=== PATIENT | male | born 1965 | race Caucasian/White ===

== ENCOUNTER 2016-07-10 15:34 | Observation (INO) | payer MEDICAID ==
[~2016-07-10] VITALS: Ht 188 cm; Wt 75.0 kg
[~2016-07-10 15:34] MED LIST: ASPI-482 PO; CHOL20004 PO; GABA-586 PO; METO50TA2 PO; OMEG500C3 PO; OMEP40CA2 PO; OXYC1TAB8 PO; [UNRECOGNIZED DRUG - CODE] PO; vit b
[2016-07-10 15:58] LABS: BASO % 1 % (0-3); EOS % 2 % (0-3); HEMATOCRIT 37.6 % (39.0-53.0); HEMOGLOBIN 13.2 g/dL (13.0-17.5); LYMPH # 1.2 x10^3/uL (1.0-4.8); LYMPH % 23 % (24-48); MEAN CORPUSCULAR HEMOGLOBIN 31 pg (25-35); MEAN CORPUSCULAR HGB CONC 35 g/dL (31-37); MEAN CORPUSCULAR VOLUME 89 fL (79-100); MONO % 15 % (0-9); NEUT % 59 % (31-73); PLATELET COUNT 245 x10^3/uL (140-400); RED BLOOD COUNT 4.23 x10^6/uL (4.30-5.70); RED CELL DISTRIBUTION WIDTH 13.8 % (11.5-14.5); WHITE BLOOD COUNT 5.2 x10^3/uL (4.0-11.0)
[2016-07-10 16:14] LABS: CALCIUM 9.7 mg/dL (8.5-10.1); GFR 79.4
[2016-07-10] MEDS ORDERED: ASPIRIN CHEWABLE 81 MG TABLET. PO ONE (16:15)
--- NOTE | 2016-07-10 16:16 | RAD ---
Indication chest pain. A single view of the chest was obtained. No prior imaging of the chest is available. The heart and pulmonary vessels appear normal. The lungs are clear. There is no pleural fluid or pneumothorax. Postoperative changes associated with the left humerus are noted. IMPRESSION: No acute finding apparent in the chest
[2016-07-10 16:19] LABS: ALBUMIN 3.9 g/dL (3.4-5.0); DIRECT BILIRUBIN 0.2 mg/dL (0.0-0.2); TOTAL BILIRUBIN 0.5 mg/dL (0.2-1.0); TOTAL PROTEIN 8.7 g/dL (6.4-8.2)
[2016-07-10] MEDS ORDERED: MORPHINE SULFATE 2 MG/ML DISP.SYRIN. IV PRN ×2 (16:30→16:45)
--- NOTE | 2016-07-10 16:32 | PHYS DOC ---
Past Medical History Past Medical History: Anxiety, Kidney Stone, Pancreatitis Additional Past Medical Histor: Testicular CA 1995,Kidney stones Past Surgical History: Other Additional Past Surgical Histo: L)shoulder fx repair,Lithotripsy Additional Information: quit one month ago, pt smoked for 20 years at 2 packs per week. Alcohol Use: Sober Drug Use: None Adult General Chief Complaint Chief Complaint: CHEST PAIN HPI HPI 51-year-old male with a history of smoking history of hypertension presenting to the emergency department with chest pain. It started this morning. He has not had nausea or vomiting. He does report a sweating of the palms of his hands at the time of this pain. Currently his pain is moderate. It is a pressure. It is nonradiating. Denies personal or family history of blood clotting disorders. He denies hemoptysis unilateral leg swelling or sudden onset of chest pain. Review of systems is negative for abdominal pain nausea vomiting. Negative for fevers chills or cough. All other review of systems is negative unless otherwise noted in history of present illness. Review of Systems Review of Systems SEE ABOVE. Current Medications Current Medications Current Medications Medications (Trade) Dose Ordered Sig/Donaldo Start Time Stop Time Status Last Admin Dose Admin Aspirin (Children'S Aspirin) 324 mg 1X ONCE 07/10/16 16:15 07/10/16 16:16 DC 07/10/16 16:36 324 MG Morphine Sulfate 2 mg PRN Q2HR PRN 07/10/16 16:45 07/11/16 16:44 Nitroglycerin (Nitrostat) 0.4 mg PRN Q5MIN PRN 07/10/16 16:45 07/11/16 16:44 Ondansetron HCl (Zofran) 4 mg PRN Q8HRS PRN 07/10/16 16:45 07/11/16 16:44 Allergies Allergies Allergies Coded Allergies Type Severity Reaction Last Updated Verified methylphenidate Allergy Intermediate dystonia 07/10/16 Yes Physical Exam Physical Exam Constitutional: Well developed, well nourished, no acute distress, non-toxic appearance. HENT: Normocephalic, atraumatic, bilateral external ears normal, oropharynx moist, no oral exudates, nose normal. [] Eyes: PERRLA, EOMI, conjunctiva normal, no discharge. [] Neck: Normal range of motion, no tenderness, supple, no stridor. Cardiovascular:Heart rate regular rhythm, no murmur [] Lungs & Thorax: Bilateral breath sounds clear to auscultation Abdomen: Bowel sounds normal, soft, no tenderness, no masses, no pulsatile masses. [] Skin: Warm, dry, no erythema, no rash. Back: No tenderness, no CVA tenderness. Extremities: No tenderness, no cyanosis, no clubbing, ROM intact, no edema. [] Neurologic: Alert and oriented X 3, normal motor function, normal sensory function, no focal deficits noted. [] Psychologic: Affect normal, judgement normal, mood normal. [] Current Patient Data Vital Signs Vital Signs Date Time Temp Pulse Resp B/P (MAP) Pulse Ox O2 Delivery O2 Flow Rate FiO2 07/10/16 16:36 98 164/96 07/10/16 15:38 98.2 18 98 Room Air 98.2 Lab Values Laboratory Tests Test 07/10/16 15:20 White Blood Count 5.2 x10^3/uL (4.0-11.0) Red Blood Count 4.23 x10^6/uL (4.30-5.70) L Hemoglobin 13.2 g/dL (13.0-17.5) Hematocrit 37.6 % (39.0-53.0) L Mean Corpuscular Volume 89 fL (79-100) Mean Corpuscular Hemoglobin 31 pg (25-35) Mean Corpuscular Hemoglobin Concent 35 g/dL (31-37) Red Cell Distribution Width 13.8 % (11.5-14.5) Platelet Count 245 x10^3/uL (140-400) Neutrophils (%) (Auto) 59 % (31-73) Lymphocytes (%) (Auto) 23 % (24-48) L Monocytes (%) (Auto) 15 % (0-9) H Eosinophils (%) (Auto) 2 % (0-3) Basophils (%) (Auto) 1 % (0-3) Neutrophils # (Auto) 3.1 x10^3uL (1.8-7.7) Lymphocytes # (Auto) 1.2 x10^3/uL (1.0-4.8) Monocytes # (Auto) 0.8 x10^3/uL (0.0-1.1) Eosinophils # (Auto) 0.1 x10^3/uL (0.0-0.7) Basophils # (Auto) 0.0 x10^3/uL (0.0-0.2) Sodium Level 136 mmol/L (136-145) Potassium Level 4.0 mmol/L (3.5-5.1) Chloride Level 98 mmol/L (98-107) Carbon Dioxide Level 27 mmol/L (21-32) Anion Gap 11 (6-14) Blood Urea Nitrogen 11 mg/dL (8-26) Creatinine 1.0 mg/dL (0.7-1.3) Estimated GFR (Cockcroft-Gault) 79.4 Glucose Level 118 mg/dL (70-99) H Calcium Level 9.7 mg/dL (8.5-10.1) Total Bilirubin 0.5 mg/dL (0.2-1.0) Direct Bilirubin 0.2 mg/dL (0.0-0.2) Aspartate Amino Transferase (AST) 38 U/L (15-37) H Alanine Aminotransferase (ALT) 29 U/L (16-63) Alkaline Phosphatase 88 U/L (46-116) Troponin I Quantitative < 0.017 ng/mL (0.000-0.055) HG-Wsp-N-Type Natriuretic Peptide 22 pg/mL (0-124) Total Protein 8.7 g/dL (6.4-8.2) H Albumin 3.9 g/dL (3.4-5.0) Lipase 160 U/L (73-393) Laboratory Tests 07/10/16 15:20 Laboratory Tests 07/10/16 15:20 EKG EKG EKG shows sinus tachycardia. Cygnet normal. Intervals normal. ST segments are congruent. [] Radiology/Procedures Radiology/Procedures Chest x-ray unremarkable [] Course & Med Decision Making Course & Med Decision Making Pertinent Labs and Imaging studies reviewed. (See chart for details) [] 51-year-old male presenting the emergency department with chest pain. Vital signs afebrile with mild tachycardia. EKG unremarkable other than tachycardia. Chest x-ray obtained. Blood work obtained. wells score 1.5. dimer sent. heart score of 4. Patient was then admitted for further evaluation workup and care. Cardiology consult placed. Dragon Disclaimer Dragon Disclaimer This electronic medical record was generated, in whole or in part, using a voice recognition dictation system. Departure Departure Impression: Primary Impression: Chest pain Disposition: 09 ADMITTED INPATIENT Admitting Physician: Daisha Nolasco Condition: STABLE Referrals: EFRAÍN CABRAL MD (PCP) Problem Qualifiers Primary Impression: Chest pain Chest pain type: unspecified Qualified Codes: R07.9 - Chest pain, unspecified PAOLA SHI MD July 10, 2016 16:32
[2016-07-10] MEDS: NITROGLYCERIN SUBLINGUAL 0.4 MG BOTTLE OF 25. SL PRN ×2 (16:36→23:45)
[2016-07-10] MEDS ORDERED: NITROGLYCERIN SUBLINGUAL 0.4 MG BOTTLE OF 25. SL PRN (16:45)
[2016-07-10] MEDS ORDERED: ONDANSETRON PF 4 MG/2 ML VIAL. IV PRN (16:45)
--- NOTE | 2016-07-10 17:42 | ACF ---
Admission Forms Criteria CARDIOLOGY GRG Clinical Indications for Admission to Inpatient Care ( Place 'X' for any and all applicable criteria): Hospital admission is needed for appropriate care of the patient because of ANY ONE of the following (1): [ ] I. Hemodynamic instability as indicated by ALL of the following (1)(2)(3) (4)(5) [ ]a) Vital signs or other findings not as expected for chronic patient condition or baseline [ ]b) Instability indicated by ANY ONE of the following: [ ]i) Hypotension [ ]ii) Symptomatic Tachycardia unresponsive to treatment ( e.g., analgesia, fluids, sedation as indicated) [ ]iii) Inadequate perfusion indicated by ANY ONE of the following: [ ] 1) Lactic acidosis (> 2 mmol/L) [ ] 2) New abnormal capillary refill (> 3 seconds) [ ] 3) Reduced urine output [ ] 4) New altered mental status [ ]iv) Orthostatic vital sign changes unresponsive to treatment (e.g., fluids) [ ]v) IV inotropic or vasopressor medication required to maintain adequate blood pressure or perfusion [ ] II. Severe heart failure as indicated by ANY ONE of the following(17)(18) [ ]a) Respiratory distress [ ]b) Hypotension [ ]c) Anasarca (refractory to outpatient therapy) [ ]d) Cardiac arrhythmias of immediate concern [ ]e) Myocardial ischemia [ ] III. Cardiac arrhythmias or findings of immediate concern indicated by ANY ONE of the following (19)(20): [ ] a) Heart rhythms that are inherently dangerous or unstable indicated by ANY ONE of the following (21)(22)(23): [ ] i) Resuscitated ventricular fibrillation or cardiac arrest [ ] ii) Ventricular escape rhythm [ ] iii) Sustained ventricular tachycardia (30 seconds or more of ventricular rhythm at greater than 100 beats per minute) [ ] iv) Nonsustained ventricular tachycardia and ANY ONE of the following: [ ] 1) Suspected cardiac ischemia as cause or consequence of ventricular tachycardia [ ] 2) In setting of acute myocarditis [ ] b) Unstable cardiac conduction defects indicated by ANY ONE of the following(23)(24)(25) [ ] i) Type II second-degree atrioventricular block [ ]ii) Third-degree atrioventricular block [ ]iii) New-onset left bundle branch block with suspected myocardial ischemia [ ]c) Any heart rhythm and ANY ONE of the following (21)(22)(26)(27) (28) [ ] i) Continuous long-term ECG monitoring needed (e.g., initiation of drug requiring monitoring for more than 24 hours) [ ] ii) Patient has automatic implanted cardioverter defibrillator that is repeatedly firing, malfunctioning, or in need of immediate adjustment of settings beyond the scope of ambulatory or observation care [ ]d) Heart rhythms of concern due to ANY ONE of the following: [ ] i) Hypotension [ ] ii) Respiratory distress [ ] iii) Association with other significant symptoms (e.g., bradycardia with syncope or ongoing dizziness, supraventricular tachycardia with chest pain (14)(15)(17) [ ] IV. Monitoring for cardiac contusion beyond the scope of observation care needed [A](30)(31)(32) [ ] V. Surgical or device complication (e.g., valve replacement complication , pacemaker dysfunction) (35)(41)(44)(45)(46) [ ] . Inpatient palliative care needed. [B](49) Also use Inpatient Palliative Care Criteria [ ] VII. Nonbacterial thrombotic (marantic) endocarditis (36)(43)(47)(48) [X] VIII. Cardiology condition, symptom, or finding for which emergency and observation care has failed or are not considered appropriate. [ ] IX. Acute valvular disease requiring inpatient as indicated by ANY ONE of the following (41) [ ]a) Acute valvular regurgitation (42) [ ]b) Noninfectious valvulitis (43) [ ]c) Obstructive valve thrombosis [ ]d) Paravalvular leak [ ]e) Other significant valvular disorder remaining after emergency or observation level of care (as appropriate) [ ]X. Pericardial disease requiring inpatient treatment as indicated by ANY ONE of the following (33)(34)(35)(36)(37) [ ]a) Suspected tamponade (38)(39)(40) [ ]b) Hemopericardium [ ]c) Other significant pericardial disorder remaining after emergency or observation level of care (as appropriate) [ ] XI. Cardiac ischemia beyond scope of emergency and observation care. [ ] XII. Hypertension requiring inpatient treatment as indicated by ANY ONE of the following (6)(7)(8) [ ]a) SBP greater than 220 mm Hg or DBP greater than 120 mmHg despite treatment [ ]b) SBP greater than 140 mm Hg or DBP greater than 100 mm Hg with evidence of acute end organ damage as indicated by ANY ONE of the following [ ] i) Encephalopathy [ ] ii) Acute renal failure as indicated by new onset of ANY ONE of the following (9)(10)(11)(12)(13) [ ]1) 3-fold rise in serum creatinine from baseline [ ]2) Serum creatinine greater than 4 mg/dL ( 354 micromoles/L) with acute rise greater than 0.5 mg/dL (44.2 micromoles/L) [ ]3) Reduction of more than 75% in estimated glomerular filtration rate from baseline [ ]4) Estimated glomerular filtration rate less than 35 mL/min/1.73m2 (0.59 mL/sec/1.73m2) in child up to 18 years of age [ ]5) Cessation of urine output indicated by ALL of the following [ ]A. Adequate volume status [ ]B. Inadequate urine output as indicated by ANY ONE of the following [ ]a. Urine output less than 0.3 mL/kg/hr for 24 hours [ ]b. Anuria (urine output less than 0.1 mL/kg/hr) for 12 hours [ ] iii) Aortic dissection [ ] iv) Myocardial Ischemia [ ] v) Left ventricular heart failure [ ]vi) Retinal Hemorrhage [ ]vii) Other significant finding [ ]c) Hypertension in child requiring inpatient treatment as indicated by ALL of the following(14)(15)(16) [ ] i) Outpatient treatment not effective, not available, or not appropriate [ ]ii) SBP or DBP greater than 95th percentile for age [ ]iii) Evidence of acute end organ damage as indicated by ANY ONE of the following [ ]1) Altered mental status [ ]2) Acute renal failure as indicated by new onset of ANY ONE of the following(9)(10)(11)(12)(13) [ ]A. 3-fold rise in serum creatinine from baseline [ ]B. Serum creatinine greater than 4 mg/dL (354 micromoles/L) with acute rise greater than 0.5 mg/dL (44.2 micromoles/L) [ ]C. Reduction of more than 75% in estimated glomerular filtration rate from baseline [ ]D. Estimated glomerular filtration rate less than 35 mL/min/1.73m2 (0.59 mL/sec/1.73m2) in child up to 18 years of age [ ]E. Cessation of urine output indicated by ALL of the following [ ]a. Adequate volume status [ ]b. Inadequate urine output as indicated by ANY ONE of the following [ ]i) Urine output less than 0.3 mL/kg/hr for 24 hours [ ]ii) Anuria ( urine output less than 0.1 mL/kg/hr) for 12 hours [ ]3) Severe headache [ ]4) Visual disturbance [ ]5) Retinal hemorrhage [ ]6) Other significant finding [ ]XIII. Complications of transplanted heart indicated by ANY ONE of the following(61): [ ]a) Acute graft rejection requiring inpatient management (eg, intravenous immunosuppression)(62)(63) [ ]b) Acute graft heart failure indicated by ANY ONE of the following(64): [ ]i) Hemodynamic instability [ ]ii) Cardiac arrhythmias of immediate concern [ ]iii) Pulmonary edema that is very severe (eg, mechanical ventilation needed, imminent or likely, need for 100% oxygen to keep oxygen saturation above 90%) [ ]iv) Pulmonary edema that is persistent as indicated by ALL of the following: [ ]1) New need for oxygen therapy to keep oxygen saturation above 90% (or increased FiO2 need from baseline) [ ]2) Has not improved sufficiently with emergency department or observation care IV diuretics or other heart failure treatments[E] [ ]v) Altered mental status that is severe or persistent [ ]vi) Increased creatinine (new on laboratory test) with reduction of more than 50% in estimated glomerular filtration rate from baseline [ ]vii) Progressively (ongoing) rising creatinine (known from past laboratory test) with reduction of more than 25% in estimated glomerular filtration rate from baseline [ ]viii) Acute renal failure [ ]ix) Acute peripheral ischemia (eg, examination shows pulseless, cool, mottled, or cyanotic extremity) [ ]x) Pulmonary artery catheter monitoring needed [ ]xi) Other sign or symptom of heart failure requiring inpatient treatment (ie, too severe or not responsive to outpatient and observation care treatment) [ ]c) Infection requiring inpatient management (eg, Hemodynamic instability, need for intravenous antimicrobial treatment)(66)(67)(68)(69)(70) [ ]d) Cardiac allograft vasculopathy requiring inpatient management ( eg evidence of cardiac ischemia)(71) [ ]e) Other complication of transplanted heart (eg, stroke, severe pulmonary hypertension, severe valvular dysfunction) requiring inpatient management(72) The original [facility] content created by [facility] has been revised. The portions of the content which have been revised are identified through the use of italic text or in bold, and [facility] has neither reviewed nor approved the modified material. All other unmodified content is copyright [facility]. Please see references footnoted in the original [facility] edition 2016 Admission Criteria Met?: Yes NINOSKA VARGAS July 10, 2016 17:42
[2016-07-10] MEDS ORDERED: LABETALOL 20 MG/4 ML DISP.SYRIN. IVP PRN (17:45)
[2016-07-10] MEDS ORDERED: DISULFIRAM 250 MG PO SCH (17:45)
--- NOTE | 2016-07-10 17:47 | EKG ---
[facility] [address] [place] [address] Test Date: 2016-07-10 Test Time: 15:38:35 Pat Name: SANDY CUNHA Department: Room: Gender: M [employer]: : [id number] Requested By: PAOLA SHI Order Number: [id number] Reading MD: Manasa Meredith Measurements Intervals Gibbs Rate: 104 P: -64 OR: 118 QRS: 55 QRSD: 84 T: 58 QT: 316 QTc: 416 Interpretive Statements SINUS TACHYCARDIA OTHERWISE NORMAL ECG RI6.01 No previous ECG available for comparison Electronically Signed On 07-12-2016 17:52:43 CDT by Manasa Meredith
[2016-07-10 19:25] VITALS: BP 170/107
[2016-07-10] MEDS ORDERED: AMIT100T PO (20:59)
[2016-07-10] MEDS ORDERED: TAMS0.4C2 PO (20:59)
[2016-07-10] MEDS ORDERED: TRAM50TA PO (20:59)
[2016-07-10] MEDS ORDERED: ZOLP5TAB PO (20:59)
[2016-07-10] MEDS ORDERED: HYDR12.58 PO (20:59)
[2016-07-10] MEDS ORDERED: METOPROLOL TART IMMED RELEASE 50 MG TABLET. PO SCH (21:00)
[2016-07-10] MEDS ORDERED: GABAPENTIN 300 MG CAPSULE. PO SCH (21:00)
[2016-07-10] MEDS ORDERED: chlordiazePOXIDE HCL 25 MG CAPSULE PO PRN (21:00)
[2016-07-10] MEDS: AMITRIPTYLINE HCL 50 MG TABLET PO SCH (21:47)
[2016-07-10] MEDS: GABAPENTIN 300 MG CAPSULE. PO SCH (21:47)
[2016-07-10] MEDS: traMADol 50 MG TABLET PO SCH (21:48)
[2016-07-10] MEDS: MULTIVIT INFUSN,ADULT 4,VIT K 10 ML, THIAMINE 100 MG, FOLIC ACID 1 MG in IV NORMAL SALI... IV SCH (21:48)
[2016-07-10] MEDS: fentaNYL PF VIAL 100 MCG/2 ML VIAL IV PRN (21:49)
[2016-07-10] MEDS: ONDANSETRON PF 4 MG/2 ML VIAL. IV PRN (22:39)
[2016-07-10 23:05] VITALS: BP 155/104
[2016-07-10] MEDS: oxyCODONE/APAP 7.5/325 1 TAB TABLET PO PRN (23:54)
[2016-07-10] MEDS: ZOLPIDEM 5 MG TABLET. PO PRN (23:54)
[2016-07-11] VITALS (7 sets, daily range): BP systolic 128–164; BP diastolic 87–111
[2016-07-11] MEDS: oxyCODONE/APAP 7.5/325 1 TAB TABLET PO PRN ×4 (04:33→17:22)
[2016-07-11 05:50] LABS: BASO # 0.1 x10^3/uL (0.0-0.2); BASO % 1 % (0-3); EOS % 2 % (0-3); HEMATOCRIT 38.2 % (39.0-53.0); HEMOGLOBIN 13.2 g/dL (13.0-17.5); LYMPH # 1.7 x10^3/uL (1.0-4.8); LYMPH % 30 % (24-48); MEAN CORPUSCULAR HEMOGLOBIN 31 pg (25-35); MEAN CORPUSCULAR HGB CONC 35 g/dL (31-37); MEAN CORPUSCULAR VOLUME 89 fL (79-100); MONO % 22 % (0-9); NEUT % 45 % (31-73); PLATELET COUNT 237 x10^3/uL (140-400); RED BLOOD COUNT 4.27 x10^6/uL (4.30-5.70); RED CELL DISTRIBUTION WIDTH 13.9 % (11.5-14.5); WHITE BLOOD COUNT 5.6 x10^3/uL (4.0-11.0)
[2016-07-11 06:52] LABS: CALCIUM 9.7 mg/dL (8.5-10.1); GFR 79.4; POTASSIUM 3.1 mmol/L (3.5-5.1)
[2016-07-11] MEDS ORDERED: POTASSIUM CHLORIDE 20 MEQ TABLET.ER. PO ONE ×3 (08:30→17:00)
[2016-07-11] MEDS: hydroCHLOROthiazide 12.5 MG CAPSULE PO SCH (08:55)
[2016-07-11] MEDS: GABAPENTIN 300 MG CAPSULE. PO SCH ×3 (08:55→21:37)
[2016-07-11] MEDS: ASPIRIN ENTERIC COATED 81 MG TABLET.DR. PO SCH (08:55)
[2016-07-11] MEDS: MULTIVIT INFUSN,ADULT 4,VIT K 10 ML, THIAMINE 100 MG, FOLIC ACID 1 MG in IV NORMAL SALI... IV SCH (08:57)
[2016-07-11 09:40] LABS: % EOS 3 % (0-5); PLT ESTIMATE ADEQUATE (ADEQUATE)
[2016-07-11] MEDS: OMEGA-3 FATTY ACIDS/FISH OIL 1,000 MG CAPSULE. PO SCH (11:16)
[2016-07-11] MEDS: PANTOPRAZOLE 40 MG TABLET.DR. PO SCH (11:16)
[2016-07-11] MEDS: TAMSULOSIN 0.4 MG CAP.ER.24H. PO SCH (11:17)
[2016-07-11] MEDS: traMADol 50 MG TABLET PO SCH ×3 (11:17→21:38)
[2016-07-11] MEDS: CHOLECALCIFEROL (VITAMIN D3) 1,000 UNIT TABLET PO SCH (11:17)
--- NOTE | 2016-07-11 11:22 | PDOC1 ---
History and Physical Date of Admission Date of Admission DATE: 07/11/16 TIME: 11:18 Identification/Chief Complaint Chief Complaint chest pain Problems: Source Source: Caregiver, Chart review, Patient History of Present Illness History of Present Illness 51 y.o male no personal hx of CAD but is HTN and heavy etoh drinker ( 12 beers a day), and is trying to quit smoking again (nth time attempt), admitted for left sided CP happened yesterday, described as sharp, no other sxs , lasted few mins, no identifiable precipitating or alleviating factor. CAd in second degree, chest pain free now, EKG and trops neg x 3, has been NPO since AM and is hungry, HAs never had CAD work up in past, Past Medical History Cardiovascular: HTN Past Surgical History Past Surgical History: Other, No pertinent history Family History Family History: No Significant, Coronary Artery Disease, Hypertension Social History Smoke: 1 pack per day ALCOHOL: heavy Drugs: None Current Problem List Problem List Problems Medical Problems: (1) Chest pain Status: Acute Problems: Current Medications Current Medications Current Medications Aspirin (Children'S Aspirin) 324 mg 1X ONCE PO Last administered on 07/10/16 16:36; Start 07/10/16 at 16:15; Stop 07/10/16 at 16:16; Status DC Nitroglycerin (Nitrostat) 0.4 mg PRN Q5MIN PRN SL CHEST PAIN Last administered on 07/10/16 23:45; Start 07/10/16 at 16:30 Morphine Sulfate 2 mg PRN Q1HR PRN IV SEVERE PAIN Last administered on 16:37; Start 07/10/16 at 16:30 Ondansetron HCl (Zofran) 4 mg PRN Q8HRS PRN IV NAUSEA/VOMITING; Start 07/10/16 at 16:45; Stop 07/10/16 at 17:46; Status DC Morphine Sulfate 2 mg PRN Q2HR PRN IV PAIN; Start 07/10/16 at 16:45; Stop at 17:47; Status DC Nitroglycerin (Nitrostat) 0.4 mg PRN Q5MIN PRN SL CHEST PAIN; Start 07/10/16 at 16:45; Stop 07/11/16 at 16:44 Ondansetron HCl (Zofran) 4 mg PRN Q6HRS PRN IV NAUSEA/VOMITING Last administered on 07/10/16 22:39; Start 07/10/16 at 17:43; Stop 07/11/16 at 17:42 Labetalol HCl (Normodyne) 10 mg PRN Q2HR PRN IVP 160/100; Start 07/10/16 at 17: 45 Aspirin (Ecotrin) 81 mg DAILYWBKFT PO Last administered on 07/11/16 08:55; Start 07/11/16 at 08:00 Metoprolol Tartrate (Lopressor) 50 mg BID PO ; Start 07/10/16 at 21:00; Stop 07/10 at 21:42; Status DC Oxycodone/ Acetaminophen (Percocet 7.5/ 325) 1 tab PRN Q4HRS PRN PO MILD PAIN Last administered on 07/11/16 08:54; Start 07/10/16 at 17:45 Non-Formulary Medication 250 mg TWICE WEEKLY PO ; Start 07/10/16 at 17:45; Status UNV Gabapentin (Neurontin) 300 mg BID PO ; Start 07/10/16 at 21:00; Stop 07/10/16 at 21:41; Status DC Pantoprazole Sodium (Protonix) 40 mg DAILYAC PO ; Start 07/11/16 at 07:30 Vitamin D (Vitamin D3) 1,000 unit DAILY PO ; Start 07/11/16 at 09:00 Fish Oil (Fish Oil) 1,000 mg DAILY PO ; Start 07/11/16 at 09:00 Fentanyl Citrate (Fentanyl 2ml Vial) 50 mcg PRN Q2HR PRN IV pain Last administered on 07/10/16 21:49; Start 07/10/16 at 17:45 Multivitamins 10 ml/Thiamine HCl 100 mg/Folic Acid 1 mg/Sodium Chloride 1,011.2 ml @ 100 mls/ hr DAILY IV Last administered on 07/11/16 08:57; Start 07/10/16 at 21:30; Stop 07/16/16 at 21:29 Chlordiazepoxide (Librium) 25 mg Q6HRS PRN PO For CIWA 8-14; Start 07/10/16 at 21:00 Tamsulosin HCl (Flomax) 0.4 mg DAILY PO ; Start 07/11/16 at 09:00 Tramadol HCl (Ultram) 50 mg TID PO Last administered on 07/10/16 21:48; Start 07/10/16 at 21:30 Zolpidem Tartrate (Ambien) 5 mg QHS PRN PO INSOMNIA Last administered on 23:54; Start 07/10/16 at 21:15 Amitriptyline HCl (Amitriptyline HCl) 100 mg QHS PO Last administered on 21:47; Start 07/10/16 at 21:30 Hydrochlorothiazide (Microzide) 12.5 mg DAILY PO Last administered on 07/11/16 08:55; Start 07/11/16 at 09:00 Gabapentin (Neurontin) 900 mg TID PO Last administered on 07/11/16 08:55; Start 07/10/16 at 21:45 Potassium Chloride (Klor-Con) 40 meq 1X ONCE PO Last administered on 07/11/16 08:53; Start 07/11/16 at 08:30; Stop 07/11/16 at 08:31; Status DC Active Scripts Active Reported Ambien (Zolpidem Tartrate) 5 Mg Tablet 1 Tab PO QHS PRN Hydrochlorothiazide Tablet (Hydrochlorothiazide) 12.5 Mg Tablet 1 Tab PO DAILY Tamsulosin Hcl 0.4 Mg Cap.er.24h 1 Cap PO DAILY Tramadol Hcl 50 Mg Tablet 1 Tab PO TID Amitriptyline Hcl 100 Mg Tablet 1 Tab PO QHS Vitamin D-3 (Cholecalciferol (Vitamin D3)) 2,000 Unit Capsule 2,000 Unit PO Fish Oil ([place]-3 Fatty Acids) 500 Mg Capsule 500 Mg PO Aspir 81 (Aspirin) 81 Mg Tablet.dr 1 Tab PO DAILY [vit b] Prilosec (Omeprazole) 40 Mg Capsule.dr 1 Cap PO DAILY Gabapentin 300 Mg Capsule 900 Mg PO TID Allergies Allergies: Coded Allergies: methylphenidate (Verified Allergy, Intermediate, dystonia, 07/10/16) morphine (Verified Adverse Reaction, Intermediate, 07/10/16) PATIENT STATES, "I DONT LIKE THE FEELING.I KNOW IM ALLERGIC, [facility] HAS IT ON RECORD AND THEY HAD TO GIVE ME ATIVAN TO RELAX ME." ROS General: No: Chills, Night Sweats, Fatigue, Malaise, Appetite, Other PSYCHOLOGICAL ROS: No: Anxiety, Behavioral Disorder, Concentration difficultie , Decreased libido, Depression, Disorientation, Hallucinations, Hostility, Irritablity, Memory difficulties, Mood Swings, Obsessive thoughts, Physical abuse, Sexual abuse, Sleep disturbances, Suicidal ideation, Other Eyes: No Blurry vision, No Decreased vision, No Double vision, No Dry eyes, No Excessive tearing, No Eye Pain, No Itchy Eyes, No Loss of vision, No Photophobia , No Scotomata, No Uses contacts, No Uses glasses, No Other HEENT: No: Heacaches, Visual Changes, Hearing change, Nasal congestion, Nasal discharge, Oral lesions, Sinus pain, Sore Throat, Epistaxis, Sneezing, Snoring, Tinnitus, Vertigo, Vocal changes, Other ALLERGY AND IMMUNOLOGY: No: Hives, Insect Bite Sensitivity, Itchy/Watery Eyes, Nasal Congestion, Post Nasal Drip, Seasonal Allergies, Other Hematological and Lymphatic: No: Bleeding Problems, Blood Clots, Blood Transfusions, Brusing, Night Sweats, Pallor, Swollen Lymph Nodes, Other ENDOCRINE: No: Breast Changes, Galactorrhea, Hair Pattern Changes, Hot Flashes , Malaise/lethargy, Mood Swings, Palpitations, Polydipsia/polyuria, Skin Changes , Temperature Intolerance, Unexpected Weight Changes, Other Breast: No New/Changing Breast Lumps, No Nipple changes, No Nipple discharge, No Other Respiratory: No: Cough, Hemoptysis, Orthopnea, Pleuritic Pain, Shortness of breath, SOB with excertion, Sputum Changes, Stridor, Tachypnea, Wheezing, Other Cardiovascular: No Chest Pain, No Palpitations, No Orthopnea, No Paroxysmal Noc. Dyspnea, No Edema, No Lt Headedness, No Other Gastrointestinal: No Nausea, No Vomiting, No Abdominal Pain, No Diarrhea, No Constipation, No Melena, No Hematochezia, No Other Genitourinary: No Dysuria, No Frequency, No Incontinence, No Hematuria, No Retention, No Discharge, No Urgency, No Pain, No Flank Pain, No Other, No , No , No , No , No , No , No Musculoskeletal: No Gait Disturbance, No Joint Pain, No Joint Stiffness, No Joint Swelling, No Muscle Pain, No Muscular Weakness, No Pain In:, No Swelling In:, No Other Neurological: No Behavorial Changes, No Bowel/Bladder ControlChng, No Confusion , No Dizziness, No Gait Disturbance, No Headaches, No Impaired Coord/balance, No Memory Loss, No Numbness/Tingling, No Seizures, No Speech Problems, No Tremors, No Visual Changes, No Weakness, No Other Skin: No Dry Skin, No Eczema, No Hair Changes, No Lumps, No Mole Changes, No Mottling, No Nail Changes, No Pruritus, No Rash, No Skin Lesion Changes, No Other, No Acne Physical Exam General: Alert, Oriented X3, Cooperative, No acute distress HEENT: Atraumatic, PERRLA, EOMI Lungs: Clear to auscultation, Normal air movement Heart: S1S2, RRR, no thrills, no rubs, no gallops, no murmurs Cardiovascular: S1 Breasts: Normal, Rt breast nml w/o mass, Lt breast nml w/o mass, Nipples normal Abdomen: Normal bowel sounds, Soft, No tenderness, No hepatosplenomegaly, No masses Male Genitals Exam: normal genitalia, normal prostate Rectal Exam: not examined PELVIC: Nml ext genitalia Extremities: No clubbing, No cyanosis, No edema, Normal pulses, No tenderness/ swelling Skin: No rashes, No breakdown, No significant lesion Neuro: Normal gait, Normal speech, Strength at 5/5 X4 ext, Normal tone, Sensation intact, Cranial nerves 3-12 NL, Reflexes 2+ Psych/Mental Status: Mental status NL, Mood NL Vitals Vitals Vital Signs Date Time Temp Pulse Resp B/P (MAP) Pulse Ox O2 Delivery O2 Flow Rate FiO2 07/11/16 11:01 98.1 127 18 163/110 (127) 97 Room Air 98.1 Labs Labs Laboratory Tests Test 07/10/16 15:20 07/10/16 16:53 07/10/16 22:30 07/11/16 04:55 White Blood Count 5.2 x10^3/uL (4.0-11.0) Red Blood Count 4.23 x10^6/uL (4.30-5.70) Hemoglobin 13.2 g/dL (13.0-17.5) Hematocrit 37.6 % (39.0-53.0) Mean Corpuscular Volume 89 fL (79-100) Mean Corpuscular Hemoglobin 31 pg (25-35) Mean Corpuscular Hemoglobin Concent 35 g/dL (31-37) Red Cell Distribution Width 13.8 % (11.5-14.5) Platelet Count 245 x10^3/uL (140-400) Neutrophils (%) (Auto) 59 % (31-73) Lymphocytes (%) (Auto) 23 % (24-48) Monocytes (%) (Auto) 15 % (0-9) Eosinophils (%) (Auto) 2 % (0-3) Basophils (%) (Auto) 1 % (0-3) Neutrophils # (Auto) 3.1 x10^3uL (1.8-7.7) Lymphocytes # (Auto) 1.2 x10^3/uL (1.0-4.8) Monocytes # (Auto) 0.8 x10^3/uL (0.0-1.1) Eosinophils # (Auto) 0.1 x10^3/uL (0.0-0.7) Basophils # (Auto) 0.0 x10^3/uL (0.0-0.2) Sodium Level 136 mmol/L (136-145) 139 mmol/L (136-145) Potassium Level 4.0 mmol/L (3.5-5.1) 3.1 mmol/L (3.5-5.1) Chloride Level 98 mmol/L (98-107) 98 mmol/L (98-107) Carbon Dioxide Level 27 mmol/L (21-32) 28 mmol/L (21-32) Anion Gap 11 (6-14) 13 (6-14) Blood Urea Nitrogen 11 mg/dL (8-26) 13 mg/dL (8-26) Creatinine 1.0 mg/dL (0.7-1.3) 1.0 mg/dL (0.7-1.3) Estimated GFR (Cockcroft-Gault) 79.4 79.4 Glucose Level 118 mg/dL (70-99) 75 mg/dL (70-99) Calcium Level 9.7 mg/dL (8.5-10.1) 9.7 mg/dL (8.5-10.1) Total Bilirubin 0.5 mg/dL (0.2-1.0) Direct Bilirubin 0.2 mg/dL (0.0-0.2) Aspartate Amino Transf (AST/SGOT) 38 U/L (15-37) Alanine Aminotransferase (ALT/SGPT) 29 U/L (16-63) Alkaline Phosphatase 88 U/L (46-116) Troponin I Quantitative < 0.017 ng/mL (0.000-0.055) < 0.017 ng/mL (0.000-0.055) [id number]-Type Natriuretic Peptide 22 pg/mL (0-124) Total Protein 8.7 g/dL (6.4-8.2) Albumin 3.9 g/dL (3.4-5.0) Lipase 160 U/L (73-393) D-Dimer (Funmilayo) 0.85 ug/mlFEU (0.00-0.50) Test 07/11/16 05:00 White Blood Count 5.6 x10^3/uL (4.0-11.0) Red Blood Count 4.27 x10^6/uL (4.30-5.70) Hemoglobin 13.2 g/dL (13.0-17.5) Hematocrit 38.2 % (39.0-53.0) Mean Corpuscular Volume 89 fL (79-100) Mean Corpuscular Hemoglobin 31 pg (25-35) Mean Corpuscular Hemoglobin Concent 35 g/dL (31-37) Red Cell Distribution Width 13.9 % (11.5-14.5) Platelet Count 237 x10^3/uL (140-400) Neutrophils (%) (Auto) 45 % (31-73) Lymphocytes (%) (Auto) 30 % (24-48) Monocytes (%) (Auto) 22 % (0-9) Eosinophils (%) (Auto) 2 % (0-3) Basophils (%) (Auto) 1 % (0-3) Neutrophils # (Auto) 2.5 x10^3uL (1.8-7.7) Lymphocytes # (Auto) 1.7 x10^3/uL (1.0-4.8) Monocytes # (Auto) 1.3 x10^3/uL (0.0-1.1) Eosinophils # (Auto) 0.1 x10^3/uL (0.0-0.7) Basophils # (Auto) 0.1 x10^3/uL (0.0-0.2) Segmented Neutrophils % 34 % (35-66) Lymphocytes % 48 % (24-48) Monocytes % 15 % (0-10) Eosinophils % 3 % (0-5) Platelet Estimate Adequate (ADEQUATE) Troponin I Quantitative < 0.017 ng/mL (0.000-0.055) Laboratory Tests Test 07/10/16 15:20 07/10/16 16:53 07/10/16 22:30 07/11/16 04:55 White Blood Count 5.2 x10^3/uL (4.0-11.0) Red Blood Count 4.23 x10^6/uL (4.30-5.70) Hemoglobin 13.2 g/dL (13.0-17.5) Hematocrit 37.6 % (39.0-53.0) Mean Corpuscular Volume 89 fL (79-100) Mean Corpuscular Hemoglobin 31 pg (25-35) Mean Corpuscular Hemoglobin Concent 35 g/dL (31-37) Red Cell Distribution Width 13.8 % (11.5-14.5) Platelet Count 245 x10^3/uL (140-400) Neutrophils (%) (Auto) 59 % (31-73) Lymphocytes (%) (Auto) 23 % (24-48) Monocytes (%) (Auto) 15 % (0-9) Eosinophils (%) (Auto) 2 % (0-3) Basophils (%) (Auto) 1 % (0-3) Neutrophils # (Auto) 3.1 x10^3uL (1.8-7.7) Lymphocytes # (Auto) 1.2 x10^3/uL (1.0-4.8) Monocytes # (Auto) 0.8 x10^3/uL (0.0-1.1) Eosinophils # (Auto) 0.1 x10^3/uL (0.0-0.7) Basophils # (Auto) 0.0 x10^3/uL (0.0-0.2) Sodium Level 136 mmol/L (136-145) 139 mmol/L (136-145) Potassium Level 4.0 mmol/L (3.5-5.1) 3.1 mmol/L (3.5-5.1) Chloride Level 98 mmol/L (98-107) 98 mmol/L (98-107) Carbon Dioxide Level 27 mmol/L (21-32) 28 mmol/L (21-32) Anion Gap 11 (6-14) 13 (6-14) Blood Urea Nitrogen 11 mg/dL (8-26) 13 mg/dL (8-26) Creatinine 1.0 mg/dL (0.7-1.3) 1.0 mg/dL (0.7-1.3) Estimated GFR (Cockcroft-Gault) 79.4 79.4 Glucose Level 118 mg/dL (70-99) 75 mg/dL (70-99) Calcium Level 9.7 mg/dL (8.5-10.1) 9.7 mg/dL (8.5-10.1) Total Bilirubin 0.5 mg/dL (0.2-1.0) Direct Bilirubin 0.2 mg/dL (0.0-0.2) Aspartate Amino Transf (AST/SGOT) 38 U/L (15-37) Alanine Aminotransferase (ALT/SGPT) 29 U/L (16-63) Alkaline Phosphatase 88 U/L (46-116) Troponin I Quantitative < 0.017 ng/mL (0.000-0.055) < 0.017 ng/mL (0.000-0.055) [id number]-Type Natriuretic Peptide 22 pg/mL (0-124) Total Protein 8.7 g/dL (6.4-8.2) Albumin 3.9 g/dL (3.4-5.0) Lipase 160 U/L (73-393) D-Dimer (Funmilayo) 0.85 ug/mlFEU (0.00-0.50) Test 07/11/16 05:00 White Blood Count 5.6 x10^3/uL (4.0-11.0) Red Blood Count 4.27 x10^6/uL (4.30-5.70) Hemoglobin 13.2 g/dL (13.0-17.5) Hematocrit 38.2 % (39.0-53.0) Mean Corpuscular Volume 89 fL (79-100) Mean Corpuscular Hemoglobin 31 pg (25-35) Mean Corpuscular Hemoglobin Concent 35 g/dL (31-37) Red Cell Distribution Width 13.9 % (11.5-14.5) Platelet Count 237 x10^3/uL (140-400) Neutrophils (%) (Auto) 45 % (31-73) Lymphocytes (%) (Auto) 30 % (24-48) Monocytes (%) (Auto) 22 % (0-9) Eosinophils (%) (Auto) 2 % (0-3) Basophils (%) (Auto) 1 % (0-3) Neutrophils # (Auto) 2.5 x10^3uL (1.8-7.7) Lymphocytes # (Auto) 1.7 x10^3/uL (1.0-4.8) Monocytes # (Auto) 1.3 x10^3/uL (0.0-1.1) Eosinophils # (Auto) 0.1 x10^3/uL (0.0-0.7) Basophils # (Auto) 0.1 x10^3/uL (0.0-0.2) Segmented Neutrophils % 34 % (35-66) Lymphocytes % 48 % (24-48) Monocytes % 15 % (0-10) Eosinophils % 3 % (0-5) Platelet Estimate Adequate (ADEQUATE) Troponin I Quantitative < 0.017 ng/mL (0.000-0.055) VTE Prophylaxis Ordered VTE Prophylaxis Devices: Yes VTE Pharmacological Prophylaxi: Yes Assessment/Plan Assessment/Plan 1. CP r/o ACS 2. Heavy etoh drinker 3. Tachycardia in a drinker 4. SMoker PLAn: Await cards - dw cards and pt and mother RAMYA JACOBS MD July 11, 2016 11:22
--- NOTE | 2016-07-11 11:55 | PDOC2 ---
CONSULT Date of Consult Date of Consult DATE: 07/11/16 TIME: 11:44 Reason for Consult Reason for Consult: chest pain Referring Physician Referring Physician: Dr. Nolasco Identification/Chief Complaint Chief Complaint chest pain Source Source: Patient History of Present Illness Reason for Visit: The patient is a 51-year-old male reports episodes of chest pressure involving his shoulders starting yesterday. The patient was seen in the ER and initial EKG showed no acute ischemic changes. Initial troponins were normal. Potassium level is low at 3.1. D-dimer 0.85. Overnight the patient has been feeling much better. Reports his pain has largely resolved. He states it is not related to exertion or stress. It is a more constant pressure-like discomfort. He denies any history of coronary artery disease but does have a history of hypertension and apparent EtOH abuse. He is status post a left shoulder fracture repair. He is also status post a lithotripsy several years ago. Past Medical History Cardiovascular: HTN Heme/Onc: Other (testicular cancer) Hepatobiliary: Other (pancreatitis) Renal/: Other (kidney stones,) Past Surgical History Past Surgical History: Other (left shoulder fracture repair), No pertinent history Family History Family History: No Significant, Coronary Artery Disease, Hypertension Social History <1 pack per day ALCOHOL: heavy Drugs: None Current Problem List Problem List Problems Medical Problems: (1) Chest pain Status: Acute Current Medications Current Medications Current Medications Aspirin (Children'S Aspirin) 324 mg 1X ONCE PO Last administered on 07/10/16 16:36; Start 07/10/16 at 16:15; Stop 07/10/16 at 16:16; Status DC Nitroglycerin (Nitrostat) 0.4 mg PRN Q5MIN PRN SL CHEST PAIN Last administered on 07/10/16 23:45; Start 07/10/16 at 16:30 Morphine Sulfate 2 mg PRN Q1HR PRN IV SEVERE PAIN Last administered on 16:37; Start 07/10/16 at 16:30 Ondansetron HCl (Zofran) 4 mg PRN Q8HRS PRN IV NAUSEA/VOMITING; Start 07/10/16 at 16:45; Stop 07/10/16 at 17:46; Status DC Morphine Sulfate 2 mg PRN Q2HR PRN IV PAIN; Start 07/10/16 at 16:45; Stop at 17:47; Status DC Nitroglycerin (Nitrostat) 0.4 mg PRN Q5MIN PRN SL CHEST PAIN; Start 07/10/16 at 16:45; Stop 07/11/16 at 16:44 Ondansetron HCl (Zofran) 4 mg PRN Q6HRS PRN IV NAUSEA/VOMITING Last administered on 07/10/16 22:39; Start 07/10/16 at 17:43; Stop 07/11/16 at 17:42 Labetalol HCl (Normodyne) 10 mg PRN Q2HR PRN IVP 160/100; Start 07/10/16 at 17: 45 Aspirin (Ecotrin) 81 mg DAILYWBKFT PO Last administered on 07/11/16 08:55; Start 07/11/16 at 08:00 Metoprolol Tartrate (Lopressor) 50 mg BID PO ; Start 07/10/16 at 21:00; Stop 07/10 at 21:42; Status DC Oxycodone/ Acetaminophen (Percocet 7.5/ 325) 1 tab PRN Q4HRS PRN PO MILD PAIN Last administered on 07/11/16 08:54; Start 07/10/16 at 17:45 Non-Formulary Medication 250 mg TWICE WEEKLY PO ; Start 07/10/16 at 17:45; Status UNV Gabapentin (Neurontin) 300 mg BID PO ; Start 07/10/16 at 21:00; Stop 07/10/16 at 21:41; Status DC Pantoprazole Sodium (Protonix) 40 mg DAILYAC PO Last administered on 07/11/16 11:16; Start 07/11/16 at 07:30 Vitamin D (Vitamin D3) 1,000 unit DAILY PO Last administered on 07/11/16 11:17 ; Start 07/11/16 at 09:00 Fish Oil (Fish Oil) 1,000 mg DAILY PO Last administered on 07/11/16 11:16; Start 07/11/16 at 09:00 Fentanyl Citrate (Fentanyl 2ml Vial) 50 mcg PRN Q2HR PRN IV pain Last administered on 07/10/16 21:49; Start 07/10/16 at 17:45 Multivitamins 10 ml/Thiamine HCl 100 mg/Folic Acid 1 mg/Sodium Chloride 1,011.2 ml @ 100 mls/ hr DAILY IV Last administered on 07/11/16 08:57; Start 07/10/16 at 21:30; Stop 07/16/16 at 21:29 Chlordiazepoxide (Librium) 25 mg Q6HRS PRN PO For CIWA 8-14; Start 07/10/16 at 21:00 Tamsulosin HCl (Flomax) 0.4 mg DAILY PO Last administered on 07/11/16 11:17; Start 07/11/16 at 09:00 Tramadol HCl (Ultram) 50 mg TID PO Last administered on 07/11/16 11:17; Start 07/10/16 at 21:30 Zolpidem Tartrate (Ambien) 5 mg QHS PRN PO INSOMNIA Last administered on 23:54; Start 07/10/16 at 21:15 Amitriptyline HCl (Amitriptyline HCl) 100 mg QHS PO Last administered on 21:47; Start 07/10/16 at 21:30 Hydrochlorothiazide (Microzide) 12.5 mg DAILY PO Last administered on 07/11/16 08:55; Start 07/11/16 at 09:00 Gabapentin (Neurontin) 900 mg TID PO Last administered on 07/11/16 08:55; Start 07/10/16 at 21:45 Potassium Chloride (Klor-Con) 40 meq 1X ONCE PO Last administered on 07/11/16 08:53; Start 07/11/16 at 08:30; Stop 07/11/16 at 08:31; Status DC Active Scripts Active Reported Ambien (Zolpidem Tartrate) 5 Mg Tablet 1 Tab PO QHS PRN Hydrochlorothiazide Tablet (Hydrochlorothiazide) 12.5 Mg Tablet 1 Tab PO DAILY Tamsulosin Hcl 0.4 Mg Cap.er.24h 1 Cap PO DAILY Tramadol Hcl 50 Mg Tablet 1 Tab PO TID Amitriptyline Hcl 100 Mg Tablet 1 Tab PO QHS Vitamin D-3 (Cholecalciferol (Vitamin D3)) 2,000 Unit Capsule 2,000 Unit PO Fish Oil (Haiku-3 Fatty Acids) 500 Mg Capsule 500 Mg PO Aspir 81 (Aspirin) 81 Mg Tablet. 1 Tab PO DAILY [vit b] Prilosec (Omeprazole) 40 Mg Capsule. 1 Cap PO DAILY Gabapentin 300 Mg Capsule 900 Mg PO TID Allergies Allergies: Coded Allergies: methylphenidate (Verified Allergy, Intermediate, dystonia, 07/10/16) morphine (Verified Adverse Reaction, Intermediate, 07/10/16) PATIENT STATES, "I DONT LIKE THE FEELING.I KNOW IM ALLERGIC, [facility] HAS IT ON RECORD AND THEY HAD TO GIVE ME ATIVAN TO RELAX ME." ROS PSYCHOLOGICAL ROS: YES: Anxiety Respiratory: YES: Shortness of breath Cardiovascular: yes Chest Pain, yes Palpitations Physical Exam General: mild distress HEENT: Atraumatic Lungs: Clear to auscultation Heart: Other (03/13 systolic murmur) Abdomen: Normal bowel sounds Extremities: No clubbing Skin: No rashes Vitals VITALS Vital Signs Date Time Temp Pulse Resp B/P (MAP) Pulse Ox O2 Delivery O2 Flow Rate FiO2 07/11/16 11:18 97 Room Air 07/11/16 11:01 98.1 127 18 163/110 (127) 98.1 Labs Labs Laboratory Tests Test 07/10/16 15:20 07/10/16 16:53 07/10/16 22:30 07/11/16 04:55 White Blood Count 5.2 x10^3/uL (4.0-11.0) Red Blood Count 4.23 x10^6/uL (4.30-5.70) Hemoglobin 13.2 g/dL (13.0-17.5) Hematocrit 37.6 % (39.0-53.0) Mean Corpuscular Volume 89 fL (79-100) Mean Corpuscular Hemoglobin 31 pg (25-35) Mean Corpuscular Hemoglobin Concent 35 g/dL (31-37) Red Cell Distribution Width 13.8 % (11.5-14.5) Platelet Count 245 x10^3/uL (140-400) Neutrophils (%) (Auto) 59 % (31-73) Lymphocytes (%) (Auto) 23 % (24-48) Monocytes (%) (Auto) 15 % (0-9) Eosinophils (%) (Auto) 2 % (0-3) Basophils (%) (Auto) 1 % (0-3) Neutrophils # (Auto) 3.1 x10^3uL (1.8-7.7) Lymphocytes # (Auto) 1.2 x10^3/uL (1.0-4.8) Monocytes # (Auto) 0.8 x10^3/uL (0.0-1.1) Eosinophils # (Auto) 0.1 x10^3/uL (0.0-0.7) Basophils # (Auto) 0.0 x10^3/uL (0.0-0.2) Sodium Level 136 mmol/L (136-145) 139 mmol/L (136-145) Potassium Level 4.0 mmol/L (3.5-5.1) 3.1 mmol/L (3.5-5.1) Chloride Level 98 mmol/L (98-107) 98 mmol/L (98-107) Carbon Dioxide Level 27 mmol/L (21-32) 28 mmol/L (21-32) Anion Gap 11 (6-14) 13 (6-14) Blood Urea Nitrogen 11 mg/dL (8-26) 13 mg/dL (8-26) Creatinine 1.0 mg/dL (0.7-1.3) 1.0 mg/dL (0.7-1.3) Estimated GFR (Cockcroft-Gault) 79.4 79.4 Glucose Level 118 mg/dL (70-99) 75 mg/dL (70-99) Calcium Level 9.7 mg/dL (8.5-10.1) 9.7 mg/dL (8.5-10.1) Total Bilirubin 0.5 mg/dL (0.2-1.0) Direct Bilirubin 0.2 mg/dL (0.0-0.2) Aspartate Amino Transf (AST/SGOT) 38 U/L (15-37) Alanine Aminotransferase (ALT/SGPT) 29 U/L (16-63) Alkaline Phosphatase 88 U/L (46-116) Troponin I Quantitative < 0.017 ng/mL (0.000-0.055) < 0.017 ng/mL (0.000-0.055) CH-Prl-N-Type Natriuretic Peptide 22 pg/mL (0-124) Total Protein 8.7 g/dL (6.4-8.2) Albumin 3.9 g/dL (3.4-5.0) Lipase 160 U/L (73-393) D-Dimer (Funmilayo) 0.85 ug/mlFEU (0.00-0.50) Test 07/11/16 05:00 White Blood Count 5.6 x10^3/uL (4.0-11.0) Red Blood Count 4.27 x10^6/uL (4.30-5.70) Hemoglobin 13.2 g/dL (13.0-17.5) Hematocrit 38.2 % (39.0-53.0) Mean Corpuscular Volume 89 fL (79-100) Mean Corpuscular Hemoglobin 31 pg (25-35) Mean Corpuscular Hemoglobin Concent 35 g/dL (31-37) Red Cell Distribution Width 13.9 % (11.5-14.5) Platelet Count 237 x10^3/uL (140-400) Neutrophils (%) (Auto) 45 % (31-73) Lymphocytes (%) (Auto) 30 % (24-48) Monocytes (%) (Auto) 22 % (0-9) Eosinophils (%) (Auto) 2 % (0-3) Basophils (%) (Auto) 1 % (0-3) Neutrophils # (Auto) 2.5 x10^3uL (1.8-7.7) Lymphocytes # (Auto) 1.7 x10^3/uL (1.0-4.8) Monocytes # (Auto) 1.3 x10^3/uL (0.0-1.1) Eosinophils # (Auto) 0.1 x10^3/uL (0.0-0.7) Basophils # (Auto) 0.1 x10^3/uL (0.0-0.2) Segmented Neutrophils % 34 % (35-66) Lymphocytes % 48 % (24-48) Monocytes % 15 % (0-10) Eosinophils % 3 % (0-5) Platelet Estimate Adequate (ADEQUATE) Troponin I Quantitative < 0.017 ng/mL (0.000-0.055) Laboratory Tests Test 07/10/16 15:20 07/10/16 16:53 07/10/16 22:30 07/11/16 04:55 White Blood Count 5.2 x10^3/uL (4.0-11.0) Red Blood Count 4.23 x10^6/uL (4.30-5.70) Hemoglobin 13.2 g/dL (13.0-17.5) Hematocrit 37.6 % (39.0-53.0) Mean Corpuscular Volume 89 fL (79-100) Mean Corpuscular Hemoglobin 31 pg (25-35) Mean Corpuscular Hemoglobin Concent 35 g/dL (31-37) Red Cell Distribution Width 13.8 % (11.5-14.5) Platelet Count 245 x10^3/uL (140-400) Neutrophils (%) (Auto) 59 % (31-73) Lymphocytes (%) (Auto) 23 % (24-48) Monocytes (%) (Auto) 15 % (0-9) Eosinophils (%) (Auto) 2 % (0-3) Basophils (%) (Auto) 1 % (0-3) Neutrophils # (Auto) 3.1 x10^3uL (1.8-7.7) Lymphocytes # (Auto) 1.2 x10^3/uL (1.0-4.8) Monocytes # (Auto) 0.8 x10^3/uL (0.0-1.1) Eosinophils # (Auto) 0.1 x10^3/uL (0.0-0.7) Basophils # (Auto) 0.0 x10^3/uL (0.0-0.2) Sodium Level 136 mmol/L (136-145) 139 mmol/L (136-145) Potassium Level 4.0 mmol/L (3.5-5.1) 3.1 mmol/L (3.5-5.1) Chloride Level 98 mmol/L (98-107) 98 mmol/L (98-107) Carbon Dioxide Level 27 mmol/L (21-32) 28 mmol/L (21-32) Anion Gap 11 (6-14) 13 (6-14) Blood Urea Nitrogen 11 mg/dL (8-26) 13 mg/dL (8-26) Creatinine 1.0 mg/dL (0.7-1.3) 1.0 mg/dL (0.7-1.3) Estimated GFR (Cockcroft-Gault) 79.4 79.4 Glucose Level 118 mg/dL (70-99) 75 mg/dL (70-99) Calcium Level 9.7 mg/dL (8.5-10.1) 9.7 mg/dL (8.5-10.1) Total Bilirubin 0.5 mg/dL (0.2-1.0) Direct Bilirubin 0.2 mg/dL (0.0-0.2) Aspartate Amino Transf (AST/SGOT) 38 U/L (15-37) Alanine Aminotransferase (ALT/SGPT) 29 U/L (16-63) Alkaline Phosphatase 88 U/L (46-116) Troponin I Quantitative < 0.017 ng/mL (0.000-0.055) < 0.017 ng/mL (0.000-0.055) JY-Zaa-Q-Type Natriuretic Peptide 22 pg/mL (0-124) Total Protein 8.7 g/dL (6.4-8.2) Albumin 3.9 g/dL (3.4-5.0) Lipase 160 U/L (73-393) D-Dimer (Funmilayo) 0.85 ug/mlFEU (0.00-0.50) Test 07/11/16 05:00 White Blood Count 5.6 x10^3/uL (4.0-11.0) Red Blood Count 4.27 x10^6/uL (4.30-5.70) Hemoglobin 13.2 g/dL (13.0-17.5) Hematocrit 38.2 % (39.0-53.0) Mean Corpuscular Volume 89 fL (79-100) Mean Corpuscular Hemoglobin 31 pg (25-35) Mean Corpuscular Hemoglobin Concent 35 g/dL (31-37) Red Cell Distribution Width 13.9 % (11.5-14.5) Platelet Count 237 x10^3/uL (140-400) Neutrophils (%) (Auto) 45 % (31-73) Lymphocytes (%) (Auto) 30 % (24-48) Monocytes (%) (Auto) 22 % (0-9) Eosinophils (%) (Auto) 2 % (0-3) Basophils (%) (Auto) 1 % (0-3) Neutrophils # (Auto) 2.5 x10^3uL (1.8-7.7) Lymphocytes # (Auto) 1.7 x10^3/uL (1.0-4.8) Monocytes # (Auto) 1.3 x10^3/uL (0.0-1.1) Eosinophils # (Auto) 0.1 x10^3/uL (0.0-0.7) Basophils # (Auto) 0.1 x10^3/uL (0.0-0.2) Segmented Neutrophils % 34 % (35-66) Lymphocytes % 48 % (24-48) Monocytes % 15 % (0-10) Eosinophils % 3 % (0-5) Platelet Estimate Adequate (ADEQUATE) Troponin I Quantitative < 0.017 ng/mL (0.000-0.055) Images Images Chest x-ray with no acute abnormalities Assessment/Plan Assessment/Plan 1. Chest pain. Pain has improved. Initial troponins are normal. No acute EKG changes. Risk factors of hypertension. Uncertain cholesterol level. We'll complete rule out myocardial infarction. We'll perform stress testing in the morning. 2. Cardiac murmur. Echocardiogram to evaluate. 3. Hypokalemia. Replace and monitor. 4. Uncertain cholesterol level. We'll check a lipid panel in the morning. 5. Hypertension. Continue present treatments and monitor. 6. Anxiety. 7. History of alcohol abuse. Thank you for allowing us to participate in the care of your patient. LAURIE WEATHERS MD July 11, 2016 11:55
[2016-07-11] MEDS: ONDANSETRON PF 4 MG/2 ML VIAL. IV PRN (16:00)
[2016-07-11] MEDS: fentaNYL PF VIAL 100 MCG/2 ML VIAL IV PRN ×3 (16:09→23:22)
[2016-07-11] MEDS: ZOLPIDEM 5 MG TABLET. PO PRN (21:38)
[2016-07-11] MEDS: AMITRIPTYLINE HCL 50 MG TABLET PO SCH (21:38)
[2016-07-11] MEDS ORDERED: ONDANSETRON PF 4 MG/2 ML VIAL. IV PRN (23:00)
[2016-07-12 00:05] VITALS: BP 128/87
[2016-07-12] MEDS: fentaNYL PF VIAL 100 MCG/2 ML VIAL IV PRN ×6 (01:26→17:39)
[2016-07-12 03:32] VITALS: BP 130/89
[2016-07-12] MEDS: oxyCODONE/APAP 7.5/325 1 TAB TABLET PO PRN ×3 (04:57→21:20)
[2016-07-12 05:45] LABS: CHOLESTEROL/HDL RATIO 2.1; CREATININE 1.2 mg/dL (0.7-1.3); GFR 64.4
[2016-07-12 07:00] VITALS: BP 129/86
[2016-07-12] MEDS: MULTIVIT INFUSN,ADULT 4,VIT K 10 ML, THIAMINE 100 MG, FOLIC ACID 1 MG in IV NORMAL SALI... IV SCH (09:00)
[2016-07-12] MEDS ORDERED: REGADENOSON 0.4 MG/5 ML DISP.SYRIN. IV ONE (10:30)
[2016-07-12] MEDS: hydroCHLOROthiazide 12.5 MG CAPSULE PO SCH (12:30)
[2016-07-12] MEDS: OMEGA-3 FATTY ACIDS/FISH OIL 1,000 MG CAPSULE. PO SCH (12:30)
[2016-07-12] MEDS: ASPIRIN ENTERIC COATED 81 MG TABLET.DR. PO SCH (12:31)
[2016-07-12] MEDS: traMADol 50 MG TABLET PO SCH ×3 (12:31→21:20)
[2016-07-12] MEDS: TAMSULOSIN 0.4 MG CAP.ER.24H. PO SCH (12:31)
[2016-07-12] MEDS: CHOLECALCIFEROL (VITAMIN D3) 1,000 UNIT TABLET PO SCH (12:31)
[2016-07-12] MEDS: PANTOPRAZOLE 40 MG TABLET.DR. PO SCH (12:32)
[2016-07-12] MEDS: GABAPENTIN 300 MG CAPSULE. PO SCH ×3 (12:32→21:19)
--- NOTE | 2016-07-12 13:27 | PDOC ---
PROGRESS NOTES Chief Complaint Chief Complaint 1. CP r/o ACS 2. Heavy etoh drinker 3. Tachycardia in a drinker 4. SMoker 5. Gross hematuria, urinary hesitancy History of Present Illness History of Present Illness MPI and echo done but results pending VS stable, no CP BUt had a concerning urologic event last night Was standing for 5 mins attempting to void with great difficulty, 2 drops of blood came out - needed straight cath last night with almost 1 L out HX of incomplete voiding and urinary hesitancy in the past, started on flomax by outside MD Claims about 1 month ago at [facility], CT abd done showed kidney stones, R HX of ureteral stents and kidney stones 5x in the past PLan: Get \UA] Get CT dry abd/pelvis Get urology Await MPI and echo results Current banana bag to consume STart PO MVI, thiamine and folate - so far no signs etoh withdrawal (drinks 12 beers a day) Vitals Vitals Vital Signs Date Time Temp Pulse Resp B/P (MAP) Pulse Ox O2 Delivery O2 Flow Rate FiO2 07/12/16 12:49 97 Room Air 07/12/16 07:00 97.8 86 20 129/86 (100) 97.8 Physical Exam General: Alert, Oriented X3, Cooperative, mild distress Heart: Regular rate, Normal S1, Normal S2, Other (1/6 systolic murmur) Lungs: Clear, Wheezing Abdomen: Normal bowel sounds Extremities: No clubbing Skin: No rashes Labs LABS Laboratory Tests Test 07/12/16 04:00 Sodium Level 137 mmol/L (136-145) Potassium Level 4.0 mmol/L (3.5-5.1) Chloride Level 103 mmol/L (98-107) Carbon Dioxide Level 26 mmol/L (21-32) Anion Gap 8 (6-14) Blood Urea Nitrogen 8 mg/dL (8-26) Creatinine 1.2 mg/dL (0.7-1.3) Estimated GFR (Cockcroft-Gault) 64.4 Glucose Level 94 mg/dL (70-99) Calcium Level 9.0 mg/dL (8.5-10.1) Triglycerides Level 36 mg/dL (0-150) Cholesterol Level 179 mg/dL (0-200) LDL Cholesterol, Calculated 85 mg/dL (0-100) VLDL Cholesterol, Calculated 7 mg/dL (0-40) Non-HDL Cholesterol Calculated 92 mg/dL (0-129) HDL Cholesterol 87 mg/dL (40-60) Cholesterol/HDL Ratio 2.1 Review of Systems Review of Systems incomplete voiding, gross hematuria, no real flank pain, no fevers, soa, cp Assessment and Plan Assessmemt and Plan Problems Medical Problems: (1) Chest pain Status: Acute Problems: Comment Review of Relevant I have reviewed the following items alyson (where applicable) has been applied. Labs Laboratory Tests Test 07/10/16 15:20 07/10/16 16:53 07/10/16 22:30 07/11/16 04:55 White Blood Count 5.2 x10^3/uL (4.0-11.0) Red Blood Count 4.23 x10^6/uL (4.30-5.70) Hemoglobin 13.2 g/dL (13.0-17.5) Hematocrit 37.6 % (39.0-53.0) Mean Corpuscular Volume 89 fL (79-100) Mean Corpuscular Hemoglobin 31 pg (25-35) Mean Corpuscular Hemoglobin Concent 35 g/dL (31-37) Red Cell Distribution Width 13.8 % (11.5-14.5) Platelet Count 245 x10^3/uL (140-400) Neutrophils (%) (Auto) 59 % (31-73) Lymphocytes (%) (Auto) 23 % (24-48) Monocytes (%) (Auto) 15 % (0-9) Eosinophils (%) (Auto) 2 % (0-3) Basophils (%) (Auto) 1 % (0-3) Neutrophils # (Auto) 3.1 x10^3uL (1.8-7.7) Lymphocytes # (Auto) 1.2 x10^3/uL (1.0-4.8) Monocytes # (Auto) 0.8 x10^3/uL (0.0-1.1) Eosinophils # (Auto) 0.1 x10^3/uL (0.0-0.7) Basophils # (Auto) 0.0 x10^3/uL (0.0-0.2) Sodium Level 136 mmol/L (136-145) 139 mmol/L (136-145) Potassium Level 4.0 mmol/L (3.5-5.1) 3.1 mmol/L (3.5-5.1) Chloride Level 98 mmol/L (98-107) 98 mmol/L (98-107) Carbon Dioxide Level 27 mmol/L (21-32) 28 mmol/L (21-32) Anion Gap 11 (6-14) 13 (6-14) Blood Urea Nitrogen 11 mg/dL (8-26) 13 mg/dL (8-26) Creatinine 1.0 mg/dL (0.7-1.3) 1.0 mg/dL (0.7-1.3) Estimated GFR (Cockcroft-Gault) 79.4 79.4 Glucose Level 118 mg/dL (70-99) 75 mg/dL (70-99) Calcium Level 9.7 mg/dL (8.5-10.1) 9.7 mg/dL (8.5-10.1) Total Bilirubin 0.5 mg/dL (0.2-1.0) Direct Bilirubin 0.2 mg/dL (0.0-0.2) Aspartate Amino Transf (AST/SGOT) 38 U/L (15-37) Alanine Aminotransferase (ALT/SGPT) 29 U/L (16-63) Alkaline Phosphatase 88 U/L (46-116) Troponin I Quantitative < 0.017 ng/mL (0.000-0.055) < 0.017 ng/mL (0.000-0.055) LA-[id number]-Type Natriuretic Peptide 22 pg/mL (0-124) Total Protein 8.7 g/dL (6.4-8.2) Albumin 3.9 g/dL (3.4-5.0) Lipase 160 U/L (73-393) D-Dimer (Funmilayo) 0.85 ug/mlFEU (0.00-0.50) Test 07/11/16 05:00 07/12/16 04:00 White Blood Count 5.6 x10^3/uL (4.0-11.0) Red Blood Count 4.27 x10^6/uL (4.30-5.70) Hemoglobin 13.2 g/dL (13.0-17.5) Hematocrit 38.2 % (39.0-53.0) Mean Corpuscular Volume 89 fL (79-100) Mean Corpuscular Hemoglobin 31 pg (25-35) Mean Corpuscular Hemoglobin Concent 35 g/dL (31-37) Red Cell Distribution Width 13.9 % (11.5-14.5) Platelet Count 237 x10^3/uL (140-400) Neutrophils (%) (Auto) 45 % (31-73) Lymphocytes (%) (Auto) 30 % (24-48) Monocytes (%) (Auto) 22 % (0-9) Eosinophils (%) (Auto) 2 % (0-3) Basophils (%) (Auto) 1 % (0-3) Neutrophils # (Auto) 2.5 x10^3uL (1.8-7.7) Lymphocytes # (Auto) 1.7 x10^3/uL (1.0-4.8) Monocytes # (Auto) 1.3 x10^3/uL (0.0-1.1) Eosinophils # (Auto) 0.1 x10^3/uL (0.0-0.7) Basophils # (Auto) 0.1 x10^3/uL (0.0-0.2) Segmented Neutrophils % 34 % (35-66) Lymphocytes % 48 % (24-48) Monocytes % 15 % (0-10) Eosinophils % 3 % (0-5) Platelet Estimate Adequate (ADEQUATE) Magnesium Level 1.9 mg/dL (1.8-2.4) Troponin I Quantitative < 0.017 ng/mL (0.000-0.055) Sodium Level 137 mmol/L (136-145) Potassium Level 4.0 mmol/L (3.5-5.1) Chloride Level 103 mmol/L (98-107) Carbon Dioxide Level 26 mmol/L (21-32) Anion Gap 8 (6-14) Blood Urea Nitrogen 8 mg/dL (8-26) Creatinine 1.2 mg/dL (0.7-1.3) Estimated GFR (Cockcroft-Gault) 64.4 Glucose Level 94 mg/dL (70-99) Calcium Level 9.0 mg/dL (8.5-10.1) Triglycerides Level 36 mg/dL (0-150) Cholesterol Level 179 mg/dL (0-200) LDL Cholesterol, Calculated 85 mg/dL (0-100) VLDL Cholesterol, Calculated 7 mg/dL (0-40) Non-HDL Cholesterol Calculated 92 mg/dL (0-129) HDL Cholesterol 87 mg/dL (40-60) Cholesterol/HDL Ratio 2.1 Laboratory Tests Test 07/12/16 04:00 Sodium Level 137 mmol/L (136-145) Potassium Level 4.0 mmol/L (3.5-5.1) Chloride Level 103 mmol/L (98-107) Carbon Dioxide Level 26 mmol/L (21-32) Anion Gap 8 (6-14) Blood Urea Nitrogen 8 mg/dL (8-26) Creatinine 1.2 mg/dL (0.7-1.3) Estimated GFR (Cockcroft-Gault) 64.4 Glucose Level 94 mg/dL (70-99) Calcium Level 9.0 mg/dL (8.5-10.1) Triglycerides Level 36 mg/dL (0-150) Cholesterol Level 179 mg/dL (0-200) LDL Cholesterol, Calculated 85 mg/dL (0-100) VLDL Cholesterol, Calculated 7 mg/dL (0-40) Non-HDL Cholesterol Calculated 92 mg/dL (0-129) HDL Cholesterol 87 mg/dL (40-60) Cholesterol/HDL Ratio 2.1 Medications Current Medications Aspirin (Children'S Aspirin) 324 mg 1X ONCE PO Last administered on 07/10/16 16:36; Start 07/10/16 at 16:15; Stop 07/10/16 at 16:16; Status DC Nitroglycerin (Nitrostat) 0.4 mg PRN Q5MIN PRN SL CHEST PAIN Last administered on 07/10/16 23:45; Start 07/10/16 at 16:30 Morphine Sulfate 2 mg PRN Q1HR PRN IV SEVERE PAIN Last administered on 16:37; Start 07/10/16 at 16:30; Stop 07/11/16 at 12:13; Status DC Ondansetron HCl (Zofran) 4 mg PRN Q8HRS PRN IV NAUSEA/VOMITING; Start 07/10/16 at 16:45; Stop 07/10/16 at 17:46; Status DC Morphine Sulfate 2 mg PRN Q2HR PRN IV PAIN; Start 07/10/16 at 16:45; Stop at 17:47; Status DC Nitroglycerin (Nitrostat) 0.4 mg PRN Q5MIN PRN SL CHEST PAIN; Start 07/10/16 at 16:45; Stop 07/11/16 at 16:44; Status DC Ondansetron HCl (Zofran) 4 mg PRN Q6HRS PRN IV NAUSEA/VOMITING Last administered on 07/11/16 16:00; Start 07/10/16 at 17:43; Stop 07/11/16 at 17:42; Status DC Labetalol HCl (Normodyne) 10 mg PRN Q2HR PRN IVP 160/100 Last administered on 23:13; Start 07/10/16 at 17:45 Aspirin (Ecotrin) 81 mg DAILYWBKFT PO Last administered on 07/12/16 12:31; Start 07/11/16 at 08:00 Metoprolol Tartrate (Lopressor) 50 mg BID PO ; Start 07/10/16 at 21:00; Stop 07/10 at 21:42; Status DC Oxycodone/ Acetaminophen (Percocet 7.5/ 325) 1 tab PRN Q4HRS PRN PO MILD PAIN Last administered on 07/12/16 12:49; Start 07/10/16 at 17:45 Non-Formulary Medication 250 mg TWICE WEEKLY PO ; Start 07/10/16 at 17:45; Status UNV Gabapentin (Neurontin) 300 mg BID PO ; Start 07/10/16 at 21:00; Stop 07/10/16 at 21:41; Status DC Pantoprazole Sodium (Protonix) 40 mg DAILYAC PO Last administered on 07/12/16 12:32; Start 07/11/16 at 07:30 Vitamin D (Vitamin D3) 1,000 unit DAILY PO Last administered on 07/12/16 12:31 ; Start 07/11/16 at 09:00 Fish Oil (Fish Oil) 1,000 mg DAILY PO Last administered on 07/12/16 12:30; Start 07/11/16 at 09:00 Fentanyl Citrate (Fentanyl 2ml Vial) 50 mcg PRN Q2HR PRN IV pain Last administered on 07/12/16 11:29; Start 07/10/16 at 17:45 Multivitamins 10 ml/Thiamine HCl 100 mg/Folic Acid 1 mg/Sodium Chloride 1,011.2 ml @ 100 mls/ hr DAILY IV Last administered on 07/12/16 09:00; Start 07/10/16 at 21:30; Stop 07/16/16 at 21:29 Chlordiazepoxide (Librium) 25 mg Q6HRS PRN PO For CIWA 8-14; Start 07/10/16 at 21:00 Tamsulosin HCl (Flomax) 0.4 mg DAILY PO Last administered on 07/12/16 12:31; Start 07/11/16 at 09:00 Tramadol HCl (Ultram) 50 mg TID PO Last administered on 07/12/16 12:31; Start 07/10/16 at 21:30 Zolpidem Tartrate (Ambien) 5 mg QHS PRN PO INSOMNIA Last administered on 21:38; Start 07/10/16 at 21:15 Amitriptyline HCl (Amitriptyline HCl) 100 mg QHS PO Last administered on 21:38; Start 07/10/16 at 21:30 Hydrochlorothiazide (Microzide) 12.5 mg DAILY PO Last administered on 07/12/16 12:30; Start 07/11/16 at 09:00 Gabapentin (Neurontin) 900 mg TID PO Last administered on 07/12/16 12:32; Start 07/10/16 at 21:45 Potassium Chloride (Klor-Con) 40 meq 1X ONCE PO Last administered on 07/11/16 08:53; Start 07/11/16 at 08:30; Stop 07/11/16 at 08:31; Status DC Potassium Chloride (Klor-Con) 20 meq 1X ONCE PO Last administered on 07/11/16 13:08; Start 07/11/16 at 12:30; Stop 07/11/16 at 12:31; Status DC Potassium Chloride (Klor-Con) 20 meq 1X ONCE PO Last administered on 07/11/16 17:22; Start 07/11/16 at 17:00; Stop 07/11/16 at 17:01; Status DC Ondansetron HCl (Zofran) 4 mg PRN Q8HRS PRN IV NAUSEA/VOMITING Last administered on 07/12/16 11:26; Start 07/11/16 at 23:00 Regadenoson (Lexiscan) 0.4 mg 1X ONCE IV Last administered on 5/7/17at 10:39; Start 07/12/16 at 10:30; Stop 07/12/16 at 10:31; Status DC Active Scripts Active Reported Ambien (Zolpidem Tartrate) 5 Mg Tablet 1 Tab PO QHS PRN Hydrochlorothiazide Tablet (Hydrochlorothiazide) 12.5 Mg Tablet 1 Tab PO DAILY Tamsulosin Hcl 0.4 Mg Cap.er.24h 1 Cap PO DAILY Tramadol Hcl 50 Mg Tablet 1 Tab PO TID Amitriptyline Hcl 100 Mg Tablet 1 Tab PO QHS Vitamin D-3 (Cholecalciferol (Vitamin D3)) 2,000 Unit Capsule 2,000 Unit PO Fish Oil ([place]-3 Fatty Acids) 500 Mg Capsule 500 Mg PO Aspir 81 (Aspirin) 81 Mg Tablet. 1 Tab PO DAILY [vit b] Prilosec (Omeprazole) 40 Mg Capsule.dr 1 Cap PO DAILY Gabapentin 300 Mg Capsule 900 Mg PO TID Vitals/I & O Vital Sign - Last 24 Hours 07/11/16 07/11/16 07/11/16 07/11/16 14:15 15:29 15:29 16:09 Temp 97.9 97.9 Pulse 105 Resp 18 B/P (MAP) 142/93 (109) Pulse Ox 97 96 97 O2 Delivery Room Air Room Air Room Air Room Air 07/11/16 07/11/16 07/11/16 07/11/16 17:22 18:34 19:20 20:00 Temp 98.1 98.1 Pulse 84 Resp 16 B/P (MAP) 158/111 (127) Pulse Ox 97 97 99 O2 Delivery Room Air Room Air Room Air 07/11/16 07/11/16 07/11/16 07/11/16 20:13 21:38 23:13 23:22 Pulse 83 Resp 16 16 18 B/P (MAP) 164/105 O2 Delivery Room Air Room Air Room Air 07/11/16 07/11/16 07/12/16 07/12/16 23:53 23:55 00:05 01:26 Temp 97.9 97.9 Pulse 83 82 82 Resp 18 18 B/P (MAP) 164/105 (124) 128/87 (101) 128/87 (101) Pulse Ox 99 O2 Delivery Room Air Room Air 07/12/16 07/12/16 07/12/1617 01:55 03:22 03:32 04:57 Temp 97.7 97.7 Pulse 90 Resp 16 17 18 16 B/P (MAP) 130/89 (103) Pulse Ox 93 O2 Delivery Room Air Room Air 07/12/16 07/12/16 07/12/16 07/12/16 05:50 07:00 08:00 08:55 Temp 97.8 97.8 Pulse 86 Resp 18 20 B/P (MAP) 129/86 (100) Pulse Ox 97 97 O2 Delivery Room Air Room Air Room Air Room Air 07/12/16 07/12/16 07/12/16 07/12/16 11:29 12:31 12:32 12:49 Pulse Ox 97 97 97 97 O2 Delivery Room Air Room Air Room Air Room Air Intake and Output 07/11/16 07/11/16 07/12/16 15:00 23:00 07:00 Intake Total 280 ml 200 ml Output Total 1500 ml Balance 280 ml -1300 ml RAMYA JACOBS MD July 12, 2016 13:27
--- NOTE | 2016-07-12 13:57 | PDOC ---
PROGRESS NOTES Subjective Subjective No chest pain. Objective Objective Vital Signs Date Time Temp Pulse Resp B/P (MAP) Pulse Ox O2 Delivery O2 Flow Rate FiO2 07/12/16 12:49 97 Room Air 07/12/16 07:00 97.8 86 20 129/86 (100) 97.8 Intake and Output 07/12/16 07:00 Intake Total 480 ml Output Total 1500 ml Balance -1020 ml Intake Oral 480 ml Output Urine Total 1500 ml # Voids 2 Physical Exam Abdomen: Normal bowel sounds Heart: Regular rate Extremities: No clubbing General: No acute distress HEENT: Atraumatic Lungs: Clear to auscultation Assessment Assessment Problems Medical Problems: (1) Chest pain Status: Acute Assessment/Plan 1. Chest pain. No pain overnight. No acute EKG changes. Stress testing and echocardiogram today. 2. Cardiac murmur. Echocardiogram to evaluate. 3. Hypokalemia. Replace and monitor. 4. Uncertain cholesterol level. Lipid panel. 5. Hypertension. Continue present treatments and monitor. 6. Anxiety. 7. History of alcohol abuse. Comment Review of Relevant I have reviewed the following items alyson (where applicable) has been applied. Labs Laboratory Tests Test 07/10/16 15:20 07/10/16 16:53 07/10/16 22:30 07/11/16 04:55 White Blood Count 5.2 x10^3/uL (4.0-11.0) Red Blood Count 4.23 x10^6/uL (4.30-5.70) Hemoglobin 13.2 g/dL (13.0-17.5) Hematocrit 37.6 % (39.0-53.0) Mean Corpuscular Volume 89 fL (79-100) Mean Corpuscular Hemoglobin 31 pg (25-35) Mean Corpuscular Hemoglobin Concent 35 g/dL (31-37) Red Cell Distribution Width 13.8 % (11.5-14.5) Platelet Count 245 x10^3/uL (140-400) Neutrophils (%) (Auto) 59 % (31-73) Lymphocytes (%) (Auto) 23 % (24-48) Monocytes (%) (Auto) 15 % (0-9) Eosinophils (%) (Auto) 2 % (0-3) Basophils (%) (Auto) 1 % (0-3) Neutrophils # (Auto) 3.1 x10^3uL (1.8-7.7) Lymphocytes # (Auto) 1.2 x10^3/uL (1.0-4.8) Monocytes # (Auto) 0.8 x10^3/uL (0.0-1.1) Eosinophils # (Auto) 0.1 x10^3/uL (0.0-0.7) Basophils # (Auto) 0.0 x10^3/uL (0.0-0.2) Sodium Level 136 mmol/L (136-145) 139 mmol/L (136-145) Potassium Level 4.0 mmol/L (3.5-5.1) 3.1 mmol/L (3.5-5.1) Chloride Level 98 mmol/L (98-107) 98 mmol/L (98-107) Carbon Dioxide Level 27 mmol/L (21-32) 28 mmol/L (21-32) Anion Gap 11 (6-14) 13 (6-14) Blood Urea Nitrogen 11 mg/dL (8-26) 13 mg/dL (8-26) Creatinine 1.0 mg/dL (0.7-1.3) 1.0 mg/dL (0.7-1.3) Estimated GFR (Cockcroft-Gault) 79.4 79.4 Glucose Level 118 mg/dL (70-99) 75 mg/dL (70-99) Calcium Level 9.7 mg/dL (8.5-10.1) 9.7 mg/dL (8.5-10.1) Total Bilirubin 0.5 mg/dL (0.2-1.0) Direct Bilirubin 0.2 mg/dL (0.0-0.2) Aspartate Amino Transf (AST/SGOT) 38 U/L (15-37) Alanine Aminotransferase (ALT/SGPT) 29 U/L (16-63) Alkaline Phosphatase 88 U/L (46-116) Troponin I Quantitative < 0.017 ng/mL (0.000-0.055) < 0.017 ng/mL (0.000-0.055) FU-Qxl-[id number]-Type Natriuretic Peptide 22 pg/mL (0-124) Total Protein 8.7 g/dL (6.4-8.2) Albumin 3.9 g/dL (3.4-5.0) Lipase 160 U/L (73-393) D-Dimer (Funmilayo) 0.85 ug/mlFEU (0.00-0.50) Test 07/11/16 05:00 07/12/16 04:00 White Blood Count 5.6 x10^3/uL (4.0-11.0) Red Blood Count 4.27 x10^6/uL (4.30-5.70) Hemoglobin 13.2 g/dL (13.0-17.5) Hematocrit 38.2 % (39.0-53.0) Mean Corpuscular Volume 89 fL (79-100) Mean Corpuscular Hemoglobin 31 pg (25-35) Mean Corpuscular Hemoglobin Concent 35 g/dL (31-37) Red Cell Distribution Width 13.9 % (11.5-14.5) Platelet Count 237 x10^3/uL (140-400) Neutrophils (%) (Auto) 45 % (31-73) Lymphocytes (%) (Auto) 30 % (24-48) Monocytes (%) (Auto) 22 % (0-9) Eosinophils (%) (Auto) 2 % (0-3) Basophils (%) (Auto) 1 % (0-3) Neutrophils # (Auto) 2.5 x10^3uL (1.8-7.7) Lymphocytes # (Auto) 1.7 x10^3/uL (1.0-4.8) Monocytes # (Auto) 1.3 x10^3/uL (0.0-1.1) Eosinophils # (Auto) 0.1 x10^3/uL (0.0-0.7) Basophils # (Auto) 0.1 x10^3/uL (0.0-0.2) Segmented Neutrophils % 34 % (35-66) Lymphocytes % 48 % (24-48) Monocytes % 15 % (0-10) Eosinophils % 3 % (0-5) Platelet Estimate Adequate (ADEQUATE) Magnesium Level 1.9 mg/dL (1.8-2.4) Troponin I Quantitative < 0.017 ng/mL (0.000-0.055) Sodium Level 137 mmol/L (136-145) Potassium Level 4.0 mmol/L (3.5-5.1) Chloride Level 103 mmol/L (98-107) Carbon Dioxide Level 26 mmol/L (21-32) Anion Gap 8 (6-14) Blood Urea Nitrogen 8 mg/dL (8-26) Creatinine 1.2 mg/dL (0.7-1.3) Estimated GFR (Cockcroft-Gault) 64.4 Glucose Level 94 mg/dL (70-99) Calcium Level 9.0 mg/dL (8.5-10.1) Triglycerides Level 36 mg/dL (0-150) Cholesterol Level 179 mg/dL (0-200) LDL Cholesterol, Calculated 85 mg/dL (0-100) VLDL Cholesterol, Calculated 7 mg/dL (0-40) Non-HDL Cholesterol Calculated 92 mg/dL (0-129) HDL Cholesterol 87 mg/dL (40-60) Cholesterol/HDL Ratio 2.1 Laboratory Tests Test 07/12/16 04:00 Sodium Level 137 mmol/L (136-145) Potassium Level 4.0 mmol/L (3.5-5.1) Chloride Level 103 mmol/L (98-107) Carbon Dioxide Level 26 mmol/L (21-32) Anion Gap 8 (6-14) Blood Urea Nitrogen 8 mg/dL (8-26) Creatinine 1.2 mg/dL (0.7-1.3) Estimated GFR (Cockcroft-Gault) 64.4 Glucose Level 94 mg/dL (70-99) Calcium Level 9.0 mg/dL (8.5-10.1) Triglycerides Level 36 mg/dL (0-150) Cholesterol Level 179 mg/dL (0-200) LDL Cholesterol, Calculated 85 mg/dL (0-100) VLDL Cholesterol, Calculated 7 mg/dL (0-40) Non-HDL Cholesterol Calculated 92 mg/dL (0-129) HDL Cholesterol 87 mg/dL (40-60) Cholesterol/HDL Ratio 2.1 Medications Current Medications Aspirin (Children'S Aspirin) 324 mg 1X ONCE PO Last administered on 07/10/16 16:36; Start 07/10/16 at 16:15; Stop 07/10/16 at 16:16; Status DC Nitroglycerin (Nitrostat) 0.4 mg PRN Q5MIN PRN SL CHEST PAIN Last administered on 07/10/16 23:45; Start 07/10/16 at 16:30 Morphine Sulfate 2 mg PRN Q1HR PRN IV SEVERE PAIN Last administered on 16:37; Start 07/10/16 at 16:30; Stop 07/11/16 at 12:13; Status DC Ondansetron HCl (Zofran) 4 mg PRN Q8HRS PRN IV NAUSEA/VOMITING; Start 07/10/16 at 16:45; Stop 07/10/16 at 17:46; Status DC Morphine Sulfate 2 mg PRN Q2HR PRN IV PAIN; Start 07/10/16 at 16:45; Stop at 17:47; Status DC Nitroglycerin (Nitrostat) 0.4 mg PRN Q5MIN PRN SL CHEST PAIN; Start 07/10/16 at 16:45; Stop 07/11/16 at 16:44; Status DC Ondansetron HCl (Zofran) 4 mg PRN Q6HRS PRN IV NAUSEA/VOMITING Last administered on 07/11/16 16:00; Start 07/10/16 at 17:43; Stop 07/11/16 at 17:42; Status DC Labetalol HCl (Normodyne) 10 mg PRN Q2HR PRN IVP 160/100 Last administered on 23:13; Start 07/10/16 at 17:45 Aspirin (Ecotrin) 81 mg DAILYWBKFT PO Last administered on 07/12/16 12:31; Start 07/11/16 at 08:00 Metoprolol Tartrate (Lopressor) 50 mg BID PO ; Start 07/10/16 at 21:00; Stop 07/10 at 21:42; Status DC Oxycodone/ Acetaminophen (Percocet 7.5/ 325) 1 tab PRN Q4HRS PRN PO MILD PAIN Last administered on 07/12/16 12:49; Start 07/10/16 at 17:45 Non-Formulary Medication 250 mg TWICE WEEKLY PO ; Start 07/10/16 at 17:45; Status UNV Gabapentin (Neurontin) 300 mg BID PO ; Start 07/10/16 at 21:00; Stop 07/10/16 at 21:41; Status DC Pantoprazole Sodium (Protonix) 40 mg DAILYAC PO Last administered on 07/12/16 12:32; Start 07/11/16 at 07:30 Vitamin D (Vitamin D3) 1,000 unit DAILY PO Last administered on 07/12/16 12:31 ; Start 07/11/16 at 09:00 Fish Oil (Fish Oil) 1,000 mg DAILY PO Last administered on 07/12/16 12:30; Start 07/11/16 at 09:00 Fentanyl Citrate (Fentanyl 2ml Vial) 50 mcg PRN Q2HR PRN IV pain Last administered on 07/12/16 11:29; Start 07/10/16 at 17:45 Multivitamins 10 ml/Thiamine HCl 100 mg/Folic Acid 1 mg/Sodium Chloride 1,011.2 ml @ 100 mls/ hr DAILY IV Last administered on 07/12/16 09:00; Start 07/10/16 at 21:30; Stop 07/12/16 at 13:23; Status DC Chlordiazepoxide (Librium) 25 mg Q6HRS PRN PO For CIWA 8-14; Start 07/10/16 at 21:00 Tamsulosin HCl (Flomax) 0.4 mg DAILY PO Last administered on 07/12/16 12:31; Start 07/11/16 at 09:00 Tramadol HCl (Ultram) 50 mg TID PO Last administered on 07/12/16 12:31; Start 07/10/16 at 21:30 Zolpidem Tartrate (Ambien) 5 mg QHS PRN PO INSOMNIA Last administered on 21:38; Start 07/10/16 at 21:15 Amitriptyline HCl (Amitriptyline HCl) 100 mg QHS PO Last administered on 21:38; Start 07/10/16 at 21:30 Hydrochlorothiazide (Microzide) 12.5 mg DAILY PO Last administered on 07/12/16 12:30; Start 07/11/16 at 09:00 Gabapentin (Neurontin) 900 mg TID PO Last administered on 07/12/16 12:32; Start 07/10/16 at 21:45 Potassium Chloride (Klor-Con) 40 meq 1X ONCE PO Last administered on 07/11/16 08:53; Start 07/11/16 at 08:30; Stop 07/11/16 at 08:31; Status DC Potassium Chloride (Klor-Con) 20 meq 1X ONCE PO Last administered on 07/11/16 13:08; Start 07/11/16 at 12:30; Stop 07/11/16 at 12:31; Status DC Potassium Chloride (Klor-Con) 20 meq 1X ONCE PO Last administered on 07/11/16 17:22; Start 07/11/16 at 17:00; Stop 07/11/16 at 17:01; Status DC Ondansetron HCl (Zofran) 4 mg PRN Q8HRS PRN IV NAUSEA/VOMITING Last administered on 07/12/16 11:26; Start 07/11/16 at 23:00 Regadenoson (Lexiscan) 0.4 mg 1X ONCE IV Last administered on 07/12/16 10:39; Start 07/12/16 at 10:30; Stop 07/12/16 at 10:31; Status DC Vitamin B Complex (Folbic Tablet) 1 tab DAILY PO ; Start 07/13/16 at 09:00 Thiamine Mononitrate (Vitamin B-1) 100 mg DAILY PO ; Start 07/13/16 at 09:00 Folic Acid (Folic Acid) 1 mg DAILY PO ; Start 07/13/16 at 09:00 Active Scripts Active Reported Ambien (Zolpidem Tartrate) 5 Mg Tablet 1 Tab PO QHS PRN Hydrochlorothiazide Tablet (Hydrochlorothiazide) 12.5 Mg Tablet 1 Tab PO DAILY Tamsulosin Hcl 0.4 Mg Cap.er.24h 1 Cap PO DAILY Tramadol Hcl 50 Mg Tablet 1 Tab PO TID Amitriptyline Hcl 100 Mg Tablet 1 Tab PO QHS Vitamin D-3 (Cholecalciferol (Vitamin D3)) 2,000 Unit Capsule 2,000 Unit PO Fish Oil ([place]-3 Fatty Acids) 500 Mg Capsule 500 Mg PO Aspir 81 (Aspirin) 81 Mg Tablet. 1 Tab PO DAILY [vit b] Prilosec (Omeprazole) 40 Mg Capsule.dr 1 Cap PO DAILY Gabapentin 300 Mg Capsule 900 Mg PO TID Vitals/I & O Vital Sign - Last 24 Hours 07/11/16 07/11/16 07/11/16 07/11/16 14:15 15:29 15:29 16:09 Temp 97.9 97.9 Pulse 105 Resp 18 B/P (MAP) 142/93 (109) Pulse Ox 97 96 97 O2 Delivery Room Air Room Air Room Air Room Air 07/11/16 07/11/16 07/11/16 07/11/16 17:22 18:34 19:20 20:00 Temp 98.1 98.1 Pulse 84 Resp 16 B/P (MAP) 158/111 (127) Pulse Ox 97 97 99 O2 Delivery Room Air Room Air Room Air 07/11/16 07/11/16 07/11/16 07/11/16 20:13 21:38 23:13 23:22 Pulse 83 Resp 16 16 18 B/P (MAP) 164/105 O2 Delivery Room Air Room Air Room Air 07/11/16 07/11/16 07/12/16 07/12/16 23:53 23:55 00:05 01:26 Temp 97.9 97.9 Pulse 83 82 82 Resp 18 18 B/P (MAP) 164/105 (124) 128/87 (101) 128/87 (101) Pulse Ox 99 O2 Delivery Room Air Room Air 07/12/16 07/12/16 07/12/16 07/12/16 01:55 03:22 03:32 04:57 Temp 97.7 97.7 Pulse 90 Resp 16 17 18 16 B/P (MAP) 130/89 (103) Pulse Ox 93 O2 Delivery Room Air Room Air 07/12/16 07/12/16 07/12/16 07/12/16 05:50 07:00 08:00 08:55 Temp 97.8 97.8 Pulse 86 Resp 18 20 B/P (MAP) 129/86 (100) Pulse Ox 97 97 O2 Delivery Room Air Room Air Room Air Room Air 07/12/16 07/12/16 07/12/16 07/12/16 11:29 12:31 12:32 12:49 Pulse Ox 97 97 97 97 O2 Delivery Room Air Room Air Room Air Room Air Intake and Output 07/11/16 07/11/16 07/12/16 15:00 23:00 07:00 Intake Total 280 ml 200 ml Output Total 1500 ml Balance 280 ml -1300 ml LAURIE WEATHERS MD July 12, 2016 13:57
--- NOTE | 2016-07-12 14:26 | RAD ---
Indication gross hematuria. History of kidney stones. Right flank pain. Axial images of the abdomen and pelvis were obtained. Examination was tailored for the detection of renal and/or ureteral calculi. No IV or gastrointestinal contrast was administered. Note is made of a prior examination of the abdomen 06/04/2015 examination of the abdomen and pelvis 06/01/2015. There is some scarring or atelectasis at the right lung base. The liver and spleen appear unremarkable. There is a small hiatus hernia. The gallbladder appears grossly normal. The pancreas appears unremarkable. There are no adrenal masses. There are small bilateral renal calculi. No hydronephrosis hydroureter or calcification is seen along the course of either ureter. Phleboliths are noted in the pelvis. An acute finding in the abdomen is not apparent. No acute finding is seen in the pelvis. There is an appendicolith. This is likely incidental. Inflammatory changes are not seen surrounding the appendix. IMPRESSION: Small bilateral intrarenal calculi. No acute finding seen in the abdomen or pelvis. Modest volume loss at the right lung base likely reflects atelectasis or scar PQRS Compliance Statement: One or more of the following individualized dose reduction techniques were utilized for this examination: 1. Automated exposure control 2. Adjustment of the mA and/or kV according to patient size 3. Use of iterative reconstruction technique
--- NOTE | 2016-07-12 14:26 | CARD ---
APPROVED REPORT EXAM: Two-dimensional and M-mode echocardiogram with Doppler and color Doppler. Other Information Quality : FairHR: 88bpm Rhythm : NSR INDICATION Chest Pain Murmur 2D DIMENSIONS Left Atrium(2D)3.5 (1.6-4.0cm)IVSd0.7 (0.7-1.1cm) Aortic Root(2D)3.3 (2.0-3.7cm)LVDd4.9 (3.9-5.9cm) LVOT Diameter2.3 (1.8-2.4cm)PWd0.8 (0.7-1.1cm) LVDs3.7 (2.5-4.0cm)FS (%) 25.4 % SV56.6 mlCO4.9 L/min M-Mode DIMENSIONS Aortic Cusp Exc1.86 (1.5-2.0cm) Aortic Valve AoV Peak Nixon.98.9cm/sAoV VTI19.2cm AO Peak GR.3.9mmHgLVOT VTI 16.99cm AO Mean GR.2mmHg Mitral Valve MV E Qswraips67.4cm/sMV E Peak Gr.3mmHg MV DECEL [id number] A Paagmnud69.0cm/s MV FFW30izG/A Ratio1.3 MV A [id number] (PHT)5.00cm2 TDI Lateral E' P. V9.28cm/sMedial E' P. V11.08cm/s E/Lateral E'8.8E/Medial E'7.3 Pulmonary Valve PV Peak Zorpppin065.6cm/s Tricuspid Valve TR P. Qncrhatz271ga/sTR Peak Gr.33mmHg LEFT VENTRICLE The left ventricle is normal size. There is normal left ventricular wall thickness. The left ventricu lar systolic function is normal. The ejection fraction is 55-60%. There is normal LV segmental wall m otion. No left ventricle thrombus noted on this study. There is no ventricular septal defect visualiz ed. There is no left ventricular aneurysm. There is no mass noted in the left ventricle. RIGHT VENTRICLE The right ventricle is normal size. There is normal right ventricular wall thickness. The right ventr icular systolic function is normal. ATRIA The left atrium size is normal. The right atrium size is normal. The interatrial septum is intact wit h no evidence for an atrial septal defect or patent foramen ovale as noted on 2-D or Doppler imaging. AORTIC VALVE The aortic valve is normal in structure and function. Doppler and Color Flow revealed no significant aortic regurgitation. There is no significant aortic valvular stenosis. There is no aortic valvular v egetation. MITRAL VALVE The mitral valve is normal in structure and function. There is no evidence of mitral valve prolapse. There is no mitral valve stenosis. Doppler and Color Flow revealed no mitral valve regurgitation note d. TRICUSPID VALVE The tricuspid valve is normal in structure and function. Doppler and Color Flow revealed mild tricusp id regurgitation. There is no tricuspid valve prolapse or vegetation. There is no tricuspid valve chrissy nosis. PULMONIC VALVE The pulmonary valve is normal in structure and function. Doppler and Color Flow revealed no pulmonic valvular regurgitation. There is no pulmonic valvular stenosis. GREAT VESSELS The aortic root is normal in size. The ascending aorta is normal in size. The IVC is normal in size a nd collapses >50% with inspiration. PERICARDIAL EFFUSION There is no pleural effusion. There is no evidence of significant pericardial effusion. Critical Notification Critical Value: No <Conclusion> The left ventricle is normal size. The left ventricular systolic function is normal. The ejection fraction is 55-60%. There is no significant aortic valvular stenosis. Doppler and Color Flow revealed no significant aortic regurgitation. Doppler and Color Flow revealed no mitral valve regurgitation noted. Doppler and Color Flow revealed mild tricuspid regurgitation. There is no evidence of significant pericardial effusion.
--- NOTE | 2016-07-12 14:40 | RAD ---
APPROVED REPORT Test Type: Pharmacological Stress Nurse/Tech: Lizzie Brandt RN Test Indications: chest pain Cardiac History: see ehr Medications: see ehr Medical History: see ehr Resting ECG: SR Resting Heart Rate: 83 bpm Resting Blood Pressure: 143/89mmHg Pretest Chest Pain: None Nurse/Tech Notes Lungs CTA, S1, S2 Consent: The procedure was explained to the patient in lay terms. Informed consent was witnessed. Jignesh eout was entered into [email or web address]. History and Stress Test performed by Drew VelazquezNTona Pharm. Details Pharmacologic stress testing was performed using 0.4mg per 5ml of regadenoson given intravenously ove r 7-10 seconds. Stress Symptoms No chest pain or symptoms. POST EXERCISE Reason for Termination: Infusion complete Max HR: 118 bpm Max Blood Pressure: 146/93mmHg Blood Pressure response to exercise: Normal blood pressure response during stress. Chest Pain: No. Arrhythmia: No. ST Change: No. INTERPRETATION Stress EKG Conclusion: The resting EKG shows a normal sinus rhythm with mild nonspecific ST segment c hanges. The stress EKG shows no significant changes from baseline. No EKG evidence of stress-induced ischemia. Imaging Protocol IMAGE PROTOCOL: Rest Tc-99m/stress Tc-99m 1 day Rest: Stress: Viability: Radiopharm.Tc99m BzbbcfhayJe63y Sestamibi Pxvt87vSl 33mCi Img Date 07/12/2016 07/12/2016 Inj-Img Hbqs86cfw. 45min. Rest Admin Site:IV - Left WristAdministrator:JEROME Zhong, ARRT (R)(N) Stress Admin Site: IV - Left WristAdministrator: JEROME Zhong, ARRT (R)(N) STRESS DATA End Diast. Vol.95.0mlAv. Heart Rate86.0bpm End Syst. Vol.15.0mlCO Index BSA0.0L/min Myocardial Ffzw821.0gEject. Imbcoxlp33.0% Stress Rates Pk. Fill Rate3.30EDV/secLVtime Pk. Fill 127.60msec Pk. Empty Rate4.49ESV/secLVtime Pk. Akfiz475.12msec 03/10 Pk. Fill2.13EDV/sec Stress Scores Regional WT0.00Summed WT1.00 Regional WM0.00Summed WM0.00 LV Perfusion The stress scans showed no significant defects. The rest scans showed no significant defects. Nuclear imaging shows no reversible ischemia or infarct. Wall Motion Normal left ventricular systolic function with an ejection fraction of greater than 70%. LV Perf. Quant 17 Seg. SSS0.00 17 Seg. SRS2.00 17 Seg. SDS0.00 Stress Defect Extent (% LAD)0.00Rest Defect Extent (% LAD)0.00Rev. Defect Extent (% LAD)0.00 Stress Defect Extent (% LCX) 0.00Rest Defect Extent (% LCX)0.00Rev. Defect Extent (% LCX)0.00 Stress Defect Extent (% RCA)0.00Rest Defect Extent (% RCA)0.00Rev. Defect Extent (% RCA)0.00 Stress Defect Extent (% LOUISE)0.00Rest Defect Extent (% LOUISE)0.00Rev. Defect Extent (% LOUISE)0.00 Conclusion 1. No EKG evidence of stress-induced ischemia. 2. Nuclear imaging shows no reversible ischemia or infarct. 3. Normal left ventricular systolic function with an ejection fraction of greater than 70%. 4. Low risk Lexiscan nuclear stress test.
[2016-07-12 15:00] VITALS: BP 131/90
[2016-07-12 16:49] LABS: BILIRUBIN,URINE NEGATIVE (NEG); GLUCOSE,URINE NEGATIVE (NEG); NITRITE,URINE NEGATIVE (NEG); PH,URINE 6.5; PROTEIN,URINE NEGATIVE (NEG-TRACE); UROBILINOGEN,URINE 0.2 mg/dL (0.2 mg/dL)
[2016-07-12 16:56] LABS: BACTERIA,URINE 0 /HPF (0-FEW); RBC,URINE OCC /HPF (0-2); SQUAMOUS EPITHELIAL CELL,UR OCC /LPF; WBC,URINE 0 /HPF (0-4)
[2016-07-12 19:52] VITALS: BP 142/100
[2016-07-12] MEDS: AMITRIPTYLINE HCL 50 MG TABLET PO SCH (21:19)
[2016-07-12 23:00] VITALS: BP 138/95
[2016-07-13 07:10] VITALS: BP 125/85
[2016-07-13] MEDS: CHOLECALCIFEROL (VITAMIN D3) 1,000 UNIT TABLET PO SCH (08:45)
[2016-07-13] MEDS: GABAPENTIN 300 MG CAPSULE. PO SCH (08:45)
[2016-07-13] MEDS: OMEGA-3 FATTY ACIDS/FISH OIL 1,000 MG CAPSULE. PO SCH (08:45)
[2016-07-13] MEDS: oxyCODONE/APAP 7.5/325 1 TAB TABLET PO PRN (08:45)
[2016-07-13] MEDS: ASPIRIN ENTERIC COATED 81 MG TABLET.DR. PO SCH (08:45)
[2016-07-13] MEDS: traMADol 50 MG TABLET PO SCH (08:46)
[2016-07-13] MEDS: hydroCHLOROthiazide 12.5 MG CAPSULE PO SCH (08:46)
[2016-07-13] MEDS: PANTOPRAZOLE 40 MG TABLET.DR. PO SCH (08:46)
[2016-07-13] MEDS: TAMSULOSIN 0.4 MG CAP.ER.24H. PO SCH (08:46)
[2016-07-13] MEDS ORDERED: FOLIC ACID 1 MG TABLET. PO SCH (09:00)
[2016-07-13] MEDS ORDERED: THIAMINE 100 MG TABLET. PO SCH (09:00)
[2016-07-13] MEDS ORDERED: VITAMIN B12,B9,B6 COMPLEX 1 TABLET. PO SCH (09:00)
--- NOTE | 2016-07-13 10:32 | PDOC ---
CARDIO Progress Notes Date and Time Date of Service 07/13/2016 Time of Evaluation 1020 Subjective Subjective: No Chest Pain, No shortness of breath, No Palpitations, No Dizziness, Other (left breast pain) Vitals Vitals Vital Signs Date Time Temp Pulse Resp B/P (MAP) Pulse Ox O2 Delivery O2 Flow Rate FiO2 07/13/16 09:41 14 Room Air 07/13/16 08:46 95 07/13/16 07:10 97.7 102 125/85 (98) 97.7 Weight Weight [ ] Input and Output Intake and Output Intake and Output 07/13/16 07:00 Intake Total 240 ml Balance 240 ml Intake Oral 240 ml # Voids 7 Laboratory Labs Laboratory Tests Test 07/12/16 16:41 Urine Collection Type Unknown Urine Color Straw Urine Clarity Clear Urine pH 6.5 Urine Specific [place] 1.010 Urine Protein Negative mg/dL (NEG-TRACE) Urine Glucose (UA) Negative mg/dL (NEG) Urine Ketones (Stick) Negative mg/dL (NEG) Urine Blood Negative (NEG) Urine Nitrite Negative (NEG) Urine Bilirubin Negative (NEG) Urine Urobilinogen Dipstick 0.2 mg/dL (0.2 mg/dL) Urine Leukocyte Esterase Negative (NEG) Urine RBC Occ /HPF (0-2) Urine WBC 0 /HPF (0-4) Urine Squamous Epithelial Cells Occ /LPF Urine Bacteria 0 /HPF (0-FEW) Physical Exam HEENT: Neck Supple W Full Motion Chest: Symmetric, Other (left breast mass 3 cm mass behind nipple) LUNGS: Clear to Auscultation Heart: S1S2, RRR (no heart monitor overnight) Abdomen: Soft N/T Extremities: No Edema, No Calf Tenderness Neurology: alert, oriented, follow commands Assessment Assessment 1. Atypical CP: MPI and TTE unremarkable for acute changes. 2. Gynecomastia vs left breast mass: approx 3 cm lesion behind left nipple. Likely the cause of his CP. Defer to PCP 3. Nephrolithiasis: small infrarenal via CT 4. Hypokalemia: resolved Recommendations 1. May DC per cardiac standpoint 2. Will sign off. ANDRY YU APRN July 13, 2016 10:32
[2016-07-13 10:50] VITALS: BP 136/86
--- NOTE | 2016-07-13 11:05 | EKG ---
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
--- NOTE | 2016-07-13 11:07 | PDOC ---
PROGRESS NOTES Chief Complaint Chief Complaint 1. CP r/o ACS 2. Heavy etoh drinker 3. Tachycardia in a drinker 4. SMoker 5. Gross hematuria, urinary hesitancy History of Present Illness History of Present Illness Pt was lying in bed comfortably. Denies any acute complaints overnight, denies hematuria. Reports he was told by cardiologists MPI and echo were normal. Reports last drink was 2 days prior to hospital admission and he drinks 6-12 beers/day. Pt would like to go home soon. Vitals Vitals Vital Signs Date Time Temp Pulse Resp B/P (MAP) Pulse Ox O2 Delivery O2 Flow Rate FiO2 07/13/16 09:41 14 Room Air 07/13/16 08:46 95 07/13/16 07:10 97.7 102 125/85 (98) 97.7 Physical Exam General: Alert, No acute distress Heart: Regular rate, No murmurs Lungs: Clear, Other (no wheezing) Abdomen: Normal bowel sounds, No tenderness Extremities: No clubbing, No edema Skin: No rashes, No significant lesion Labs LABS Laboratory Tests Test 07/12/16 16:41 Urine Collection Type Unknown Urine Color Straw Urine Clarity Clear Urine pH 6.5 Urine Specific [place] 1.010 Urine Protein Negative mg/dL (NEG-TRACE) Urine Glucose (UA) Negative mg/dL (NEG) Urine Ketones (Stick) Negative mg/dL (NEG) Urine Blood Negative (NEG) Urine Nitrite Negative (NEG) Urine Bilirubin Negative (NEG) Urine Urobilinogen Dipstick 0.2 mg/dL (0.2 mg/dL) Urine Leukocyte Esterase Negative (NEG) Urine RBC Occ /HPF (0-2) Urine WBC 0 /HPF (0-4) Urine Squamous Epithelial Cells Occ /LPF Urine Bacteria 0 /HPF (0-FEW) Review of Systems Review of Systems Denies Chest pain Denies SOA Denies fever Denies N/V/D Assessment and Plan Assessmemt and Plan Problems Medical Problems: (1) Chest pain Status: Acute Assessment: Chest Pain Cardiac Murmur Hypokalemia HTN EtOH Abuse Gross hematuria Plan MPI reviewed: -Conclusion 1. No EKG evidence of stress-induced ischemia. 2. Nuclear imaging shows no reversible ischemia or infarct. 3. Normal left ventricular systolic function with an ejection fraction of greater than 70%. 4. Low risk Lexiscan nuclear stress test. -Cardio is following Abdominal CT reviewed: IMPRESSION: Small bilateral intrarenal calculi. No acute finding seen in the abdomen or pelvis. - Urology is following -Continue Flomax as prescribed Hypokalemia resolved - last level at 4.0 Continue current HTN meds Encouraged pt to cut down on amount of EtOH consumption D/C if ok w/ subspecialties Follow up w/ PCP Problems: Comment Review of Relevant I have reviewed the following items alyson (where applicable) has been applied. Labs Laboratory Tests Test 07/12/16 04:00 07/12/16 16:41 Sodium Level 137 mmol/L (136-145) Potassium Level 4.0 mmol/L (3.5-5.1) Chloride Level 103 mmol/L (98-107) Carbon Dioxide Level 26 mmol/L (21-32) Anion Gap 8 (6-14) Blood Urea Nitrogen 8 mg/dL (8-26) Creatinine 1.2 mg/dL (0.7-1.3) Estimated GFR (Cockcroft-Gault) 64.4 Glucose Level 94 mg/dL (70-99) Calcium Level 9.0 mg/dL (8.5-10.1) Triglycerides Level 36 mg/dL (0-150) Cholesterol Level 179 mg/dL (0-200) LDL Cholesterol, Calculated 85 mg/dL (0-100) VLDL Cholesterol, Calculated 7 mg/dL (0-40) Non-HDL Cholesterol Calculated 92 mg/dL (0-129) HDL Cholesterol 87 mg/dL (40-60) Cholesterol/HDL Ratio 2.1 Urine Collection Type Unknown Urine Color Straw Urine Clarity Clear Urine pH 6.5 Urine Specific [place] 1.010 Urine Protein Negative mg/dL (NEG-TRACE) Urine Glucose (UA) Negative mg/dL (NEG) Urine Ketones (Stick) Negative mg/dL (NEG) Urine Blood Negative (NEG) Urine Nitrite Negative (NEG) Urine Bilirubin Negative (NEG) Urine Urobilinogen Dipstick 0.2 mg/dL (0.2 mg/dL) Urine Leukocyte Esterase Negative (NEG) Urine RBC Occ /HPF (0-2) Urine WBC 0 /HPF (0-4) Urine Squamous Epithelial Cells Occ /LPF Urine Bacteria 0 /HPF (0-FEW) Laboratory Tests Test 07/12/16 16:41 Urine Collection Type Unknown Urine Color Straw Urine Clarity Clear Urine pH 6.5 Urine Specific [place] 1.010 Urine Protein Negative mg/dL (NEG-TRACE) Urine Glucose (UA) Negative mg/dL (NEG) Urine Ketones (Stick) Negative mg/dL (NEG) Urine Blood Negative (NEG) Urine Nitrite Negative (NEG) Urine Bilirubin Negative (NEG) Urine Urobilinogen Dipstick 0.2 mg/dL (0.2 mg/dL) Urine Leukocyte Esterase Negative (NEG) Urine RBC Occ /HPF (0-2) Urine WBC 0 /HPF (0-4) Urine Squamous Epithelial Cells Occ /LPF Urine Bacteria 0 /HPF (0-FEW) Medications Current Medications Aspirin (Children'S Aspirin) 324 mg 1X ONCE PO Last administered on 07/10/16 16:36; Start 07/10/16 at 16:15; Stop 07/10/16 at 16:16; Status DC Nitroglycerin (Nitrostat) 0.4 mg PRN Q5MIN PRN SL CHEST PAIN Last administered on 07/10/16 23:45; Start 07/10/16 at 16:30 Morphine Sulfate 2 mg PRN Q1HR PRN IV SEVERE PAIN Last administered on 16:37; Start 07/10/16 at 16:30; Stop 07/11/16 at 12:13; Status DC Ondansetron HCl (Zofran) 4 mg PRN Q8HRS PRN IV NAUSEA/VOMITING; Start 07/10/16 at 16:45; Stop 07/10/16 at 17:46; Status DC Morphine Sulfate 2 mg PRN Q2HR PRN IV PAIN; Start 07/10/16 at 16:45; Stop at 17:47; Status DC Nitroglycerin (Nitrostat) 0.4 mg PRN Q5MIN PRN SL CHEST PAIN; Start 07/10/16 at 16:45; Stop 07/11/16 at 16:44; Status DC Ondansetron HCl (Zofran) 4 mg PRN Q6HRS PRN IV NAUSEA/VOMITING Last administered on 07/11/16 16:00; Start 07/10/16 at 17:43; Stop 07/11/16 at 17:42; Status DC Labetalol HCl (Normodyne) 10 mg PRN Q2HR PRN IVP 160/100 Last administered on 23:13; Start 07/10/16 at 17:45 Aspirin (Ecotrin) 81 mg DAILYWBKFT PO Last administered on 07/13/16 08:45; Start 07/11/16 at 08:00 Metoprolol Tartrate (Lopressor) 50 mg BID PO ; Start 07/10/16 at 21:00; Stop 07/10 at 21:42; Status DC Oxycodone/ Acetaminophen (Percocet 7.5/ 325) 1 tab PRN Q4HRS PRN PO MILD PAIN Last administered on 07/13/16 08:45; Start 07/10/16 at 17:45 Non-Formulary Medication 250 mg TWICE WEEKLY PO ; Start 07/10/16 at 17:45; Status UNV Gabapentin (Neurontin) 300 mg BID PO ; Start 07/10/16 at 21:00; Stop 07/10/16 at 21:41; Status DC Pantoprazole Sodium (Protonix) 40 mg DAILYAC PO Last administered on 07/13/16 08:46; Start 07/11/16 at 07:30 Vitamin D (Vitamin D3) 1,000 unit DAILY PO Last administered on 07/13/16 08:45 ; Start 07/11/16 at 09:00 Fish Oil (Fish Oil) 1,000 mg DAILY PO Last administered on 07/13/16 08:45; Start 07/11/16 at 09:00 Fentanyl Citrate (Fentanyl 2ml Vial) 50 mcg PRN Q2HR PRN IV pain Last administered on 07/12/16 17:39; Start 07/10/16 at 17:45 Multivitamins 10 ml/Thiamine HCl 100 mg/Folic Acid 1 mg/Sodium Chloride 1,011.2 ml @ 100 mls/ hr DAILY IV Last administered on 07/12/16 09:00; Start 07/10/16 at 21:30; Stop 07/12/16 at 13:23; Status DC Chlordiazepoxide (Librium) 25 mg Q6HRS PRN PO For CIWA 8-14; Start 07/10/16 at 21:00 Tamsulosin HCl (Flomax) 0.4 mg DAILY PO Last administered on 07/13/16 08:46; Start 07/11/16 at 09:00; Stop 07/13/16 at 10:42; Status DC Tramadol HCl (Ultram) 50 mg TID PO Last administered on 07/13/16 08:46; Start 07/10/16 at 21:30 Zolpidem Tartrate (Ambien) 5 mg QHS PRN PO INSOMNIA Last administered on 21:38; Start 07/10/16 at 21:15 Amitriptyline HCl (Amitriptyline HCl) 100 mg QHS PO Last administered on 21:19; Start 07/10/16 at 21:30 Hydrochlorothiazide (Microzide) 12.5 mg DAILY PO Last administered on 07/13/16 08:46; Start 07/11/16 at 09:00 Gabapentin (Neurontin) 900 mg TID PO Last administered on 07/13/16 08:45; Start 07/10/16 at 21:45 Potassium Chloride (Klor-Con) 40 meq 1X ONCE PO Last administered on 07/11/16 08:53; Start 07/11/16 at 08:30; Stop 07/11/16 at 08:31; Status DC Potassium Chloride (Klor-Con) 20 meq 1X ONCE PO Last administered on 07/11/16 13:08; Start 07/11/16 at 12:30; Stop 07/11/16 at 12:31; Status DC Potassium Chloride (Klor-Con) 20 meq 1X ONCE PO Last administered on 07/11/16 17:22; Start 07/11/16 at 17:00; Stop 07/11/16 at 17:01; Status DC Ondansetron HCl (Zofran) 4 mg PRN Q8HRS PRN IV NAUSEA/VOMITING Last administered on 07/12/16 11:26; Start 07/11/16 at 23:00 Regadenoson (Lexiscan) 0.4 mg 1X ONCE IV Last administered on 07/12/16 10:39; Start 07/12/16 at 10:30; Stop 07/12/16 at 10:31; Status DC Vitamin B Complex (Folbic Tablet) 1 tab DAILY PO Last administered on 07/13/16 08:45; Start 07/13/16 at 09:00 Thiamine Mononitrate (Vitamin B-1) 100 mg DAILY PO Last administered on 08:45; Start 07/13/16 at 09:00 Folic Acid (Folic Acid) 1 mg DAILY PO Last administered on 07/13/16t 08:46; Start 07/13/16 at 09:00 Tamsulosin HCl (Flomax) 0.4 mg BID PO ; Start 07/13/16 at 21:00 Active Scripts Active Reported Ambien (Zolpidem Tartrate) 5 Mg Tablet 1 Tab PO QHS PRN Hydrochlorothiazide Tablet (Hydrochlorothiazide) 12.5 Mg Tablet 1 Tab PO DAILY Tamsulosin Hcl 0.4 Mg Cap.er.24h 1 Cap PO DAILY Tramadol Hcl 50 Mg Tablet 1 Tab PO TID Amitriptyline Hcl 100 Mg Tablet 1 Tab PO QHS Vitamin D-3 (Cholecalciferol (Vitamin D3)) 2,000 Unit Capsule 2,000 Unit PO Fish Oil ([place]-3 Fatty Acids) 500 Mg Capsule 500 Mg PO Aspir 81 (Aspirin) 81 Mg Tablet. 1 Tab PO DAILY [vit b] Prilosec (Omeprazole) 40 Mg Capsule.dr 1 Cap PO DAILY Gabapentin 300 Mg Capsule 900 Mg PO TID Vitals/I & O Vital Sign - Last 24 Hours 07/12/16 07/12/16 07/12/16 07/12/16 11:29 12:31 12:49 14:00 Pulse Ox 97 97 97 98 O2 Delivery Room Air Room Air Room Air Room Air 07/12/16 07/12/16 07/12/16 07/12/16 15:00 15:16 15:49 15:49 Temp 97.7 97.7 Pulse 98 Resp 20 B/P (MAP) 131/90 (104) Pulse Ox 98 98 98 98 O2 Delivery Room Air Room Air 07/12/16 07/12/16 07/12/16 07/12/16 17:39 18:24 19:52 20:00 Temp 97.7 97.7 Pulse 95 Resp 20 B/P (MAP) 142/100 (114) Pulse Ox 98 98 98 O2 Delivery Room Air Room Air Room Air Room Air 07/12/16 07/12/16 07/12/16 07/13/16 21:20 21:20 23:00 07:10 Temp 97.7 97.7 97.7 97.7 Pulse 89 102 Resp 17 17 20 16 B/P (MAP) 138/95 (109) 125/85 (98) Pulse Ox 97 95 O2 Delivery Room Air Room Air Room Air Room Air 07/13/16 07/13/16 07/13/16 07/13/16 08:00 08:45 08:46 09:41 Resp 14 14 14 Pulse Ox 95 95 O2 Delivery Room Air Room Air Room Air Room Air 07/13/16 09:41 Resp 14 O2 Delivery Room Air Intake and Output 07/12/16 07/12/16 07/13/16 14:59 22:59 06:59 Intake Total 240 ml Balance 240 ml JO ANN GUTIERREZ III DO July 13, 2016 11:07
[2016-07-13] MEDS ORDERED: TAMSULOSIN 0.4 MG CAP.ER.24H. PO SCH (21:00)
--- NOTE | 2016-07-13 22:51 | DS ---
DATE OF DISCHARGE: 07/13/2016 ADMISSION DIAGNOSES: Chest pain and alcohol withdrawal. DISCHARGE DIAGNOSES: Atypical chest pain, resolving alcohol withdrawal. HOSPITAL COURSE: The patient is a pleasant 51-year-old male who states he drinks 12 beers a day. He presented with chest pain. We admitted him. We checked serial enzymes, serial EKGs. We consulted Cardiology. The stress test was negative. We gave him alcohol withdrawal protocol. Basically, he is back to his baseline. The Cardiology nurse practitioner thought he may have ____ the breast mass. We had instructed the patient to follow up closely with his primary care doctor for an outpatient evaluation on this. DISPOSITION: Home. ACTIVITY: As tolerated. DIET: Low sodium. MEDICATIONS: Please see the MRAD. TOTAL TIME ON DISCHARGE: 38 minutes. JO ANN GUTIERREZ DO DR: SALOMÓN/christine JOB#: [id number] / [id number]
--- NOTE | 2016-07-14 01:20 | CONS ---
DATE OF CONSULTATION: 07/13/2016 The patient is in room 650. HISTORY OF PRESENT ILLNESS: The patient is a very pleasant 51-year-old white male admitted on 07/10/2016 with chest pain. The patient also has a history of some lower urinary tract symptoms. He was started on some tamsulosin by his primary care physician at a month ago. The patient also with significant urologic history of kidney stones. He has had previous lithotripsies and also has a history of testicular cancer, status post a right radical orchiectomy many years ago at . The patient states history of prostate cancer in one grandfather. The patient was admitted with chest pain, but was found to have some nonobstructing renal stones bilaterally. The patient's urine showed negative for red cells and white cells on dipstick, there is some occasional red cell, 0 white cells, 0 bacteria. Creatinine 1.0. On the first night been in the hospital, the patient had reported difficulty voiding and therefore was in and out catheterized one time for approximately a liter, but then he was voiding fine after that. The patient takes tamsulosin once a day. PHYSICAL EXAMINATION: GENITOURINARY: The right testicle is surgically absent, left testicle is descended. No inguinal hernias. Prostate smooth, nontender, without nodules, overall size 10 grams. ABDOMEN: Soft, nontender, no CVA tenderness. RECTAL: Good sphincter tone. RECOMMENDATIONS: Recommend increasing his Flomax up to twice a day. We will also check another postvoid residual to make sure he is emptying out adequately and then would recommend having him follow up with Urology at here in the next week or two to make sure he is followed up for the history of testicular cancer and his lower urinary tract symptoms with the tamsulosin. Now at this point with no ureteral calculi, no obstruction, we would just recommend observation as far as his renal stones. I certainly appreciate being allowed to participate in this patient's care. PRESTON BROWN MD DR: FARIBA/christine JOB#: [id number] / [id number]
== END 2016-07-13 13:20 | disposition home or self-care (01) ==
LOC: ER 15:34 → 6 SOUTH 16:38
PROVIDERS: ADMIT Internal Medicine; ATTEND Internal Medicine
DX: R07.89 Other chest pain (principal); I10 Essential (primary) hypertension; F10.239 Alcohol dependence with withdrawal, unspecified; R00.0 Tachycardia, unspecified; R01.1 Cardiac murmur, unspecified; E87.6 Hypokalemia; F41.9 Anxiety disorder, unspecified; R31.0 Gross hematuria; N20.0 Calculus of kidney; F17.210 Nicotine dependence, cigarettes, uncomplicated; Z87.442 Personal history of urinary calculi; Z85.46 Personal history of malignant neoplasm of prostate; Z85.47 Personal history of malignant neoplasm of testis; Z82.49 Family history of ischemic heart disease and other diseases of the circulatory system
CPT/HCPCS: 36415; 71010; 74176; 78452; 80048; 80061; 80076; 81001; 83690; 83735; 83880; 84484; 85007; 85027; 85379; 93005; 93017; 93306; 96365; 96366; 96375; 96376; 99285; A9153; A9500; G0378; J2270; J2405; J2785; J3010; J3411; J3490; J7030; 96374; G0379

== ENCOUNTER → 2017-10-01 | Outpatient (CLI) | payer OTHER ==
[~2017-10-01] MED LIST changes: -ASPI-482 PO; -CHOL20004 PO; -GABA-586 PO; +IOHEXOL 240 MG/ML 50ML VIAL. PO; +IOHEXOL 300 MG/ML 100ML VIAL. IV; -METO50TA2 PO; -OMEG500C3 PO; -OMEP40CA2 PO; -OXYC1TAB8 PO; -[UNRECOGNIZED DRUG - CODE] PO; -vit b
[2017-10-01 10:44] LABS: GFR 79.1
[2017-10-01 10:44] LABS: BLOOD UREA NITROGEN 9 mg/dL (8-26)
== END | disposition home or self-care (01) ==
LOC: CT 10:08
DX: K85.90 Acute pancreatitis without necrosis or infection, unspecified (principal); N20.0 Calculus of kidney; K76.0 Fatty (change of) liver, not elsewhere classified
CPT/HCPCS: 36415; 74176; 82565; 84520; Q9966; Q9967

== ENCOUNTER 2017-10-03 21:54 | Emergency (ER) | payer OTHER ==
[2017-10-03] MEDS: DIPHTH,PERTUSS(ACELL),TET TOX 0.5 ML DISP.SYRIN. VAX IM (22:31)
== END 2017-10-03 22:39 | disposition home or self-care (01) ==
LOC: ER 21:54
DX: L03.031 Cellulitis of right toe (principal); B35.1 Tinea unguium; Z88.5 Allergy status to narcotic agent; Z88.8 Allergy status to other drugs, medicaments and biological substances
CPT/HCPCS: 90471; 90715; 99284-25

== ENCOUNTER 2018-01-02 09:40 | Inpatient (IN) | payer OTHER ==
[~2018-01-02] VITALS: Ht 190.5 cm; Wt 81.2 kg
[2018-01-02] VITALS (12 sets, daily range): BP systolic 125–186; BP diastolic 69–99
[~2018-01-02 09:40] MED LIST changes: +AMIT100T PO; +AMLO10TA6 PO; +ASPI-482 PO; +CARB200T3 PO; +CHOL200074 PO; +CLIN300C8 PO; +FOLI1TAB16 PO; +GABA-586 PO; +HYDR12.58 PO; -IOHEXOL 240 MG/ML 50ML VIAL. PO; -IOHEXOL 300 MG/ML 100ML VIAL. IV; +METO50TA6 PO; +OMEG500C3 PO; +OMEP40CA2 PO; +OXYC1TAB8 PO; +OXYC5CAP PO; +TAMS0.4C2 PO; +THIA100T22 PO; +TRAM50TA PO; +ZOLP5TAB PO; +[UNRECOGNIZED DRUG - CODE] PO; +vit b
--- NOTE | 2018-01-02 10:14 | PHYS DOC ---
Past Medical History Past Medical History: Anxiety, Cancer, Kidney Stone, Pancreatitis, Seizure, Other Additional Past Medical Histor: Testicular CA 1996,BARRETTS ESOPHAGUS,ACUTE RENAL FAILURE Past Surgical History: Other Additional Past Surgical Histo: L)shoulder fx repair,Lithotripsy,R TESTICLE REMOVED Alcohol Use: Sober Drug Use: None Adult General Chief Complaint Chief Complaint: ABDOMINAL PAIN HPI HPI 52-year-old male presents to ER with complaints of left side abdominal pain radiating into his back for the past 6 days. Patient reports he's had nausea and vomiting intermittently with 1 episode of vomiting today. Patient reports he has had decreased fluid intake and less urinary output. Patient reports over the past couple of weeks he has had multiple falls with the last fall 1 week ago where he struck the right side of his head. Patient reports he has had intermittent dizziness denying any LOC or confusion. Patient reports his last bowel movement was over 6 days ago uncertain of exact day. Patient reports he's had decreased appetite. Patient denies any chest pain or palpitations, shortness of air, abdominal distention, or swelling in extremities. Patient reports he has had increased falls over the past several months due to peripheral neuropathy. Pt reports he is former smoker and is denies any alcohol stating he has been "sober". Pt denies any recent travel. Pt reports he lives alone. Review of Systems Review of Systems Constitutional: Denies fever or chills. Reports generalized fatigue Eyes: Denies change in visual acuity, redness, or eye pain [] HENT: Denies nasal congestion or sore throat. Reports right temporal swelling where he fell a week ago with mild tenderness at site- no ecchymosis/wound Respiratory: Denies cough or shortness of breath. No chest wall tenderness Cardiovascular: Denies chest pain or palpitations GI: Denies bloody stools or diarrhea. Reports left side abdominal pain radiating into left lower back. Reports intermittent nausea with vomiting. Reports no bowel movement for past 6 days at least : Denies dysuria. Reports possible blood in his urine past couple of days although urine is concentrated. Reports decreased urinary output Musculoskeletal: Denies neck pain. Reports left lower back pain Integument: Denies rash or skin lesions [] Neurologic: Denies headache, focal weakness or sensory changes. Reports bilateral lower extremity numbness and tingling which is associated with his peripheral neuropathy no acute change. Reports intermittent dizziness All other systems were reviewed and found to be within normal limits, except as documented in this note. Current Medications Current Medications Current Medications Medications (Trade) Dose Ordered Sig/[facility] Start Time Stop Time Status Last Admin Dose Admin Fentanyl Citrate (Fentanyl 2ml Vial) 50 mcg 1X ONCE 01/02/18 11:30 01/02/18 11:32 DC 01/02/18 11:38 50 MCG Info (CONTRAST GIVEN -- Rx MONITORING) 1 each PRN DAILY PRN 01/02/18 11:00 01/04/18 10:59 Iohexol (Omnipaque 300 Mg/ml) 75 ml 1X ONCE 01/02/18 11:00 01/02/18 11:01 DC 01/02/18 11:29 75 ML Ondansetron HCl (Zofran) 4 mg 1X ONCE 01/02/18 10:15 01/02/18 10:16 DC 01/02/18 10:14 4 MG Sodium Chloride 1,000 ml @ 1,000 mls/hr 1X ONCE 01/02/18 10:15 01/02/18 11:14 DC 01/02/18 10:14 1,000 MLS/HR Allergies Allergies Allergies Coded Allergies Type Severity Reaction Last Updated Verified haloperidol Allergy Intermediate 06/17/17 Yes methylphenidate Allergy Intermediate dystonia 07/10/16 Yes morphine Adverse Reaction Intermediate 07/10/16 Yes Physical Exam Physical Exam Constitutional: Well developed, well nourished, no acute distress, non-toxic appearance. [] HENT: Normocephalic, tender to palp. rt temporal area- with swelling at site no ecchymosis/wound, bilateral ears normal, mucous membranes pink/dry, no oral exudates, nose normal. [] Eyes: 3 mm PERRLA, EOMI, no nystagmus, conjunctiva normal, no discharge. [] Neck: Normal range of motion, no tenderness- no midline cervical tenderness or palpable deformity, supple, no stridor. [] Cardiovascular:Heart rate regular rhythm, no murmur [] Lungs & Thorax: Bilateral breath sounds clear to auscultation [] Abdomen: Bowel sounds normal, soft/nondistended no rigidity, tender to palpation left mid abdomen into left upper quadrant tenderness extends into left side and left flank area, no masses, no pulsatile masses. [] Skin: Warm, dry, no erythema, no rash. [] Back: No right side CVA tenderness. Left side CVA tenderness. Range of motion intact. No midline spinal tenderness or palpable deformity. Extremities: Pelvis stable and nontender. No tenderness, no cyanosis, no clubbing, ROM intact, no edema. [] Neurologic: Alert and oriented X 3, normal motor function, normal sensory function, no focal deficits noted. [] Psychologic: Affect normal, judgement normal, mood normal. [] Current Patient Data Vital Signs Vital Signs Date Time Temp Pulse Resp B/P (MAP) Pulse Ox O2 Delivery O2 Flow Rate FiO2 01/02/18 11:38 20 100 Room Air 01/02/18 11:34 74 137/94 (108) 01/02/18 09:46 98.2 98.2 Lab Values Laboratory Tests Test 01/02/18 10:00 01/02/18 10:30 White Blood Count 5.1 x10^3/uL (4.0-11.0) Red Blood Count 3.03 x10^6/uL (4.30-5.70) L Hemoglobin 10.7 g/dL (13.0-17.5) L Hematocrit 29.7 % (39.0-53.0) L Mean Corpuscular Volume 98 fL (79-100) Mean Corpuscular Hemoglobin 35 pg (25-35) Mean Corpuscular Hemoglobin Concent 36 g/dL (31-37) Red Cell Distribution Width 14.1 % (11.5-14.5) Platelet Count 95 x10^3/uL (140-400) L Neutrophils (%) (Auto) 67 % (31-73) Lymphocytes (%) (Auto) 20 % (24-48) L Monocytes (%) (Auto) 11 % (0-9) H Eosinophils (%) (Auto) 3 % (0-3) Basophils (%) (Auto) 0 % (0-3) Neutrophils # (Auto) 3.4 x10^3uL (1.8-7.7) Lymphocytes # (Auto) 1.0 x10^3/uL (1.0-4.8) Monocytes # (Auto) 0.5 x10^3/uL (0.0-1.1) Eosinophils # (Auto) 0.1 x10^3/uL (0.0-0.7) Basophils # (Auto) 0.0 x10^3/uL (0.0-0.2) Sodium Level 138 mmol/L (136-145) Potassium Level 3.3 mmol/L (3.5-5.1) L Chloride Level 98 mmol/L (98-107) Carbon Dioxide Level 28 mmol/L (21-32) Anion Gap 12 (6-14) Blood Urea Nitrogen 9 mg/dL (8-26) Creatinine 1.2 mg/dL (0.7-1.3) Estimated GFR (Cockcroft-Gault) 64.1 BUN/Creatinine Ratio 8 (6-20) Glucose Level 107 mg/dL (70-99) H Calcium Level 9.2 mg/dL (8.5-10.1) Magnesium Level 1.7 mg/dL (1.8-2.4) L Total Bilirubin 0.9 mg/dL (0.2-1.0) Aspartate Amino Transferase (AST) 74 U/L (15-37) H Alanine Aminotransferase (ALT) 39 U/L (16-63) Alkaline Phosphatase 118 U/L (46-116) H Troponin I Quantitative < 0.017 ng/mL (0.000-0.055) Total Protein 7.5 g/dL (6.4-8.2) Albumin 4.0 g/dL (3.4-5.0) Albumin/Globulin Ratio 1.1 (1.0-1.7) Lipase 2191 U/L (73-393) H Ethyl Alcohol Level < 10 mg/dL (0-10) Prothrombin Time 13.6 SEC (11.7-14.0) Prothrombin Time INR 1.1 (0.8-1.1) PTT 28 SEC (24-38) Lactic Acid Level 1.0 mmol/L (0.4-2.0) Laboratory Tests 01/02/18 10:00 Laboratory Tests 01/02/18 10:00 EKG EKG EKG obtained 01/02/18 [address] Medina Sinus rhythm Rate 76 No STEMI Radiology/Procedures Radiology/Procedures PROCEDURE: CT HEAD AND CERVICAL SPINE WO Examination: CT HEAD AND CERVICAL SPINE WO History: fall- hit rt side of head/dizziness, pain Comparison/Correlation: 03/29/2017 MRI cervical spine without contrast Findings: Axial images of the head and cervical spine were obtained without contrast. Sagittal and coronal reformatted images of the cervical spine were obtained. Atrophy is present. No intracranial hemorrhage, shift, or mass effect. Globes and optic nerves are unremarkable. No depressed skull fracture. Atlantoaxial joint degenerative remodeling and spurring is present. Vertebral body heights are adequate. Disc spaces are adequate. No fracture or bony destruction. Alignment is normal. Soft tissues are unremarkable. Neural foramina are patent. No significant degenerative change. Impression: No fracture. No intracranial hemorrhage. Cervical spine alignment is normal. Electronically signed by: Wally Patel MD (01/02/2018 11:26 AM) [facility] DICTATED and SIGNED BY: WALLY PATEL MD DATE: 01/02/18 1114 PROCEDURE: CT ABD PELV W/ IV CONTRST ONLY Examination: CT ABD PELV W/ IV CONTRST ONLY History: lt side abd pain- hx pancreatitis/kidney stones
PREVIOUS
IV OMNI 300 75 MLS Comparison/Correlation: CT abdomen and pelvis with oral contrast only 10/01/2017 Findings: Axial images of the abdomen and pelvis were obtained following 75 cc Omnipaque 300 IV. Sagittal and coronal reformatted images were provided. The visualized lung bases are clear. Small hiatal hernia is present. Diffuse fatty infiltration of the liver is present. Focal fatty infiltration about the intersegmental fissure is present. Cholecystectomy is evident. Spleen is normal. Pancreas is unremarkable. Calcification about the pancreatic head noted. Adrenal glands are normal. Right renal inferior pole calyceal calculus measuring 0.5 cm diameter is present. There are a few very small to characterize left renal lesions which probably represent simple cysts but are too small to characterize. Visualized bowel is unremarkable. Appendix is normal. Urinary bladder is unremarkable. Bony structures are unremarkable. Impression: Small hiatal hernia. Nonobstructive right renal calculus. No inflammatory process, mass, or obstruction. Electronically signed by: Wally Patel MD (01/02/2018 11:32 AM) [facility] DICTATED and SIGNED BY: WALLY PATEL MD DATE: 01/02/18 1126 Course & Med Decision Making Course & Med Decision Making Pertinent Labs and Imaging studies reviewed. (See chart for details) 1130: On reevaluation patient reports minimal relief in symptoms following an initial dose of medication. Will provide additional dose of fentanyl. Discussed test results with H&H 10.7/29.7; lipase 2191- renal functions NL with BUN/Cr 9/ 1.2. EKG with no acute ST elevation/STEMI and troponin <0.017. During this discussion patient reports he had been drinking alcohol approx. 1 1/2 wks ago although during triage he had reported he has been sober. Pt states he misunderstood questioning. He reports he drinks Rum. CT abd/pelvis pending. Pt will be admitted for pancreatitis for further care/monitoring- admission was discussed with pt and he is agreeable with plan. IV flds were given while in ER and pt has had no vomiting episodes. 1155: Spoke with Dr. Christine, pt's PCP and discussed pt's case along with admission plans with consult for GI Dr. Stanley. Pt's head/cspine CTs were neg. for acute findings and abd/pelvis CT with sm. hiatal hernia and nonobstructive rt renal calculus seen- pancreas noted to be unremarkable. Dragon Disclaimer Dragon Disclaimer This electronic medical record was generated, in whole or in part, using a voice recognition dictation system. Departure Departure Impression: Primary Impression: Abdominal pain Additional Impression: Acute pancreatitis Disposition: ADMITTED INPATIENT Admitting Physician: Candice Christine Condition: STABLE Referrals: CANDICE CHRISTINE MD (PCP) Scripts Amitriptyline Hcl (AMITRIPTYLINE HCL) 50 Mg Tablet 1 TAB PO QHS, #30 TAB 1 Refill Prov: CANDICE CHRISTINE MD 01/03/18 Tramadol Hcl (TRAMADOL HCL) 50 Mg Tablet 50 MG PO Q6HRS PRN for PAIN for 30 Days, #120 TAB Prov: CANDICE CHRISTINE MD 01/03/18 Carbamazepine (EPITOL) 200 Mg Tablet 50 MG PO BID, #30 TAB Prov: CANDICE CHRISTINE MD 01/03/18 Problem Qualifiers CHINMAY FRANCIS APRN Jan 02, 2018 10:14
[2018-01-02] MEDS ORDERED: ONDANSETRON PF 4 MG/2 ML VIAL. IV ONE (10:15)
[2018-01-02] MEDS ORDERED: IV NORMAL SALINE 1000ML BAG 1,000 ML IV ONE (10:15)
[2018-01-02] MEDS ORDERED: fentaNYL PF VIAL 100 MCG/2 ML VIAL IV ONE ×2 (10:15→11:30)
[2018-01-02 10:18] LABS: BASO % 0 % (0-3); EOS # 0.1 x10^3/uL (0.0-0.7); EOS % 3 % (0-3); HEMATOCRIT 29.7 % (39.0-53.0); HEMOGLOBIN 10.7 g/dL (13.0-17.5); LYMPH % 20 % (24-48); MEAN CORPUSCULAR HEMOGLOBIN 35 pg (25-35); MEAN CORPUSCULAR HGB CONC 36 g/dL (31-37); MEAN CORPUSCULAR VOLUME 98 fL (79-100); MONO # 0.5 x10^3/uL (0.0-1.1); MONO % 11 % (0-9); NEUT # 3.4 x10^3uL (1.8-7.7); NEUT % 67 % (31-73); PLATELET COUNT 95 x10^3/uL (140-400); RED BLOOD COUNT 3.03 x10^6/uL (4.30-5.70); RED CELL DISTRIBUTION WIDTH 14.1 % (11.5-14.5); WHITE BLOOD COUNT 5.1 x10^3/uL (4.0-11.0)
[2018-01-02 10:23] LABS: CALCIUM 9.2 mg/dL (8.5-10.1); CREATININE 1.2 mg/dL (0.7-1.3); GFR 64.1; POTASSIUM 3.3 mmol/L (3.5-5.1)
[2018-01-02 10:29] LABS: ALBUMIN/GLOBULIN RATIO 1.1 (1.0-1.7); MAGNESIUM 1.7 mg/dL (1.8-2.4); TOTAL BILIRUBIN 0.9 mg/dL (0.2-1.0); TOTAL PROTEIN 7.5 g/dL (6.4-8.2)
[2018-01-02] MEDS ORDERED: IOHEXOL 300 MG/ML 100ML VIAL. IV ONE (11:00)
[2018-01-02] MEDS ORDERED: CONTRAST GIVEN. MC PRN (11:00)
[2018-01-02 11:28] LABS: PROTHROMBIN TIME PATIENT 13.6 SEC (11.7-14.0)
--- NOTE | 2018-01-02 11:29 | RAD ---
Examination: CT HEAD AND CERVICAL SPINE WO History: fall- hit rt side of head/dizziness, pain Comparison/Correlation: 03/29/2017 MRI cervical spine without contrast Findings: Axial images of the head and cervical spine were obtained without contrast. Sagittal and coronal reformatted images of the cervical spine were obtained. Atrophy is present. No intracranial hemorrhage, shift, or mass effect. Globes and optic nerves are unremarkable. No depressed skull fracture. Atlantoaxial joint degenerative remodeling and spurring is present. Vertebral body heights are adequate. Disc spaces are adequate. No fracture or bony destruction. Alignment is normal. Soft tissues are unremarkable. Neural foramina are patent. No significant degenerative change. Impression: No fracture. No intracranial hemorrhage. Cervical spine alignment is normal. Electronically signed by: Wally Neal MD (01/02/2018 11:26 AM) [facility]
--- NOTE | 2018-01-02 11:35 | RAD ---
Examination: CT ABD PELV W/ IV CONTRST ONLY History: lt side abd pain- hx pancreatitis/kidney stones
PREVIOUS
IV OMNI 300 75 MLS Comparison/Correlation: CT abdomen and pelvis with oral contrast only 10/01/2017 Findings: Axial images of the abdomen and pelvis were obtained following 75 cc Omnipaque 300 IV. Sagittal and coronal reformatted images were provided. The visualized lung bases are clear. Small hiatal hernia is present. Diffuse fatty infiltration of the liver is present. Focal fatty infiltration about the intersegmental fissure is present. Cholecystectomy is evident. Spleen is normal. Pancreas is unremarkable. Calcification about the pancreatic head noted. Adrenal glands are normal. Right renal inferior pole calyceal calculus measuring 0.5 cm diameter is present. There are a few very small to characterize left renal lesions which probably represent simple cysts but are too small to characterize. Visualized bowel is unremarkable. Appendix is normal. Urinary bladder is unremarkable. Bony structures are unremarkable. Impression: Small hiatal hernia. Nonobstructive right renal calculus. No inflammatory process, mass, or obstruction. Electronically signed by: Wally Neal MD (01/02/2018 11:32 AM) [facility]
[2018-01-02 12:35] LABS: BILIRUBIN,URINE NEGATIVE (NEG); CLARITY,URINE CLEAR; COLOR,URINE YELLOW; NITRITE,URINE NEGATIVE (NEG); PH,URINE 8.5; PROTEIN,URINE NEGATIVE (NEG-TRACE); UROBILINOGEN,URINE 0.2 mg/dL (0.2 mg/dL)
[2018-01-02 12:40] LABS: HYALINE CASTS, URINE MODERATE /HPF
[2018-01-02 12:41] LABS: BACTERIA,URINE FEW /HPF (0-FEW); RBC,URINE OCC /HPF (0-2)
[2018-01-02] MEDS: fentaNYL PF VIAL 100 MCG/2 ML VIAL IV PRN ×3 (13:59→20:55)
[2018-01-02] MEDS ORDERED: PANT20TA2 PO (14:33)
[2018-01-02] MEDS ORDERED: LIPA1CAP8 PO (14:33)
[2018-01-02] MEDS ORDERED: PREG50CA PO (14:33)
[2018-01-02] MEDS ORDERED: LOSA50TA7 PO (14:33)
[2018-01-02] MEDS ORDERED: METO50TA6 PO (14:33)
--- NOTE | 2018-01-02 14:44 | PDOC2 ---
CONSULT Date of Consult Date of Consult DATE: 01/02/18 TIME: 14:31 History of Present Illness Reason for Visit: 52 y/o male admitted through ER. Recurrent abd pain and elevated lipase. Admits to some alcohol 12 days ago- otherwise tried to avoid alcohol based on his history of alcohol related pancreatitis. H/o pancreatitis 5-6 times before , says related to alcohol use. S/p cholecystectomy (no stones). Recently, has been to . 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 We dont have those records but he would like to tranfer care to Dr. stanley going forward. On Prilosec OTC 2 pills QD and Creon. Started w/ LUQ pain and n/v similar to previous episodes of pancreatitis . Unable to keep much down, significant burning in esophagus w/ vomiting and recent ablation. Currently feeling much better w/ Compazine and Mylanta, tolerated clears fro breakfast and wants more for lunch. Has perhaps had a little constipation which is not unusual for him - usually improved quickly w/ MIralax. Had a colonoscopy @ last year, maybe w/ polyps. W/ recent EGD, history of a flex sig that showed "something that wasn't a big deal." Recalls elevated LFTs in the past. Had cholecystectomy as well. Takes Tramadol for neuropathy at home, occasional Tylenol but no NSAIDs. Past Medical History Cardiovascular: HTN Pulmonary: Pneumonia CENTRAL NERVOUS SYSTEM: Periperal neuropathy GI: Other (chronic and acute pancreatitis) Heme/Onc: Cancer Hepatobiliary: No pertinent hx, Other Psych: Anxiety, Addictions, Depression, Panic Musculoskeletal: Osteoarthritis, Other Rheumatologic: No pertinent hx Infectious disease: No pertinent hx Renal/: Chronic renal failure, Other Endocrine: No pertinent hx Past Surgical History Past Surgical History: Cholecystectomy, Other Family History Family History: No Significant, Coronary Artery Disease, Hypertension Social History ALCOHOL: other Drugs: None Lives: with Family Current Problem List Problem List Problems Medical Problems: (1) Abdominal pain Status: Acute (2) Acute pancreatitis Status: Acute Current Medications Current Medications Current Medications Sodium Chloride 1,000 ml @ 1,000 mls/hr 1X ONCE IV Last administered on 01/02at 10:14; Start 01/02/18 at 10:15; Stop 01/02/18 at 11:14; Status DC Ondansetron HCl (Zofran) 4 mg 1X ONCE IV Last administered on 01/02/18at 10:14 ; Start 01/02/18 at 10:15; Stop 01/02/18 at 10:16; Status DC Fentanyl Citrate (Fentanyl 2ml Vial) 50 mcg 1X ONCE IV Last administered on at 10:14; Start 01/02/18 at 10:15; Stop 01/02/18 at 10:16; Status DC Iohexol (Omnipaque 300 Mg/ml) 75 ml 1X ONCE IV Last administered on at 11:29; Start 01/02/18 at 11:00; Stop 01/02/18 at 11:01; Status DC Info (CONTRAST GIVEN -- Rx MONITORING) 1 each PRN DAILY PRN MC SEE COMMENTS; Start 01/02/18 at 11:00; Stop 01/04/18 at 10:59 Fentanyl Citrate (Fentanyl 2ml Vial) 50 mcg 1X ONCE IV Last administered on at 11:38; Start 01/02/18 at 11:30; Stop 01/02/18 at 11:32; Status DC Ondansetron HCl (Zofran) 4 mg PRN Q8HRS PRN IV NAUSEA/VOMITING; Start at 12:15; Stop 01/03/18 at 12:14 Fentanyl Citrate (Fentanyl 2ml Vial) 50 mcg PRN Q3HRS PRN IV PAIN Last administered on 01/02/18at 13:59; Start 01/02/18 at 12:15; Stop 01/03/18 at 12 :14 Active Scripts Active Clindamycin Hcl 300 Mg Capsule 300 Mg PO TID 7 Days Oxycodone Hcl 5 Mg Capsule 5 Mg PO Q4H PRN Vitamin B-1 (Thiamine Mononitrate) 100 Mg Tablet 100 Mg PO DAILY 30 Days Folic Acid 1 Mg Tablet 1 Mg PO DAILY 30 Days Reported Amlodipine Besylate 10 Mg Tablet 10 Mg PO DAILY Epitol (Carbamazepine) 200 Mg Tablet 50 Mg PO QID Vitamin D-3 (Cholecalciferol (Vitamin D3)) 2,000 Unit Capsule 2,000 Unit PO Fish Oil ([place]-3 Fatty Acids) 500 Mg Capsule 500 Mg PO Aspir 81 (Aspirin) 81 Mg Tablet.dr 1 Tab PO DAILY [vit b] Prilosec (Omeprazole) 40 Mg Capsule. 1 Cap PO DAILY Allergies Allergies: Coded Allergies: haloperidol (Verified Allergy, Intermediate, 06/17/17) drooling, excessive salivation methylphenidate (Verified Allergy, Intermediate, dystonia, 07/10/16) morphine (Verified Adverse Reaction, Intermediate, 07/10/16) PATIENT STATES, "I DONT LIKE THE FEELING.I KNOW IM ALLERGIC, [facility] HAS IT ON RECORD AND THEY HAD TO GIVE ME ATIVAN TO RELAX ME." Physical Exam General: Alert, Oriented X3 HEENT: PERRLA Lungs: Clear to auscultation Heart: Regular rate, Normal S1, Normal S2 Abdomen: Normal bowel sounds, Soft, No hepatosplenomegaly, Other (mildly tender ) Extremities: No clubbing, No cyanosis Neuro: Normal speech Psych/Mental Status: Mental status NL Vitals VITALS Vital Signs Date Time Temp Pulse Resp B/P (MAP) Pulse Ox O2 Delivery O2 Flow Rate FiO2 01/02/18 14:01 Room Air 01/02/18 13:59 16 01/02/18 13:33 105 125/76 (92) 95 01/02/18 12:52 98.4 98.4 Labs Labs Laboratory Tests Test 01/02/18 10:00 01/02/18 10:30 01/02/18 12:00 White Blood Count 5.1 x10^3/uL (4.0-11.0) Red Blood Count 3.03 x10^6/uL (4.30-5.70) Hemoglobin 10.7 g/dL (13.0-17.5) Hematocrit 29.7 % (39.0-53.0) Mean Corpuscular Volume 98 fL (79-100) Mean Corpuscular Hemoglobin 35 pg (25-35) Mean Corpuscular Hemoglobin Concent 36 g/dL (31-37) Red Cell Distribution Width 14.1 % (11.5-14.5) Platelet Count 95 x10^3/uL (140-400) Neutrophils (%) (Auto) 67 % (31-73) Lymphocytes (%) (Auto) 20 % (24-48) Monocytes (%) (Auto) 11 % (0-9) Eosinophils (%) (Auto) 3 % (0-3) Basophils (%) (Auto) 0 % (0-3) Neutrophils # (Auto) 3.4 x10^3uL (1.8-7.7) Lymphocytes # (Auto) 1.0 x10^3/uL (1.0-4.8) Monocytes # (Auto) 0.5 x10^3/uL (0.0-1.1) Eosinophils # (Auto) 0.1 x10^3/uL (0.0-0.7) Basophils # (Auto) 0.0 x10^3/uL (0.0-0.2) Sodium Level 138 mmol/L (136-145) Potassium Level 3.3 mmol/L (3.5-5.1) Chloride Level 98 mmol/L (98-107) Carbon Dioxide Level 28 mmol/L (21-32) Anion Gap 12 (6-14) Blood Urea Nitrogen 9 mg/dL (8-26) Creatinine 1.2 mg/dL (0.7-1.3) Estimated GFR (Cockcroft-Gault) 64.1 BUN/Creatinine Ratio 8 (6-20) Glucose Level 107 mg/dL (70-99) Calcium Level 9.2 mg/dL (8.5-10.1) Magnesium Level 1.7 mg/dL (1.8-2.4) Total Bilirubin 0.9 mg/dL (0.2-1.0) Aspartate Amino Transf (AST/SGOT) 74 U/L (15-37) Alanine Aminotransferase (ALT/SGPT) 39 U/L (16-63) Alkaline Phosphatase 118 U/L (46-116) Troponin I Quantitative < 0.017 ng/mL (0.000-0.055) Total Protein 7.5 g/dL (6.4-8.2) Albumin 4.0 g/dL (3.4-5.0) Albumin/Globulin Ratio 1.1 (1.0-1.7) Lipase 2191 U/L (73-393) Ethyl Alcohol Level < 10 mg/dL (0-10) Prothrombin Time 13.6 SEC (11.7-14.0) Prothromb Time International Ratio 1.1 (0.8-1.1) Activated Partial Thromboplast Time 28 SEC (24-38) Lactic Acid Level 1.0 mmol/L (0.4-2.0) Urine Collection Type Void Urine Color Yellow Urine Clarity Clear Urine pH 8.5 Urine Specific [place] >=1.030 Urine Protein Negative mg/dL (NEG-TRACE) Urine Glucose (UA) Negative mg/dL (NEG) Urine Ketones (Stick) Negative mg/dL (NEG) Urine Blood Negative (NEG) Urine Nitrite Negative (NEG) Urine Bilirubin Negative (NEG) Urine Urobilinogen Dipstick 0.2 mg/dL (0.2 mg/dL) Urine Leukocyte Esterase Negative (NEG) Urine RBC Occ /HPF (0-2) Urine WBC 1-4 /HPF (0-4) Urine Bacteria Few /HPF (0-FEW) Urine Hyaline Casts Moderate /HPF Urine Mucus Mod /LPF Laboratory Tests Test 01/02/18 10:00 01/02/18 10:30 01/02/18 12:00 White Blood Count 5.1 x10^3/uL (4.0-11.0) Red Blood Count 3.03 x10^6/uL (4.30-5.70) Hemoglobin 10.7 g/dL (13.0-17.5) Hematocrit 29.7 % (39.0-53.0) Mean Corpuscular Volume 98 fL (79-100) Mean Corpuscular Hemoglobin 35 pg (25-35) Mean Corpuscular Hemoglobin Concent 36 g/dL (31-37) Red Cell Distribution Width 14.1 % (11.5-14.5) Platelet Count 95 x10^3/uL (140-400) Neutrophils (%) (Auto) 67 % (31-73) Lymphocytes (%) (Auto) 20 % (24-48) Monocytes (%) (Auto) 11 % (0-9) Eosinophils (%) (Auto) 3 % (0-3) Basophils (%) (Auto) 0 % (0-3) Neutrophils # (Auto) 3.4 x10^3uL (1.8-7.7) Lymphocytes # (Auto) 1.0 x10^3/uL (1.0-4.8) Monocytes # (Auto) 0.5 x10^3/uL (0.0-1.1) Eosinophils # (Auto) 0.1 x10^3/uL (0.0-0.7) Basophils # (Auto) 0.0 x10^3/uL (0.0-0.2) Sodium Level 138 mmol/L (136-145) Potassium Level 3.3 mmol/L (3.5-5.1) Chloride Level 98 mmol/L (98-107) Carbon Dioxide Level 28 mmol/L (21-32) Anion Gap 12 (6-14) Blood Urea Nitrogen 9 mg/dL (8-26) Creatinine 1.2 mg/dL (0.7-1.3) Estimated GFR (Cockcroft-Gault) 64.1 BUN/Creatinine Ratio 8 (6-20) Glucose Level 107 mg/dL (70-99) Calcium Level 9.2 mg/dL (8.5-10.1) Magnesium Level 1.7 mg/dL (1.8-2.4) Total Bilirubin 0.9 mg/dL (0.2-1.0) Aspartate Amino Transf (AST/SGOT) 74 U/L (15-37) Alanine Aminotransferase (ALT/SGPT) 39 U/L (16-63) Alkaline Phosphatase 118 U/L (46-116) Troponin I Quantitative < 0.017 ng/mL (0.000-0.055) Total Protein 7.5 g/dL (6.4-8.2) Albumin 4.0 g/dL (3.4-5.0) Albumin/Globulin Ratio 1.1 (1.0-1.7) Lipase 2191 U/L (73-393) Ethyl Alcohol Level < 10 mg/dL (0-10) Prothrombin Time 13.6 SEC (11.7-14.0) Prothromb Time International Ratio 1.1 (0.8-1.1) Activated Partial Thromboplast Time 28 SEC (24-38) Lactic Acid Level 1.0 mmol/L (0.4-2.0) Urine Collection Type Void Urine Color Yellow Urine Clarity Clear Urine pH 8.5 Urine Specific [place] >=1.030 Urine Protein Negative mg/dL (NEG-TRACE) Urine Glucose (UA) Negative mg/dL (NEG) Urine Ketones (Stick) Negative mg/dL (NEG) Urine Blood Negative (NEG) Urine Nitrite Negative (NEG) Urine Bilirubin Negative (NEG) Urine Urobilinogen Dipstick 0.2 mg/dL (0.2 mg/dL) Urine Leukocyte Esterase Negative (NEG) Urine RBC Occ /HPF (0-2) Urine WBC 1-4 /HPF (0-4) Urine Bacteria Few /HPF (0-FEW) Urine Hyaline Casts Moderate /HPF Urine Mucus Mod /LPF Images Images CT with pancreatic calcifications and mild inflammation Assessment/Plan Assessment/Plan Acute on chronic pancreatitis- long history of alcohol related pancreatitis- had some alcohol 12 days ago which may have precipitated this event. 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 Stanley will assume care tomorrow ROSAS COTO MD Jan 02, 2018 14:43
[2018-01-02] MEDS: ONDANSETRON PF 4 MG/2 ML VIAL. IV PRN (17:13)
--- NOTE | 2018-01-02 20:23 | EKG ---
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
[2018-01-03] MEDS: fentaNYL PF VIAL 100 MCG/2 ML VIAL IV PRN ×7 (00:32→20:49)
[2018-01-03] MEDS: ONDANSETRON PF 4 MG/2 ML VIAL. IV PRN ×2 (01:38→07:46)
[2018-01-03 03:00] VITALS: BP 130/92
[2018-01-03 06:38] LABS: CREATININE 0.9 mg/dL (0.7-1.3); GFR 89.3; POTASSIUM 3.1 mmol/L (3.5-5.1)
[2018-01-03 06:41] LABS: BASO % 0 % (0-3); EOS # 0.1 x10^3/uL (0.0-0.7); EOS % 3 % (0-3); HEMOGLOBIN 9.8 g/dL (13.0-17.5); LYMPH # 0.8 x10^3/uL (1.0-4.8); LYMPH % 19 % (24-48); MEAN CORPUSCULAR HEMOGLOBIN 35 pg (25-35); MEAN CORPUSCULAR HGB CONC 36 g/dL (31-37); MEAN CORPUSCULAR VOLUME 98 fL (79-100); MONO # 0.4 x10^3/uL (0.0-1.1); MONO % 11 % (0-9); NEUT # 2.9 x10^3uL (1.8-7.7); NEUT % 68 % (31-73); PLATELET COUNT 81 x10^3/uL (140-400); RED BLOOD COUNT 2.76 x10^6/uL (4.30-5.70); RED CELL DISTRIBUTION WIDTH 13.7 % (11.5-14.5); WHITE BLOOD COUNT 4.2 x10^3/uL (4.0-11.0)
[2018-01-03 07:00] VITALS: BP 129/95
[2018-01-03] MEDS ORDERED: CARB200T3 PO (07:48)
[2018-01-03] MEDS ORDERED: AMIT50TA PO (07:51)
[2018-01-03] MEDS ORDERED: TRAM50TA PO (07:51)
--- NOTE | 2018-01-03 08:23 | PDOC ---
PROGRESS NOTES Subjective Subjective Patient reports some abdominal and back pain persists, Fentanyl does help but wears off. Emesis last night, none since. Feels hungry. Objective Objective Vital Signs Date Time Temp Pulse Resp B/P (MAP) Pulse Ox O2 Delivery O2 Flow Rate FiO2 01/03/18 07:46 16 Room Air 01/03/18 03:00 98.8 77 130/92 (105) 98 98.8 Intake and Output 01/03/18 07:00 Intake Total 1410 ml Output Total 1550 ml Balance -140 ml Intake Oral 200 ml IV Total 1000 ml Tube Feeding 210 ml Output Urine Total 1550 ml # Voids 1 Physical Exam Abdomen: Normal bowel sounds, Soft, Other (moderate diffuse TTP without guarding or rebound) Heart: Regular rate Extremities: No edema General: Alert, Oriented X3, No acute distress Lungs: Clear to auscultation Assessment Assessment Problems Medical Problems: (1) Abdominal pain Status: Acute (2) Acute pancreatitis Status: Acute Plan Plan of Care 1. Acute on chronic pancreatitis - stable. Patient admits to recent alcohol use , aware that he is advised to avoid this. Will try clear liquids today and IVF for hydration. Resume Creon. Patient states Zofran doesn't seem to work for him but has had Phenergan in the past that helped, ordered. 2. HTN - resume home meds. 3. peripheral neuropathy with chronic neuropathic pain - resume home meds. Comment Review of Relevant I have reviewed the following items alyson (where applicable) has been applied. Labs Laboratory Tests Test 01/02/18 10:00 01/02/18 10:30 01/02/18 12:00 01/03/18 05:35 White Blood Count 5.1 x10^3/uL (4.0-11.0) 4.2 x10^3/uL (4.0-11.0) Red Blood Count 3.03 x10^6/uL (4.30-5.70) 2.76 x10^6/uL (4.30-5.70) Hemoglobin 10.7 g/dL (13.0-17.5) 9.8 g/dL (13.0-17.5) Hematocrit 29.7 % (39.0-53.0) 27.0 % (39.0-53.0) Mean Corpuscular Volume 98 fL (79-100) 98 fL (79-100) Mean Corpuscular Hemoglobin 35 pg (25-35) 35 pg (25-35) Mean Corpuscular Hemoglobin Concent 36 g/dL (31-37) 36 g/dL (31-37) Red Cell Distribution Width 14.1 % (11.5-14.5) 13.7 % (11.5-14.5) Platelet Count 95 x10^3/uL (140-400) 81 x10^3/uL (140-400) Neutrophils (%) (Auto) 67 % (31-73) 68 % (31-73) Lymphocytes (%) (Auto) 20 % (24-48) 19 % (24-48) Monocytes (%) (Auto) 11 % (0-9) 11 % (0-9) Eosinophils (%) (Auto) 3 % (0-3) 3 % (0-3) Basophils (%) (Auto) 0 % (0-3) 0 % (0-3) Neutrophils # (Auto) 3.4 x10^3uL (1.8-7.7) 2.9 x10^3uL (1.8-7.7) Lymphocytes # (Auto) 1.0 x10^3/uL (1.0-4.8) 0.8 x10^3/uL (1.0-4.8) Monocytes # (Auto) 0.5 x10^3/uL (0.0-1.1) 0.4 x10^3/uL (0.0-1.1) Eosinophils # (Auto) 0.1 x10^3/uL (0.0-0.7) 0.1 x10^3/uL (0.0-0.7) Basophils # (Auto) 0.0 x10^3/uL (0.0-0.2) 0.0 x10^3/uL (0.0-0.2) Sodium Level 138 mmol/L (136-145) 138 mmol/L (136-145) Potassium Level 3.3 mmol/L (3.5-5.1) 3.1 mmol/L (3.5-5.1) Chloride Level 98 mmol/L (98-107) 99 mmol/L (98-107) Carbon Dioxide Level 28 mmol/L (21-32) 27 mmol/L (21-32) Anion Gap 12 (6-14) 12 (6-14) Blood Urea Nitrogen 9 mg/dL (8-26) 6 mg/dL (8-26) Creatinine 1.2 mg/dL (0.7-1.3) 0.9 mg/dL (0.7-1.3) Estimated GFR (Cockcroft-Gault) 64.1 89.3 BUN/Creatinine Ratio 8 (6-20) Glucose Level 107 mg/dL (70-99) 82 mg/dL (70-99) Calcium Level 9.2 mg/dL (8.5-10.1) 9.0 mg/dL (8.5-10.1) Magnesium Level 1.7 mg/dL (1.8-2.4) Total Bilirubin 0.9 mg/dL (0.2-1.0) Aspartate Amino Transf (AST/SGOT) 74 U/L (15-37) Alanine Aminotransferase (ALT/SGPT) 39 U/L (16-63) Alkaline Phosphatase 118 U/L (46-116) Troponin I Quantitative < 0.017 ng/mL (0.000-0.055) Total Protein 7.5 g/dL (6.4-8.2) Albumin 4.0 g/dL (3.4-5.0) Albumin/Globulin Ratio 1.1 (1.0-1.7) Lipase 2191 U/L (73-393) Ethyl Alcohol Level < 10 mg/dL (0-10) Prothrombin Time 13.6 SEC (11.7-14.0) Prothromb Time International Ratio 1.1 (0.8-1.1) Activated Partial Thromboplast Time 28 SEC (24-38) Lactic Acid Level 1.0 mmol/L (0.4-2.0) Urine Collection Type Void Urine Color Yellow Urine Clarity Clear Urine pH 8.5 Urine Specific [place] >=1.030 Urine Protein Negative mg/dL (NEG-TRACE) Urine Glucose (UA) Negative mg/dL (NEG) Urine Ketones (Stick) Negative mg/dL (NEG) Urine Blood Negative (NEG) Urine Nitrite Negative (NEG) Urine Bilirubin Negative (NEG) Urine Urobilinogen Dipstick 0.2 mg/dL (0.2 mg/dL) Urine Leukocyte Esterase Negative (NEG) Urine RBC Occ /HPF (0-2) Urine WBC 1-4 /HPF (0-4) Urine Bacteria Few /HPF (0-FEW) Urine Hyaline Casts Moderate /HPF Urine Mucus Mod /LPF Laboratory Tests Test 01/02/18 10:00 01/02/18 10:30 01/02/18 12:00 01/03/18 05:35 White Blood Count 5.1 x10^3/uL (4.0-11.0) 4.2 x10^3/uL (4.0-11.0) Red Blood Count 3.03 x10^6/uL (4.30-5.70) 2.76 x10^6/uL (4.30-5.70) Hemoglobin 10.7 g/dL (13.0-17.5) 9.8 g/dL (13.0-17.5) Hematocrit 29.7 % (39.0-53.0) 27.0 % (39.0-53.0) Mean Corpuscular Volume 98 fL (79-100) 98 fL (79-100) Mean Corpuscular Hemoglobin 35 pg (25-35) 35 pg (25-35) Mean Corpuscular Hemoglobin Concent 36 g/dL (31-37) 36 g/dL (31-37) Red Cell Distribution Width 14.1 % (11.5-14.5) 13.7 % (11.5-14.5) Platelet Count 95 x10^3/uL (140-400) 81 x10^3/uL (140-400) Neutrophils (%) (Auto) 67 % (31-73) 68 % (31-73) Lymphocytes (%) (Auto) 20 % (24-48) 19 % (24-48) Monocytes (%) (Auto) 11 % (0-9) 11 % (0-9) Eosinophils (%) (Auto) 3 % (0-3) 3 % (0-3) Basophils (%) (Auto) 0 % (0-3) 0 % (0-3) Neutrophils # (Auto) 3.4 x10^3uL (1.8-7.7) 2.9 x10^3uL (1.8-7.7) Lymphocytes # (Auto) 1.0 x10^3/uL (1.0-4.8) 0.8 x10^3/uL (1.0-4.8) Monocytes # (Auto) 0.5 x10^3/uL (0.0-1.1) 0.4 x10^3/uL (0.0-1.1) Eosinophils # (Auto) 0.1 x10^3/uL (0.0-0.7) 0.1 x10^3/uL (0.0-0.7) Basophils # (Auto) 0.0 x10^3/uL (0.0-0.2) 0.0 x10^3/uL (0.0-0.2) Sodium Level 138 mmol/L (136-145) 138 mmol/L (136-145) Potassium Level 3.3 mmol/L (3.5-5.1) 3.1 mmol/L (3.5-5.1) Chloride Level 98 mmol/L (98-107) 99 mmol/L (98-107) Carbon Dioxide Level 28 mmol/L (21-32) 27 mmol/L (21-32) Anion Gap 12 (6-14) 12 (6-14) Blood Urea Nitrogen 9 mg/dL (8-26) 6 mg/dL (8-26) Creatinine 1.2 mg/dL (0.7-1.3) 0.9 mg/dL (0.7-1.3) Estimated GFR (Cockcroft-Gault) 64.1 89.3 BUN/Creatinine Ratio 8 (6-20) Glucose Level 107 mg/dL (70-99) 82 mg/dL (70-99) Calcium Level 9.2 mg/dL (8.5-10.1) 9.0 mg/dL (8.5-10.1) Magnesium Level 1.7 mg/dL (1.8-2.4) Total Bilirubin 0.9 mg/dL (0.2-1.0) Aspartate Amino Transf (AST/SGOT) 74 U/L (15-37) Alanine Aminotransferase (ALT/SGPT) 39 U/L (16-63) Alkaline Phosphatase 118 U/L (46-116) Troponin I Quantitative < 0.017 ng/mL (0.000-0.055) Total Protein 7.5 g/dL (6.4-8.2) Albumin 4.0 g/dL (3.4-5.0) Albumin/Globulin Ratio 1.1 (1.0-1.7) Lipase 2191 U/L (73-393) Ethyl Alcohol Level < 10 mg/dL (0-10) Prothrombin Time 13.6 SEC (11.7-14.0) Prothromb Time International Ratio 1.1 (0.8-1.1) Activated Partial Thromboplast Time 28 SEC (24-38) Lactic Acid Level 1.0 mmol/L (0.4-2.0) Urine Collection Type Void Urine Color Yellow Urine Clarity Clear Urine pH 8.5 Urine Specific [place] >=1.030 Urine Protein Negative mg/dL (NEG-TRACE) Urine Glucose (UA) Negative mg/dL (NEG) Urine Ketones (Stick) Negative mg/dL (NEG) Urine Blood Negative (NEG) Urine Nitrite Negative (NEG) Urine Bilirubin Negative (NEG) Urine Urobilinogen Dipstick 0.2 mg/dL (0.2 mg/dL) Urine Leukocyte Esterase Negative (NEG) Urine RBC Occ /HPF (0-2) Urine WBC 1-4 /HPF (0-4) Urine Bacteria Few /HPF (0-FEW) Urine Hyaline Casts Moderate /HPF Urine Mucus Mod /LPF Medications Current Medications Sodium Chloride 1,000 ml @ 1,000 mls/hr 1X ONCE IV Last administered on 01/02at 10:14; Start 01/02/18 at 10:15; Stop 01/02/18 at 11:14; Status DC Ondansetron HCl (Zofran) 4 mg 1X ONCE IV Last administered on 01/02/18at 10:14 ; Start 01/02/18 at 10:15; Stop 01/02/18 at 10:16; Status DC Fentanyl Citrate (Fentanyl 2ml Vial) 50 mcg 1X ONCE IV Last administered on at 10:14; Start 01/02/18 at 10:15; Stop 01/02/18 at 10:16; Status DC Iohexol (Omnipaque 300 Mg/ml) 75 ml 1X ONCE IV Last administered on at 11:29; Start 01/02/18 at 11:00; Stop 01/02/18 at 11:01; Status DC Info (CONTRAST GIVEN -- Rx MONITORING) 1 each PRN DAILY PRN MC SEE COMMENTS; Start 01/02/18 at 11:00; Stop 01/04/18 at 10:59 Fentanyl Citrate (Fentanyl 2ml Vial) 50 mcg 1X ONCE IV Last administered on at 11:38; Start 01/02/18 at 11:30; Stop 01/02/18 at 11:32; Status DC Ondansetron HCl (Zofran) 4 mg PRN Q8HRS PRN IV NAUSEA/VOMITING Last administered on 01/03/18at 07:46; Start 01/02/18 at 12:15; Stop 01/03/18 at 12 :14 Fentanyl Citrate (Fentanyl 2ml Vial) 50 mcg PRN Q3HRS PRN IV PAIN Last administered on 01/03/18at 07:46; Start 01/02/18 at 12:15; Stop 01/03/18 at 07 :58; Status DC Promethazine HCl (Phenergan) 12.5 mg PRN Q6HRS PRN PO NAUSEA/VOMITING; Start 01/03/18 at 08:00 Potassium Chloride/Dextrose/ Sod Cl 1,000 ml @ 75 mls/hr [id number] IV ; Start at 08:00 Cyclobenzaprine HCl (Flexeril) 10 mg PRN Q6HRS PRN PO MUSCLE SPASMS; Start at 08:00 Fentanyl Citrate (Fentanyl 2ml Vial) 50 mcg PRN Q2HR PRN IV PAIN; Start at 08:00 Amitriptyline HCl (Elavil) 50 mg QHS PO ; Start 01/03/18 at 21:00 Amlodipine Besylate (Norvasc) 10 mg DAILY PO ; Start 01/03/18 at 09:00 Carbamazepine (TEGretol) 50 mg BID PO ; Start 01/03/18 at 09:00 Folic Acid (Folic Acid) 1 mg DAILY PO ; Start 01/03/18 at 09:00 Losartan Potassium (Cozaar) 50 mg DAILY PO ; Start 01/03/18 at 09:00 Metoprolol Tartrate (Lopressor) 50 mg BID PO ; Start 01/03/18 at 09:00 Tramadol HCl (Ultram) 50 mg PRN Q6HRS PRN PO PAIN; Start 01/03/18 at 08:00 Amylase/Lipase/ Protease (Zenpep 10,000) 3 cap TIDWMEALS PO ; Start 01/03/18 at 08:30 Pantoprazole Sodium (Protonix) 40 mg DAILYAC PO ; Start 01/03/18 at 08:30 Active Scripts Active Amitriptyline Hcl 50 Mg Tablet 1 Tab PO QHS Tramadol Hcl 50 Mg Tablet 50 Mg PO Q6HRS PRN 30 Days Epitol (Carbamazepine) 200 Mg Tablet 50 Mg PO BID Folic Acid 1 Mg Tablet 1 Mg PO DAILY 30 Days Reported Lukasz Jacinto 36,000 Units Capsule (Lipase/Protease/Amylase) 1 Each Capsule.dr 2 Cap PO TIDAC Protonix (Pantoprazole Sodium) 20 Mg Tablet.dr 40 Mg PO DAILY Metoprolol Tartrate 50 Mg Tablet 50 Mg PO BID Losartan Potassium 50 Mg Tablet 50 Mg PO DAILY Amlodipine Besylate 10 Mg Tablet 10 Mg PO DAILY Aspir 81 (Aspirin) 81 Mg Tablet.dr 1 Tab PO DAILY Vitals/I & O Vital Sign - Last 24 Hours 01/02/18 01/02/18 01/02/18 01/02/18 09:46 10:00 10:14 10:44 Temp 98.2 98.2 Pulse 82 Resp 20 20 18 B/P (MAP) 133/91 (105) 161/99 (119) Pulse Ox 99 100 95 O2 Delivery Room Air Room Air Room Air Room Air 01/02/18 01/02/18 01/02/18 01/02/18 10:46 11:01 11:13 11:16 Pulse 106 107 102 Resp 18 B/P (MAP) 133/80 (97) 133/82 (99) 165/94 (117) 132/78 (96) Pulse Ox 90 93 90 O2 Delivery Room Air Room Air Room Air Room Air 01/02/18 01/02/18 01/02/18 01/02/18 11:31 11:34 11:38 11:43 Pulse 106 74 74 Resp 21 20 19 B/P (MAP) 139/84 (102) 137/94 (108) 160/97 (118) Pulse Ox 92 100 100 99 O2 Delivery Room Air Room Air Room Air Room Air 01/02/18 01/02/18 01/02/18 01/02/18 12:02 12:08 12:13 12:32 Pulse 109 68 114 Resp 16 13 B/P (MAP) 130/87 (101) 162/92 (115) 155/92 (113) Pulse Ox 93 100 94 O2 Delivery Room Air Room Air Room Air Room Air 01/02/18 01/02/18 01/02/18 01/02/18 12:45 12:52 13:33 13:59 Temp 98.4 98.4 Pulse 107 71 105 Resp 18 16 B/P (MAP) 145/85 (105) 186/99 (128) 125/76 (92) Pulse Ox 95 100 95 O2 Delivery Room Air Room Air Room Air 01/02/18 01/02/18 01/02/18 01/02/18 14:01 15:15 17:11 19:00 Temp 98.7 100.8 98.7 100.8 Pulse 101 83 Resp 18 16 18 B/P (MAP) 160/76 (104) 136/69 (91) Pulse Ox 100 98 O2 Delivery Room Air Room Air Room Air Room Air 01/02/18 01/02/18 01/02/18 01/03/18 20:00 20:55 23:00 00:32 Temp 98.3 98.3 Pulse 75 Resp 17 18 17 B/P (MAP) 165/99 (121) Pulse Ox 100 O2 Delivery Room Air Room Air Room Air Room Air 01/03/18 01/03/18 01/03/18 01/03/18 03:00 04:00 04:31 07:46 Temp 98.8 98.8 Pulse 77 Resp 18 17 17 16 B/P (MAP) 130/92 (105) Pulse Ox 98 O2 Delivery Room Air Room Air Room Air Room Air Intake and Output 01/02/18 01/02/18 01/03/18 15:00 23:00 07:00 Intake Total 1000 ml 410 ml Output Total 250 ml 500 ml 800 ml Balance 750 ml -500 ml -390 ml KHURRAM DEXTER MD Jan 03, 2018 08:23
[2018-01-03] MEDS: POTASSIUM CL 20MEQ D5-0.45NACL 1,000 ML IV SCH (10:06)
[2018-01-03] MEDS: PROMETHAZINE 12.5 MG TABLET. PO PRN ×2 (10:11→21:01)
[2018-01-03] MEDS: LIPASE/PROTEAS/AMYLAS 10/32/42 CAPSULE.DR. PO SCH ×3 (10:11→17:53)
[2018-01-03] MEDS: METOPROLOL TART IMMED RELEASE 50 MG TABLET. PO SCH ×2 (10:12→20:55)
[2018-01-03] MEDS: FOLIC ACID 1 MG TABLET. PO SCH (10:12)
[2018-01-03] MEDS: carBAMazepine 200 MG TABLET PO SCH ×2 (10:15→20:48)
[2018-01-03] MEDS: CYCLOBENZAPRINE 10 MG TABLET. PO PRN ×3 (10:15→21:01)
[2018-01-03] MEDS: amLODIPine BESYLATE 10 MG TABLET PO SCH (10:17)
[2018-01-03] MEDS: PANTOPRAZOLE 40 MG TABLET.DR. PO SCH (10:18)
[2018-01-03] MEDS: LOSARTAN POTASSIUM 50 MG TABLET. PO SCH (10:19)
--- NOTE | 2018-01-03 10:43 | PDOC ---
Subjective: Subjective: Took some sips of tea, pop, and broth this morning. Some nausea, bilateral rib pain, abd soreness from retching, and back pain. Says his urine is dark, says plans for IVF. Objective: Vital Signs: Vital Signs Date Time Temp Pulse Resp B/P (MAP) Pulse Ox O2 Delivery O2 Flow Rate FiO2 01/03/18 10:19 108 129/95 01/03/18 07:46 16 Room Air 01/03/18 07:00 98.0 96 98.0 Labs: Laboratory Tests Test 01/02/18 12:00 01/03/18 05:35 Urine Collection Type Void Urine Color Yellow Urine Clarity Clear Urine pH 8.5 Urine Specific [place] >=1.030 Urine Protein Negative mg/dL Urine Glucose (UA) Negative mg/dL Urine Ketones (Stick) Negative mg/dL Urine Blood Negative Urine Nitrite Negative Urine Bilirubin Negative Urine Urobilinogen Dipstick 0.2 mg/dL Urine Leukocyte Esterase Negative Urine RBC Occ /HPF Urine WBC 1-4 /HPF Urine Bacteria Few /HPF Urine Hyaline Casts Moderate /HPF Urine Mucus Mod /LPF White Blood Count 4.2 x10^3/uL Red Blood Count 2.76 x10^6/uL Hemoglobin 9.8 g/dL Hematocrit 27.0 % Mean Corpuscular Volume 98 fL Mean Corpuscular Hemoglobin 35 pg Mean Corpuscular Hemoglobin Concent 36 g/dL Red Cell Distribution Width 13.7 % Platelet Count 81 x10^3/uL Neutrophils (%) (Auto) 68 % Lymphocytes (%) (Auto) 19 % Monocytes (%) (Auto) 11 % Eosinophils (%) (Auto) 3 % Basophils (%) (Auto) 0 % Neutrophils # (Auto) 2.9 x10^3uL Lymphocytes # (Auto) 0.8 x10^3/uL Monocytes # (Auto) 0.4 x10^3/uL Eosinophils # (Auto) 0.1 x10^3/uL Basophils # (Auto) 0.0 x10^3/uL Sodium Level 138 mmol/L Potassium Level 3.1 mmol/L Chloride Level 99 mmol/L Carbon Dioxide Level 27 mmol/L Anion Gap 12 Blood Urea Nitrogen 6 mg/dL Creatinine 0.9 mg/dL Estimated GFR (Cockcroft-Gault) 89.3 Glucose Level 82 mg/dL Calcium Level 9.0 mg/dL Imaging: CT A/P 01/02 The visualized lung bases are clear. Small hiatal hernia is present. Diffuse fatty infiltration of the liver is present. Focal fatty infiltration about the intersegmental fissure is present. Cholecystectomy is evident. Spleen is normal. Pancreas is unremarkable. Calcification about the pancreatic head noted. Adrenal glands are normal. Right renal inferior pole calyceal calculus measuring 0.5 cm diameter is present. There are a few very small to characterize left renal lesions which probably represent simple cysts but are too small to characterize. Visualized bowel is unremarkable. Appendix is normal. Urinary bladder is unremarkable. Bony structures are unremarkable. Impression: Small hiatal hernia. Nonobstructive right renal calculus. No inflammatory process, mass, or obstruction. CT Head and C-spine Impression: No fracture. No intracranial hemorrhage. Cervical spine alignment is normal. 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 EGD 04/2017: RFA of Javier's CRC screen -can document FS 04/2017 @ (for sigmoid thickening on CT): small hemorrhoids -he also has reported a complete colonoscopy @ last year Chronic anemia -parameters checked 06/2017, ?chronic disease Chronic neuropathic pain -- Would keep to clears for now, advance diet slowly when nausea and pain improved. Has questions re: when due for next EGD - will review w/ Dr. Stanley (?04/2018). Continue PPI. Defer pain management to primary. AUGUSTO FERNANDEZ Jan 03, 2018 10:43
--- NOTE | 2018-01-03 10:49 | HP ---
ADMIT DATE: 01/02/2018 CHIEF COMPLAINT: Abdominal and back pain. HISTORY OF PRESENT ILLNESS: The patient is a 52-year-old male with a history of chronic pancreatitis due to alcohol abuse. He presented to the Emergency Room with the above complaint. He reported a several-day history of increasing pain in the abdomen radiating through to his back. He admitted to heavy alcohol abuse several days prior to the onset of these symptoms. His symptoms gradually worsened and he had frequent emesis and was unable to keep down any food or fluids and noticed his urine was looking more dark. In the Emergency Room, he was found to have evidence of acute pancreatitis with a lipase over 2000. A CT of the abdomen and pelvis showed pancreatic calcifications, but no inflammation was seen around the pancreas. Treatment was started and he was admitted for further care. PAST MEDICAL HISTORY: Chronic pancreatitis due to alcohol abuse, hypertension, peripheral neuropathy with chronic neuropathic pain, testicular cancer, renal stones, chronic urinary incontinence. PAST SURGICAL HISTORY: Right orchiectomy due to cancer in 1995, laparoscopic cholecystectomy, left shoulder repair, kidney stone removal, tonsillectomy. ALLERGIES: THE PATIENT IS ALLERGIC OR INTOLERANT TO HALDOL, METHYLPHENIDATE, AND MORPHINE. HOME MEDICATIONS: Amitriptyline 50 mg at bedtime; amlodipine 10 mg daily; aspirin 81 mg daily; carbamazepine 50 mg b.i.d., this dose was recently decreased per Dr. Reyna's instructions to the patient; folic acid 1 mg daily; Creon pancreatic enzymes 2 capsules t.i.d.; losartan 50 mg daily; metoprolol tartrate 50 mg b.i.d.; pantoprazole 20 mg daily; tramadol 50 mg 1-2 q. 6 hours p.r.n. pain. FAMILY HISTORY: Noncontributory. SOCIAL HISTORY: The patient used to smoke cigarettes, but has not smoked cigarettes for several years. He does drink some amount of alcohol fairly often per his report and drinks more heavily occasionally. He is and is disabled. REVIEW OF SYSTEMS: The patient denies fever or chills. He denies cough or shortness of breath. He denies chest pain or palpitations. He denies diarrhea or constipation. He denies lower extremity edema. He has had some diffuse back pain with his abdominal symptoms as in the HPI. He saw Dr. Reyna recently who advised him to decrease his carbamazepine and then start Lyrica for treatment of his chronic neuropathy. He has the Lyrica prescription, but had not started taking it yet. He denies dysuria. PHYSICAL EXAMINATION: GENERAL: The patient is alert and oriented x 3, resting comfortably in bed in no acute distress. HEENT: PERRL, EOMI, sclerae clear. Oropharynx: Mucous membranes moist. NECK: Supple, without lymphadenopathy. CHEST: Clear to auscultation. CARDIOVASCULAR: Regular rhythm without murmur. ABDOMEN: Soft, normoactive bowel sounds are present. There is moderate diffuse lower abdominal tenderness to palpation without guarding or rebound. EXTREMITIES: Without edema. BACK: There is mild diffuse tenderness to palpation over the thoracic and lumbar paraspinal muscles. ASSESSMENT AND PLAN: 1. [id number]-epyioti pancreatitis. The patient is stable. He is well aware that he is advised to avoid any alcohol use. He states that he is starting to feel hungry. We will try clear liquid diet today and advance as tolerated. We will resume his Creon. The patient states that Zofran as an antiemetic does not seem to work for him, but he has had Phenergan in the past that seemed to help, so we will order some Phenergan as needed. We will recheck lipase in the morning. 2. Hypertension. Resume home medication. 3. Peripheral neuropathy with chronic neuropathic pain, this is stable. We will resume his home meds. 4. Back strain. The patient has pain medicine available. We will also order Flexeril as needed. KHURRAM DEXTER MD DR: MAG/christine JOB#: [id number] / [id number] FELIPA
[2018-01-03 11:00] VITALS: BP 126/75
[2018-01-03 15:00] VITALS: BP 118/85
[2018-01-03 19:00] VITALS: BP 125/78
[2018-01-03] MEDS: AMITRIPTYLINE HCL 50 MG TABLET PO SCH (20:49)
[2018-01-03] MEDS: DEXAMETHASONE 0.1% OPHTH SOLUTION 5ML BOTTLE. OU SCH (20:55)
[2018-01-03 23:00] VITALS: BP 135/82
[2018-01-04] MEDS: POTASSIUM CL 20MEQ D5-0.45NACL 1,000 ML IV SCH ×2 (00:52→02:28)
[2018-01-04] MEDS: fentaNYL PF VIAL 100 MCG/2 ML VIAL IV PRN ×2 (02:23→05:44)
[2018-01-04 03:14] VITALS: BP 132/85
[2018-01-04 04:58] LABS: ALBUMIN 3.2 g/dL (3.4-5.0); ALBUMIN/GLOBULIN RATIO 0.9 (1.0-1.7); CALCIUM 8.7 mg/dL (8.5-10.1); CREATININE 0.9 mg/dL (0.7-1.3); GFR 89.3; TOTAL BILIRUBIN 0.5 mg/dL (0.2-1.0); TOTAL PROTEIN 6.6 g/dL (6.4-8.2)
[2018-01-04 05:07] LABS: POTASSIUM 2.9 mmol/L (3.5-5.1)
[2018-01-04] MEDS ORDERED: POTASSIUM CHLORIDE 20 MEQ TABLET.ER. PO ONE (06:00)
[2018-01-04 07:31] VITALS: BP 146/96
[2018-01-04] MEDS ORDERED: ACETAMINOPHEN 500 MG TABLET PO PRN (07:45)
[2018-01-04] MEDS ORDERED: IBUPROFEN 200 MG TABLET. PO PRN (07:45)
--- NOTE | 2018-01-04 07:57 | PDOC ---
PROGRESS NOTES Subjective Subjective Patient states he is hungry. Also reports some abdominal pain and back pain persist. Taking Fentanyl frequently. States Tramadol often makes him nauseous when he takes it at home. Objective Objective Vital Signs Date Time Temp Pulse Resp B/P (MAP) Pulse Ox O2 Delivery O2 Flow Rate FiO2 01/04/18 07:31 98.6 80 18 146/96 (113) 97 98.6 01/04/18 06:14 Room Air Intake and Output 01/04/18 07:00 Intake Total 720 ml Output Total 1100 ml Balance -380 ml Intake Oral 720 ml Output Urine Total 1100 ml Physical Exam Abdomen: Normal bowel sounds, Soft, Other (mild diffuse lower abdominal TTP without guarding or rebound) Heart: Regular rate Extremities: No edema General: Alert, Oriented X3, No acute distress Lungs: Clear to auscultation MUSCULOSKELETAL: Other (mild diffuse TTP over lower thoracic and upper lumbar paraspinal muscles) Assessment Assessment Problems Medical Problems: (1) Abdominal pain Status: Acute (2) Acute pancreatitis Status: Acute Plan Plan of Care 1. Acute on chronic pancreatitis due to ETOH abuse - improved, Lipase decreased but still above normal. Will advance to full liquids today and d/c IVF. 2. hypokalemia - replacing po, check lab in AM. 3. back strain - patient advised Tylenol or Ibuprofen prn, has Flexeril available also. D/C Fentanyl. 4. HTN - controlled, continue home meds. Comment Review of Relevant I have reviewed the following items alyson (where applicable) has been applied. Labs Laboratory Tests Test 01/02/18 10:00 01/02/18 10:30 01/02/18 12:00 01/03/18 05:35 White Blood Count 5.1 x10^3/uL (4.0-11.0) 4.2 x10^3/uL (4.0-11.0) Red Blood Count 3.03 x10^6/uL (4.30-5.70) 2.76 x10^6/uL (4.30-5.70) Hemoglobin 10.7 g/dL (13.0-17.5) 9.8 g/dL (13.0-17.5) Hematocrit 29.7 % (39.0-53.0) 27.0 % (39.0-53.0) Mean Corpuscular Volume 98 fL (79-100) 98 fL (79-100) Mean Corpuscular Hemoglobin 35 pg (25-35) 35 pg (25-35) Mean Corpuscular Hemoglobin Concent 36 g/dL (31-37) 36 g/dL (31-37) Red Cell Distribution Width 14.1 % (11.5-14.5) 13.7 % (11.5-14.5) Platelet Count 95 x10^3/uL (140-400) 81 x10^3/uL (140-400) Neutrophils (%) (Auto) 67 % (31-73) 68 % (31-73) Lymphocytes (%) (Auto) 20 % (24-48) 19 % (24-48) Monocytes (%) (Auto) 11 % (0-9) 11 % (0-9) Eosinophils (%) (Auto) 3 % (0-3) 3 % (0-3) Basophils (%) (Auto) 0 % (0-3) 0 % (0-3) Neutrophils # (Auto) 3.4 x10^3uL (1.8-7.7) 2.9 x10^3uL (1.8-7.7) Lymphocytes # (Auto) 1.0 x10^3/uL (1.0-4.8) 0.8 x10^3/uL (1.0-4.8) Monocytes # (Auto) 0.5 x10^3/uL (0.0-1.1) 0.4 x10^3/uL (0.0-1.1) Eosinophils # (Auto) 0.1 x10^3/uL (0.0-0.7) 0.1 x10^3/uL (0.0-0.7) Basophils # (Auto) 0.0 x10^3/uL (0.0-0.2) 0.0 x10^3/uL (0.0-0.2) Sodium Level 138 mmol/L (136-145) 138 mmol/L (136-145) Potassium Level 3.3 mmol/L (3.5-5.1) 3.1 mmol/L (3.5-5.1) Chloride Level 98 mmol/L (98-107) 99 mmol/L (98-107) Carbon Dioxide Level 28 mmol/L (21-32) 27 mmol/L (21-32) Anion Gap 12 (6-14) 12 (6-14) Blood Urea Nitrogen 9 mg/dL (8-26) 6 mg/dL (8-26) Creatinine 1.2 mg/dL (0.7-1.3) 0.9 mg/dL (0.7-1.3) Estimated GFR (Cockcroft-Gault) 64.1 89.3 BUN/Creatinine Ratio 8 (6-20) Glucose Level 107 mg/dL (70-99) 82 mg/dL (70-99) Calcium Level 9.2 mg/dL (8.5-10.1) 9.0 mg/dL (8.5-10.1) Magnesium Level 1.7 mg/dL (1.8-2.4) Total Bilirubin 0.9 mg/dL (0.2-1.0) Aspartate Amino Transf (AST/SGOT) 74 U/L (15-37) Alanine Aminotransferase (ALT/SGPT) 39 U/L (16-63) Alkaline Phosphatase 118 U/L (46-116) Troponin I Quantitative < 0.017 ng/mL (0.000-0.055) Total Protein 7.5 g/dL (6.4-8.2) Albumin 4.0 g/dL (3.4-5.0) Albumin/Globulin Ratio 1.1 (1.0-1.7) Lipase 2191 U/L (73-393) Ethyl Alcohol Level < 10 mg/dL (0-10) Prothrombin Time 13.6 SEC (11.7-14.0) Prothromb Time International Ratio 1.1 (0.8-1.1) Activated Partial Thromboplast Time 28 SEC (24-38) Lactic Acid Level 1.0 mmol/L (0.4-2.0) Urine Collection Type Void Urine Color Yellow Urine Clarity Clear Urine pH 8.5 Urine Specific [place] >=1.030 Urine Protein Negative mg/dL (NEG-TRACE) Urine Glucose (UA) Negative mg/dL (NEG) Urine Ketones (Stick) Negative mg/dL (NEG) Urine Blood Negative (NEG) Urine Nitrite Negative (NEG) Urine Bilirubin Negative (NEG) Urine Urobilinogen Dipstick 0.2 mg/dL (0.2 mg/dL) Urine Leukocyte Esterase Negative (NEG) Urine RBC Occ /HPF (0-2) Urine WBC 1-4 /HPF (0-4) Urine Bacteria Few /HPF (0-FEW) Urine Hyaline Casts Moderate /HPF Urine Mucus Mod /LPF Test 01/04/18 03:30 Sodium Level 138 mmol/L (136-145) Potassium Level 2.9 mmol/L (3.5-5.1) Chloride Level 101 mmol/L (98-107) Carbon Dioxide Level 30 mmol/L (21-32) Anion Gap 7 (6-14) Blood Urea Nitrogen 6 mg/dL (8-26) Creatinine 0.9 mg/dL (0.7-1.3) Estimated GFR (Cockcroft-Gault) 89.3 BUN/Creatinine Ratio 7 (6-20) Glucose Level 109 mg/dL (70-99) Calcium Level 8.7 mg/dL (8.5-10.1) Total Bilirubin 0.5 mg/dL (0.2-1.0) Aspartate Amino Transf (AST/SGOT) 55 U/L (15-37) Alanine Aminotransferase (ALT/SGPT) 37 U/L (16-63) Alkaline Phosphatase 92 U/L (46-116) Total Protein 6.6 g/dL (6.4-8.2) Albumin 3.2 g/dL (3.4-5.0) Albumin/Globulin Ratio 0.9 (1.0-1.7) Lipase 1097 U/L (73-393) Laboratory Tests Test 01/04/18 03:30 Sodium Level 138 mmol/L (136-145) Potassium Level 2.9 mmol/L (3.5-5.1) Chloride Level 101 mmol/L (98-107) Carbon Dioxide Level 30 mmol/L (21-32) Anion Gap 7 (6-14) Blood Urea Nitrogen 6 mg/dL (8-26) Creatinine 0.9 mg/dL (0.7-1.3) Estimated GFR (Cockcroft-Gault) 89.3 BUN/Creatinine Ratio 7 (6-20) Glucose Level 109 mg/dL (70-99) Calcium Level 8.7 mg/dL (8.5-10.1) Total Bilirubin 0.5 mg/dL (0.2-1.0) Aspartate Amino Transf (AST/SGOT) 55 U/L (15-37) Alanine Aminotransferase (ALT/SGPT) 37 U/L (16-63) Alkaline Phosphatase 92 U/L (46-116) Total Protein 6.6 g/dL (6.4-8.2) Albumin 3.2 g/dL (3.4-5.0) Albumin/Globulin Ratio 0.9 (1.0-1.7) Lipase 1097 U/L (73-393) Medications Current Medications Sodium Chloride 1,000 ml @ 1,000 mls/hr 1X ONCE IV Last administered on 01/02at 10:14; Start 01/02/18 at 10:15; Stop 01/02/18 at 11:14; Status DC Ondansetron HCl (Zofran) 4 mg 1X ONCE IV Last administered on 01/02/18at 10:14 ; Start 01/02/18 at 10:15; Stop 01/02/18 at 10:16; Status DC Fentanyl Citrate (Fentanyl 2ml Vial) 50 mcg 1X ONCE IV Last administered on at 10:14; Start 01/02/18 at 10:15; Stop 01/02/18 at 10:16; Status DC Iohexol (Omnipaque 300 Mg/ml) 75 ml 1X ONCE IV Last administered on at 11:29; Start 01/02/18 at 11:00; Stop 01/02/18 at 11:01; Status DC Info (CONTRAST GIVEN -- Rx MONITORING) 1 each PRN DAILY PRN MC SEE COMMENTS; Start 01/02/18 at 11:00; Stop 01/04/18 at 10:59 Fentanyl Citrate (Fentanyl 2ml Vial) 50 mcg 1X ONCE IV Last administered on at 11:38; Start 01/02/18 at 11:30; Stop 01/02/18 at 11:32; Status DC Ondansetron HCl (Zofran) 4 mg PRN Q8HRS PRN IV NAUSEA/VOMITING Last administered on 01/03/18at 07:46; Start 01/02/18 at 12:15; Stop 01/03/18 at 12 :14; Status DC Fentanyl Citrate (Fentanyl 2ml Vial) 50 mcg PRN Q3HRS PRN IV PAIN Last administered on 01/03/18at 07:46; Start 01/02/18 at 12:15; Stop 01/03/18 at 07 :58; Status DC Promethazine HCl (Phenergan) 12.5 mg PRN Q6HRS PRN PO NAUSEA/VOMITING Last administered on 01/03/18 21:01; Start 01/03/18 at 08:00 Potassium Chloride/Dextrose/ Sod Cl 1,000 ml @ 75 mls/hr [id number] IV Last administered on 01/04/18 02:28; Start 01/03/18 at 08:00 Cyclobenzaprine HCl (Flexeril) 10 mg PRN Q6HRS PRN PO MUSCLE SPASMS Last administered on 01/03/18 21:01; Start 01/03/18 at 08:00 Fentanyl Citrate (Fentanyl 2ml Vial) 50 mcg PRN Q2HR PRN IV PAIN Last administered on 01/04/18 05:44; Start 01/03/18 at 08:00 Amitriptyline HCl (Elavil) 50 mg QHS PO Last administered on 01/03/18 20:49; Start 01/03/18 at 21:00 Amlodipine Besylate (Norvasc) 10 mg DAILY PO Last administered on 01/03/18 10 :17; Start 01/03/18 at 09:00 Carbamazepine (TEGretol) 50 mg BID PO Last administered on 01/03/18 20:48; Start 01/03/18 at 09:00 Folic Acid (Folic Acid) 1 mg DAILY PO Last administered on 01/03/18 10:12; Start 01/03/18 at 09:00 Losartan Potassium (Cozaar) 50 mg DAILY PO Last administered on 01/03/18 10: 19; Start 01/03/18 at 09:00 Metoprolol Tartrate (Lopressor) 50 mg BID PO Last administered on 01/03/18 10 :12; Start 01/03/18 at 09:00 Tramadol HCl (Ultram) 50 mg PRN Q6HRS PRN PO PAIN; Start 01/03/18 at 08:00 Amylase/Lipase/ Protease (Zenpep 10,000) 3 cap TIDWMEALS PO Last administered on 01/03/18 17:53; Start 01/03/18 at 08:30 Pantoprazole Sodium (Protonix) 40 mg DAILYAC PO Last administered on 10/29/ 18at 10:18; Start 01/03/18 at 08:30 Dexamethasone (Maxidex) 1 drop TID OU Last administered on 01/03/18at 20:55; Start 01/03/18 at 21:00 Potassium Chloride (Klor-Con) 40 meq 1X ONCE PO Last administered on at 05:43; Start 01/04/18 at 06:00; Stop 01/04/18 at 06:02; Status DC Active Scripts Active Amitriptyline Hcl 50 Mg Tablet 1 Tab PO QHS Tramadol Hcl 50 Mg Tablet 50 Mg PO Q6HRS PRN 30 Days Epitol (Carbamazepine) 200 Mg Tablet 50 Mg PO BID Folic Acid 1 Mg Tablet 1 Mg PO DAILY 30 Days Reported Lukasz Jacinto 36,000 Units Capsule (Lipase/Protease/Amylase) 1 Each Capsule. 2 Cap PO TIDAC Protonix (Pantoprazole Sodium) 20 Mg Tablet.dr 40 Mg PO DAILY Metoprolol Tartrate 50 Mg Tablet 50 Mg PO BID Losartan Potassium 50 Mg Tablet 50 Mg PO DAILY Amlodipine Besylate 10 Mg Tablet 10 Mg PO DAILY Aspir 81 (Aspirin) 81 Mg Tablet.dr 1 Tab PO DAILY Vitals/I & O Vital Sign - Last 24 Hours 01/03/18 01/03/18 01/03/18 01/03/18 08:00 10:12 10:17 10:19 Pulse 108 108 108 B/P (MAP) 129/95 129/95 129/95 O2 Delivery Room Air 01/03/18 01/03/18 01/03/18 01/03/18 10:57 11:00 14:39 15:00 Temp 98.2 97.7 98.2 97.7 Pulse 70 70 Resp 16 18 14 18 B/P (MAP) 126/75 (92) 118/85 (96) Pulse Ox 96 95 98 96 O2 Delivery Room Air Room Air Room Air Room Air 01/03/18 01/03/18 01/03/18 01/03/18 17:50 18:20 19:00 20:00 Temp 97.7 97.7 Pulse 74 Resp 16 16 20 B/P (MAP) 125/78 (94) Pulse Ox 98 O2 Delivery Room Air Room Air Room Air 01/03/18 01/03/18 01/04/18 01/04/18 20:49 23:00 02:23 03:14 Temp 97.2 96.6 97.2 96.6 Pulse 71 80 Resp 20 20 B/P (MAP) 135/82 (99) 132/85 (101) Pulse Ox 98 99 99 96 O2 Delivery Room Air Room Air Room Air Room Air 01/04/18 01/04/18 01/04/18 05:44 06:14 07:31 Temp 98.6 98.6 Pulse 80 Resp 18 B/P (MAP) 146/96 (113) Pulse Ox 96 96 97 O2 Delivery Room Air Room Air Intake and Output 01/03/18 01/03/18 01/04/18 15:00 23:00 07:00 Intake Total 360 ml 360 ml Output Total 300 ml 800 ml Balance 60 ml -440 ml KHURRAM DEXTER MD Jan 04, 2018 07:57
[2018-01-04] MEDS: traMADol 50 MG TABLET PO PRN ×3 (08:55→23:23)
[2018-01-04] MEDS: PANTOPRAZOLE 40 MG TABLET.DR. PO SCH (08:56)
[2018-01-04] MEDS: METOPROLOL TART IMMED RELEASE 50 MG TABLET. PO SCH ×2 (08:57→23:22)
[2018-01-04] MEDS: carBAMazepine 200 MG TABLET PO SCH ×2 (08:58→23:22)
[2018-01-04] MEDS: amLODIPine BESYLATE 10 MG TABLET PO SCH (08:59)
[2018-01-04] MEDS: FOLIC ACID 1 MG TABLET. PO SCH (09:00)
[2018-01-04] MEDS: LOSARTAN POTASSIUM 50 MG TABLET. PO SCH (09:00)
[2018-01-04] MEDS: DEXAMETHASONE 0.1% OPHTH SOLUTION 5ML BOTTLE. OU SCH ×3 (09:13→23:23)
[2018-01-04] MEDS: POTASSIUM CHLORIDE 20 MEQ TABLET.ER. PO SCH ×2 (09:13→17:53)
[2018-01-04] MEDS: LIPASE/PROTEAS/AMYLAS 10/32/42 CAPSULE.DR. PO SCH ×3 (09:13→17:12)
[2018-01-04 11:00] VITALS: BP 118/86
--- NOTE | 2018-01-04 14:05 | PDOC ---
Subjective: Subjective: Better, still some pain after eating but might like to advance diet later. No n/v. Back pain persists. Biggest complaint is issues w/ IV overnight. Objective: Vital Signs: Vital Signs Date Time Temp Pulse Resp B/P (MAP) Pulse Ox O2 Delivery O2 Flow Rate FiO2 01/04/18 11:00 96.8 80 18 118/86 (97) 97 96.8 01/04/18 10:00 Room Air Labs: Laboratory Tests Test 01/04/18 03:30 01/04/18 10:05 Sodium Level 138 mmol/L Potassium Level 2.9 mmol/L 3.4 mmol/L Chloride Level 101 mmol/L Carbon Dioxide Level 30 mmol/L Anion Gap 7 Blood Urea Nitrogen 6 mg/dL Creatinine 0.9 mg/dL Estimated GFR (Cockcroft-Gault) 89.3 BUN/Creatinine Ratio 7 Glucose Level 109 mg/dL Calcium Level 8.7 mg/dL Total Bilirubin 0.5 mg/dL Aspartate Amino Transf (AST/SGOT) 55 U/L Alanine Aminotransferase (ALT/SGPT) 37 U/L Alkaline Phosphatase 92 U/L Total Protein 6.6 g/dL Albumin 3.2 g/dL Albumin/Globulin Ratio 0.9 Lipase 1097 U/L PE: GEN: NAD LUNGS: CTAB HEART: RRR ABD: NABS, S/ND - less tender NEURO/PSYCH: A & O 3, was asleep A/P: Chronic alcoholic pancreatitis Javier's esophagus -- Pain is better but he expresses some interest in eating more - consider advancing if pain continues to improve. AUGUSTO FERNANDEZ Jan 04, 2018 14:05
[2018-01-04 15:00] VITALS: BP 116/82
[2018-01-04 19:00] VITALS: BP 133/84
[2018-01-04 23:05] VITALS: BP 137/95
[2018-01-04] MEDS: CYCLOBENZAPRINE 10 MG TABLET. PO PRN (23:22)
[2018-01-04] MEDS: PROMETHAZINE 12.5 MG TABLET. PO PRN (23:22)
[2018-01-04] MEDS: AMITRIPTYLINE HCL 50 MG TABLET PO SCH (23:23)
[2018-01-05 03:07] VITALS: BP 136/90
[2018-01-05] MEDS: CYCLOBENZAPRINE 10 MG TABLET. PO PRN (05:34)
[2018-01-05] MEDS: PANTOPRAZOLE 40 MG TABLET.DR. PO SCH (05:34)
[2018-01-05] MEDS: traMADol 50 MG TABLET PO PRN (05:35)
[2018-01-05 07:00] VITALS: BP 140/82
[2018-01-05 07:54] LABS: CALCIUM 9.2 mg/dL (8.5-10.1); CREATININE 1.1 mg/dL (0.7-1.3); GFR 70.9; POTASSIUM 3.7 mmol/L (3.5-5.1)
--- NOTE | 2018-01-05 08:31 | PDOC ---
PROGRESS NOTES Subjective Subjective Patient states abdominal pain has resolved. Ate regular tray last evening without pain or nausea. Objective Objective Vital Signs Date Time Temp Pulse Resp B/P (MAP) Pulse Ox O2 Delivery O2 Flow Rate FiO2 01/05/18 06:40 16 Room Air 01/05/18 03:07 97.4 76 136/90 (105) 99 97.4 Intake and Output 01/05/18 07:00 Intake Total 1300 ml Output Total 0 ml Balance 1300 ml Intake Oral 300 ml IV Total 1000 ml Output Urine Total 0 ml # Voids 2 Physical Exam Abdomen: Normal bowel sounds, Soft, No tenderness Heart: Regular rate Extremities: No edema General: Alert, Oriented X3, No acute distress Lungs: Clear to auscultation Assessment Assessment Problems Medical Problems: (1) Abdominal pain Status: Acute (2) Acute pancreatitis Status: Acute Plan Plan of Care 1. Acute on chronic pancreatitis - symptoms resolved although Lipase still elevated. Patient to be discharged home today. Advised low fat diet, take Creon with every meal. 2. alcohol abuse - patient well aware of necessity of avoiding alcohol. States he will resume taking the Antabuse he has at home as this helps him to be abstinent (at least short-term). 3. back pain - stable, continue po meds as needed. 4. hypokalemia - resolved with po replacement. 5. HTN - controlled, continue present medications. 6. chronic neuropathy - stable, continue meds and follow up per Neurology. Comment Review of Relevant I have reviewed the following items alyson (where applicable) has been applied. Labs Laboratory Tests Test 01/04/18 03:30 01/04/18 10:05 01/05/18 06:10 Sodium Level 138 mmol/L (136-145) 137 mmol/L (136-145) Potassium Level 2.9 mmol/L (3.5-5.1) 3.4 mmol/L (3.5-5.1) 3.7 mmol/L (3.5-5.1) Chloride Level 101 mmol/L (98-107) 101 mmol/L (98-107) Carbon Dioxide Level 30 mmol/L (21-32) 28 mmol/L (21-32) Anion Gap 7 (6-14) 8 (6-14) Blood Urea Nitrogen 6 mg/dL (8-26) 8 mg/dL (8-26) Creatinine 0.9 mg/dL (0.7-1.3) 1.1 mg/dL (0.7-1.3) Estimated GFR (Cockcroft-Gault) 89.3 70.9 BUN/Creatinine Ratio 7 (6-20) Glucose Level 109 mg/dL (70-99) 86 mg/dL (70-99) Calcium Level 8.7 mg/dL (8.5-10.1) 9.2 mg/dL (8.5-10.1) Total Bilirubin 0.5 mg/dL (0.2-1.0) Aspartate Amino Transf (AST/SGOT) 55 U/L (15-37) Alanine Aminotransferase (ALT/SGPT) 37 U/L (16-63) Alkaline Phosphatase 92 U/L (46-116) Total Protein 6.6 g/dL (6.4-8.2) Albumin 3.2 g/dL (3.4-5.0) Albumin/Globulin Ratio 0.9 (1.0-1.7) Lipase 1097 U/L (73-393) 1118 U/L (73-393) Laboratory Tests Test 01/04/18 10:05 01/05/18 06:10 Potassium Level 3.4 mmol/L (3.5-5.1) 3.7 mmol/L (3.5-5.1) Sodium Level 137 mmol/L (136-145) Chloride Level 101 mmol/L (98-107) Carbon Dioxide Level 28 mmol/L (21-32) Anion Gap 8 (6-14) Blood Urea Nitrogen 8 mg/dL (8-26) Creatinine 1.1 mg/dL (0.7-1.3) Estimated GFR (Cockcroft-Gault) 70.9 Glucose Level 86 mg/dL (70-99) Calcium Level 9.2 mg/dL (8.5-10.1) Lipase 1118 U/L (73-393) Medications Current Medications Sodium Chloride 1,000 ml @ 1,000 mls/hr 1X ONCE IV Last administered on 01/02at 10:14; Start 01/02/18 at 10:15; Stop 01/02/18 at 11:14; Status DC Ondansetron HCl (Zofran) 4 mg 1X ONCE IV Last administered on 01/02/18at 10:14 ; Start 01/02/18 at 10:15; Stop 01/02/18 at 10:16; Status DC Fentanyl Citrate (Fentanyl 2ml Vial) 50 mcg 1X ONCE IV Last administered on at 10:14; Start 01/02/18 at 10:15; Stop 01/02/18 at 10:16; Status DC Iohexol (Omnipaque 300 Mg/ml) 75 ml 1X ONCE IV Last administered on at 11:29; Start 01/02/18 at 11:00; Stop 01/02/18 at 11:01; Status DC Info (CONTRAST GIVEN -- Rx MONITORING) 1 each PRN DAILY PRN MC SEE COMMENTS; Start 01/02/18 at 11:00; Stop 01/04/18 at 10:59; Status DC Fentanyl Citrate (Fentanyl 2ml Vial) 50 mcg 1X ONCE IV Last administered on at 11:38; Start 01/02/18 at 11:30; Stop 01/02/18 at 11:32; Status DC Ondansetron HCl (Zofran) 4 mg PRN Q8HRS PRN IV NAUSEA/VOMITING Last administered on 01/03/18at 07:46; Start 01/02/18 at 12:15; Stop 01/03/18 at 12 :14; Status DC Fentanyl Citrate (Fentanyl 2ml Vial) 50 mcg PRN Q3HRS PRN IV PAIN Last administered on 01/03/18at 07:46; Start 01/02/18 at 12:15; Stop 01/03/18 at 07 :58; Status DC Promethazine HCl (Phenergan) 12.5 mg PRN Q6HRS PRN PO NAUSEA/VOMITING Last administered on 01/04/18at 23:22; Start 01/03/18 at 08:00 Potassium Chloride/Dextrose/ Sod Cl 1,000 ml @ 75 mls/hr [id number] IV Last administered on 01/04/18at 02:28; Start 01/03/18 at 08:00; Stop 01/04/18 at 07 :50; Status DC Cyclobenzaprine HCl (Flexeril) 10 mg PRN Q6HRS PRN PO MUSCLE SPASMS Last administered on 01/05/18at 05:34; Start 01/03/18 at 08:00 Fentanyl Citrate (Fentanyl 2ml Vial) 50 mcg PRN Q2HR PRN IV PAIN Last administered on 01/04/18 05:44; Start 01/03/18 at 08:00; Stop 01/04/18 at 07 :50; Status DC Amitriptyline HCl (Elavil) 50 mg QHS PO Last administered on 01/04/18 23:23; Start 01/03/18 at 21:00 Amlodipine Besylate (Norvasc) 10 mg DAILY PO Last administered on 01/04/18at 08 :59; Start 01/03/18 at 09:00 Carbamazepine (TEGretol) 50 mg BID PO Last administered on 01/04/18 23:22; Start 01/03/18 at 09:00 Folic Acid (Folic Acid) 1 mg DAILY PO Last administered on 01/04/18 09:00; Start 01/03/18 at 09:00 Losartan Potassium (Cozaar) 50 mg DAILY PO Last administered on 01/04/18 09: 00; Start 01/03/18 at 09:00 Metoprolol Tartrate (Lopressor) 50 mg BID PO Last administered on 01/04/18 23 :22; Start 01/03/18 at 09:00 Tramadol HCl (Ultram) 50 mg PRN Q6HRS PRN PO MODERATE/SEVERE PAIN Last administered on 01/05/18 05:35; Start 01/03/18 at 08:00 Amylase/Lipase/ Protease (Zenpep 10,000) 3 cap TIDWMEALS PO Last administered on 01/04/18 17:12; Start 01/03/18 at 08:30 Pantoprazole Sodium (Protonix) 40 mg DAILYAC PO Last administered on 05:34; Start 01/03/18 at 08:30 Dexamethasone (Maxidex) 1 drop TID OU Last administered on 01/04/18 23:23; Start 01/03/18 at 21:00 Potassium Chloride (Klor-Con) 40 meq 1X ONCE PO Last administered on 05:43; Start 01/04/18 at 06:00; Stop 01/04/18 at 06:02; Status DC Acetaminophen (Tylenol) 1,000 mg PRN Q6HRS PRN PO MILD PAIN; Start 01/04/18 at 07:45 Ibuprofen (Motrin) 600 mg PRN Q6HRS PRN PO INFLAMMATION; Start 01/04/18 at 07: 45 Potassium Chloride (Klor-Con) 20 meq BIDWMEALS PO Last administered on at 17:53; Start 01/04/18 at 09:00 Active Scripts Active Amitriptyline Hcl 50 Mg Tablet 1 Tab PO QHS Tramadol Hcl 50 Mg Tablet 50 Mg PO Q6HRS PRN 30 Days Epitol (Carbamazepine) 200 Mg Tablet 50 Mg PO BID Folic Acid 1 Mg Tablet 1 Mg PO DAILY 30 Days Reported Lukasz Jacinto 36,000 Units Capsule (Lipase/Protease/Amylase) 1 Each Capsule. 2 Cap PO TIDAC Protonix (Pantoprazole Sodium) 20 Mg Tablet.dr 40 Mg PO DAILY Metoprolol Tartrate 50 Mg Tablet 50 Mg PO BID Losartan Potassium 50 Mg Tablet 50 Mg PO DAILY Amlodipine Besylate 10 Mg Tablet 10 Mg PO DAILY Aspir 81 (Aspirin) 81 Mg Tablet. 1 Tab PO DAILY Vitals/I & O Vital Sign - Last 24 Hours 01/04/18 01/04/18 01/04/18 01/04/18 08:55 08:57 08:59 09:00 Pulse 80 80 80 Resp 16 B/P (MAP) 146/96 146/96 146/96 O2 Delivery Room Air 01/04/18 01/04/18 01/04/18 01/04/18 10:00 11:00 15:00 17:13 Temp 96.8 96.8 96.8 96.8 Pulse 80 70 Resp 18 20 B/P (MAP) 118/86 (97) 116/82 (93) Pulse Ox 97 97 97 97 O2 Delivery Room Air 01/04/18 01/04/18 01/04/18 01/04/18 19:00 19:50 23:05 23:22 Temp 97.5 98.1 97.5 98.1 Pulse 83 87 78 Resp 20 20 B/P (MAP) 133/84 (100) 137/95 (109) 151/104 Pulse Ox 100 99 O2 Delivery Room Air Room Air Room Air 01/04/18 01/05/18 01/05/18 01/05/18 23:23 03:07 05:35 06:40 Temp 97.4 97.4 Pulse 76 Resp 16 20 16 16 B/P (MAP) 136/90 (105) Pulse Ox 99 O2 Delivery Room Air Room Air Room Air Room Air Intake and Output 01/04/18 01/04/18 01/05/18 15:00 23:00 07:00 Intake Total 1300 ml Output Total 0 ml Balance 1300 ml 0 ml KHURRAM DEXTER MD Jan 05, 2018 08:31
[2018-01-05] MEDS ORDERED: CYCL10TA2 PO (08:33)
[2018-01-05] MEDS ORDERED: PROM12.56 PO (08:33)
--- NOTE | 2018-01-05 09:25 | DS ---
DATE OF DISCHARGE: 01/05/2018 CHIEF COMPLAINT: Abdominal and back pain. HISTORY OF PRESENT ILLNESS: The patient is a 52-year-old male with a history of chronic pancreatitis due to alcohol abuse. He presented to the Emergency Room with the above complaint. He reported a several day history of increasing pain in the abdomen radiating through to his back. He admitted to heavy alcohol abuse several days prior to the onset of these symptoms. His symptoms gradually worsened and he had frequent emesis. He was unable to keep down any food or fluids and noticed his urine was looking more dark. In the Emergency Room, he was found to have evidence of acute pancreatitis with a lipase over 2000. A CT of the abdomen and pelvis showed pancreatic calcifications, but no inflammation was seen around the pancreas. Treatment was started and he was admitted for further care. HOSPITAL COURSE: The patient was admitted and seen in consultation by Gastroenterology. He was started on IV fluids and antiemetics with ice chips. He had a quick improvement in his symptoms. His diet was gradually advanced and he tolerated this well. His abdominal pain has completely resolved and he is eating a regular diet with a good appetite. He reported that Phenergan works better for him for nausea than Zofran and he will receive a prescription for this at discharge. The patient is well aware of the necessity of him avoiding alcohol altogether. He states that he will work on this. He has some Antabuse at home that he has taken in the past to help with alcohol abstinence and he states that he will resume taking this at least in the short term. The patient had some low back pain. This was treated with oral medication and Flexeril as needed and he reports that this has improved. The patient's blood pressure was controlled with his usual medications. His chronic neuropathy was stable with his home medications. The patient's lipase is still just over 1000 this morning on lab, but he states that he is not having any pain and feels ready to go home. He will be discharged to home today. He is advised a low fat diet and complete abstinence from alcohol. FINAL DIAGNOSES: 1. Acute on chronic pancreatitis. 2. Alcohol abuse. 3. Back strain. 4. Hypertension. 5. Chronic neuropathy. DISCHARGE MEDICATIONS: Flexeril 10 mg q. 8 hours p.r.n., promethazine 12.5 mg p.o. q. 6 hours p.r.n. nausea, amitriptyline 50 mg at bedtime, amlodipine 10 mg daily, aspirin 81 mg daily, carbamazepine 50 mg b.i.d., folic acid 1 mg daily, pancreatic enzymes two caps t.i.d. with meals, losartan 50 mg daily, metoprolol tartrate 50 mg b.i.d., Protonix 40 mg daily and tramadol 50 mg q. 6h. p.r.n. pain. FOLLOWUP: Followup is with Dr. Christine as already scheduled. KHURRAM CHRISTINE MD DR: MAG/christine JOB#: [id number] / [id number] FELIPA
[2018-01-05] MEDS: amLODIPine BESYLATE 10 MG TABLET PO SCH (10:06)
[2018-01-05] MEDS: LIPASE/PROTEAS/AMYLAS 10/32/42 CAPSULE.DR. PO SCH (10:07)
[2018-01-05] MEDS: POTASSIUM CHLORIDE 20 MEQ TABLET.ER. PO SCH (10:07)
[2018-01-05] MEDS: LOSARTAN POTASSIUM 50 MG TABLET. PO SCH (10:07)
[2018-01-05] MEDS: carBAMazepine 200 MG TABLET PO SCH (10:07)
[2018-01-05 10:08] VITALS: BP 140/82
[2018-01-05] MEDS: METOPROLOL TART IMMED RELEASE 50 MG TABLET. PO SCH (10:08)
[2018-01-05] MEDS: FOLIC ACID 1 MG TABLET. PO SCH (10:08)
[2018-01-05] MEDS: DEXAMETHASONE 0.1% OPHTH SOLUTION 5ML BOTTLE. OU SCH (10:13)
== END 2018-01-05 11:37 | disposition home or self-care (01) | DRG 438 ==
LOC: ER 09:40 → 5 NORTH 11:40
PROVIDERS: ADMIT Family Medicine; ATTEND Family Medicine
DX: K85.90 Acute pancreatitis without necrosis or infection, unspecified (principal); R65.11 Systemic inflammatory response syndrome (SIRS) of non-infectious origin with acute organ dysfunction; G62.9 Polyneuropathy, unspecified; F41.9 Anxiety disorder, unspecified; N18.9 Chronic kidney disease, unspecified; I12.9 Hypertensive chronic kidney disease with stage 1 through stage 4 chronic kidney disease, or unspecified chronic kidney disease; M19.90 Unspecified osteoarthritis, unspecified site; K22.70 Barrett's esophagus without dysplasia; K86.0 Alcohol-induced chronic pancreatitis; D64.9 Anemia, unspecified; F10.10 Alcohol abuse, uncomplicated; Z87.442 Personal history of urinary calculi; Z90.79 Acquired absence of other genital organ(s); Z87.891 Personal history of nicotine dependence; Z85.47 Personal history of malignant neoplasm of testis; Z90.49 Acquired absence of other specified parts of digestive tract; Z82.49 Family history of ischemic heart disease and other diseases of the circulatory system; Z88.6 Allergy status to analgesic agent; Z88.8 Allergy status to other drugs, medicaments and biological substances; F32.9 Major depressive disorder, single episode, unspecified
CPT/HCPCS: 36415; 70450; 72125; 74177; 80048; 80053; 81001; 83605; 83690; 83735; 84132; 84484; 85025; 85610; 85730; 93005; 96361; 96374; 96375; 96376; G0480; J2405; J3010; J7030; Q0169; Q9967; 99285-25

== ENCOUNTER → 2018-03-04 | Outpatient (CLI) | payer OTHER ==
[~2018-03-04] MED LIST changes: +AMIT50TA PO; +CYCL10TA2 PO; -GABA-586 PO; +GABA300C18 PO; +LIPA1CAP8 PO; +LOSA-73 PO; +PANT20TA2 PO; +PREG50CA PO; +PROM12.56 PO
--- NOTE | 2018-03-04 13:58 | RAD ---
Radionuclide gastric emptying study, 03/04/2018: HISTORY: Nausea and vomiting The study was performed utilizing a solid test meal radiolabeled with 2.0 mCi of technetium 99m sulfur colloid. The following gastric retention values were obtained: 1 hour-81 percent 2 hours-63 percent (normal is 60 percent or less) 3 hours-46 percent (normal is 30 percent or less) 4 hours-30 percent (normal is 10 percent or less) A T1/2 of 166 minutes was also calculated. IMPRESSION: Delayed gastric emptying as described above. Electronically signed by: Moise Garcia MD (03/04/2018 12:14 PM) [facility]
== END | disposition home or self-care (01) ==
LOC: NM 07:20
PROVIDERS: ATTEND Internal Medicine Gastroenterology
DX: R11.2 Nausea with vomiting, unspecified (principal)
CPT/HCPCS: 78264; A9541

== ENCOUNTER → 2018-04-28 | Outpatient (CLI) | payer OTHER ==
[~2018-04-28] VITALS: Ht 188 cm; Wt 95.3 kg
[~2018-04-28] MED LIST changes: -AMLO10TA6 PO; +AMLO10TA8 PO; +DISU250T PO; +ERYT250C8 PO; +ESZO3TAB28 PO; +GABA300T3 PO; +LIDOCAINE WITH 8.4% SOD BICARB 3 ML DISP.SYRIN. INJ ONE; +LIDOCAINE WITH 8.4% SOD BICARB 3 ML DISP.SYRIN. ONE; +LORA1TAB PO; +METH4TAB2 PO; -PROM12.56 PO; +PROM12.58 PO; +TRIA15CR TP
[2018-04-28 11:54] VITALS: BP 150/99
--- NOTE | 2018-04-28 12:30 | RAD ---
Procedure: Upper extremity PICC line placement Clinical Indication: 53-year-old requiring central venous access Sedation: Local anesthesia only was provided Antibiotics: None Fluoro Time: 0.1 minutes, images: 1. Contrast: None Sterility: All elements of maximal sterile barrier technique including the use of a cap, mask, sterile gown, sterile gloves, large sterile sheet, appropriate hand hygiene, and 2% chlorhexidine for cutaneous antisepsis (or acceptable alternative antiseptic per current guidelines) were followed for this procedure. Consent: The procedure was explained in its entirety to the patient or the patients designated billing representative by a member of the treatment team, including a discussion of the risks, benefits and commonly accepted alternatives to the procedure, as well as the expected consequences of no therapy whatsoever. Discussion of the risks included, but was not limited to, those that are most frequent and those that are rare but possibly severe or life-threatening, as well as the possibility of unforeseen complications. Technique and Findings: Following informed consent, the patient was prepped and draped in the usual sterile fashion. Ultrasound interrogation of the right arm revealed patency and compressibility of the right basilic vein. A hard copy ultrasound image was recorded. 1% Lidocaine was used to achieve local anesthesia and a 21-gauge micropuncture needle was used to gain access to the targeted vein. The needle was exchanged over wire for a 5 Grenadian peel-away sheath which was used to deploy a PICC line under fluoroscopic guidance such that the distal tip resided at the cavoatrial junction. The catheter flushed and aspirated with ease and was sutured to the skin. Complications: No immediate Impression: 1. Ultrasound guided PICC line placement as described.
--- NOTE | 2018-04-28 21:56 | CONS ---
DATE OF CONSULTATION: 04/28/2018 UPDATE HISTORY AND PHYSICAL. REFERRING PHYSICIAN: Candice Christine M.D. HISTORY OF PRESENT ILLNESS: A 53-year-old male whose past medical history is significant for C. diff, GERD, hypertension and history of chronic pancreatitis, seen with persistent abdominal pain. He has had extra weight gain of 30 pounds recently, gastroparesis based on the gastric emptying study. Erythromycin has been started with minimal improvement. With ongoing issues, he requests additional evaluation. PAST MEDICAL HISTORY: Hypertension, GERD, pancreatitis, chronic and neuropathy. ALLERGIES: HALOPERIDOL, METHYLPHENIDATE AND MORPHINE. MEDICATIONS: Include amitriptyline, amlodipine, aspirin, Tegretol, cyclobenzaprine, disulfiram, erythromycin, Lunesta, folic acid, gabapentin, lipase, lorazepam, losartan, metoprolol, pantoprazole, promethazine and tramadol. FAMILY AND SOCIAL HISTORY: Social drinker, former smoker. PAST SURGICAL HISTORY: Noncontributory. REVIEW OF SYSTEMS: Per records. PHYSICAL EXAMINATION: GENERAL: Reveals a well-nourished, well-developed male, who is alert and cooperative, in no acute distress. VITAL SIGNS: Temperature is 97.7, pulse 78, respiratory rate 14 and blood pressure is 150/89. HEENT EXAMINATION: Reveals normocephalic and atraumatic head. Pupils and extraocular muscles are not tested. Sclerae anicteric. NECK: Supple. LUNGS: Clear. CARDIOVASCULAR EXAMINATION: Reveals an S1, S2 without S3, S4 or appreciable murmur. ABDOMEN: Exam reveals soft abdomen. Normal bowel sounds, without appreciable hepatosplenomegaly. EXTREMITIES: Exam reveals no cyanosis, clubbing or edema. IMPRESSION: Abdominal pain, abnormal gastric emptying study, history of chronic pancreatitis, EGD to assess for peptic ulcer disease, gastric outlet obstruction and/or malignancy. Risks and benefits of the procedure including risk of hemorrhage and perforation, requiring operation were discussed with the patient, who is willing to proceed at this time. SOCORRO BLAKE MD DR: ADOLPH/christine JOB#: [id number] / [id number]
== END | disposition home or self-care (01) ==
LOC: INTRAD 11:20
PROVIDERS: ATTEND Internal Medicine Gastroenterology
DX: Z45.2 Encounter for adjustment and management of vascular access device (principal); Z88.5 Allergy status to narcotic agent; Z88.8 Allergy status to other drugs, medicaments and biological substances; I10 Essential (primary) hypertension; K21.9 Gastro-esophageal reflux disease without esophagitis; Z87.19 Personal history of other diseases of the digestive system; K31.84 Gastroparesis; G62.89 Other specified polyneuropathies; Z79.82 Long term (current) use of aspirin; Z79.899 Other long term (current) drug therapy; Z87.891 Personal history of nicotine dependence; Z72.89 Other problems related to lifestyle; Z79.2 Long term (current) use of antibiotics
CPT/HCPCS: 36569; 76937; 77001; C1751; C1892

== ENCOUNTER → 2018-04-28 | Day surgery (SDC) | payer OTHER ==
[~2018-04-28] MED LIST changes: +IV RINGERS,LACTATED 1000ML 1,000 ML IV SCH; +LIDOCAINE 1% PF 2 ML VIAL. ID PRN; -LIDOCAINE WITH 8.4% SOD BICARB 3 ML DISP.SYRIN. INJ ONE; -LIDOCAINE WITH 8.4% SOD BICARB 3 ML DISP.SYRIN. ONE; -METH4TAB2 PO; +ONDANSETRON PF 4 MG/2 ML VIAL. IV PRN; +PROCHLORPERAZINE 10 MG/2 ML VIAL. IV PRN; +PROPOFOL 20 ML IV ONE; -TRIA15CR TP; +fentaNYL PF VIAL 100 MCG/2 ML VIAL IV PRN
[2018-04-28 15:18] VITALS: BP 133/82
[2018-04-28 15:24] LABS: BASO # 0.1 x10^3/uL (0.0-0.2); BASO % 1 % (0-3); EOS # 0.4 x10^3/uL (0.0-0.7); EOS % 7 % (0-3); HEMOGLOBIN 11.4 g/dL (13.0-17.5); LYMPH # 1.6 x10^3/uL (1.0-4.8); LYMPH % 27 % (24-48); MEAN CORPUSCULAR HEMOGLOBIN 32 pg (25-35); MEAN CORPUSCULAR HGB CONC 34 g/dL (31-37); MEAN CORPUSCULAR VOLUME 92 fL (79-100); MONO # 0.5 x10^3/uL (0.0-1.1); MONO % 8 % (0-9); NEUT # 3.4 x10^3uL (1.8-7.7); NEUT % 57 % (31-73); PLATELET COUNT 281 x10^3/uL (140-400); RED CELL DISTRIBUTION WIDTH 14.4 % (11.5-14.5); WHITE BLOOD COUNT 5.8 x10^3/uL (4.0-11.0)
[2018-04-28 15:42] LABS: ALBUMIN 3.5 g/dL (3.4-5.0); ALBUMIN/GLOBULIN RATIO 0.9 (1.0-1.7); CALCIUM 8.5 mg/dL (8.5-10.1); CREATININE 0.8 mg/dL (0.7-1.3); GFR 101.9; POTASSIUM 3.6 mmol/L (3.5-5.1); TOTAL BILIRUBIN 0.4 mg/dL (0.2-1.0); TOTAL PROTEIN 7.3 g/dL (6.4-8.2)
== END | disposition home or self-care (01) ==
LOC: ENDOS 12:49
PROVIDERS: ATTEND Internal Medicine Gastroenterology
DX: K29.50 Unspecified chronic gastritis without bleeding (principal); Z88.5 Allergy status to narcotic agent; Z88.8 Allergy status to other drugs, medicaments and biological substances
CPT/HCPCS: 36415; 43235; 80053; 82150; 83690; 85025; J2704

== ENCOUNTER → 2018-05-11 | Outpatient (CLI) | payer OTHER ==
[2018-04-28 15:18] VITALS: BP 133/82
[~2018-05-11] MED LIST changes: -IV RINGERS,LACTATED 1000ML 1,000 ML IV SCH; -LIDOCAINE 1% PF 2 ML VIAL. ID PRN; -ONDANSETRON PF 4 MG/2 ML VIAL. IV PRN; -PROCHLORPERAZINE 10 MG/2 ML VIAL. IV PRN; -PROPOFOL 20 ML IV ONE; -fentaNYL PF VIAL 100 MCG/2 ML VIAL IV PRN
--- NOTE | 2018-05-11 08:12 | RAD ---
PQRS Compliance statement: One or more of the following individualized dose reduction techniques were utilized for this examination: 1. Automated exposure control. 2. Adjustment of the mA and/or kV according to patient size. 3. Use of iterative reconstruction technique. Indication:EPIGASTRIC PAIN/BLOATING/WT LOSS TECHNIQUE: Grayscale, color Doppler and spectral waveform is of the abdomen obtained. COMPARISON:CT abdomen pelvis from 01/02/2018 FINDINGS: Visualized pancreas is within normal limits. IVC is patent. No aortic aneurysm. Liver is slightly enlarged measuring 18 cm in longest dimension with diffuse increased echogenicity. Status post cholecystectomy. Main portal vein is patent. CBD measures 5 mm in diameter and is within normal limits. Right kidney measures 11.10 cm in length without hydronephrosis. Spleen measures 8 cm in length and is normal in size. Left kidney measures 12 cm in length without hydronephrosis. IMPRESSION: 1. Mild hepatomegaly with hepatic steatosis. Electronically signed by: Wai Juarez DO (05/11/2018 8:08 AM) [id number]
== END | disposition home or self-care (01) ==
LOC: US 06:05
PROVIDERS: ATTEND Internal Medicine Gastroenterology
DX: K76.0 Fatty (change of) liver, not elsewhere classified (principal); R63.5 Abnormal weight gain; Z90.49 Acquired absence of other specified parts of digestive tract
CPT/HCPCS: 76700

== ENCOUNTER 2018-09-02 16:06 | Emergency (ER) | payer OTHER ==
[~2018-09-02] VITALS: Ht 190.5 cm; Wt 86.2 kg
[2018-09-02 16:29] VITALS: BP 133/86
[2018-09-02] MEDS ORDERED: METH4TAB2 PO (16:40)
[2018-09-02] MEDS ORDERED: TRIA15CR TP (16:40)
--- NOTE | 2018-09-02 16:41 | PHYS DOC ---
Past Medical History Past Medical History: Anxiety, Cancer, Kidney Stone, Pancreatitis, Seizure, Other Additional Past Medical Histor: Testicular CA 1996,BARRETTS ESOPHAGUS,ACUTE RENAL FAILURE,NEUROPATHY Past Surgical History: Other Additional Past Surgical Histo: L)shoulder fx repair,Lithotripsy,R TESTICLE REMOVED Alcohol Use: Sober Drug Use: None Adult General Chief Complaint Chief Complaint: SKIN RASH/ABSCESS [facility] HPI Patient is a 53 year old male presents for evaluation of pruritic rash to his extremities for 1 month. His primary care doctor gave him an ointment which did not help. He was then told to use an glpa-gov-sirjhex antifungal cream which again has not resolved the symptoms. He has not seen a blood bank laboratory technician yet. He does not work outside and as far as he is aware has not been exposed to any poison lili-type plants or shrubs. Review of Systems Review of Systems Constitutional: Denies fever or chills [] Eyes: Denies change in visual acuity, redness, or eye pain [] HENT: Denies nasal congestion or sore throat [] Respiratory: Denies cough or shortness of breath [] Cardiovascular: No additional information not addressed in HPI [] GI: Denies abdominal pain, nausea, vomiting, bloody stools or diarrhea [] : Denies dysuria or hematuria [] Musculoskeletal: Denies back pain or joint pain [] Integument: Denies rash or skin lesions [] Neurologic: Denies headache, focal weakness or sensory changes [] Endocrine: Denies polyuria or polydipsia [] All other systems were reviewed and found to be within normal limits, except as documented in this note. Allergies Allergies Allergies Coded Allergies Type Severity Reaction Last Updated Verified haloperidol Allergy Intermediate 04/28/18 Yes methylphenidate Allergy Intermediate dystonia 04/28/18 Yes morphine Adverse Reaction Intermediate 04/28/18 Yes Physical Exam Physical Exam Constitutional: Well developed, well nourished, no acute distress, non-toxic appearance. [] HENT: Normocephalic, atraumatic, bilateral external ears normal, oropharynx moist, no oral exudates, nose normal. [] Skin: SCALY ERYTHEMATOUS RASH TO ALL 4 EXTREMITIES, RLE ANTERIOR HERNANDEZ RASH AREA IS WEEPING] Back: No tenderness, no CVA tenderness. [] Extremities: No tenderness, no cyanosis, no clubbing, ROM intact, no edema. [] Neurologic: Alert and oriented X 3, normal motor function, normal sensory f unction, no focal deficits noted. [] Psychologic: Affect normal, judgement normal, mood normal. [] Current Patient Data Vital Signs Vital Signs Date Time Temp Pulse Resp B/P (MAP) Pulse Ox O2 Delivery O2 Flow Rate FiO2 09/02/18 16:29 98.1 101 18 133/86 (102) 99 Room Air 98.1 EKG EKG [] Radiology/Procedures Radiology/Procedures [] Course & Med Decision Making Course & Med Decision Making Pertinent Labs and Imaging studies reviewed. (See chart for details) [Patient is referred for dermatology follow-up.] Dragon Disclaimer Dragon Disclaimer This electronic medical record was generated, in whole or in part, using a voice recognition dictation system. Departure Departure Impression: Primary Impression: Rash and nonspecific skin eruption Disposition: 01 HOME, SELF-CARE Condition: STABLE Referrals: KHURRAM DEXTER MD (PCP) Patient Instructions: Rash Scripts Methylprednisolone (MEDROL) 4 Mg Tab.ds.pk 1 PKG PO UD, #1 PKG Prov: JUAN ESCALONA APRN 09/02/18 Triamcinolone Acetonide (TRIAMCINOLONE ACETONIDE 0.5% CREAM) 15 Gm Cream..g. 1 ADDISON TP BID, #30 GM Prov: JUAN ESCALONA APRN 09/02/18 JUAN ESCALONA APRN Sep 02, 2018 16:41
== END 2018-09-02 16:48 | disposition home or self-care (01) ==
LOC: ER 16:06
DX: R21 Rash and other nonspecific skin eruption (principal); Z88.5 Allergy status to narcotic agent; Z88.8 Allergy status to other drugs, medicaments and biological substances
CPT/HCPCS: 99283

== ENCOUNTER → 2018-09-15 | Outpatient (CLI) | payer OTHER ==
[2018-09-02 16:29] VITALS: BP 133/86
[~2018-09-15] MED LIST changes: +METH4TAB2 PO; +TRIA15CR TP
--- NOTE | 2018-09-15 17:55 | RAD ---
Examination: GASTRIC EMPTYING STUDY History: Epigastric pain and bloating Comparison/Correlation: None Findings: 2.1 mCi technetium 99m sulfur colloid was administered in a meal for gastric emptying study examination. Imaging of the anterior and posterior projections was performed. Normal transit of radiotracer is present within the small bowel. At 1 hour, there is 74 percent gastric retention of radiotracer. At 2 hours, there is 38 percent gastric retention of radiotracer. At 3 hours, there is 8 percent gastric retention of radiotracer. At 4 hours, there is 0 percent retention. The T1/2 is 97 minutes. Impression: There is no delay in gastric emptying of radiotracer. Electronically signed by: Wally Neal MD (09/15/2018 5:52 PM) [facility]
== END | disposition home or self-care (01) ==
LOC: NM 07:18
PROVIDERS: ATTEND Internal Medicine Gastroenterology
DX: R10.13 Epigastric pain (principal); R14.0 Abdominal distension (gaseous); Z99.2 Dependence on renal dialysis
CPT/HCPCS: 78264; A9541

== ENCOUNTER 2018-12-21 13:30 | Emergency (ER) | payer MEDICAID, OTHER ==
[~2018-12-21] VITALS: Ht 188 cm; Wt 86.2 kg
[2018-12-21 13:56] VITALS: BP 160/88
[2018-12-21] MEDS ORDERED: LIDOCAINE 1% Multi-Dose 20 ML VIAL. INJ ONE (14:00)
--- NOTE | 2018-12-21 14:01 | PHYS DOC ---
Past Medical History Past Medical History: Anxiety, Cancer, Kidney Stone, Pancreatitis, Seizure, Other Additional Past Medical Histor: Testicular CA 1996,BARRETTS ESOPHAGUS,ACUTE RENAL FAILURE,NEUROPATHY Past Surgical History: Other Additional Past Surgical Histo: L)shoulder fx repair,Lithotripsy,R TESTICLE REMOVED Alcohol Use: Heavy Drug Use: None Adult General Chief Complaint Chief Complaint: TOE PROBLEM [facility] HPI Patient is a 53 year old male who presents with complaining of injury to right great toe. Patient states he accidentally hit his right great toe against a metal door last night and had partial evulsion of great toenail that causing pain with repeated mild injury. Patient states he had deformity of toenail because of yeast infection. Patient is up-to-date with tetanus immunization. Review of Systems Review of Systems Constitutional: Denies fever or chills [] Eyes: Denies change in visual acuity, redness, or eye pain [] HENT: Denies nasal congestion or sore throat [] Respiratory: Denies cough or shortness of breath [] Cardiovascular: No additional information not addressed in HPI [] GI: Denies abdominal pain, nausea, vomiting, bloody stools or diarrhea [] : Denies dysuria or hematuria [] Musculoskeletal: Denies back pain or joint pain [] Integument: Denies rash or skin lesions [] Neurologic: Denies headache, focal weakness or sensory changes [] Endocrine: Denies polyuria or polydipsia [] All other systems were reviewed and found to be within normal limits, except as documented in this note. Current Medications Current Medications Current Medications Medications (Trade) Dose Ordered Sig/Donaldo Start Time Stop Time Status Last Admin Dose Admin Lidocaine HCl (Lidocaine 1% 20ml Vial) 20 ml 1X ONCE 12/21/18 14:00 12/21/18 14:01 DC 12/21/18 14:08 20 ML Allergies Allergies Allergies Coded Allergies Type Severity Reaction Last Updated Verified haloperidol Allergy Intermediate 04/28/18 Yes methylphenidate Allergy Intermediate dystonia 04/28/18 Yes morphine Adverse Reaction Intermediate 04/28/18 Yes Physical Exam Physical Exam Constitutional: Well nourished, mild distress, non-toxic appearance. [] HENT: Normocephalic, atraumatic. Eyes: PERRLA, EOMI, conjunctiva normal, no discharge. [] Neck: Normal range of motion, no tenderness, supple, no stridor. [] Cardiovascular:Heart rate regular rhythm, no murmur [] Lungs & Thorax: Bilateral breath sounds clear to auscultation [] Extremities: Right great toe with contusion and partial evulsion of toenail. Neurologic: Alert and oriented X 3, no focal deficits noted. [] Psychologic: Affect normal, judgement normal, mood normal. [] Current Patient Data Vital Signs Vital Signs Date Time Temp Pulse Resp B/P (MAP) Pulse Ox O2 Delivery O2 Flow Rate FiO2 12/21/18 13:56 97.9 70 18 160/88 (112) 97 Room Air 97.9 EKG EKG [] Radiology/Procedures Radiology/Procedures [] Course & Med Decision Making Course & Med Decision Making Pertinent Imaging studies reviewed. (See chart for details) Evaluation of patient in ER showed 46-year-old male patient presented complaining of injury to his right great toe and partial avulsion of the great toenail. Great toenail was completely removed with digital block of the great toe. Patient tolerated the procedure well. Dressing was applied. Patient currently taking tramadol and acting. Patient was advised to follow up with his primary care physician. Dragon Disclaimer Dragon Disclaimer This electronic medical record was generated, in whole or in part, using a voice recognition dictation system. Departure Departure Impression: Primary Impression: Avulsion of toenail of right foot Disposition: 01 HOME, SELF-CARE (at 1501) Condition: IMPROVED Referrals: KHURRAM DEXTER MD (PCP) KEEGAN SHANNON DPM Patient Instructions: Fingernail or Toenail Loss Additional Instructions: Keep wound clean and dry Follow-up with information systems specialist as needed Follow-up with your primary care physician in 3-5 days Return to ER if not getting better Continue home pain medication and antibiotic Procedure - Toenail Removal by me: Anesthesia: 1% lidocaine Digital Block Location: Right great toenail Technique: from nail bed, vertical split, twisting towards remaining nail. Packing: Non-adherent dressing applied Complications: None Recommend bid dressing changes and warm water soaks. SEBAS RUGGIERO MD Dec 21, 2018 14:01
--- NOTE | 2018-12-21 14:40 | RAD ---
3 view study of the first digit of the right foot Clinical indications: Great toe injury and pain. FINDINGS: Dorsal soft tissue injury of the distal aspect of the first digit is seen. No underlying fracture or dislocation or lytic process evident. IMPRESSION: No acute fracture. Electronically signed by: Khari Rudolph MD (12/21/2018 2:37 PM) [id number]
== END 2018-12-21 15:16 | disposition home or self-care (01) ==
LOC: ER 13:30
DX: S91.201A Unspecified open wound of right great toe with damage to nail, initial encounter (principal); F41.9 Anxiety disorder, unspecified; F10.20 Alcohol dependence, uncomplicated; Y90.9 Presence of alcohol in blood, level not specified; Z85.47 Personal history of malignant neoplasm of testis; Z88.8 Allergy status to other drugs, medicaments and biological substances; Z88.5 Allergy status to narcotic agent; W22.8XXA Striking against or struck by other objects, initial encounter; Y93.89 Activity, other specified; Y92.89 Other specified places as the place of occurrence of the external cause; Y99.8 Other external cause status
CPT/HCPCS: 11730; 73660; 99284

== ENCOUNTER 2019-01-24 10:59 | Emergency (ER) | payer MEDICAID ==
[~2019-01-24] VITALS: Ht 188 cm; Wt 83.9 kg
--- NOTE | 2019-01-24 11:51 | PHYS DOC ---
Past Medical History Past Medical History: Anxiety, Cancer, Kidney Stone, Pancreatitis, Seizure, Other Additional Past Medical Histor: Testicular CA 1996,BARRETTS ESOPHAGUS,ACUTE RENAL FAILURE,NEUROPATHY (EMIR GARCÍA APRN) Past Surgical History: Other Additional Past Surgical Histo: L)shoulder fx repair,Lithotripsy,R TESTICLE REMOVED (EMIR GARCÍA APRN) Alcohol Use: Heavy Drug Use: None (EMIR GARCÍA APRN) Adult General Chief Complaint Chief Complaint: MULTIPLE COMPLAINTS HPI HPI Patient is a 53 year old male who presents with states he went and saw Dr. Murphy last week and she did blood work and said that his liver enzymes were elevated. Patient states that he has had pancreatitis in the past and has been having nausea and vomiting since last week. He states he is unable to keep medications down. Patient complains of left flank pain. Patient states that he will get really sharp shooting pains and yesterday when this happened it caused him to fall because he has neuropathy in his feet. Patient states he landed on his right shoulder. Patient is rating his overall pain a 9 out of 10. Patient states that he drinks at least 12 shot bottles a day. (EMIR GARCÍA APRN) Review of Systems Review of Systems GI: Denies abdominal pain. + nausea, +vomiting, denies bloody stools or diarrhea [] Musculoskeletal: Denies back pain. Left flank. Right shoulder joint pain [] All other systems were reviewed and found to be within normal limits, except as documented in this note. (EMIR GARCÍA APRN) Current Medications Current Medications Current Medications Medications (Trade) Dose Ordered Sig/Donaldo Start Time Stop Time Status Last Admin Dose Admin Fentanyl Citrate (Fentanyl 2ml Vial) 50 mcg 1X ONCE 01/24/19 12:15 01/24/19 12:16 DC 01/24/19 12:24 50 MCG Info (CONTRAST GIVEN -- Rx MONITORING) 1 each PRN DAILY PRN 01/24/19 12:00 01/24/19 15:16 DC Iohexol (Omnipaque 300 Mg/ml) 75 ml 1X ONCE 01/24/19 12:30 01/24/19 12:31 DC Ondansetron HCl (Zofran) 4 mg 1X ONCE 01/24/19 12:15 01/24/19 12:16 DC 01/24/19 12:24 4 MG Sodium Chloride 1,000 ml @ 1,000 mls/hr 1X ONCE 01/24/19 13:45 01/24/19 14:44 DC (SANDY CHAVEZ DO) Allergies Allergies Allergies Coded Allergies Type Severity Reaction Last Updated Verified haloperidol Allergy Intermediate 04/28/18 Yes methylphenidate Allergy Intermediate dystonia 04/28/18 Yes morphine Adverse Reaction Intermediate 04/28/18 Yes (SANDY CHAVEZ DO) Physical Exam Physical Exam Constitutional: Well developed, well nourished, no acute distress, non-toxic appearance. [] HENT: Normocephalic, atraumatic, bilateral external ears normal, oropharynx moist, no oral exudates, nose normal. [] Eyes: PERRLA, EOMI, conjunctiva normal, no discharge. [] Neck: Normal range of motion, no tenderness, supple, no stridor. [] Cardiovascular:Heart rate regular rhythm, no murmur [] Lungs & Thorax: Bilateral breath sounds clear to auscultation [] Abdomen: Bowel sounds normal, soft, no tenderness, no masses, no pulsatile masses. [] Skin: Warm, dry, no erythema, no rash. [] Back: No tenderness, Left CVA tenderness. [] Extremities: Right shoulder tenderness, no cyanosis, no clubbing, Right shoulder ROM not intact, no edema. [] Neurologic: Alert and oriented X 3, normal motor function, normal sensory function, no focal deficits noted. [] Psychologic: Affect normal, judgement normal, mood normal. [] (EMIR GARCÍA APRN) Current Patient Data Vital Signs Vital Signs Date Time Temp Pulse Resp B/P (MAP) Pulse Ox O2 Delivery O2 Flow Rate FiO2 01/24/19 12:40 84 18 122/93 (103) 98 Room Air 01/24/19 11:04 98.4 98.4 (SANDY CHAVEZ DO) Lab Values Laboratory Tests Test 01/24/19 11:39 01/24/19 12:20 01/24/19 14:42 White Blood Count 9.4 x10^3/uL (4.0-11.0) Red Blood Count 3.42 x10^6/uL (4.30-5.70) L Hemoglobin 12.1 g/dL (13.0-17.5) L Hematocrit 34.8 % (39.0-53.0) L Mean Corpuscular Volume 102 fL (79-100) H Mean Corpuscular Hemoglobin 35 pg (25-35) Mean Corpuscular Hemoglobin Concent 35 g/dL (31-37) Red Cell Distribution Width 12.8 % (11.5-14.5) Platelet Count 339 x10^3/uL (140-400) Neutrophils (%) (Auto) 72 % (31-73) Lymphocytes (%) (Auto) 13 % (24-48) L Monocytes (%) (Auto) 14 % (0-9) H Eosinophils (%) (Auto) 1 % (0-3) Basophils (%) (Auto) 1 % (0-3) Neutrophils # (Auto) 6.8 x10^3/uL (1.8-7.7) Lymphocytes # (Auto) 1.2 x10^3/uL (1.0-4.8) Monocytes # (Auto) 1.3 x10^3/uL (0.0-1.1) H Eosinophils # (Auto) 0.1 x10^3/uL (0.0-0.7) Basophils # (Auto) 0.1 x10^3/uL (0.0-0.2) Prothrombin Time 12.7 SEC (11.7-14.0) Prothrombin Time INR 1.0 (0.8-1.1) Sodium Level 141 mmol/L (136-145) Potassium Level 4.1 mmol/L (3.5-5.1) Chloride Level 100 mmol/L (98-107) Carbon Dioxide Level 21 mmol/L (21-32) Anion Gap 20 (6-14) H Blood Urea Nitrogen 15 mg/dL (8-26) Creatinine 1.8 mg/dL (0.7-1.3) H Estimated GFR (Cockcroft-Gault) 40.0 BUN/Creatinine Ratio 8 (6-20) Glucose Level 90 mg/dL (70-99) Calcium Level 8.5 mg/dL (8.5-10.1) Total Bilirubin 0.6 mg/dL (0.2-1.0) Aspartate Amino Transferase (AST) 58 U/L (15-37) H Alanine Aminotransferase (ALT) 41 U/L (16-63) Alkaline Phosphatase 122 U/L (46-116) H Troponin I Quantitative < 0.017 ng/mL (0.000-0.055) Total Protein 8.6 g/dL (6.4-8.2) H Albumin 4.4 g/dL (3.4-5.0) Albumin/Globulin Ratio 1.0 (1.0-1.7) Lipase 293 U/L (73-393) Ethyl Alcohol Level 46 mg/dL (0-10) H Urine Collection Type Unknown Urine Color Marilin Urine Clarity Clear Urine pH 5.0 Urine Specific [place] 1.020 Urine Protein Negative mg/dL (NEG-TRACE) Urine Glucose (UA) Negative mg/dL (NEG) Urine Ketones (Stick) Negative mg/dL (NEG) Urine Blood Negative (NEG) Urine Nitrite Negative (NEG) Urine Bilirubin Negative (NEG) Urine Urobilinogen Dipstick 0.2 mg/dL (0.2 mg/dL) Urine Leukocyte Esterase Negative (NEG) Urine RBC Occ /HPF (0-2) Urine WBC 0 /HPF (0-4) Urine Amorphous Sediment Present /HPF Urine Bacteria 0 /HPF (0-FEW) Urine Hyaline Casts Few /HPF Urine Opiates Screen Neg (NEG) Urine Methadone Screen Neg (NEG) Urine Barbiturates Neg (NEG) Urine Phencyclidine Screen Neg (NEG) Urine Amphetamine/Methamphetamine Neg (NEG) Urine Benzodiazepines Screen Neg (NEG) Urine Cocaine Screen Neg (NEG) Urine Cannabinoids Screen Neg (NEG) Urine Ethyl Alcohol Pos (NEG) Laboratory Tests 01/24/19 11:39 Laboratory Tests 01/24/19 12:20 (SANDY CHAVEZ DO) Lab Values Laboratory Tests Test 01/24/19 11:39 01/24/19 12:20 White Blood Count 9.4 x10^3/uL (4.0-11.0) Red Blood Count 3.42 x10^6/uL (4.30-5.70) L Hemoglobin 12.1 g/dL (13.0-17.5) L Hematocrit 34.8 % (39.0-53.0) L Mean Corpuscular Volume 102 fL (79-100) H Mean Corpuscular Hemoglobin 35 pg (25-35) Mean Corpuscular Hemoglobin Concent 35 g/dL (31-37) Red Cell Distribution Width 12.8 % (11.5-14.5) Platelet Count 339 x10^3/uL (140-400) Neutrophils (%) (Auto) 72 % (31-73) Lymphocytes (%) (Auto) 13 % (24-48) L Monocytes (%) (Auto) 14 % (0-9) H Eosinophils (%) (Auto) 1 % (0-3) Basophils (%) (Auto) 1 % (0-3) Neutrophils # (Auto) 6.8 x10^3/uL (1.8-7.7) Lymphocytes # (Auto) 1.2 x10^3/uL (1.0-4.8) Monocytes # (Auto) 1.3 x10^3/uL (0.0-1.1) H Eosinophils # (Auto) 0.1 x10^3/uL (0.0-0.7) Basophils # (Auto) 0.1 x10^3/uL (0.0-0.2) Prothrombin Time 12.7 SEC (11.7-14.0) Prothrombin Time INR 1.0 (0.8-1.1) Sodium Level 141 mmol/L (136-145) Potassium Level 4.1 mmol/L (3.5-5.1) Chloride Level 100 mmol/L (98-107) Carbon Dioxide Level 21 mmol/L (21-32) Anion Gap 20 (6-14) H Blood Urea Nitrogen 15 mg/dL (8-26) Creatinine 1.8 mg/dL (0.7-1.3) H Estimated GFR (Cockcroft-Gault) 40.0 BUN/Creatinine Ratio 8 (6-20) Glucose Level 90 mg/dL (70-99) Calcium Level 8.5 mg/dL (8.5-10.1) Total Bilirubin 0.6 mg/dL (0.2-1.0) Aspartate Amino Transferase (AST) 58 U/L (15-37) H Alanine Aminotransferase (ALT) 41 U/L (16-63) Alkaline Phosphatase 122 U/L (46-116) H Troponin I Quantitative < 0.017 ng/mL (0.000-0.055) Total Protein 8.6 g/dL (6.4-8.2) H Albumin 4.4 g/dL (3.4-5.0) Albumin/Globulin Ratio 1.0 (1.0-1.7) Lipase 293 U/L (73-393) Ethyl Alcohol Level 46 mg/dL (0-10) H Laboratory Tests 01/24/19 11:39 Laboratory Tests 01/24/19 12:20 (EMIR GARCÍA APRN) EKG EKG Sinus Rhythm and no STEMI Interpretation Time: [address] Chavez (EMIR GARCÍA APRN) Radiology/Procedures Radiology/Procedures [] (EMIR GARCÍA APRN) Impressions: [facility] [address] [place] [address] IMAGING REPORT Signed PATIENT: SANDY CUNHA ACCOUNT: [id number] : 1965 LOCATION: ER AGE: 53 SEX: M EXAM STATUS: REG ER ORD. PHYSICIAN: EMIR GARCÍA APRN REASON: right shoulder pain, injury, FALL YESTERDAY PROCEDURE: SHOULDER 2+V RIGHT SHOULDER 2+V RIGHT 01/24/2019 11:38 AM INDICATION: Right shoulder pain COMPARISON: None available. TECHNIQUE: 3 views the right shoulder are provided. FINDINGS/ IMPRESSION: There is no acute fracture or dislocation. Joint spaces are maintained. Bone mineralization is within normal limits. Regional soft tissues are within normal limits. There is no soft tissue gas or osseous erosion. No radiopaque foreign body. Electronically signed by: Corrine Shaffer MD (01/24/2019 12:41 PM) [id number] DICTATED and SIGNED BY: CORRIEN SHAFFER MD DATE: 01/24/19 1241 [facility] [address] [place], [place] [id number] IMAGING REPORT Signed PATIENT: SANDY CUNHA ACCOUNT: [id number] : 1965 LOCATION: ER AGE: 53 SEX: M EXAM STATUS: REG ER ORD. PHYSICIAN: EMIR GARCÍA APRN REASON: Vomiting, left back pain, hx pancreatitis PROCEDURE: CT ABDOMEN PELVIS WO CONTRAST PQRS Compliance Statement: One or more of the following individualized dose reduction techniques were utilized for this examination: 1. Automated exposure control 2. Adjustment of the mA and/or kV according to patient size 3. Use of iterative reconstruction technique CT abdomen/pelvis without contrast 01/24/2019 11:38 AM INDICATION: Vomiting. Left back pain with history of pancreatitis. COMPARISON: None available TECHNIQUE: Multiple axial CT images of the abdomen and pelvis were obtained without intravenous contrast. Coronal and sagittal reformats are provided. FINDINGS: Lung bases are clear. Heart size is within normal limits. Evaluation of solid abdominal viscera is uneventful intravenous contrast. Gallbladder is surgically absent. Spleen and bilateral adrenal glands are normal in appearance. Coarse calcination's are identified along the head of the pancreas, likely sequela of chronic pancreatitis. No peripancreatic inflammatory changes are identified. Abdominal aorta is normal in course and caliber. No pathologically enlarged lymph nodes are identified in abdomen and pelvis. There is no free fluid or free intraperitoneal air. There is a 4 mm nonobstructing calculus in interpolar right kidney. No hydronephrosis or suspicious renal mass. Urinary bladder is within normal limits given degree of distention. Prostate and seminal vesicles appear normal. Under distention of the colon limits evaluation. Appendix is normal in appearance. Small large bowel are normal in caliber. No bowel obstruction or inflammation. No suspicious osseous abnormality is identified. IMPRESSION: 1. Coarse calcification in the region of the head of the pancreas is suggestive sequela of chronic pancreatitis. No acute peripancreatic inflammatory changes are present. 2. Nonobstructive calculus in interpolar right kidney measures 4 mm. No hydronephrosis or evidence for obstructive uropathy. 3. Appendix is normal. No bowel obstruction or inflammation. Electronically signed by: Corrine Shaffer MD (01/24/2019 1:28 PM) [id number] DICTATED and SIGNED BY: CORRINE SHAFFER MD DATE: 01/24/19 6366 (EMIR GARCÍA APRN) Course & Med Decision Making Course & Med Decision Making Alert and oriented. Speaks in full clear sentences. No tremors or signs of alcohol withdrawal. Patient states he is still very nauseated. Patient has tenderness to his left flank. Patient has no abdominal tenderness. Skin pink warm and dry. Ambulatory with a steady gait. States he did drink 12 of the S chott bottles yesterday during that she skin. Patient has right shoulder pain was very limited range of motion and there does appear to be a deformity as the right shoulder is up farther than the left. Numbness to palpation to the whole shoulder. Radial pulses strong and present. There is no swelling or edema to the extremity. Refill less than 3 seconds. Denies any numbness or tingling. No extremity edema. Lungs are clear to auscultation in all lobes. Vital signs are within normal limits. Patient denies chest pain, shortness of air, dizziness, tremors, abdominal pain, numbness or tingling, weakness, visual changes, headache, syncope, diarrhea, blood in his vomit. Patient states that he sees Dr. Stanley for his pancreatitis in the past. CT ABD PELV shows IMPRESSION: 1. Coarse calcification in the region of the head of the pancreas is suggestive sequela of chronic pancreatitis. No acute peripancreatic inflammatory changes are present. 2. Nonobstructive calculus in interpolar right kidney measures 4 mm. No hydronephrosis or evidence for obstructive uropathy. 3. Appendix is normal. No bowel obstruction or inflammation. Patient states that he is unable to urinate and states he's been trying to urinate but he can't urinate. Patient is told that I was making sure that he did not have an infection since he does have a kidney stone. Patient denies any dysuria symptoms. Patient's creatinine is 1.8 but he has history of acute renal failure. All other findings are chronic. Patient will be discharged home with pain medications. (EMIR GARCÍA APRN) Dragon Disclaimer Dragon Disclaimer This electronic medical record was generated, in whole or in part, using a voice recognition dictation system. (EMIR GARCÍA APRN) Departure Departure Impression: Primary Impression: Chronic pancreatitis Additional Impressions: Kidney stone on right side Chronic renal insufficiency Disposition: 01 HOME, SELF-CARE Condition: STABLE Referrals: KHURRAM DEXTER MD (PCP) Patient Instructions: Alcohol and Drug Addiction, Finding Treatment, Chronic Alcoholism Additional Instructions: Follow-up with Dr. Murphy or Dr. Stanley. Stop drinking alcohol soon as possible. Drink plenty of water. Scripts Hydrocodone/Apap 5-325 (NORCO 5-325 TABLET) 1 Each Tablet 1 TAB PO PRN Q6HRS PRN for PAIN, #6 TAB 0 Refills Prov: EMIR GARCÍA APRN 01/24/19 Attending Signature Attending Signature I have reviewed the PA/REGIONAL MARKETING MANAGER's note and plan of care. I was available for consultation as needed during the patient's visit in the emergency department. I agree with the clinical impression, plan, and disposition. (SANDY CHAVEZ DO) Problem Qualifiers Primary Impression: Chronic pancreatitis Pancreatitis type: alcohol induced Qualified Codes: K86.0 - Alcohol- induced chronic pancreatitis Additional Impressions: Chronic renal insufficiency Chronic kidney disease stage: unspecified stage Qualified Codes: N18.9 - Chronic kidney disease, unspecified EMIR GARCÍA APRN Jan 24, 2019 11:51 SANDY CHAVEZ DO Jan 26, 2019 12:56
[2019-01-24 11:53] LABS: BASO # 0.1 x10^3/uL (0.0-0.2); BASO % 1 % (0-3); EOS # 0.1 x10^3/uL (0.0-0.7); EOS % 1 % (0-3); HEMATOCRIT 34.8 % (39.0-53.0); HEMOGLOBIN 12.1 g/dL (13.0-17.5); LYMPH # 1.2 x10^3/uL (1.0-4.8); LYMPH % 13 % (24-48); MEAN CORPUSCULAR HEMOGLOBIN 35 pg (25-35); MEAN CORPUSCULAR HGB CONC 35 g/dL (31-37); MEAN CORPUSCULAR VOLUME 102 fL (79-100); MONO # 1.3 x10^3/uL (0.0-1.1); MONO % 14 % (0-9); NEUT # 6.8 x10^3/uL (1.8-7.7); NEUT % 72 % (31-73); PLATELET COUNT 339 x10^3/uL (140-400); RED BLOOD COUNT 3.42 x10^6/uL (4.30-5.70); RED CELL DISTRIBUTION WIDTH 12.8 % (11.5-14.5); WHITE BLOOD COUNT 9.4 x10^3/uL (4.0-11.0)
[2019-01-24 11:59] LABS: PROTHROMBIN TIME PATIENT 12.7 SEC (11.7-14.0)
[2019-01-24] MEDS ORDERED: CONTRAST GIVEN. MC PRN (12:00)
[2019-01-24] MEDS ORDERED: fentaNYL PF VIAL 100 MCG/2 ML VIAL IVP ONE (12:15)
[2019-01-24] MEDS ORDERED: IV NORMAL SALINE 1000ML BAG 1,000 ML IV ONE ×2 (12:15→13:45)
[2019-01-24] MEDS ORDERED: ONDANSETRON PF 4 MG/2 ML VIAL. IVP ONE (12:15)
[2019-01-24] MEDS ORDERED: IOHEXOL 300 MG/ML 100ML VIAL. IV ONE (12:30)
[2019-01-24 12:40] VITALS: BP 122/93
[2019-01-24 12:41] LABS: CALCIUM 8.5 mg/dL (8.5-10.1); CREATININE 1.8 mg/dL (0.7-1.3); POTASSIUM 4.1 mmol/L (3.5-5.1)
--- NOTE | 2019-01-24 12:44 | RAD ---
SHOULDER 2+V RIGHT 01/24/2019 11:38 AM INDICATION: Right shoulder pain COMPARISON: None available. TECHNIQUE: 3 views the right shoulder are provided. FINDINGS/ IMPRESSION: There is no acute fracture or dislocation. Joint spaces are maintained. Bone mineralization is within normal limits. Regional soft tissues are within normal limits. There is no soft tissue gas or osseous erosion. No radiopaque foreign body. Electronically signed by: Jo Velasquez MD (01/24/2019 12:41 PM) [facility]
[2019-01-24 12:47] LABS: ALBUMIN 4.4 g/dL (3.4-5.0); TOTAL BILIRUBIN 0.6 mg/dL (0.2-1.0); TOTAL PROTEIN 8.6 g/dL (6.4-8.2)
--- NOTE | 2019-01-24 13:31 | RAD ---
PQRS Compliance Statement: One or more of the following individualized dose reduction techniques were utilized for this examination: 1. Automated exposure control 2. Adjustment of the mA and/or kV according to patient size 3. Use of iterative reconstruction technique CT abdomen/pelvis without contrast 01/24/2019 11:38 AM INDICATION: Vomiting. Left back pain with history of pancreatitis. COMPARISON: None available TECHNIQUE: Multiple axial CT images of the abdomen and pelvis were obtained without intravenous contrast. Coronal and sagittal reformats are provided. FINDINGS: Lung bases are clear. Heart size is within normal limits. Evaluation of solid abdominal viscera is uneventful intravenous contrast. Gallbladder is surgically absent. Spleen and bilateral adrenal glands are normal in appearance. Coarse calcination's are identified along the head of the pancreas, likely sequela of chronic pancreatitis. No peripancreatic inflammatory changes are identified. Abdominal aorta is normal in course and caliber. No pathologically enlarged lymph nodes are identified in abdomen and pelvis. There is no free fluid or free intraperitoneal air. There is a 4 mm nonobstructing calculus in interpolar right kidney. No hydronephrosis or suspicious renal mass. Urinary bladder is within normal limits given degree of distention. Prostate and seminal vesicles appear normal. Under distention of the colon limits evaluation. Appendix is normal in appearance. Small large bowel are normal in caliber. No bowel obstruction or inflammation. No suspicious osseous abnormality is identified. IMPRESSION: 1. Coarse calcification in the region of the head of the pancreas is suggestive sequela of chronic pancreatitis. No acute peripancreatic inflammatory changes are present. 2. Nonobstructive calculus in interpolar right kidney measures 4 mm. No hydronephrosis or evidence for obstructive uropathy. 3. Appendix is normal. No bowel obstruction or inflammation. Electronically signed by: Jo Velasquez MD (01/24/2019 1:28 PM) [facility]
[2019-01-24] MEDS ORDERED: HYDR-3164 PO (14:16)
[2019-01-24 14:50] LABS: BILIRUBIN,URINE NEGATIVE (NEG); CLARITY,URINE CLEAR; COLOR,URINE AMBER; NITRITE,URINE NEGATIVE (NEG); PROTEIN,URINE NEGATIVE (NEG-TRACE); UROBILINOGEN,URINE 0.2 mg/dL (0.2 mg/dL)
[2019-01-24 14:56] LABS: BACTERIA,URINE 0 /HPF (0-FEW); RBC,URINE OCC /HPF (0-2); WBC,URINE 0 /HPF (0-4)
[2019-01-24 14:57] LABS: AMORPHOUS SEDIMENT,UR PRESENT /HPF; HYALINE CASTS, URINE FEW /HPF
[2019-01-24 14:59] LABS: BARBITURATES NEG (NEG); BENZODIAZEPINES NEG (NEG); CANNABINOIDS NEG (NEG); COCAINE NEG (NEG); METHADONE NEG (NEG); OPIATES NEG (NEG); PHENCYCLIDINE NEG (NEG)
[2019-01-24 15:04] LABS: AMPHETAMINE/METHAMPHETAMINE NEG (NEG)
--- NOTE | 2019-01-24 15:51 | EKG ---
[facility] [address] [place] [address] Test Date: 2019-01-24 Test Time: 11:54:40 Pat Name: SANDY CUNHA Department: Room: Gender: M Hydrologic Modeler: : 1965 Requested By: EMIR GARCÍA Order Number: [id number] Reading MD: Conner Daniels Measurements Intervals [place] Rate: 79 P: 37 [place]: 158 QRS: -26 QRSD: 78 T: 28 QT: 390 QTc: 448 Interpretive Statements SINUS RHYTHM LEFTWARD AXIS QRS(T) CONTOUR ABNORMALITY CONSIDER ANTEROSEPTAL MYOCARDIAL DAMAGE Electronically Signed On 01-30-2019 15:06:53 [employer] by Conner Daniels
== END 2019-01-24 15:03 | disposition home or self-care (01) ==
LOC: ER 10:59
DX: N18.9 Chronic kidney disease, unspecified (principal); K86.0 Alcohol-induced chronic pancreatitis; N20.0 Calculus of kidney; M25.511 Pain in right shoulder; M54.5 Low back pain; G89.11 Acute pain due to trauma; Z88.8 Allergy status to other drugs, medicaments and biological substances; Z88.5 Allergy status to narcotic agent; W18.39XA Other fall on same level, initial encounter; Y93.89 Activity, other specified; Y92.89 Other specified places as the place of occurrence of the external cause; Y99.8 Other external cause status
CPT/HCPCS: 36415; 73030; 74176; 80053; 80307; 81001; 83690; 84484; 85025; 85610; 93005; 96361; 96374; 96375; 99285; G0480; J2405; J3010; J7030

== ENCOUNTER 2019-01-28 03:04 | Emergency (ER) | payer MEDICAID ==
[~2019-01-28] VITALS: Ht 188 cm; Wt 86.2 kg
[~2019-01-28 03:04] MED LIST changes: +HYDR-3164 PO
--- NOTE | 2019-01-28 03:41 | PHYS DOC ---
Past Medical History Past Medical History: Anxiety, Cancer, GERD, Hypertension, Kidney Stone, Pancreatitis, Pneumonia, Seizure, Other Additional Past Medical Histor: Testicular CA 1996,BARRETTS ESOPHAGUS,ACUTE RENAL FAILURE,NEUROPATHY Past Surgical History: Other Additional Past Surgical Histo: L)shoulder fx repair,Lithotripsy,R TESTICLE REMOVED Alcohol Use: Heavy Drug Use: None Adult General Chief Complaint Chief Complaint: MECHANICAL FALL HPI HPI 53-year-old male presents to the emergency department via EMS after a fall. Patient states she has underlying history of neuropathy and has difficulty with ambulation secondary to that. He states he fell hitting his right shoulder. Patient was seen here approximately one week ago with similar complaints at that time he had CT of his head performed and x-rays of his right shoulder of which were both unremarkable. Patient denies any head injury today. He denies any chest pain, shortness breath, nausea, vomiting. Primary complains of pain. Limited range of motion secondary to pain. Movements make his pain worse pain worse Review of Systems Review of Systems Constitutional: Denies fever or chills [] Cardiovascular: No additional information not addressed in HPI [] GI: Denies abdominal pain, nausea, vomiting, bloody stools or diarrhea [] Musculoskeletal: right shoulder pain Integument: Denies rash or skin lesions [] Neurologic: Denies headache, focal weakness or sensory changes [] All other systems were reviewed and found to be within normal limits, except as documented in this note. Allergies Allergies Allergies Coded Allergies Type Severity Reaction Last Updated Verified haloperidol Allergy Intermediate 04/28/18 Yes methylphenidate Allergy Intermediate dystonia 04/28/18 Yes morphine Adverse Reaction Intermediate 04/28/18 Yes Physical Exam Physical Exam Constitutional: Well developed, well nourished, no acute distress, non-toxic appearance. [] HENT: Normocephalic, atraumatic, bilateral external ears normal, oropharynx moist, no oral exudates, nose normal. [] Eyes: PERRLA, EOMI, conjunctiva normal, no discharge. [] Neck: Normal range of motion, no tenderness, supple, no stridor. [] Cardiovascular:Heart rate regular rhythm, no murmur [] Lungs & Thorax: Bilateral breath sounds clear to auscultation [] Abdomen: Bowel sounds normal, soft, no tenderness, no masses, no pulsatile masses. [] Skin: Warm, dry, no erythema, no rash. [] Back: No tenderness, no CVA tenderness. [] Extremities: No tenderness, no edema. Right Shoulder pain without deformity appreciated[] Neurologic: Alert and oriented X 3, no focal deficits noted. [] Psychologic: Affect normal, judgement normal, mood normal. [] Current Patient Data Vital Signs Vital Signs Date Time Temp Pulse Resp B/P (MAP) Pulse Ox O2 Delivery O2 Flow Rate FiO2 01/28/19 03:07 97.9 75 16 137/93 (108) 94 Room Air 97.9 EKG EKG [] Radiology/Procedures Radiology/Procedures [] Course & Med Decision Making Course & Med Decision Making Pertinent Labs and Imaging studies reviewed. (See chart for details) []53-year-old male presents to the emergency department via EMS after a fall. Patient states she has underlying history of neuropathy and has difficulty with ambulation secondary to that. He states he fell hitting his right shoulder. Patient was seen here approximately one week ago with similar complaints at that time he had CT of his head performed and x-rays of his right shoulder of which were both unremarkable. Patient denies any head injury today. He denies any chest pain, shortness breath, nausea, vomiting. Primary complains of pain. Proctor ited range of motion secondary to pain. Movements make his pain worse pain worse Xray without evidence of acute fracture or dislocation Keep sling in place Recommend follow up with PCP as outpatient Motrin/Tylenol as needed for pain Return precautions provided Dragon Disclaimer Dragon Disclaimer This electronic medical record was generated, in whole or in part, using a voice recognition dictation system. Departure Departure Impression: Primary Impression: Fall Additional Impression: Shoulder pain, right Disposition: 01 HOME, SELF-CARE Condition: STABLE Referrals: KHURRAM DEXTER MD (PCP) Patient Instructions: Shoulder Pain, [id number] Additional Instructions: Recommend follow up with PCP 3 - 5 days Return to the ER with worsening symptoms, intractable pain, fever, altered mental status Tylenol/Motrin as needed for pain Problem Qualifiers Primary Impression: Fall Encounter type: initial encounter Qualified Codes: W19.XXXA - Unspecified fall, initial encounter Additional Impression: Shoulder pain, right Chronicity: acute Qualified Codes: M25.511 - Pain in right shoulder ALANA PARSON MD Jan 28, 2019 03:41
[2019-01-28 03:43] VITALS: BP 130/88
--- NOTE | 2019-01-28 03:50 | RAD ---
Indication: Fall TECHNIQUE: 3 views of the right shoulder COMPARISON: None Findings/ impression: No acute fracture. Mild step-off deformity seen at the acromioclavicular joint. Clinically correlate with focal tenderness. Visualized right lung is clear. No significant arthritic process. Electronically signed by: Wai Juarez DO (01/28/2019 3:47 AM) [facility]
== END 2019-01-28 03:45 | disposition home or self-care (01) ==
LOC: ER 03:04
DX: M25.511 Pain in right shoulder (principal); G89.11 Acute pain due to trauma; K21.9 Gastro-esophageal reflux disease without esophagitis; I10 Essential (primary) hypertension; Z87.442 Personal history of urinary calculi; F10.20 Alcohol dependence, uncomplicated; Z88.5 Allergy status to narcotic agent; Z88.8 Allergy status to other drugs, medicaments and biological substances; Y90.9 Presence of alcohol in blood, level not specified; W18.09XA Striking against other object with subsequent fall, initial encounter; Y93.89 Activity, other specified; Y92.89 Other specified places as the place of occurrence of the external cause; Y99.8 Other external cause status
CPT/HCPCS: 73030; 99284

== ENCOUNTER → 2019-12-25 | Outpatient (CLI) | payer MEDICAID ==
[~2019-12-25] MED LIST changes: +AMLO-187 PO; -AMLO10TA8 PO; +ERYT250C33 PO; -ERYT250C8 PO; -PREG50CA PO; +PREG50CA91 PO
--- NOTE | 2019-12-25 15:52 | RAD ---
INDICATION: Reason: CHRONIC KIDNEY DISEASE, STAGE 3. / Spl. Instructions: / History: COMPARISON: January 2019 TECHNIQUE: Grayscale and color ultrasound images obtained of the bilateral kidneys and bladder. FINDINGS: Right Kidney: 114 mm. No hydronephrosis. Left Kidney: 106 mm. No hydronephrosis. Bladder: Minimal urine within at time of exam which limits evaluation IMPRESSION: * No hydronephrosis. There are some tiny echogenic foci seen at the renal pelvis. Could be from calcifications or tiny stones. Electronically signed by: Antonio Oliva MD (12/25/2019 3:49 PM) [id number]
== END ==
LOC: US 14:36
PROVIDERS: ATTEND Internal Medicine Nephrology
DX: N18.30 Chronic kidney disease, stage 3 unspecified (principal)
CPT/HCPCS: 76770

== ENCOUNTER 2020-01-03 09:39 | Emergency (ER) | payer MEDICAID ==
[~2020-01-03] VITALS: Ht 188 cm; Wt 83.0 kg
--- NOTE | 2020-01-03 09:52 | PHYS DOC ---
Past Medical History Past Medical History: Anxiety, Cancer, GERD, Hypertension, Kidney Stone, Pancreatitis, Pneumonia, Seizure, Other Additional Past Medical Histor: Testicular CA 1996,BARRETTS ESOPHAGUS,ACUTE RENAL FAILURE,NEUROPATHY Past Surgical History: Other Additional Past Surgical Histo: L)shoulder fx repair,Lithotripsy,R TESTICLE REMOVED Smoking Status: Former Smoker Alcohol Use: Heavy Drug Use: None General Adult EDM: Chief Complaint: ABNORMAL LABS HPI: HPI: Patient is a 54 year old male who presents with a chief complaint of low magnesium level. Patient had a blood work drawn 9 days ago which showed a low magnesium level and was instructed to come to the hospital. Patient has chronic diarrhea for multiple, months and has seen his GI doctor who put him on erythromycin he took for couple months. Patient is also on [id number] magnesium for low magnesium levels. Patient complains of chronic abdominal pain. Patient has had intermittent sharp fleeting chest pain that last 30 seconds is associate with shortness of breath that started yesterday. Patient has had some nausea as well. Symptoms in the abdomen are worse with eating. Review of Systems: Review of Systems: Constitutional: Denies fever or chills. [] Eyes: Denies change in visual acuity. [] HENT: Denies nasal congestion or sore throat. [] Respiratory: Denies cough but has shortness of breath. When he has chest pain [] Cardiovascular: Complains of very transient chest pain that is intermittent since yesterday GI: Complains of chronic abdominal pain and diarrhea. Patient also had nausea : Denies dysuria. [] Musculoskeletal: Denies back pain or joint pain. [] Integument: Denies rash. [] Neurologic: Denies headache, focal weakness or sensory changes. [] Endocrine: Denies polyuria or polydipsia. [] Lymphatic: Denies swollen glands. [] Psychiatric: Denies depression or anxiety. [] Heart Score: HEART Score for Chest Pain: HEART Score for Chest Pain Response (Comments) Value History Slighlty/Non-Suspicious 0 ECG Nonspecific Repolarizatio 1 Age >45 - < 65 1 Risk Factors 1 or 2 Risk Factors 1 Troponin < Normal Limit 0 Total 3 Risk Factors: Risk Factors: DM, Current or recent (<one month) smoker, HTN, HLP, family history of CAD, obesity. Risk Scores: Score 0 - 3: 2.5% MACE over next 6 weeks - Discharge Home Score 4 - 6: 20.3% MACE over next 6 weeks - Admit for Clinical Observation Score 7 - 10: 72.7% MACE over next 6 weeks - Early Invasive Strategies Allergies: Allergies: Allergies Coded Allergies Type Severity Reaction Last Updated Verified haloperidol Allergy Intermediate 04/28/18 Yes methylphenidate Allergy Intermediate dystonia 04/28/18 Yes morphine Adverse Reaction Intermediate 04/28/18 Yes Physical Exam: PE: Constitutional: Well developed, well nourished, no acute distress, non-toxic appearance. [] HENT: Normocephalic, atraumatic, bilateral external ears normal, no trismus, nose normal. [] Eyes: PERRLA, EOMI, conjunctiva normal, no discharge. [] Neck: Normal range of motion, no tenderness, supple, no stridor. [] Cardiovascular:Heart rate regular rhythm, peripheral pulses are intact, cap refill is brisk Lungs & Thorax: Bilateral breath sounds clear, no respiratory distress Abdomen: soft, very mild diffuse tenderness without guarding or rebound, no masses, no pulsatile masses. [] Skin: Warm, dry, no erythema, no rash. [] Back: No tenderness, no CVA tenderness. [] Extremities: No tenderness, no cyanosis, no clubbing, ROM intact, no edema. [] Neurologic: Alert and oriented X 3, normal motor function, normal sensory function, no focal deficits noted. [] Psychologic: Affect normal, judgement normal, mood normal. [] Current Patient Data: Labs: Laboratory Tests Test 01/03/20 10:05 White Blood Count 5.6 x10^3/uL Red Blood Count 3.63 x10^6/uL Hemoglobin 12.6 g/dL Hematocrit 36.1 % Mean Corpuscular Volume 100 fL Mean Corpuscular Hemoglobin 35 pg Mean Corpuscular Hemoglobin Concent 35 g/dL Red Cell Distribution Width 13.5 % Platelet Count 184 x10^3/uL Neutrophils (%) (Auto) 56 % Lymphocytes (%) (Auto) 26 % Monocytes (%) (Auto) 16 % Eosinophils (%) (Auto) 2 % Basophils (%) (Auto) 1 % Neutrophils # (Auto) 3.1 x10^3/uL Lymphocytes # (Auto) 1.4 x10^3/uL Monocytes # (Auto) 0.9 x10^3/uL Eosinophils # (Auto) 0.1 x10^3/uL Basophils # (Auto) 0.0 x10^3/uL Sodium Level 144 mmol/L Potassium Level 3.2 mmol/L Chloride Level 103 mmol/L Carbon Dioxide Level 29 mmol/L Anion Gap 12 Blood Urea Nitrogen 11 mg/dL Creatinine 1.8 mg/dL Estimated GFR (Cockcroft-Gault) 39.8 BUN/Creatinine Ratio 6 Glucose Level 164 mg/dL Calcium Level 8.6 mg/dL Magnesium Level 1.7 mg/dL Total Bilirubin 0.3 mg/dL Aspartate Amino Transf (AST/SGOT) 97 U/L Alanine Aminotransferase (ALT/SGPT) 37 U/L Alkaline Phosphatase 134 U/L Troponin I Quantitative < 0.017 ng/mL Total Protein 7.8 g/dL Albumin 3.6 g/dL Albumin/Globulin Ratio 0.9 Lipase 171 U/L Current Medications Medications (Trade) Dose Ordered Sig/Donaldo Route PRN Reason Start Time Stop Time Status Last Admin Dose Admin Potassium Chloride (Klor-Con) 40 meq 1X ONCE PO 01/03/20 10:30 01/03/20 10:31 DC Magnesium Sulfate/ Dextrose 100 ml @ 100 mls/hr 1X ONCE IV 01/03/20 11:00 01/03/20 11:59 Vital Signs: Vital Signs Date Time Temp Pulse Resp B/P (MAP) Pulse Ox O2 Delivery O2 Flow Rate FiO2 01/03/20 09:55 98.0 88 22 156/105 (122) 100 Room Air 98.0 EKG: EKG: EKG interpreted by me normal sinus rhythm with rate 83, poor quality due to wavy baseline. Left axis deviation, nonspecific ST changes [] Radiology/Procedures: Radiology/Procedures: [][facility] [address] [place] [address] IMAGING REPORT Signed PATIENT: SANDY CUNHA ACCOUNT: [id number] : 1965 LOCATION: ER AGE: 54 SEX: M EXAM STATUS: REG ER ORD. PHYSICIAN: SOCORRO BANSAL MD REASON: CHEST PAIN PROCEDURE: PORTABLE CHEST 1V Examination: PORTABLE CHEST 1V History: Reason: CHEST PAIN / Spl. Instructions: / History: Comparison/Correlation: None Findings: Portable upright frontal view of chest was obtained. Heart size and pulmonary vessels are normal. No infiltrate or pleural effusion. No pneumothorax. Calcified granuloma is present. Postoperative findings of the proximal left humerus noted. No acute bony process. Impression: No active disease. Electronically signed by: Wally Patel MD (01/03/2020 10:35 AM) [id number] DICTATED and SIGNED BY: WALLY PATEL MD DATE: 01/03/20 1035 Course & Med Decision Making: Course & Med Decision Making Pertinent Labs and Imaging studies reviewed. (See chart for details) [] 54-year-old male presents for evaluation for low magnesium level. Patient found to have mildly decreased magnesium and potassium which will be replaced in the ER. Patient also has chronic abdominal pain with a nonsurgical abdomen and reassuring laboratory assessment. Patient also had fleeting chest pain with a normal EKG chest x-ray and troponin. Feel patient is stable for discharge and outpatient follow-up with his primary doctor. Lorenzo Disclaimer: Lorenzo Disclaimer: This electronic medical record was generated, in whole or in part, using a voice recognition dictation system. Departure Departure Impression: Primary Impression: Hypokalemia Additional Impression: Hypomagnesemia Disposition: 01 DC HOME SELF CARE/HOMELESS Condition: STABLE Referrals: KHURRAM DEXTER MD (PCP) 2-3 days Patient Instructions: Hypokalemia, Hypomagnesemia Additional Instructions: EMERGENCY DEPARTMENT GENERAL DISCHARGE INSTRUCTIONS THANK YOU for coming to [facility] Emergency Department (ED) today and trusting us with your care. We trust that you had a positive experience in our Emergency Department. If you wish to speak to the department Management you can contact the delivery department supervisor at . YOUR FOLLOW UP INSTRUCTIONS ARE FOLLOWS: Do you have a private doctor? If you do not have a private doctor, please ask for a resource list of physicians or clinics that may be able to assist you with follow up care. The Emergency Physician has interpreted your x-rays. The X-ray specialist will also review them. If there is a change in the findings you will be notified in 48 hours when at all possible. A lab test or lab culture may have been done, your results will be reviewed and you will be notified if you need a change in treatment. ADDITIONAL INSTRUCTIONS AND INFORMATION Your care today has been supervised by a physician who is specially trained in emergency care. Many problems require more than one evaluation for a complete diagnosis and treatment. We recommend that you schedule your follow up appointment as recommended to ensure complete treatment of your illness or injury. If you are unable to obtain follow up care and continue to have a problem, or if your condition worsens we recommend that you return to the ED. We are not able to safely determine your condition over the phone nor are we able to give sound medical advice over the phone. For these safety reasons, if you call for medical advice we will ask you to come to the ED for further evaluation If you have any questions regarding these discharge instructions please call the ED at . SAFETY INFORMATION In the interest of safety, wellness, and injury prevention; we encourage you to wear your seatbelt, if you smoke; quit smoking, and we encourage your family to use protective helmet for bicycling and other sporting events that present an increased risk for head injury. IF YOUR SYMPTOMS WORSEN OR NEW SYMPTOMS DEVELOP, OR YOU HAVE CONCERNS ABOUT YOUR CONDITION; OR IF YOUR CONDITION WORSENS WHILE YOU ARE WAITING FOR YOUR FOLLOW UP APPOINTMENT; EITHER CONTACT YOUR PRIMARY CARE DOCTOR, THE PHYSICIAN WHOSE NAME AND NUMBER YOU WERE GIVEN, OR RETURN TO THE ED IMMEDIATELY. SOCORRO BANSAL MD Jan 03, 2020 09:52
[2020-01-03 10:17] LABS: BASO % 1 % (0-3); EOS # 0.1 x10^3/uL (0.0-0.7); EOS % 2 % (0-3); HEMATOCRIT 36.1 % (39.0-53.0); HEMOGLOBIN 12.6 g/dL (13.0-17.5); LYMPH # 1.4 x10^3/uL (1.0-4.8); LYMPH % 26 % (24-48); MEAN CORPUSCULAR HEMOGLOBIN 35 pg (25-35); MEAN CORPUSCULAR HGB CONC 35 g/dL (31-37); MEAN CORPUSCULAR VOLUME 100 fL (79-100); MONO # 0.9 x10^3/uL (0.0-1.1); MONO % 16 % (0-9); NEUT # 3.1 x10^3/uL (1.8-7.7); NEUT % 56 % (31-73); PLATELET COUNT 184 x10^3/uL (140-400); RED BLOOD COUNT 3.63 x10^6/uL (4.30-5.70); RED CELL DISTRIBUTION WIDTH 13.5 % (11.5-14.5); WHITE BLOOD COUNT 5.6 x10^3/uL (4.0-11.0)
[2020-01-03 10:23] LABS: CALCIUM 8.6 mg/dL (8.5-10.1); CREATININE 1.8 mg/dL (0.7-1.3); GFR 39.8; POTASSIUM 3.2 mmol/L (3.5-5.1)
[2020-01-03 10:29] LABS: ALBUMIN 3.6 g/dL (3.4-5.0); ALBUMIN/GLOBULIN RATIO 0.9 (1.0-1.7); MAGNESIUM 1.7 mg/dL (1.8-2.4); TOTAL BILIRUBIN 0.3 mg/dL (0.2-1.0); TOTAL PROTEIN 7.8 g/dL (6.4-8.2)
[2020-01-03] MEDS ORDERED: POTASSIUM CHLORIDE 20 MEQ TABLET.ER. PO ONE (10:30)
--- NOTE | 2020-01-03 10:38 | RAD ---
Examination: PORTABLE CHEST 1V History: Reason: CHEST PAIN / Spl. Instructions: / History: Comparison/Correlation: None Findings: Portable upright frontal view of chest was obtained. Heart size and pulmonary vessels are normal. No infiltrate or pleural effusion. No pneumothorax. Calcified granuloma is present. Postoperative findings of the proximal left humerus noted. No acute bony process. Impression: No active disease. Electronically signed by: Wally Neal MD (01/03/2020 10:35 AM) [id number]
[2020-01-03] MEDS ORDERED: MAGNESIUM SULFATE 1GM 100 ML IV ONE (11:00)
[2020-01-03 11:47] VITALS: BP 142/90
== END 2020-01-03 12:15 | disposition home or self-care (01) ==
LOC: ER 09:39
DX: E83.42 Hypomagnesemia (principal); E87.6 Hypokalemia; K21.9 Gastro-esophageal reflux disease without esophagitis; I10 Essential (primary) hypertension; Z87.891 Personal history of nicotine dependence; Z87.442 Personal history of urinary calculi; Z88.5 Allergy status to narcotic agent; Z88.8 Allergy status to other drugs, medicaments and biological substances
CPT/HCPCS: 36415; 71045; 80053; 83690; 83735; 84484; 85025; 96365; 99284; J3475

== ENCOUNTER 2020-01-29 10:24 | Emergency (ER) | payer MEDICAID ==
[~2020-01-29] VITALS: Ht 188 cm; Wt 81.5 kg
--- NOTE | 2020-01-29 11:07 | PHYS DOC ---
Past Medical History Past Medical History: Alcoholism, Anxiety, Cancer, GERD, Hypertension, Kidney Stone, Pancreatitis, Pneumonia, Renal Disease, Renal Failure, Seizure, Other Additional Past Medical Histor: Testicular CA 1996,BARRETTS ESOPHAGUS,NEUROPATHY,C-DIFF Past Surgical History: Other Additional Past Surgical Histo: L)shoulder fx repair,Lithotripsy,R TESTICLE REMOVED Smoking Status: Former Smoker Additional Information: quit smoking 10-12 years ago Alcohol Use: Sober Additional Information: sober x 1 week, states prior to 1 week ago was drinking 8-10 ounces of vodka daily Drug Use: None General Adult EDM: Chief Complaint: ABDOMINAL PAIN HPI: HPI: Patient is a 54 year old male who presented to ER for evaluation of left side abdominal pain for a week associated with nausea vomiting. Patient has history of pancreatitis due to alcohol abuse in the past, he feel that his pancreas is flaring up again. Patient also had fever and chill with nonproductive cough for a week as well. Patient is not sure if he been exposed to anybody who tested positive for COVID-19 Review of Systems: Review of Systems: Constitutional: Positive fever and chill Eyes: Denies change in visual acuity. [] HENT: Denies nasal congestion or sore throat. [] Respiratory: Positive cough and trouble breathing Cardiovascular: Denies chest pain or edema. [] GI: Positive for abdominal pain, nausea : Denies dysuria. [] Musculoskeletal: Denies back pain or joint pain. [] Integument: Denies rash. [] Neurologic: Denies headache, focal weakness or sensory changes. [] Endocrine: Denies polyuria or polydipsia. [] Lymphatic: Denies swollen glands. [] Psychiatric: Denies depression or anxiety. [] Heart Score: Risk Factors: Risk Factors: DM, Current or recent (<one month) smoker, HTN, HLP, family history of CAD, obesity. Risk Scores: Score 0 - 3: 2.5% MACE over next 6 weeks - Discharge Home Score 4 - 6: 20.3% MACE over next 6 weeks - Admit for Clinical Observation Score 7 - 10: 72.7% MACE over next 6 weeks - Early Invasive Strategies Allergies: Allergies: Allergies Coded Allergies Type Severity Reaction Last Updated Verified haloperidol Allergy Intermediate 04/28/18 Yes methylphenidate Allergy Intermediate dystonia 04/28/18 Yes hydrocodone Adverse Reaction Intermediate n/v 01/29/20 Yes morphine Adverse Reaction Intermediate 04/28/18 Yes oxycodone Adverse Reaction Intermediate n/v 01/29/20 Yes tramadol Adverse Reaction Unknown n/v 01/29/20 Yes Physical Exam: PE: Constitutional: Well developed, well nourished, no acute distress, non-toxic appearance. [] HENT: Normocephalic, atraumatic, bilateral external ears normal, oropharynx moist, no oral exudates, nose normal. [] Eyes: PERRLA, EOMI, conjunctiva normal, no discharge. [] Neck: Normal range of motion, no tenderness, supple, no stridor. [] Cardiovascular:Heart rate regular rhythm, no murmur [] Lungs & Thorax: Bilateral breath sounds clear to auscultation [] Abdomen: Bowel sounds normal, soft, there is tenderness to palpation in epigastric and left upper quadrant, no masses, no pulsatile masses. [] Skin: Warm, dry, no erythema, no rash. [] Back: No tenderness, no CVA tenderness. [] Extremities: No tenderness, no cyanosis, no clubbing, ROM intact, no edema. [] Neurologic: Alert and oriented X 3, normal motor function, normal sensory function, no focal deficits noted. [] Psychologic: Affect normal, judgement normal, mood normal. [] Current Patient Data: Labs: Laboratory Tests Test 01/29/20 12:25 White Blood Count 5.7 x10^3/uL Red Blood Count 3.12 x10^6/uL Hemoglobin 11.2 g/dL Hematocrit 31.7 % Mean Corpuscular Volume 102 fL Mean Corpuscular Hemoglobin 36 pg Mean Corpuscular Hemoglobin Concent 35 g/dL Red Cell Distribution Width 14.1 % Platelet Count 159 x10^3/uL Neutrophils (%) (Auto) 64 % Lymphocytes (%) (Auto) 19 % Monocytes (%) (Auto) 15 % Eosinophils (%) (Auto) 2 % Basophils (%) (Auto) 1 % Neutrophils # (Auto) 3.6 x10^3/uL Lymphocytes # (Auto) 1.1 x10^3/uL Monocytes # (Auto) 0.8 x10^3/uL Eosinophils # (Auto) 0.1 x10^3/uL Basophils # (Auto) 0.0 x10^3/uL Sodium Level 138 mmol/L Potassium Level 3.5 mmol/L Chloride Level 101 mmol/L Carbon Dioxide Level 25 mmol/L Anion Gap 12 Blood Urea Nitrogen 2 mg/dL Creatinine 1.1 mg/dL Estimated GFR (Cockcroft-Gault) 70.3 BUN/Creatinine Ratio 2 Glucose Level 105 mg/dL Calcium Level 8.4 mg/dL Total Bilirubin 1.3 mg/dL Aspartate Amino Transf (AST/SGOT) 142 U/L Alanine Aminotransferase (ALT/SGPT) 41 U/L Alkaline Phosphatase 157 U/L Total Protein 7.2 g/dL Albumin 3.0 g/dL Albumin/Globulin Ratio 0.7 Lipase 82 U/L Ethyl Alcohol Level < 10 mg/dL SARS-CoV-2 Antigen (Rapid) Negative Current Medications Medications (Trade) Dose Ordered Sig/Donaldo Route PRN Reason Start Time Stop Time Status Last Admin Dose Admin Sodium Chloride 1,000 ml @ 1,000 mls/hr 1X ONCE IV 01/29/20 11:15 01/29/20 12:14 DC Ondansetron HCl (Zofran) 4 mg 1X ONCE IVP 01/29/20 11:45 01/29/20 11:46 DC Fentanyl Citrate (Fentanyl 2ml Vial) 50 mcg 1X ONCE IVP 01/29/20 15:00 01/29/20 15:01 Vital Signs: Vital Signs Date Time Temp Pulse Resp B/P (MAP) Pulse Ox O2 Delivery O2 Flow Rate FiO2 01/29/20 10:52 98.0 87 20 122/80 (94) 98 Room Air 98.0 EKG: EKG: [] Radiology/Procedures: Radiology/Procedures: [][facility] [address] [place] [address] IMAGING REPORT Signed PATIENT: SANDY CUNHA ACCOUNT: [id number] : 1965 LOCATION: ER AGE: 54 SEX: M EXAM STATUS: REG ER ORD. PHYSICIAN: VALDEZ RHODES DO REASON: LEFT SIDE ABDOMINAL PAIN PROCEDURE: CT ABDOMEN PELVIS WO CONTRAST PQRS Compliance Statement: One or more of the following individualized dose reduction techniques were utilized for this examination: 1. Automated exposure control 2. Adjustment of the mA and/or kV according to patient size 3. Use of iterative reconstruction technique CT ABDOMEN PELVIS WO CONTRAST Clinical Indication: Reason: LEFT SIDE ABDOMINAL PAIN / Spl. Instructions: / History: Comparison: CT abdomen and pelvis without contrast, January 24, 2019. Technique: Helical CT imaging of the abdomen and pelvis is performed without IV or oral contrast. Findings: Evaluation of solid organs and bowel is limited without oral and IV contrast, decreasing sensitivity for detection of pathology. Mild atelectasis or scarring in the bilateral lower lobes posteriorly. There is coronary artery disease. There is moderate fatty infiltration of the liver, new from prior study. Cholecystectomy. Calcifications of the pancreas head are redemonstrated and suggests chronic calcific pancreatitis. No acute peripancreatic inflammation is seen. The spleen size is normal. Adrenal glands and abdominal aorta are normal. There are several subcentimeter retroperitoneal lymph nodes. There is no right hydronephrosis. There is no ureteral or bladder calculus. Left perinephric stranding is unchanged. There is no left hydronephrosis. The stomach is decompressed. There is no dilated small bowel. The appendix is normal. The colon is mostly decompressed, limiting evaluation. There are a few diverticula of the proximal colon. There is no mesenteric adenopathy. No intraperitoneal free fluid. The urinary bladder is normal. Prostate and seminal vesicles are normal. No acute bone abnormality. IMPRESSION: 1. No acute abdominal or pelvic abnormality. No obstructive uropathy. 2. Fatty infiltration of the liver. 3. Stable findings of chronic calcific pancreatitis. Electronically signed by: Gary Gallagher MD (01/29/2020 1:28 PM) [facility] DICTATED and SIGNED BY: GARY GALLAGHER MD DATE: 01/29/20 [id number] 0 Course & Med Decision Making: Course & Med Decision Making Pertinent Labs and Imaging studies reviewed. (See chart for details) Patient is a 54-year-old male who presented to ER for left-sided abdominal pain. CT scan of his abdomen pelvis showed chronic pancreatitis. which is unchanged from previous CT scan. Kidney function was normal. It did also show that he has UTI. Patient will be discharged home with nausea medication and antibiotic. Patient will need to follow-up with his family physician for referral to GI specialist and urologist. Patient is amenable to plan of care. Lorenzo Disclaimer: Lorenzo Disclaimer: This electronic medical record was generated, in whole or in part, using a voice recognition dictation system. Departure Departure Impression: Primary Impression: Abdominal pain Additional Impressions: Nausea & vomiting UTI (urinary tract infection) Disposition: 01 DC HOME SELF CARE/HOMELESS Condition: IMPROVED Referrals: KHURRAM DEXTER MD (PCP) PLEASE FOLLOW UP WITH YOUR GI DOCTOR THIS WEEK. You will need to follow up with a urologist for outpatient evaluation of your UTI. Patient Instructions: Abdominal Pain, Nausea and Vomiting Additional Instructions: Thank you for visiting our Emergency Department. We appreciate you trusting us with your care. If any additional problems come up don't hesitate to return to visit us. Please follow up with your primary care provider so they can plan additional care if needed and know about the problem that you had. If symptoms worsen come back to the Emergency Department. Any concerning symptoms that start such as chest pain, shortness of air, weakness or numbness on one side of the body, running high fevers or any other concerning symptoms return to the ER. Scripts Sulfamethoxazole/Trimethoprim (BACTRIM DS TABLET) 1 Each Tablet 1 TAB PO BID for UTI for 10 Days, #20 TAB 0 Refills Prov: VALDEZ RHODES DO 01/30/20 Ondansetron Hcl (ZOFRAN) 4 Mg Tablet 1 TAB PO Q6HRS PRN for NAUSEA, #20 TAB Prov: VALDEZ RHODES DO 01/29/20 VALDEZ RHODES DO Jan 29, 2020 11:07
[2020-01-29] MEDS ORDERED: IV NORMAL SALINE 1000ML BAG 1,000 ML IV ONE (11:15)
[2020-01-29] MEDS ORDERED: ONDANSETRON PF 4 MG/2 ML VIAL. IVP ONE (11:45)
--- NOTE | 2020-01-29 12:11 | RAD ---
INDICATION: Reason: cough, fever 16 / Spl. Instructions: / History: COMPARISON: January 03, 2020 FINDINGS: Single view of chest obtained. Mild prominence of the aortic arch. There is some subtle groundglass opacities at the lung bases. No gross osseous destructive lesion. IMPRESSION: * Subtle groundglass opacity at lung bases. This is a common location for atelectasis but early infiltrate not excluded Electronically signed by: Antonio Oliva MD (01/29/2020 12:07 PM) [id number]
[2020-01-29 12:48] LABS: BASO % 1 % (0-3); EOS # 0.1 x10^3/uL (0.0-0.7); EOS % 2 % (0-3); HEMATOCRIT 31.7 % (39.0-53.0); HEMOGLOBIN 11.2 g/dL (13.0-17.5); LYMPH # 1.1 x10^3/uL (1.0-4.8); LYMPH % 19 % (24-48); MEAN CORPUSCULAR HEMOGLOBIN 36 pg (25-35); MEAN CORPUSCULAR HGB CONC 35 g/dL (31-37); MEAN CORPUSCULAR VOLUME 102 fL (79-100); MONO # 0.8 x10^3/uL (0.0-1.1); MONO % 15 % (0-9); NEUT # 3.6 x10^3/uL (1.8-7.7); NEUT % 64 % (31-73); PLATELET COUNT 159 x10^3/uL (140-400); RED BLOOD COUNT 3.12 x10^6/uL (4.30-5.70); RED CELL DISTRIBUTION WIDTH 14.1 % (11.5-14.5); WHITE BLOOD COUNT 5.7 x10^3/uL (4.0-11.0)
[2020-01-29 13:01] LABS: CALCIUM 8.4 mg/dL (8.5-10.1); CREATININE 1.1 mg/dL (0.7-1.3); GFR 70.3; POTASSIUM 3.5 mmol/L (3.5-5.1)
[2020-01-29 13:07] LABS: ALBUMIN/GLOBULIN RATIO 0.7 (1.0-1.7); TOTAL BILIRUBIN 1.3 mg/dL (0.2-1.0); TOTAL PROTEIN 7.2 g/dL (6.4-8.2)
--- NOTE | 2020-01-29 13:31 | RAD ---
PQRS Compliance Statement: One or more of the following individualized dose reduction techniques were utilized for this examination: 1. Automated exposure control 2. Adjustment of the mA and/or kV according to patient size 3. Use of iterative reconstruction technique CT ABDOMEN PELVIS WO CONTRAST Clinical Indication: Reason: LEFT SIDE ABDOMINAL PAIN / Spl. Instructions: / History: Comparison: CT abdomen and pelvis without contrast, January 24, 2019. Technique: Helical CT imaging of the abdomen and pelvis is performed without IV or oral contrast. Findings: Evaluation of solid organs and bowel is limited without oral and IV contrast, decreasing sensitivity for detection of pathology. Mild atelectasis or scarring in the bilateral lower lobes posteriorly. There is coronary artery disease. There is moderate fatty infiltration of the liver, new from prior study. Cholecystectomy. Calcifications of the pancreas head are redemonstrated and suggests chronic calcific pancreatitis. No acute peripancreatic inflammation is seen. The spleen size is normal. Adrenal glands and abdominal aorta are normal. There are several subcentimeter retroperitoneal lymph nodes. There is no right hydronephrosis. There is no ureteral or bladder calculus. Left perinephric stranding is unchanged. There is no left hydronephrosis. The stomach is decompressed. There is no dilated small bowel. The appendix is normal. The colon is mostly decompressed, limiting evaluation. There are a few diverticula of the proximal colon. There is no mesenteric adenopathy. No intraperitoneal free fluid. The urinary bladder is normal. Prostate and seminal vesicles are normal. No acute bone abnormality. IMPRESSION: 1. No acute abdominal or pelvic abnormality. No obstructive uropathy. 2. Fatty infiltration of the liver. 3. Stable findings of chronic calcific pancreatitis. Electronically signed by: Gary Gallagher MD (01/29/2020 1:28 PM) [facility]
[2020-01-29] MEDS ORDERED: ONDA4TAB7 PO (14:58)
[2020-01-29] MEDS ORDERED: fentaNYL PF VIAL 100 MCG/2 ML VIAL IVP ONE (15:00)
[2020-01-29 15:36] LABS: BILIRUBIN,URINE SMALL (NEG); CLARITY,URINE CLEAR; COLOR,URINE ORANGE; NITRITE,URINE POSITIVE (NEG); PROTEIN,URINE 30 mg/dL (NEG-TRACE)
[2020-01-29 15:53] LABS: BACTERIA,URINE FEW /HPF (0-FEW); HYALINE CASTS, URINE MODERATE /HPF
[2020-01-29 16:09] VITALS: BP 154/102
[2020-01-30] MEDS ORDERED: SULF1TAB24 PO (06:14)
--- NOTE | 2020-01-31 09:37 | NUR ---
IP: Informed pt of negative COVID test. Pt verbalized understanding.
== END 2020-01-29 16:16 | disposition home or self-care (01) ==
LOC: ER 10:24
DX: N39.0 Urinary tract infection, site not specified (principal); R10.13 Epigastric pain; R10.12 Left upper quadrant pain; R11.2 Nausea with vomiting, unspecified; R05 Cough; F41.9 Anxiety disorder, unspecified; K21.9 Gastro-esophageal reflux disease without esophagitis; I10 Essential (primary) hypertension; K86.0 Alcohol-induced chronic pancreatitis; N18.9 Chronic kidney disease, unspecified; Z87.442 Personal history of urinary calculi; Z98.890 Other specified postprocedural states; Z88.5 Allergy status to narcotic agent; Z88.6 Allergy status to analgesic agent; Z88.8 Allergy status to other drugs, medicaments and biological substances
CPT/HCPCS: 36415; 71045; 74176; 80053; 81001; 83690; 85025; 87086; 87426; 96361; 96374; 99285; G0480; J3010; J7030; U0003

== ENCOUNTER → 2020-02-15 | Outpatient (CLI) | payer MEDICAID ==
[2020-01-29 16:09] VITALS: BP 154/102
[~2020-02-15] MED LIST changes: -CLIN300C8 PO; +CLIN300C9 PO; +ONDA4TAB7 PO; +SULF1TAB24 PO
--- NOTE | 2020-02-16 13:33 | KCIC ---
EXAM: DG UPPER GI SERIES AND SMALL BOWEL_WITHOUT AIR CONTRAST 02/15/2020 9:45 AM CLINICAL INDICATION:Abdominal pain, diarrhea, history pancreatitis, vomiting. Only able to even small portions. Constant stomach pain. COMPARISON:CT abdomen pelvis 01/29/2020 TECHNIQUE:The patient ingested effervescent crystals followed by thick and thin barium and standard u pper GI with esophagram and small bowel follow-through was performed. FINDINGS:Esophageal mucosa is normal in appearance. The esophagus distends normally without evidence of mass. There is normal esophageal motility. No hiatal hernia. No reflux noted during the exam. Stomach is normal in appearance and distends normally. No evidence of mass. Limited air contrast port ion of the exam. Small bowel is normal in appearance. Loops of bowel disperse normally with palpation . Contrast reached the right colon and was cleared from the stomach within 70 minutes. Total fluorosc opic time 6 minutes 6 seconds. IMPRESSION:Normal upper GI series and small bowel follow-through. Electronically signed by: Carli Shankar MD (02/16/2020 9:56 AM) [id number]
== END ==
LOC: KCIC 09:26
PROVIDERS: ATTEND Internal Medicine Gastroenterology
DX: K86.1 Other chronic pancreatitis (principal); R11.2 Nausea with vomiting, unspecified
CPT/HCPCS: 74240; 74245; 74248

== ENCOUNTER → 2020-02-26 | Outpatient (CLI) | payer MEDICAID ==
[2020-01-29 16:09] VITALS: BP 154/102
--- NOTE | 2020-02-26 17:01 | KCIC ---
MRI of the abdomen without contrast to include a MRCP 02/26/2020 CLINICAL HISTORY: Weight loss. Pancreatitis. Abdominal pain. TECHNIQUE: Unenhanced T2-weighted axial and coronal fat saturated T2-weighted axial, diffusion-weight ed axial and inversion phase T1-weighted axial images of the abdomen were obtained. Additionally thin section fat saturated T2-weighted coronal images of the abdomen were obtained. Multiplanar 3-D MIP r econstructed images of the biliary system were obtained for an MRCP. FINDINGS: Comparison is made to the patient's CT scan of the abdomen dated 01/29/2020. The liver is normal in size measuring 15.5 cm in length. Increased signal intensity is seen involving the liver parenchyma consistent with fatty infiltration. The spleen and adrenal glands are within no rmal limits. The calcifications seen in the region of the head of pancreas on the patient's CT scan a re not well-visualized on MRI. No acute abnormality of the pancreas is seen. Rounded high signal intensity lesions are seen scattered throughout both kidneys on the T2-weighted i mages. These measure 3 mm to 9 mm in size. They likely represent cysts. No further imaging evaluation is recommended. The abdominal aorta tapers normally. No free fluid is seen. There is no evidence of bowel obstruction . MRCP images demonstrate nonvisualization of the gallbladder consistent with a cholecystectomy. The le ft and right hepatic ducts and their branches, the common hepatic duct and common bile duct are withi n normal limits in caliber. No filling defect is seen. The main pancreatic duct is within normal limi ts. IMPRESSION: 1. Status post cholecystectomy. 2. No choledocholithiasis is seen. Electronically signed by: Junior Hawkins MD (02/26/2020 4:59 PM) [place] [id number]
== END ==
LOC: KCIC MRI 09:25
PROVIDERS: ATTEND Internal Medicine Gastroenterology
DX: R93.2 Abnormal findings on diagnostic imaging of liver and biliary tract (principal); K85.90 Acute pancreatitis without necrosis or infection, unspecified; R10.9 Unspecified abdominal pain; R63.4 Abnormal weight loss
CPT/HCPCS: 74181

== ENCOUNTER → 2020-06-18 | Day surgery (SDC) | payer MEDICAID ==
[~2020-06-18] MED LIST changes: +IV RINGERS,LACTATED 1000ML 1,000 ML IV SCH; +LIDOCAINE 2% PF 5 ML VIAL. ONE; +POTA10TA6 PO; +PROPOFOL 10 MG/ML (20ML) VIAL. IV ONE
[2020-06-18 14:57] VITALS: BP 136/98
--- NOTE | 2020-06-21 14:09 | PATHOLOGY ---
[facility] Accession Number: [id number] . 01 Material submitted: . esophagus - DISTAL ESOPHAGUS BIOPSY. Modifiers: distal . 01 Clinical history: . HX BARRETTS R/O DYSPLASIA . 02 Diagnosis: Esophageal biopsies, distal esophagus: - Segments of hyperplastic squamous esophageal mucosa with focal contiguous gastric mucosa showing chronic inflammation. See comment. (JPM:bird; 06/21/2020) S 06/21/2020 0857 Local . 02 Comment: Sections of the distal esophageal biopsy reveal segments of hyperplastic squamous esophageal mucosa with focal contiguous segments of gastric mucosa showing moderate chronic inflammation. The findings are consistent with reflux esophagitis. There is no specialized columnar epithelium diagnostic of Javier's change. There is no dysplasia or evidence of malignancy. (JPM:bird; 06/21/2020) . 02 Electronically signed: . Saurav Reardon MD, Pathologist NPI- [id number] . 01 Gross description: . Received in formalin labeled "Sharp, Monroe and distal esophagus biopsy". Received are multiple belle-herbert soft tissue fragments ranging from 0.2-0.3 cm. Specimen is entirely submitted in cassette A1.([facility]; 06/20/2020) [facility] 06/20/2020 1644 Local . 02 Pathologist provided ICD-10: K20.80 . 02 CPT . 209843 Specimen Comment: A courtesy copy of this report has been sent to [phone], [phone] Specimen Comment: [id number] Specimen Comment: Report sent to / DR DEXTER Performed at: [address], [place], [place] [id number] MD Ubaldo Yip MD Phone: [phone] Performed at: 02 [facility] [address] [place], [place] [id number] MD Saurav Reardon MD Phone: [phone]
== END | disposition home or self-care (01) ==
LOC: ENDOS 12:46
PROVIDERS: ATTEND Internal Medicine Gastroenterology
DX: K92.1 Melena (principal); K64.0 First degree hemorrhoids; K22.70 Barrett's esophagus without dysplasia; K31.89 Other diseases of stomach and duodenum; K21.00 Gastro-esophageal reflux disease with esophagitis, without bleeding; I12.9 Hypertensive chronic kidney disease with stage 1 through stage 4 chronic kidney disease, or unspecified chronic kidney disease; N18.2 Chronic kidney disease, stage 2 (mild); F32.9 Major depressive disorder, single episode, unspecified; F41.9 Anxiety disorder, unspecified; Z99.2 Dependence on renal dialysis; Z90.49 Acquired absence of other specified parts of digestive tract; Z98.890 Other specified postprocedural states; Z79.82 Long term (current) use of aspirin; Z79.899 Other long term (current) drug therapy; Z87.891 Personal history of nicotine dependence; Z88.8 Allergy status to other drugs, medicaments and biological substances; Z20.822 Contact with and (suspected) exposure to COVID-19
CPT/HCPCS: 43239; 45378; 87426; J2704; 88305

== ENCOUNTER → 2020-09-05 | Outpatient (CLI) | payer MEDICAID ==
[2020-06-18 14:57] VITALS: BP 136/98
[~2020-09-05] MED LIST changes: +IOHEXOL 240 MG/ML 50ML VIAL. PO ONE; +IOHEXOL 300 MG/ML 100ML VIAL. IV ONE; -IV RINGERS,LACTATED 1000ML 1,000 ML IV SCH; -LIDOCAINE 2% PF 5 ML VIAL. ONE; -PROPOFOL 10 MG/ML (20ML) VIAL. IV ONE
--- NOTE | 2020-09-05 12:14 | RAD ---
PQRS Compliance Statement: One or more of the following individualized dose reduction techniques were utilized for this examinat ion: 1. Automated exposure control 2. Adjustment of the mA and/or kV according to patient size 3. Use of iterative reconstruction technique CT abdomen/pelvis with and without contrast 09/05/2020 10:15 AM INDICATION: Epigastric pain, Javier's esophagus COMPARISON: None available TECHNIQUE: Multiple axial CT images of the abdomen and pelvis were obtained before and after the intr avenous administration of nonionic contrast. Coronal and sagittal reformats are provided. FINDINGS: There is bibasilar subsegmental atelectasis. Distal esophagus is normal in appearance. Few nonenlarge d retrocrural lymph nodes are present measuring up to 4 mm by short axis. Liver, spleen, adrenal glan ds are normal in appearance. Calcifications of the head of the pancreas suggestive sequela of chronic pancreatitis. Gallbladder surgically absent. The abdominal aorta is normal in course and caliber. There are no pathologically enlarged lymph nodes in the abdomen and pelvis. There is no abdominal free fluid. There is no free intraperitoneal air. P atent origins of the celiac axis and superior mesenteric artery. There is an accessory right renal ar verona. Renal arteries are patent at the origin. Nonenlarged retroperitoneal lymph nodes with aortocava l lymph node measuring 6 mm (series 4, image 54) and left periaortic lymph node measuring 6 mm (serie s 4, image 56). Portal venous system is widely patent. Stomach is normal in appearance with normal fold pattern. Oral contrast administered. Small and large bowel are normal in caliber. There is no evidence for bowel obstruction. There are no pericolonic in flammatory changes. A normal, nondilated appendix is visualized without adjacent inflammatory changes . Appendix measures up to 8 mm without adjacent inflammation. Small large bowel are normal in caliber . No obstruction of The kidneys enhance symmetrically. There is no suspicious renal mass. There is no hydronephrosis. The re are no calculi within the kidneys, ureters or urinary bladder. Urinary bladder within normal limits given degree of distention. No suspicious pelvic mass. Prostate and seminal vesicles are normal. No suspicious osseous abnormality. IMPRESSION: No acute abnormality identified within the epigastric region of the abdomen. Surgically, no inflammat ion along the stomach or distal esophagus. Calcifications of the head of the pancreas favor sequela of chronic pancreatitis. Electronically signed by: Jo Velasquez MD (09/05/2020 12:12 PM) [facility]
== END ==
LOC: CT 10:12
PROVIDERS: ATTEND Physician Assistant
DX: K86.1 Other chronic pancreatitis (principal); K86.89 Other specified diseases of pancreas; R74.8 Abnormal levels of other serum enzymes; J98.11 Atelectasis; Z90.49 Acquired absence of other specified parts of digestive tract
CPT/HCPCS: 74177; Q9966; Q9967

== ENCOUNTER 2020-11-04 10:41 | Emergency (ER) | payer MEDICAID ==
[~2020-11-04] VITALS: Ht 190.5 cm; Wt 75.0 kg
[~2020-11-04 10:41] MED LIST changes: -IOHEXOL 240 MG/ML 50ML VIAL. PO ONE; -IOHEXOL 300 MG/ML 100ML VIAL. IV ONE
[2020-11-04 11:35] VITALS: BP 116/80
--- NOTE | 2020-11-04 13:29 | RAD ---
Left RIBS with PA chest. HISTORY: Trauma lower lateral ribs, recent fall, pain PA view was taken of the chest. There is no pneumothorax or pleural effusion. There are no acute infi ltrates. Heart is normal in size. AP and oblique views were taken of the left ribs. There are fractures in the anterior left sixth, sev enth, eighth, ninth and 10th ribs. IMPRESSION: 1. Multiple anterior left rib fractures. 2. No pneumothorax or pleural effusion. Electronically signed by: Sohail Fernandez MD (11/04/2020 1:26 PM) [facility]
--- NOTE | 2020-11-04 13:46 | PHYS DOC ---
Past Medical History Past Medical History: Alcoholism, Anxiety, Cancer, GERD, Hypertension, Kidney Stone, Pancreatitis, Pneumonia, Renal Disease, Renal Failure, Seizure, Other Additional Past Medical Histor: Testicular CA 1996,BARRETTS ESOPHAGUS,NEUROPATHY,C-DIFF (SANDY MARTINEZ APRN) Past Surgical History: Cholecystectomy, Other Additional Past Surgical Histo: L)shoulder fx repair,Lithotripsy,R TESTICLE REMOVED (SANDY MARTINEZ APRN) Smoking Status: Former Smoker Alcohol Use: Sober Drug Use: None (SANDY MARTINEZ APRN) General Adult EDM: Chief Complaint: RIB PAIN HPI: HPI: Patient is a 55 year old male who presents emergency department complaining of left ankle anterior lower rib pain. Patient reports he was moving a couch 3 days ago when he stumbled and fell forward striking his chest against the couch, patient states he thought he felt something crack and believes his ribs are broken. Patient states he has not taken anything for the pain as he has stage III kidney disease, is unable to tolerate Tylenol, reports he cannot take haloperidol, hydrocodone, oxycodone, morphine, methylphenidate. Patient reports the only pain medicine he can take is fentanyl. Patient denies shortness of breath, denies recent fever or chills, denies cough or congestion. Patient reports his rib pain at a 10 out of 10. Patient denies any other physical complaints or physical concerns. (SANDY MARTINEZ APRN) Review of Systems: Review of Systems: 14 body systems of review of systems have been reviewed. See HPI for pertinent positives and negative responses, otherwise all other systems are negative, nonpertinent or noncontributory. Constitutional: Negative except as outlined in HPI above. Skin: Negative except as outlined in HPI above. Eyes: Negative except as outlined in HPI above. HENT: Negative except as outlined in HPI above. Respiratory: Negative except as outlined in HPI above. Cardiovascular: Negative except as outlined in HPI above. GI: Negative except as outlined in HPI above. : Negative except as outlined in HPI above. Musculoskeletal: Negative except as outlined in HPI above. Integument: Negative except as outlined in HPI above. Neurologic: Negative except as outlined in HPI above. Endocrine: Negative except as outlined in HPI above. Lymphatic: Negative except as outlined in HPI above. Psychiatric: Negative except as outlined in HPI above. (SANDY MARTINEZ APRN) Heart Score: C/O Chest Pain: No Risk Factors: Risk Factors: DM, Current or recent (<one month) smoker, HTN, HLP, family history of CAD, obesity. Risk Scores: Score 0 - 3: 2.5% MACE over next 6 weeks - Discharge Home Score 4 - 6: 20.3% MACE over next 6 weeks - Admit for Clinical Observation Score 7 - 10: 72.7% MACE over next 6 weeks - Early Invasive Strategies (SANDY MARTINEZ APRN) Allergies: Allergies: Allergies Coded Allergies Type Severity Reaction Last Updated Verified haloperidol Allergy Intermediate 06/18/20 Yes methylphenidate Allergy Intermediate dystonia 06/18/20 Yes hydrocodone Adverse Reaction Intermediate n/v 06/18/20 Yes morphine Adverse Reaction Intermediate 06/18/20 Yes oxycodone Adverse Reaction Intermediate n/v 06/18/20 Yes (SANDY MARTINEZ APRN) Physical Exam: PE: Constitutional: Well developed, well nourished, no acute distress, non-toxic appearance. 55-year-old male in no apparent distress. HENT: Normocephalic, atraumatic. Eyes: Conjunctiva normal, no discharge. Neck: Normal range of motion, no stridor. Cardiovascular: No cyanosis appreciated, distal cap refill less than 2 seconds. Lungs & Thorax: Patient is in no respiratory distress, no audible adventitious lung sounds appreciated. No bruising, no subcu air appreciated, no crepitus appreciated. Abdomen: Nontender, no abnormalities noted. Skin: Warm, dry, no erythema, no rash. Back: No tenderness, no deformities. Extremities: No tenderness, no cyanosis, no clubbing, ROM intact, no edema. Distal cap refill less than 2 seconds, no cyanosis appreciated. Neurologic: Alert and oriented X 3, normal motor function, normal sensory function, no focal deficits noted. Psychologic: Affect normal, judgement normal, mood normal. (SANDY MARTINEZ APRN) Current Patient Data: Vital Signs: Vital Signs Date Time Temp Pulse Resp B/P (MAP) Pulse Ox O2 Delivery O2 Flow Rate FiO2 11/04/20 11:35 99.0 88 20 116/80 (111) 98 Room Air 99.0 (SANDY MARTINEZ APRN) EKG: EKG: [] (SANDY MARTINEZ APRN) Radiology/Procedures: Radiology/Procedures: PATIENT: SANDY CUNHA ACCOUNT: [id number] : 1965 LOCATION: ER AGE: 55 SEX: M EXAM STATUS: REG ER ORD. PHYSICIAN: SANDY MARTINEZ APRN REASON: Blunt trauma lower lateral ribs/pt fell lifting couch 3 days ago,pain low PROCEDURE: RIBS LEFT AND PA CHEST Left RIBS with PA chest. HISTORY: Trauma lower lateral ribs, recent fall, pain PA view was taken of the chest. There is no pneumothorax or pleural effusion. There are no acute infiltrates. Heart is normal in size. AP and oblique views were taken of the left ribs. There are fractures in the anterior left sixth, seventh, eighth, ninth and 10th ribs. IMPRESSION: 1. Multiple anterior left rib fractures. 2. No pneumothorax or pleural effusion. (SANDY MARTINEZ APRN) Course & Med Decision Making: Course & Med Decision Making Pertinent Labs and Imaging studies reviewed. (See chart for details) 55-year-old male, vital signs reviewed, presents to the emergency department concerning left anterior lower rib pain after falling against a couch. Patient's physical examination concerning for possible rib fractures. There was no subcu air, the patient is not hypoxic, the patient is in no respiratory distress, the patient does not appear uncomfortable. Will order rib series to evaluate for fractured ribs prior to considering fentanyl pain medication. Rib series x-ray concerning for nondisplaced fractured ribs 6 through 10. Discussed findings with patient, will give IM injection of fentanyl, patient is asking for fentanyl patches for home use, discussed with patient the emergency department is unable to prescribe fentanyl patches, must obtain narcotic fentanyl patches at primary care physician's office. Patient states that his primary care physician does not like to give out narcotics as much as he needs them. Discussed with patient respiratory therapy will review incentive spirometry, please perform at least 3-4 times per day preferably every 2 hours while awake. Patient gave verbal understanding of home care instructions, strict follow-up with primary care, return to ER precautions and concerns, patient is amenable to ED discharge planning. Discussed with the patient all findings and diagnostic testing as well as the need to follow-up with their primary care provider for further evaluation and treatment or return to the ED if any new or worsening symptoms. Strict return precautions were also discussed at length, the patient voiced understanding and agreement with the discharge planning. The patient was nontoxic in appearance, in no apparent distress, and hemodynamically stable at the time of disposition. RT to give incentive spirometry instructions at bedside prior to discharge. (SANDY MARTINEZ APRN) Dragon Disclaimer: Dragon Disclaimer: This electronic medical record was generated, in whole or in part, using a voice recognition dictation system. (SANDY MARTINEZ APRN) Departure Departure Impression: Primary Impression: Multiple fractures of ribs, left side, initial encounter for closed fracture Disposition: HOME / SELF CARE / HOMELESS Condition: GOOD Referrals: KHURRAM DEXTER MD (PCP) Patient Instructions: Incentive Spirometer, Rib Fracture Additional Instructions: You were seen today in the emergency department with a chief complaint of rib pain on the left. An x-ray was performed and shows nondisplaced rib fractures on the left ribs 6 through 10. To help prevent pneumonia and aid in healing a respiratory therapist instructed you how to use the incentive spirometry device. Please use at least 3-4 times a day and preferably every 2 hours while awake. You were given an IM injection of fentanyl today in the emergency department, as we discussed I am unable to prescribe fentanyl medication outside of the emergency department. Please follow-up with your primary care physician for ongoing pain management. Please return to the emergency department for worsening symptoms or other concerns. Thank you for visiting our Emergency Department. It was a pleasure taking care of you today in the emergency department and we appreciate you trusting us with your care. If any additional problems come up don't hesitate to return to visit us. Please follow up with your primary care provider so they can plan additional care if needed and know about the problem that you had. If symptoms worsen come back to the Emergency Department. Any concerning symptoms that start such as chest pain, shortness of air, weakness or numbness on one side of the body, running high fevers or any other concerning symptoms return to the ER. Attending Signature Attending Signature I have reviewed the PA/JACK SETTER's note and plan of care. I was available for consultation as needed during the patient's visit in the emergency department. I agree with the clinical impression, plan, and disposition. (SANDY CHAVEZ DO) SANDY MARTINEZ APRN Nov 04, 2020 13:46 SANDY CHAVEZ DO Nov 04, 2020 17:19
[2020-11-04] MEDS ORDERED: fentaNYL PF VIAL 100 MCG/2 ML VIAL IM ONE (14:45)
== END 2020-11-04 14:50 | disposition home or self-care (01) ==
LOC: ER 10:41
DX: S22.42XA Multiple fractures of ribs, left side, initial encounter for closed fracture (principal); K21.9 Gastro-esophageal reflux disease without esophagitis; I12.9 Hypertensive chronic kidney disease with stage 1 through stage 4 chronic kidney disease, or unspecified chronic kidney disease; N18.9 Chronic kidney disease, unspecified; Z90.49 Acquired absence of other specified parts of digestive tract; W18.39XA Other fall on same level, initial encounter; Y93.89 Activity, other specified; Y92.89 Other specified places as the place of occurrence of the external cause; Y99.8 Other external cause status
CPT/HCPCS: 71101; 96372; 99283; G0238; J3010

== ENCOUNTER 2020-11-05 01:47 | Inpatient (IN) | payer MEDICAID ==
[~2020-11-05] VITALS: Ht 188 cm; Wt 75.0 kg
--- NOTE | 2020-11-05 03:19 | PHYS DOC ---
Past Medical History Past Medical History: Alcoholism, Anxiety, Cancer, GERD, Hypertension, Kidney Stone, Pancreatitis, Pneumonia, Renal Disease, Renal Failure, Seizure, Other Additional Past Medical Histor: Testicular CA 1996,BARRETTS ESOPHAGUS,NEUROPATHY,C-DIFF Past Surgical History: Cholecystectomy, Other Additional Past Surgical Histo: L)shoulder fx repair,Lithotripsy,R TESTICLE REMOVED Smoking Status: Former Smoker Alcohol Use: Sober Drug Use: None General Adult EDM: Chief Complaint: SHORTNESS OF BREATH HPI: HPI: Patient is a 55 year old male who presents with ongoing left-sided chest discomfort after a fall approximately 4 days ago. Was seen in the emergency department earlier today and diagnosed with multiple anterior nondisplaced rib fractures on the left. His pain was controlled with fentanyl in the emergency department was not discharged with any pain medications, as he stated he could not take anything aside from fentanyl. Per notes, it was explained to him that fentanyl patches cannot be prescribed from the emergency department. He went home, and his pain has been uncontrollable. He has been unable to sleep. States his symptoms have not changed since he was seen earlier. Review of Systems: Review of Systems: Constitutional: Denies fever or chills. [] Eyes: Denies change in visual acuity. [] HENT: Denies nasal congestion or sore throat. [] Respiratory: Denies cough or shortness of breath. [] Cardiovascular: Denies chest pain or edema. [] GI: Denies abdominal pain, nausea, vomiting, bloody stools or diarrhea. [] : Denies dysuria. [] Musculoskeletal: Reports left sided anterior chest pain. Denies back pain or joint pain. [] Integument: Denies rash. [] Neurologic: Denies headache, focal weakness or sensory changes. [] Endocrine: Denies polyuria or polydipsia. [] Lymphatic: Denies swollen glands. [] Psychiatric: Denies depression or anxiety. [] Heart Score: C/O Chest Pain: N/A Risk Factors: Risk Factors: DM, Current or recent (<one month) smoker, HTN, HLP, family history of CAD, obesity. Risk Scores: Score 0 - 3: 2.5% MACE over next 6 weeks - Discharge Home Score 4 - 6: 20.3% MACE over next 6 weeks - Admit for Clinical Observation Score 7 - 10: 72.7% MACE over next 6 weeks - Early Invasive Strategies Allergies: Allergies: Allergies Coded Allergies Type Severity Reaction Last Updated Verified haloperidol Allergy Intermediate 06/18/20 Yes methylphenidate Allergy Intermediate dystonia 06/18/20 Yes hydrocodone Adverse Reaction Intermediate n/v 06/18/20 Yes morphine Adverse Reaction Intermediate 06/18/20 Yes oxycodone Adverse Reaction Intermediate n/v 06/18/20 Yes Physical Exam: PE: Constitutional: Appears uncomfortable. No distress. [] HENT: Normocephalic, atraumatic, bilateral external ears normal, oropharynx moist, no oral exudates, nose normal. [] Eyes: PERRLA, EOMI, conjunctiva normal, no discharge. [] Neck: Normal range of motion, no tenderness, supple, no stridor. [] Cardiovascular:Heart rate regular rhythm, no murmur [] Lungs & Thorax: Bilateral breath sounds clear to auscultation. No crepitus. Left anterior chest wall tender to palpation. [] Abdomen: Bowel sounds normal, soft, no tenderness, no masses, no pulsatile masses. [] Skin: Warm, dry, no erythema, no rash. [] Extremities: No tenderness, no cyanosis, no clubbing, ROM intact, no edema. [] Neurologic: Alert and oriented X 3, normal motor function, normal sensory function, no focal deficits noted. [] Psychologic: Affect normal, judgement normal, mood normal. [] Current Patient Data: Vital Signs: Vital Signs Date Time Temp Pulse Resp B/P (MAP) Pulse Ox O2 Delivery O2 Flow Rate FiO2 11/05/20 02:00 97.8 110 28 138/84 (111) 98 Room Air 97.8 EKG: EKG: [] Radiology/Procedures: Radiology/Procedures: [] Course & Med Decision Making: Course & Med Decision Making Pertinent Labs and Imaging studies reviewed. (See chart for details) Patient a 55-year-old male who was seen earlier today and diagnosed with left anterior rib fractures on ribs 6, 7, 8, 9, and 10. He does not have any pain medications at home, and has had ongoing uncontrollable pain so represented to the emergency department. Chest x-ray at his visit earlier did not show any evidence of pneumothorax or hemothorax No change in his symptoms. Vital signs are stable. Do not feel that he requires repeat imaging at this time. We will check basic labs and attempt to control his pain with p.o. Dilaudid, which she states he is tolerated in the past (reports intolerance to morphine, hydrocodone, oxycodone). 0319 Patient reported pain was unrelieved with 4 mg of p.o. Dilaudid. Although he would prefer to manage this as an outpatient, I do not feel that we will be able to manage his pain with p.o. medications. IV was placed and we will plan on admission for pain control of his multiple rib fractures. 0501 Lorenzo Disclaimer: Lorenzo Disclaimer: This electronic medical record was generated, in whole or in part, using a voice recognition dictation system. Departure Departure Impression: Primary Impression: Multiple fractures of ribs, left side, initial encounter for closed fracture Disposition: ADMITTED INPATIENT Admitting Physician: RITA (Shweta) Condition: STABLE Referrals: KHURRAM DEXTER MD (PCP) MISTI LOUISE MD Nov 05, 2020 03:19
[2020-11-05] MEDS ORDERED: ONDANSETRON ODT 4 MG TAB.RAPDIS. PO ONE (03:30)
[2020-11-05 05:05] LABS: BASO % 0 % (0-3); EOS % 1 % (0-3); HEMATOCRIT 38.5 % (39.0-53.0); LYMPH # 0.9 x10^3/uL (1.0-4.8); LYMPH % 13 % (24-48); MEAN CORPUSCULAR HEMOGLOBIN 34 pg (25-35); MEAN CORPUSCULAR HGB CONC 36 g/dL (31-37); MEAN CORPUSCULAR VOLUME 95 fL (79-100); MONO # 2.4 x10^3/uL (0.0-1.1); MONO % 36 % (0-9); NEUT # 3.4 x10^3/uL (1.8-7.7); NEUT % 51 % (31-73); PLATELET COUNT 135 x10^3/uL (140-400); RED BLOOD COUNT 4.06 x10^6/uL (4.30-5.70); RED CELL DISTRIBUTION WIDTH 15.3 % (11.5-14.5); WHITE BLOOD COUNT 6.8 x10^3/uL (4.0-11.0)
[2020-11-05 05:14] LABS: CALCIUM 9.1 mg/dL (8.5-10.1); CREATININE 1.2 mg/dL (0.7-1.3); GFR 63.3
[2020-11-05 05:18] LABS: POTASSIUM 2.8 mmol/L (3.5-5.1)
[2020-11-05] MEDS ORDERED: HYDROmorphone 2 MG/ML VIAL IVP ONE (05:30)
[2020-11-05] MEDS ORDERED: LIDOCAINE (700MG/PATCH) PATCH. TD ONE (05:30)
[2020-11-05] MEDS ORDERED: MAGNESIUM SULFATE 2GM 50 ML IV ONE (06:00)
[2020-11-05] MEDS ORDERED: POTASSIUM CHLORIDE 20 MEQ TABLET.ER. PO ONE (06:00)
[2020-11-05 06:11] LABS: % EOS 1 % (0-5); % LYMPHS 16 % (24-48); % MONOS 32 % (0-10); % SEGS 51 % (35-66); PLT ESTIMATE ADEQUATE (ADEQUATE)
[2020-11-05 06:12] LABS: POLYCHROMASIA SLIGHT; TOXIC GRANULATION SLIGHT
--- NOTE | 2020-11-05 06:28 | PDOC1 ---
History and Physical Date of Admission Date of Admission DATE: 11/05/20 TIME: 06:04 Identification/Chief Complaint Chief Complaint Intractable pain Source Source: Chart review, Patient History of Present Illness History of Present Illness Patient 55-year-old male with past medical history seizure disorder, anxiety, hypertension, GERD, kidney stones, CKD, testicular cancer, who initially presented to the ED yesterday for evaluation mechanical fall. Chest x-ray yesterday showed multiple rib fractures (left 6th, 7th, 8th, 9th, and 10th rib), but patient was subsequently discharged home with p.o. pain medications. He returned to the ED early this morning with complaint of intractable pain. States whatever medication he is received in the ED has helped control his pain. He has a history of former heavy alcohol abuse, but states he has not used any alcohol in a number of weeks. For his history of anxiety he takes Ativan 1 mg 3 times daily. Will admit patient for further medical management. Past Medical History Cardiovascular: HTN Pulmonary: Pneumonia CENTRAL NERVOUS SYSTEM: Periperal neuropathy GI: Other Heme/Onc: Cancer Hepatobiliary: No pertinent hx, Other Psych: Anxiety, Addictions, Depression, Panic Musculoskeletal: Osteoarthritis, Other Rheumatologic: No pertinent hx Infectious disease: No pertinent hx Renal/: Chronic renal failure, Other Endocrine: No pertinent hx Past Surgical History Past Surgical History: Cholecystectomy, Other Family History Family History: No Significant, Coronary Artery Disease, Hypertension Social History Smoke: Quit (Reportedly sober) ALCOHOL: other Drugs: None Current Problem List Problem List Problems Medical Problems: (1) Multiple fractures of ribs, left side, initial encounter for closed fracture Status: Acute Current Medications Current Medications Current Medications Hydromorphone HCl (Dilaudid) 4 mg PRN Q4HRS PRN PO SEVERE PAIN 7-10 Last administered on 11/05/20at 03:41; Start 11/05/20 at 03:15 Ondansetron HCl (Zofran Odt) 4 mg 1X ONCE PO Last administered on 11/05/20at 03:40; Start 11/05/20 at 03:30; Stop 11/05/20 at 03:31; Status DC Hydromorphone HCl (Dilaudid) 1 mg 1X ONCE IVP Last administered on 11/05/20at 05:17; Start 11/05/20 at 05:30; Stop 11/05/20 at 05:31; Status DC Lidocaine (Lidoderm) 1 patch 1X ONCE TD Last administered on 11/05/20at 05:27; Start 11/05/20 at 05:30; Stop 11/05/20 at 05:31; Status DC Potassium Chloride (Klor-Con) 40 meq 1X ONCE PO Last administered on 11/05/20at 05:31; Start 11/05/20 at 06:00; Stop 11/05/20 at 06:01; Status DC Magnesium Sulfate 50 ml @ 25 mls/hr 1X ONCE IV ; Start 11/05/20 at 06:00; Stop 11/05/20 at 07:59 Active Scripts Active Zofran (Ondansetron Hcl) 4 Mg Tablet 1 Tab PO Q6HRS PRN Triamcinolone Acetonide 0.5% Cream (Triamcinolone Acetonide) 15 Gm Cream..g. 1 Michelle TP BID Tramadol Hcl 50 Mg Tablet 50 Mg PO Q6HRS PRN 30 Days Epitol (Carbamazepine) 200 Mg Tablet 50 Mg PO BID Folic Acid 1 Mg Tablet 1 Mg PO DAILY 30 Days Reported Klor-Con 10 (Potassium Chloride) 10 Meq Tablet.er 10 Meq PO DAILY Erythromycin (Erythromycin Base) 250 Mg Capsule.dr 250 Mg PO DAILY Lorazepam 1 Mg Tablet 1 Tab PO TID Metoprolol Tartrate 50 Mg Tablet 50 Mg PO BID Aspir 81 (Aspirin) 81 Mg Tablet.dr 1 Tab PO DAILY Allergies Allergies: Coded Allergies: haloperidol (Verified Allergy, Intermediate, 06/18/20) drooling, excessive salivation methylphenidate (Verified Allergy, Intermediate, dystonia, 06/18/20) hydrocodone (Verified Adverse Reaction, Intermediate, n/v, 06/18/20) morphine (Verified Adverse Reaction, Intermediate, 06/18/20) PATIENT STATES, "I DONT LIKE THE FEELING.I KNOW IM ALLERGIC, [facility] HAS IT ON RECORD AND THEY HAD TO GIVE ME ATIVAN TO RELAX ME." oxycodone (Verified Adverse Reaction, Intermediate, n/v, 06/18/20) ROS Review of System GENERAL: No history of weight change, weakness or fevers. SKIN: No bruising, hair changes or rashes. EYES: No blurred, double or loss of vision. NOSE AND THROAT: No history of nosebleeds, hoarseness or sore throat. HEART: Denies chest pain, denies palpitations. LUNGS: Denies cough, hemoptysis, wheezing or shortness of breath. GASTROINTESTINAL: Denies nausea, vomiting, abdominal pain. GENITOURINARY: Denies dysuria, frequency, urgency, hematuria. NEUROLOGIC: Denies history of numbness, tingling, tremor or weakness. PSYCHIATRIC: Denies anxiety, denies depression. ENDOCRINE: No history of heat or cold intolerance, polyuria or polydipsia. Musculoskeletal: Left rib pain EXTREMITIES: Denies muscle weakness, joint pain, pain on walking or stiffness. Physical Exam Physical Exam General: Alert, Oriented X3, Cooperative, mild distress HEENT: PERRLA, EOMI Lungs: Left-sided chest wall tenderness. Clear to auscultation, Normal air movement Heart: RRR, no murmurs Cardiovascular: S1, S2 Abdomen: Normal bowel sounds, Soft, No tenderness Extremities: No clubbing, No cyanosis Skin: No rashes, No significant lesion Neuro: Normal speech, Normal tone, Sensation intact Psych/Mental Status: Mental status NL, Mood NL Vitals Vitals Vital Signs Date Time Temp Pulse Resp B/P (MAP) Pulse Ox O2 Delivery O2 Flow Rate FiO2 11/05/20 05:17 0 96 Room Air 11/05/20 05:00 96 142/82 (102) 11/05/20 02:00 97.8 97.8 Labs Labs Laboratory Tests Test 11/05/20 05:00 White Blood Count 6.8 x10^3/uL (4.0-11.0) Red Blood Count 4.06 x10^6/uL (4.30-5.70) Hemoglobin 14.0 g/dL (13.0-17.5) Hematocrit 38.5 % (39.0-53.0) Mean Corpuscular Volume 95 fL (79-100) Mean Corpuscular Hemoglobin 34 pg (25-35) Mean Corpuscular Hemoglobin Concent 36 g/dL (31-37) Red Cell Distribution Width 15.3 % (11.5-14.5) Platelet Count 135 x10^3/uL (140-400) Neutrophils (%) (Auto) 51 % (31-73) Lymphocytes (%) (Auto) 13 % (24-48) Monocytes (%) (Auto) 36 % (0-9) Eosinophils (%) (Auto) 1 % (0-3) Basophils (%) (Auto) 0 % (0-3) Neutrophils # (Auto) 3.4 x10^3/uL (1.8-7.7) Lymphocytes # (Auto) 0.9 x10^3/uL (1.0-4.8) Monocytes # (Auto) 2.4 x10^3/uL (0.0-1.1) Eosinophils # (Auto) 0.0 x10^3/uL (0.0-0.7) Basophils # (Auto) 0.0 x10^3/uL (0.0-0.2) Sodium Level 132 mmol/L (136-145) Potassium Level 2.8 mmol/L (3.5-5.1) Chloride Level 91 mmol/L (98-107) Carbon Dioxide Level 35 mmol/L (21-32) Anion Gap 6 (6-14) Blood Urea Nitrogen 17 mg/dL (8-26) Creatinine 1.2 mg/dL (0.7-1.3) Estimated GFR (Cockcroft-Gault) 63.3 Glucose Level 118 mg/dL (70-99) Calcium Level 9.1 mg/dL (8.5-10.1) Magnesium Level 1.4 mg/dL (1.8-2.4) Laboratory Tests Test 11/05/20 05:00 White Blood Count 6.8 x10^3/uL (4.0-11.0) Red Blood Count 4.06 x10^6/uL (4.30-5.70) Hemoglobin 14.0 g/dL (13.0-17.5) Hematocrit 38.5 % (39.0-53.0) Mean Corpuscular Volume 95 fL (79-100) Mean Corpuscular Hemoglobin 34 pg (25-35) Mean Corpuscular Hemoglobin Concent 36 g/dL (31-37) Red Cell Distribution Width 15.3 % (11.5-14.5) Platelet Count 135 x10^3/uL (140-400) Neutrophils (%) (Auto) 51 % (31-73) Lymphocytes (%) (Auto) 13 % (24-48) Monocytes (%) (Auto) 36 % (0-9) Eosinophils (%) (Auto) 1 % (0-3) Basophils (%) (Auto) 0 % (0-3) Neutrophils # (Auto) 3.4 x10^3/uL (1.8-7.7) Lymphocytes # (Auto) 0.9 x10^3/uL (1.0-4.8) Monocytes # (Auto) 2.4 x10^3/uL (0.0-1.1) Eosinophils # (Auto) 0.0 x10^3/uL (0.0-0.7) Basophils # (Auto) 0.0 x10^3/uL (0.0-0.2) Sodium Level 132 mmol/L (136-145) Potassium Level 2.8 mmol/L (3.5-5.1) Chloride Level 91 mmol/L (98-107) Carbon Dioxide Level 35 mmol/L (21-32) Anion Gap 6 (6-14) Blood Urea Nitrogen 17 mg/dL (8-26) Creatinine 1.2 mg/dL (0.7-1.3) Estimated GFR (Cockcroft-Gault) 63.3 Glucose Level 118 mg/dL (70-99) Calcium Level 9.1 mg/dL (8.5-10.1) Magnesium Level 1.4 mg/dL (1.8-2.4) Images Images PATIENT: SANDY CUNHA ACCOUNT: [id number] : 1965 LOCATION: ER AGE: 55 SEX: M EXAM STATUS: REG ER ORD. PHYSICIAN: SANDY MARTINEZ [employer]REL CLE[employer]ER REASON: Blunt trauma lower lateral ribs/pt fell lifting couch 3 days ago,pain low PROCEDURE: RIBS LEFT AND PA CHEST Left RIBS with PA chest. HISTORY: Trauma lower lateral ribs, recent fall, pain PA view was taken of the chest. There is no pneumothorax or pleural effusion. There are no acute infiltrates. Heart is normal in size. AP and oblique views were taken of the left ribs. There are fractures in the anterior left sixth, seventh, eighth, ninth and 10th ribs. IMPRESSION: 1. Multiple anterior left rib fractures. 2. No pneumothorax or pleural effusion. VTE Prophylaxis Ordered VTE Prophylaxis Devices: No VTE Pharmacological Prophylaxi: Yes Assessment/Plan Assessment/Plan Multiple rib fractures Intractable pain History seizures Anxiety disorder Plan: We will attempt to control his pain with p.o. Dilaudid, which she states he is tolerated in the past (reports intolerance to morphine, hydrocodone, oxycodone). If necessary, fentanyl patch may also be an option We will have patient work with PT/OT Incentive spirometer use We will resume home medications Will need to be judicious with pain medications on discharge given history of alcohol use and current regular Ativan use FEN - Cardiac diet PPX - Heparin FULL CODE Dispo - inpatient for above Patient names his mother (Suzy Barron) as surrogate decision-maker Justifications for Admission Other Justification MARIA TERESA PAREDES MD Nov 05, 2020 06:28
[2020-11-05] MEDS ORDERED: hydrOXYzine 25 MG TABLET PO PRN (06:45)
[2020-11-05] MEDS ORDERED: MAGNESIUM HYDROXIDE 2,400 MG/30 ML ORAL.SUSP. PO PRN (06:45)
[2020-11-05] MEDS ORDERED: ACETAMINOPHEN 325 MG TABLET. PO PRN (06:45)
[2020-11-05] MEDS ORDERED: ONDANSETRON PF 4 MG/2 ML VIAL. IVP PRN (06:45)
[2020-11-05] MEDS ORDERED: CALCIUM CARBONATE 500 MG TAB.CHEW PO PRN (06:45)
[2020-11-05] MEDS ORDERED: diphenhydrAMINE HCL 25 MG CAPSULE PO PRN (06:45)
[2020-11-05] MEDS ORDERED: MAG HYDROX/ALUMINUM HYD/SIMETH 30 ML ORAL.SUSP PO PRN (06:45)
[2020-11-05 08:52] VITALS: BP 119/86
[2020-11-05] MEDS: FOLIC ACID 1 MG TABLET. PO SCH (08:57)
[2020-11-05] MEDS: METOPROLOL TART IMMED RELEASE 50 MG TABLET. PO SCH ×2 (08:58→21:00)
[2020-11-05] MEDS: carBAMazepine 200 MG TABLET PO SCH ×2 (08:58→22:42)
[2020-11-05] MEDS: ASPIRIN ENTERIC COATED 81 MG TABLET.DR. PO SCH (08:58)
[2020-11-05] MEDS: fentaNYL PF VIAL 100 MCG/2 ML VIAL IVP PRN ×2 (09:01→22:53)
--- NOTE | 2020-11-05 09:03 | PDOC2 ---
CONSULT Date of Consult Date of Consult DATE: 11/05/20 TIME: 08:56 Reason for Consult Reason for Consult: trauma, fall, rib fx Referring Physician Referring Physician: ER Identification/Chief Complaint Chief Complaint pain Source Source: Chart review, Patient History of Present Illness Reason for Visit: 4 days prior was moving a sofa, tripped, fell over arm of sofa. Fallentimber a crack, issues with pain worsening. ER 11/04, rib fx, medication helped, however returned later in day for pain is hard to take a deep breath, does report nausea Past Medical History Cardiovascular: HTN Pulmonary: Pneumonia CENTRAL NERVOUS SYSTEM: Periperal neuropathy GI: Other Heme/Onc: Cancer Hepatobiliary: No pertinent hx, Other Psych: Anxiety, Addictions, Depression, Panic Musculoskeletal: Osteoarthritis, Other Rheumatologic: No pertinent hx Infectious disease: No pertinent hx Renal/: Chronic renal failure, Other Endocrine: No pertinent hx Past Surgical History Past Surgical History: Cholecystectomy, Other Family History Family History: No Significant, Coronary Artery Disease, Hypertension Social History Quit (Reportedly sober) ALCOHOL: other Drugs: None Lives: with Family Current Problem List Problem List Problems Medical Problems: (1) Multiple fractures of ribs, left side, initial encounter for closed fracture Status: Acute Current Medications Current Medications Current Medications Hydromorphone HCl (Dilaudid) 4 mg PRN Q4HRS PRN PO SEVERE PAIN 7-10 Last administered on 11/05/20at 03:41; Start 11/05/20 at 03:15 Ondansetron HCl (Zofran Odt) 4 mg 1X ONCE PO Last administered on 11/05/20at 03:40; Start 11/05/20 at 03:30; Stop 11/05/20 at 03:31; Status DC Hydromorphone HCl (Dilaudid) 1 mg 1X ONCE IVP Last administered on 11/05/20at 05:17; Start 11/05/20 at 05:30; Stop 11/05/20 at 05:31; Status DC Lidocaine (Lidoderm) 1 patch 1X ONCE TD Last administered on 11/05/20at 05:27; Start 11/05/20 at 05:30; Stop 11/05/20 at 05:31; Status DC Potassium Chloride (Klor-Con) 40 meq 1X ONCE PO Last administered on 11/05/20at 05:31; Start 11/05/20 at 06:00; Stop 11/05/20 at 06:01; Status DC Magnesium Sulfate 50 ml @ 25 mls/hr 1X ONCE IV Last administered on 11/05/20at 06:37; Start 11/05/20 at 06:00; Stop 11/05/20 at 07:59; Status DC Aspirin (Ecotrin) 81 mg DAILY PO ; Start 11/05/20 at 09:00 Carbamazepine (TEGretol) 50 mg BID PO ; Start 11/05/20 at 09:00 Folic Acid (Folic Acid) 1 mg DAILY PO ; Start 11/05/20 at 09:00 Metoprolol Tartrate (Lopressor) 50 mg BID PO ; Start 11/05/20 at 09:00 Lorazepam (Ativan) 1 mg TID PO ; Start 11/05/20 at 09:00 Fentanyl Citrate (Fentanyl 2ml Vial) 50 mcg PRN Q2HR PRN IVP See comments; Start 11/05/20 at 06:45 Ondansetron HCl (Zofran) 4 mg PRN Q6HRS PRN IVP NAUSEA/VOMITING; Start 11/05/20 at 06:45 Al Hydroxide/Mg Hydroxide (Mylanta Plus Xs) 30 ml PRN Q3HRS PRN PO HEARTBURN / GAS; Start 11/05/20 at 06:45 Calcium Carbonate/ Glycine (Tums) 500 mg PRN Q3HRS PRN PO UPSET STOMACH; Start 11/05/20 at 06:45 Acetaminophen (Tylenol) 650 mg PRN Q6HRS PRN PO Headaches, Temp > 101.5F; Start 11/05/20 at 06:45 Magnesium Hydroxide (Milk Of Magnesia) 2,400 mg PRN Q12HR PRN PO CONSTIPATION; Start 11/05/20 at 06:45 Heparin Sodium (Porcine) (Heparin Sodium) 5,000 unit Q8HRS SQ ; Start 11/05/20 at 07:30 Hydroxyzine HCl (Atarax) 25 mg QHS PRN PO INSOMNIA; Start 11/05/20 at 06:45 Diphenhydramine HCl (Benadryl) 25 mg PRN QHS PRN PO INSOMNIA; Start 11/05/20 at 06:45 Active Scripts Active Zofran (Ondansetron Hcl) 4 Mg Tablet 1 Tab PO Q6HRS PRN Triamcinolone Acetonide 0.5% Cream (Triamcinolone Acetonide) 15 Gm Cream..g. 1 Michelle TP BID Tramadol Hcl 50 Mg Tablet 50 Mg PO Q6HRS PRN 30 Days Epitol (Carbamazepine) 200 Mg Tablet 50 Mg PO BID Folic Acid 1 Mg Tablet 1 Mg PO DAILY 30 Days Reported Klor-Con 10 (Potassium Chloride) 10 Meq Tablet.er 10 Meq PO DAILY Erythromycin (Erythromycin Base) 250 Mg Capsule.dr 250 Mg PO DAILY Lorazepam 1 Mg Tablet 1 Tab PO TID Metoprolol Tartrate 50 Mg Tablet 50 Mg PO BID Aspir 81 (Aspirin) 81 Mg Tablet.dr 1 Tab PO DAILY Allergies Allergies: Coded Allergies: haloperidol (Verified Allergy, Intermediate, 06/18/20) drooling, excessive salivation methylphenidate (Verified Allergy, Intermediate, dystonia, 06/18/20) hydrocodone (Verified Adverse Reaction, Intermediate, n/v, 06/18/20) morphine (Verified Adverse Reaction, Intermediate, 06/18/20) PATIENT STATES, "I DONT LIKE THE FEELING.I KNOW IM ALLERGIC, [facility] HAS IT ON RECORD AND THEY HAD TO GIVE ME ATIVAN TO RELAX ME." oxycodone (Verified Adverse Reaction, Intermediate, n/v, 06/18/20) ROS General: No: Chills, Other (fevers) PSYCHOLOGICAL ROS: No: Anxiety, Depression Eyes: No Blurry vision, No Double vision HEENT: No: Heacaches, Sore Throat Hematological and Lymphatic: No: Bleeding Problems, Blood Clots Respiratory: No: Cough, Shortness of breath Cardiovascular: yes Chest Pain; No Palpitations Gastrointestinal: No Nausea, No Diarrhea, No Constipation Genitourinary: No Dysuria, No Hematuria Musculoskeletal: No Joint Pain, No Joint Swelling Neurological: No Impaired Coord/balance, No Numbness/Tingling Skin: No Pruritus, No Rash Physical Exam General: Alert, Oriented X3, Cooperative HEENT: Atraumatic, PERRLA Lungs: Clear to auscultation, Normal air movement Heart: Regular rate, Normal S1, Normal S2 Abdomen: Soft, Other (tender upper abdomen ) Extremities: No clubbing, No cyanosis Skin: No rashes, No breakdown Neuro: Normal gait, Normal speech Psych/Mental Status: Mental status NL, Mood NL Vitals VITALS Vital Signs Date Time Temp Pulse Resp B/P (MAP) Pulse Ox O2 Delivery O2 Flow Rate FiO2 8/31/21 08:52 98.5 92 20 119/86 (97) 95.0 98.5 11/05/20 05:17 96 Room Air Labs Labs Laboratory Tests Test 11/05/20 05:00 White Blood Count 6.8 x10^3/uL (4.0-11.0) Red Blood Count 4.06 x10^6/uL (4.30-5.70) Hemoglobin 14.0 g/dL (13.0-17.5) Hematocrit 38.5 % (39.0-53.0) Mean Corpuscular Volume 95 fL (79-100) Mean Corpuscular Hemoglobin 34 pg (25-35) Mean Corpuscular Hemoglobin Concent 36 g/dL (31-37) Red Cell Distribution Width 15.3 % (11.5-14.5) Platelet Count 135 x10^3/uL (140-400) Neutrophils (%) (Auto) 51 % (31-73) Lymphocytes (%) (Auto) 13 % (24-48) Monocytes (%) (Auto) 36 % (0-9) Eosinophils (%) (Auto) 1 % (0-3) Basophils (%) (Auto) 0 % (0-3) Neutrophils # (Auto) 3.4 x10^3/uL (1.8-7.7) Lymphocytes # (Auto) 0.9 x10^3/uL (1.0-4.8) Monocytes # (Auto) 2.4 x10^3/uL (0.0-1.1) Eosinophils # (Auto) 0.0 x10^3/uL (0.0-0.7) Basophils # (Auto) 0.0 x10^3/uL (0.0-0.2) Segmented Neutrophils % 51 % (35-66) Lymphocytes % 16 % (24-48) Monocytes % 32 % (0-10) Eosinophils % 1 % (0-5) Toxic Granulation Slight Platelet Estimate Adequate (ADEQUATE) Polychromasia Slight Basophilic Stippling Present Sodium Level 132 mmol/L (136-145) Potassium Level 2.8 mmol/L (3.5-5.1) Chloride Level 91 mmol/L (98-107) Carbon Dioxide Level 35 mmol/L (21-32) Anion Gap 6 (6-14) Blood Urea Nitrogen 17 mg/dL (8-26) Creatinine 1.2 mg/dL (0.7-1.3) Estimated GFR (Cockcroft-Gault) 63.3 Glucose Level 118 mg/dL (70-99) Calcium Level 9.1 mg/dL (8.5-10.1) Magnesium Level 1.4 mg/dL (1.8-2.4) Laboratory Tests Test 11/05/20 05:00 White Blood Count 6.8 x10^3/uL (4.0-11.0) Red Blood Count 4.06 x10^6/uL (4.30-5.70) Hemoglobin 14.0 g/dL (13.0-17.5) Hematocrit 38.5 % (39.0-53.0) Mean Corpuscular Volume 95 fL (79-100) Mean Corpuscular Hemoglobin 34 pg (25-35) Mean Corpuscular Hemoglobin Concent 36 g/dL (31-37) Red Cell Distribution Width 15.3 % (11.5-14.5) Platelet Count 135 x10^3/uL (140-400) Neutrophils (%) (Auto) 51 % (31-73) Lymphocytes (%) (Auto) 13 % (24-48) Monocytes (%) (Auto) 36 % (0-9) Eosinophils (%) (Auto) 1 % (0-3) Basophils (%) (Auto) 0 % (0-3) Neutrophils # (Auto) 3.4 x10^3/uL (1.8-7.7) Lymphocytes # (Auto) 0.9 x10^3/uL (1.0-4.8) Monocytes # (Auto) 2.4 x10^3/uL (0.0-1.1) Eosinophils # (Auto) 0.0 x10^3/uL (0.0-0.7) Basophils # (Auto) 0.0 x10^3/uL (0.0-0.2) Segmented Neutrophils % 51 % (35-66) Lymphocytes % 16 % (24-48) Monocytes % 32 % (0-10) Eosinophils % 1 % (0-5) Toxic Granulation Slight Platelet Estimate Adequate (ADEQUATE) Polychromasia Slight Basophilic Stippling Present Sodium Level 132 mmol/L (136-145) Potassium Level 2.8 mmol/L (3.5-5.1) Chloride Level 91 mmol/L (98-107) Carbon Dioxide Level 35 mmol/L (21-32) Anion Gap 6 (6-14) Blood Urea Nitrogen 17 mg/dL (8-26) Creatinine 1.2 mg/dL (0.7-1.3) Estimated GFR (Cockcroft-Gault) 63.3 Glucose Level 118 mg/dL (70-99) Calcium Level 9.1 mg/dL (8.5-10.1) Magnesium Level 1.4 mg/dL (1.8-2.4) Assessment/Plan Assessment/Plan fall, multiple left rib fractures, will check CT for trauma eval completeness, does have upper abdominal tenderness on exam IS, pulmonary toiletry MARIUM MERCADO MS SQL DBA Nov 05, 2020 09:03
[2020-11-05] MEDS: HEPARIN for SUB-Q USE 5,000 UNIT/ML VIAL. SQ SCH ×3 (09:04→22:47)
[2020-11-05] MEDS ORDERED: IOHEXOL 300 MG/ML 100ML VIAL. IV ONE (09:45)
[2020-11-05] MEDS ORDERED: CONTRAST GIVEN. MC PRN (09:45)
--- NOTE | 2020-11-05 10:17 | NUR ---
SW following. Discussed with RN, pt from home with mother, room air, cardiac diet. PT/OT ordered. surgery following. RN advised no SW needs at this time. SW will continue to follow.
[2020-11-05 11:06] VITALS: BP 109/75
--- NOTE | 2020-11-05 15:11 | RAD ---
PQRS Compliance Statement: One or more of the following individualized dose reduction techniques were utilized for this examinat ion: 1. Automated exposure control 2. Adjustment of the mA and/or kV according to patient size 3. Use of iterative reconstruction technique CT CHEST+ABD+PELVIS W 11/05/2020 9:20 AM INDICATION: Trauma, fall with rib fracture. COMPARISON: None available TECHNIQUE: Multiple axial CT images of the chest, abdomen and pelvis were obtained after the intraven ous administration of 75 mL Omnipaque 300 Coronal and sagittal reformats are provided. FINDINGS: Chest: Thyroid gland is normal in appearance. There is a 6 mm precarinal lymph node (series 2, image 29). There is a dilated thoracic esophagus containing fluid. Heart size within normal limits. No melina cardial effusion. Thoracic aorta is normal in course and caliber with ascending segment measuring 3.8 cm. No pathologically enlarged thoracic lymph nodes. One millimeters solid noncalcified pulmonary no dule identified within the lingula (series 2, image 45). 3 mm calcified granuloma identified in the l eft upper lobe (series 2, image 31). Minimal biapical pleural-parenchymal scarring. Bibasilar subsegm ental atelectasis versus scarring. Minimal bronchial wall thickening compatible with nonspecific bron chitis. No pleural effusions, pulmonary vascular congestion or pneumothorax. Clavicles are intact. Th ere is a nondisplaced fracture involving the anterolateral left third rib (series 2, image 50). Anter ior left seventh, eighth, ninth and 10th rib fractures are noted. Abdomen/pelvis: Hypoattenuation the hepatic parenchyma suggestive of hepatic steatosis. Coarse parenc hymal calcification identified along the inferior right hepatic lobe, stable from prior examination. Adrenal glands are normal in appearance. Calcifications along the head and uncinate process of pancre as may reflect sequela of chronic pancreatitis. No significant pancreatic ductal dilatation. Gallblad guerrero surgically absent. The abdominal aorta is normal in course and caliber. There are no pathological ly enlarged lymph nodes in the abdomen and pelvis. There is no abdominal free fluid. There is no free intraperitoneal air. Small and large bowel are normal in caliber. There is no evidence for bowel obs truction. There are no pericolonic inflammatory changes. A normal, nondilated appendix is visualized without adjacent inflammatory changes. Appendix is similar morphology compared to prior examination. Subcentimeter cysts identified along the superior pole left kidney. The kidneys enhance symmetrically . There is no suspicious renal mass. There is no hydronephrosis. There are no suspected calculi withi n the kidneys, ureters or urinary bladder. Urinary bladder is within normal limits given degree of di stention. Prostate and seminal vesicles are normal. Small amount fluid within the left inguinal herni a. There is a new superior endplate compression fracture at T12 with 25 percent height loss. No signific ant retropulsion. There is no involvement of the posterior elements. Transverse processes are intact. IMPRESSION: 1. There is a nondisplaced fracture involving the anterolateral left sixth rib. Anterior left seventh , eighth, ninth and 10th rib fractures are noted. 2. Superior endplate compression deformity involving T12 with 25 percent height loss without signific ant retropulsion. 3. Bibasilar subsegmental atelectasis versus scarring. 4. Incidental findings, as detailed above. FOR INTERNAL CODING PURPOSES Critical result: Findings discussed with Batsheva, the patient's nurse, at 11/05/2020 3:08 PM. RESULT CODE: (C) Electronically signed by: Jo Velasquez MD (11/05/2020 3:08 PM) [id number]
[2020-11-05 15:15] VITALS: BP 95/67
--- NOTE | 2020-11-05 15:24 | NUR ---
Dr. Morgan was paged and notified about patient x ray result of Thoracic compression at 12 as report by radiology.
[2020-11-05 19:00] VITALS: BP 106/77
[2020-11-05 23:30] VITALS: BP 104/70
[2020-11-06 03:47] VITALS: BP 112/78
[2020-11-06] MEDS: HEPARIN for SUB-Q USE 5,000 UNIT/ML VIAL. SQ SCH ×3 (06:27→21:54)
--- NOTE | 2020-11-06 06:27 | NUR ---
Voided 25cc per urinal, voided small amount in toilet. "I still feel like I have to pee." Bladder scan shows 150cc. Patient states he has chronic kidney disease. Urine is concentrated and tea colored.
[2020-11-06 07:25] VITALS: BP 122/80
[2020-11-06] MEDS: FOLIC ACID 1 MG TABLET. PO SCH (10:17)
[2020-11-06] MEDS: METOPROLOL TART IMMED RELEASE 50 MG TABLET. PO SCH ×2 (10:18→21:00)
[2020-11-06] MEDS: ASPIRIN ENTERIC COATED 81 MG TABLET.DR. PO SCH (10:18)
[2020-11-06] MEDS: carBAMazepine 200 MG TABLET PO SCH ×2 (10:19→21:48)
--- NOTE | 2020-11-06 10:31 | PDOC ---
[facility] PROGRESS NOTE Date of Service DOS: DATE: 11/06/20 TIME: 10:21 Chief Complaint Chief Complaint A/P: Multiple rib fractures Intractable pain History seizures Anxiety disorder T12 fracture H/o alcohol use disorder Plan: We will attempt to control his pain with p.o. Dilaudid, which she states he is tolerated in the past (reports intolerance to morphine, hydrocodone, oxycodone). If necessary, fentanyl patch may also be an option We will have patient work with PT/OT Incentive spirometer use We will resume home medications Will need to be judicious with pain medications on discharge given history of alcohol use and current regular Ativan use FEN - Cardiac diet PPX - Heparin FULL CODE Dispo - inpatient for above Patient names his mother (Suzy Barron) as surrogate decision-maker History of Present Illness History of Present Illness Patient 55-year-old male with past medical history seizure disorder, anxiety, hypertension, GERD, kidney stones, CKD, testicular cancer, who initially presented to the ED yesterday for evaluation mechanical fall. Chest x-ray yesterday showed multiple rib fractures (left 6th, 7th, 8th, 9th, and 10th rib), but patient was subsequently discharged home with p.o. pain medications. He returned to the ED early this morning with complaint of intractable pain. States whatever medication he is received in the ED has helped control his pain. He has a history of former heavy alcohol abuse, but states he has not used any alcohol in a number of weeks. For his history of anxiety he takes Ativan 1 mg 3 times daily. Admitted patient for further medical management with trauma surgery consultation. Afebrile. Labs pending this am. Incidentally a T12 fracture was found on CT imaging consistent with focal pain. Still having significant pain requiring IV medications. No BM, low appetite. Noted coughing with drinking liquids, awaiting PUMP STITCHER eval Vitals/I&O Vitals/I&O: Vital Signs Date Time Temp Pulse Resp B/P (MAP) Pulse Ox O2 Delivery O2 Flow Rate FiO2 11/06/20 10:18 124 122/80 11/06/20 07:25 99.7 18 94 2.0 99.7 11/06/20 03:47 Nasal Cannula I & O 11/05/20 11/05/20 11/06/20 15:00 23:00 07:00 Intake Total 280 ml 200 ml 150 ml Output Total 700 ml 100 ml Balance 280 ml -500 ml 50 ml Physical Exam General: Alert, Oriented X3, Cooperative Heart: Regular rate, Normal S1, Normal S2 Lungs: Clear, Other Abdomen: Soft, Other (tender upper abdomen ) Extremities: No clubbing, No cyanosis Skin: No rashes, No breakdown Assessment and Plan Assessmemt and Plan Problems Medical Problems: (1) Multiple fractures of ribs, left side, initial encounter for closed fracture Status: Acute Comment Review of Relevant I have reviewed the following items alyson (where applicable) has been applied. Medications: Current Medications Medications (Trade) Dose Ordered Sig/Donaldo Route PRN Reason Start Time Stop Time Status Last Admin Dose Admin Lorazepam (Ativan) 1 mg TID PO 11/06/20 09:00 11/06/20 10:17 Justifications for Admission Other Justification CHRISTA CROFT MD Nov 06, 2020 10:31
[2020-11-06 11:07] VITALS: BP 111/74
[2020-11-06 12:16] LABS: CALCIUM 8.6 mg/dL (8.5-10.1); CREATININE 1.2 mg/dL (0.7-1.3); GFR 63.3
[2020-11-06 12:31] LABS: POTASSIUM 2.8 mmol/L (3.5-5.1)
[2020-11-06] MEDS ORDERED: POTASSIUM CL 40MEQ IN 0.9%NACL 1,000 ML IV ONE (13:00)
[2020-11-06] MEDS ORDERED: POTASSIUM CHLORIDE 20 MEQ TABLET.ER. PO ONE (13:00)
[2020-11-06] MEDS ORDERED: MAGNESIUM SULFATE 4GM 100 ML IV ONE ×2 (13:15)
[2020-11-06] MEDS ORDERED: BISACODYL 10 MG SUPP.RECT. PR PRN (14:15)
[2020-11-06] MEDS ORDERED: SODIUM PHOSPHATES 19/7GM 133 ML ENEMA. PR PRN (14:15)
[2020-11-06] MEDS: BISACODYL 5 MG TABLET.DR. PO SCH (14:38)
[2020-11-06] MEDS: LIDOCAINE (700MG/PATCH) PATCH. TD SCH (14:39)
[2020-11-06 15:05] VITALS: BP 165/82
--- NOTE | 2020-11-06 15:07 | NUR ---
SW following. Discussed with RN, pt from home alone, therapy recommending acute rehab, however a brace has been recommended also. Pt's insurance very rarely approve acute rehab. SW awaiting to see how pt does with therapy with the brace to determine therapy needs. Pt unable to work with therapy today due to critical labs. WILLI will continue to follow. Addendum: 11/06/20 at 1522 by KIMBERLYN MÁRQUEZ Update from RN, no indication for brace.
[2020-11-06 19:48] VITALS: BP 94/66
--- NOTE | 2020-11-06 20:04 | CONS ---
DATE OF CONSULTATION: 11/06/2020 ATTENDING PHYSICIAN: Dr. oRck. REASON FOR CONSULTATION: The patient was seen at the request of Dr. Rock for rehab evaluation. HISTORY OF PRESENT ILLNESS: This is a 55-year-old male with known seizure disorder, anxiety, hypertension, gastroesophageal reflux disease, kidney stones, chronic kidney disease, testicular carcinoma, admitted through the Emergency Room after a fall. Chest x-ray revealed multiple rib fractures, left side, 6th, 7th, 8th, 9th and 10th. He was subsequently discharged to home with oral pain medication. He returned to the Emergency Room on the morning of 11/05/2020 with continued pain. He is a former heavy alcohol abuser, has not used alcohol in the last several weeks, also takes Ativan for anxiety. The patient apparently wants more parenteral pain medication as per nursing staff. The patient admits chronic lower back pain. He lives alone, had a few stairs to manage. He usually walks with a walker. He does not get out much. PAST MEDICAL HISTORY: Includes chronic lower back pain, hypertension, previous pneumonia, peripheral neuropathy, depression, panic episodes, osteoarthritis, chronic renal failure, status post cholecystectomy. ALLERGIES: KNOWN ALLERGIC TO HALDOL, METHYLPHENIDATE, HYDROCODONE, MORPHINE AND OXYCODONE. The patient quit smoking. He had CT scan of the chest, abdomen and pelvis which revealed nondisplaced fractures involving anterolateral left 6th rib, left 7th, 8th, 9th and 10th rib and superior endplate compression deformity of T12 with a 25% height loss without significant retropulsion, bibasilar subsegmental atelectasis versus scarring. He gives history of some difficulty with her urination and also no bowel movement in the last week or so. PHYSICAL EXAMINATION: Physical examination today revealed a middle-aged male. He is alert, oriented to time, place, person and circumstance and follows commands appropriately. Moves all 4 extremities voluntarily where he had overall 4+/5 grade muscle strength with relatively increased weakness in hand intrinsic muscles supplied by ulnar nerve with some degree of muscle atrophy. Deep tendon reflexes are 1-2+ overall with absent ankle jerks and he had decreased touch and pinprick sensation over a sock and glove distribution. He had crepitus on range of motion of his knee joints without any knee joint effusion. He had pain free range of motion of both hip joints. He had tenderness to palpation over left lower rib cage posteriorly and laterally. He is independent rolling from side to side. I have not tested his transfers or ambulation skills at this time, but as per physical therapy notes, he got up with minimal assistance and walked with roller walker for short distances, unsteady with a dynamic mobility and displaced multiple posterior loss of balance. ASSESSMENT: Middle-aged male with a peripheral neuropathy from chronic alcohol abuse on disability with recent fall and fractured multiple ribs and mild T12 vertebral body compression fracture, also with known chronic lower back pain, degenerative joint disease of both knees, also with known history of hypertension, testicular carcinoma, chronic kidney disease, gastroesophageal reflux disease, hypertension, anxiety, depression, seizure disorder. RECOMMENDATIONS: Agree with the plan for physical therapy and occupational therapy. Suggest trial of methadone to help ease his pain. He is going to think about it. He might need transfer to snf care unit when medically stable to try to help with his mobility and self-care limitations as he is a fall risk. Dr. Rock, I appreciate asking me to participate in the care of this interesting patient. I will be glad to see him for followup with you on as needed basis. SANDRA DR: Luis TID: [id number]
[2020-11-06] MEDS: PATCH REMOVAL. MC SCH (21:00)
[2020-11-06] MEDS: SENNOSIDES/DOCUSATE 8.6/50MG TABLET. PO SCH (21:00)
[2020-11-06] MEDS: fentaNYL PF VIAL 100 MCG/2 ML VIAL IVP PRN (22:04)
[2020-11-06 23:26] VITALS: BP 94/67
[2020-11-07 03:36] VITALS: BP 106/75
[2020-11-07] MEDS: HEPARIN for SUB-Q USE 5,000 UNIT/ML VIAL. SQ SCH ×3 (05:33→20:49)
[2020-11-07 07:15] VITALS: BP 112/79
--- NOTE | 2020-11-07 08:18 | PDOC ---
[facility] PROGRESS NOTE Date of Service DOS: DATE: 11/07/20 TIME: 08:16 Chief Complaint Chief Complaint A/P: Multiple rib fractures Intractable pain History seizures Anxiety disorder T12 fracture H/o alcohol use disorder Plan: We will attempt to control his pain with p.o. Dilaudid, which she states he is tolerated in the past (reports intolerance to morphine, hydrocodone, oxycodone). If necessary, fentanyl patch may also be an option We will have patient work with PT/OT Incentive spirometer use We will resume home medications Will need to be judicious with pain medications on discharge given history of alcohol use and current regular Ativan use FEN - Cardiac diet PPX - Heparin FULL CODE Dispo - inpatient for above Patient names his mother (Suzy Barron) as surrogate decision-maker History of Present Illness History of Present Illness Patient 55-year-old male with past medical history seizure disorder, anxiety, hypertension, GERD, kidney stones, CKD, testicular cancer, who initially presented to the ED yesterday for evaluation mechanical fall. Chest x-ray yesterday showed multiple rib fractures (left 6th, 7th, 8th, 9th, and 10th rib), but patient was subsequently discharged home with p.o. pain medications. He returned to the ED early this morning with complaint of intractable pain. States whatever medication he is received in the ED has helped control his pain. He has a history of former heavy alcohol abuse, but states he has not used any alcohol in a number of weeks. For his history of anxiety he takes Ativan 1 mg 3 times daily. Admitted patient for further medical management with trauma surgery consultation. 11/06: Afebrile. Labs pending this am. Incidentally a T12 fracture was found on CT imaging consistent with focal pain. Still having significant pain requiring IV medications. No BM, low appetite. Noted coughing with drinking liquids, CONTROL CENTER OPERATOR evaluated, encouraged appropriate seating while eating and drinking. K 2.8, Mg 1.4, replaced. Still with significant left-sided rib pain and muscle spasms added tizanidine and increased Dilantin dosing with some improvement. His magnesium is 2 potassium is 3.5 sodium improved to 133. He still very unsteady working with therapy and notes that he has had 3 falls with fractures in the last year including a nasal fracture. Advised acute rehab. Vitals/I&O Vitals/I&O: Vital Signs Date Time Temp Pulse Resp B/P (MAP) Pulse Ox O2 Delivery O2 Flow Rate FiO2 11/07/20 03:36 97.9 83 16 106/75 (85) 97 Nasal Cannula 97.9 11/06/20 20:10 2.0 I & O 11/06/20 11/06/20 11/07/20 15:00 23:00 07:00 Intake Total 100 ml Output Total 800 ml 550 ml Balance -700 ml -550 ml Physical Exam General: Alert, Oriented X3, Cooperative Heart: Regular rate, Normal S1, Normal S2 Lungs: Clear, Other Abdomen: Soft, Other (tender upper abdomen ) Extremities: No clubbing, No cyanosis Skin: No rashes, No breakdown Labs Labs: Laboratory Tests Test 11/06/20 11:25 Sodium Level 126 mmol/L (136-145) Potassium Level 2.8 mmol/L (3.5-5.1) Chloride Level 86 mmol/L (98-107) Carbon Dioxide Level 33 mmol/L (21-32) Anion Gap 7 (6-14) Blood Urea Nitrogen 12 mg/dL (8-26) Creatinine 1.2 mg/dL (0.7-1.3) Estimated GFR (Cockcroft-Gault) 63.3 Glucose Level 133 mg/dL (70-99) Calcium Level 8.6 mg/dL (8.5-10.1) Magnesium Level 1.6 mg/dL (1.8-2.4) Assessment and Plan Assessmemt and Plan Problems Medical Problems: (1) Multiple fractures of ribs, left side, initial encounter for closed fracture Status: Acute Comment Review of Relevant I have reviewed the following items alyson (where applicable) has been applied. Medications: Current Medications Medications (Trade) Dose Ordered Sig/Donaldo Route PRN Reason Start Time Stop Time Status Last Admin Dose Admin Lorazepam (Ativan) 1 mg TID PO 11/06/20 09:00 11/06/20 10:30 DC 11/06/20 10:17 Potassium Chloride/Sodium Chloride 1,000 ml @ 100 mls/hr Q10H ONCE IV 11/06/20 13:00 11/06/20 22:59 DC 11/06/20 14:22 Potassium Chloride (Klor-Con) 40 meq 1X ONCE PO 11/06/20 13:00 11/06/20 13:01 DC 11/06/20 14:23 Magnesium Sulfate 100 ml @ 25 mls/hr 1X ONCE IV 11/06/20 13:15 11/06/20 17:14 DC 11/06/20 14:27 Lidocaine (Lidoderm) 1 patch DAILY TD 11/06/20 15:00 11/06/20 14:39 Miscellaneous (Lidoderm Patch Removal) 1 ea QHS 11/06/20 21:00 11/06/20 21:00 Bisacodyl (Dulcolax Tab) 10 mg DAILY PO 11/06/20 14:15 11/06/20 14:38 Justifications for Admission Other Justification CHRISTA CROFT MD Nov 07, 2020 08:18
[2020-11-07] MEDS: SENNOSIDES/DOCUSATE 8.6/50MG TABLET. PO SCH ×2 (08:49→21:00)
[2020-11-07] MEDS: ASPIRIN ENTERIC COATED 81 MG TABLET.DR. PO SCH (08:49)
[2020-11-07] MEDS: FOLIC ACID 1 MG TABLET. PO SCH (08:50)
[2020-11-07] MEDS: tiZANidine 4 MG TABLET. PO PRN ×2 (08:50→20:43)
[2020-11-07] MEDS: BISACODYL 5 MG TABLET.DR. PO SCH (08:50)
[2020-11-07] MEDS: HYDROmorphone 2 MG TABLET PO PRN ×3 (08:51→19:24)
[2020-11-07] MEDS: METOPROLOL TART IMMED RELEASE 50 MG TABLET. PO SCH ×2 (08:52→20:43)
[2020-11-07] MEDS: carBAMazepine 200 MG TABLET PO SCH ×2 (08:52→20:43)
[2020-11-07] MEDS: LIDOCAINE (700MG/PATCH) PATCH. TD SCH (08:56)
[2020-11-07] MEDS: NYSTATIN TOPICAL POWDER 15GM BOTTLE. TP SCH ×2 (09:15→20:44)
[2020-11-07 09:19] LABS: CALCIUM 8.6 mg/dL (8.5-10.1); CREATININE 0.9 mg/dL (0.7-1.3); GFR 88.3; POTASSIUM 3.5 mmol/L (3.5-5.1)
[2020-11-07 11:15] VITALS: BP 110/54
--- NOTE | 2020-11-07 12:56 | PDOC ---
PROGRESS NOTES Date of Service DATE: 11/07/20 TIME: 12:54 Subjective Subjective He admits continued left rib cage pain and denies any significant mid back area pain. Objective Objective Vital Signs Date Time Temp Pulse Resp B/P (MAP) Pulse Ox O2 Delivery O2 Flow Rate FiO2 11/07/20 11:15 98.2 92 16 110/54 (72) 97 Room Air 98.2 11/07/20 08:51 2.0 Intake and Output 11/07/20 07:00 Intake Total 100 ml Output Total 1350 ml Balance -1250 ml Intake Oral 100 ml Output Urine Total 1350 ml Physical Exam Physical Exam He is sitting at edge of bed and eating lunch and does not seem to be in any acute distress. Assessment Assessment Problems Medical Problems: (1) Multiple fractures of ribs, left side, initial encounter for closed fracture Status: Acute Plan Plan of Care To get him up as tolerated and to SNF when medically stable. Comment Review of Relevant I have reviewed the following items alyson (where applicable) has been applied. Labs Laboratory Tests Test 11/06/20 11:25 11/07/20 08:05 Sodium Level 126 mmol/L (136-145) 133 mmol/L (136-145) Potassium Level 2.8 mmol/L (3.5-5.1) 3.5 mmol/L (3.5-5.1) Chloride Level 86 mmol/L (98-107) 96 mmol/L (98-107) Carbon Dioxide Level 33 mmol/L (21-32) 29 mmol/L (21-32) Anion Gap 7 (6-14) 8 (6-14) Blood Urea Nitrogen 12 mg/dL (8-26) 9 mg/dL (8-26) Creatinine 1.2 mg/dL (0.7-1.3) 0.9 mg/dL (0.7-1.3) Estimated GFR (Cockcroft-Gault) 63.3 88.3 Glucose Level 133 mg/dL (70-99) 90 mg/dL (70-99) Calcium Level 8.6 mg/dL (8.5-10.1) 8.6 mg/dL (8.5-10.1) Magnesium Level 1.6 mg/dL (1.8-2.4) 2.0 mg/dL (1.8-2.4) Laboratory Tests Test 11/07/20 08:05 Sodium Level 133 mmol/L (136-145) Potassium Level 3.5 mmol/L (3.5-5.1) Chloride Level 96 mmol/L (98-107) Carbon Dioxide Level 29 mmol/L (21-32) Anion Gap 8 (6-14) Blood Urea Nitrogen 9 mg/dL (8-26) Creatinine 0.9 mg/dL (0.7-1.3) Estimated GFR (Cockcroft-Gault) 88.3 Glucose Level 90 mg/dL (70-99) Calcium Level 8.6 mg/dL (8.5-10.1) Magnesium Level 2.0 mg/dL (1.8-2.4) Medications Current Medications Hydromorphone HCl (Dilaudid) 4 mg PRN Q4HRS PRN PO SEVERE PAIN 7-10 Last administered on 11/07/20at 04:33; Start 11/05/20 at 03:15; Stop 11/07/20 at 08:16; Status DC Ondansetron HCl (Zofran Odt) 4 mg 1X ONCE PO Last administered on 11/05/20at 03:40; Start 11/05/20 at 03:30; Stop 11/05/20 at 03:31; Status DC Hydromorphone HCl (Dilaudid) 1 mg 1X ONCE IVP Last administered on 11/05/20at 05:17; Start 11/05/20 at 05:30; Stop 11/05/20 at 05:31; Status DC Lidocaine (Lidoderm) 1 patch 1X ONCE TD Last administered on 11/05/20at 05:27; Start 11/05/20 at 05:30; Stop 11/05/20 at 05:31; Status DC Potassium Chloride (Klor-Con) 40 meq 1X ONCE PO Last administered on 11/05/20at 05:31; Start 11/05/20 at 06:00; Stop 11/05/20 at 06:01; Status DC Magnesium Sulfate 50 ml @ 25 mls/hr 1X ONCE IV Last administered on 11/05/20at 06:37; Start 11/05/20 at 06:00; Stop 11/05/20 at 07:59; Status DC Aspirin (Ecotrin) 81 mg DAILY PO Last administered on 11/07/20at 08:49; Start 11/05/20 at 09:00 Carbamazepine (TEGretol) 50 mg BID PO Last administered on 11/07/20at 08:52; S tart 11/05/20 at 09:00 Folic Acid (Folic Acid) 1 mg DAILY PO Last administered on 11/07/20at 08:50; Start 11/05/20 at 09:00 Metoprolol Tartrate (Lopressor) 50 mg BID PO Last administered on 11/07/20at 08:52; Start 11/05/20 at 09:00 Lorazepam (Ativan) 1 mg TID PO Last administered on 11/06/20at 00:44; Start 11/05/20 at 09:00; Stop 11/06/20 at 00:53; Status DC Fentanyl Citrate (Fentanyl 2ml Vial) 50 mcg PRN Q2HR PRN IVP See comments Last administered on 11/06/20at 22:04; Start 11/05/20 at 06:45 Ondansetron HCl (Zofran) 4 mg PRN Q6HRS PRN IVP NAUSEA/VOMITING; Start 11/05/20 at 06:45 Al Hydroxide/Mg Hydroxide (Mylanta Plus Xs) 30 ml PRN Q3HRS PRN PO HEARTBURN / GAS; Start 11/05/20 at 06:45 Calcium Carbonate/ Glycine (Tums) 500 mg PRN Q3HRS PRN PO UPSET STOMACH; Start 11/05/20 at 06:45 Acetaminophen (Tylenol) 650 mg PRN Q6HRS PRN PO Headaches, Temp > 101.5F; Start 11/05/20 at 06:45 Magnesium Hydroxide (Milk Of Magnesia) 2,400 mg PRN Q12HR PRN PO CONSTIPATION; Start 11/05/20 at 06:45 Heparin Sodium (Porcine) (Heparin Sodium) 5,000 unit Q8HRS SQ Last administered on 11/07/20at 05:33; Start 11/05/20 at 07:30 Hydroxyzine HCl (Atarax) 25 mg QHS PRN PO INSOMNIA, 2nd CHOICE; Start 11/05/20 at 06:45 Diphenhydramine HCl (Benadryl) 25 mg PRN QHS PRN PO INSOMNIA, 1st CHOICE; Start 11/05/20 at 06:45 Iohexol (Omnipaque 300 Mg/ml) 75 ml 1X ONCE IV Last administered on 11/05/20at 09:45; Start 11/05/20 at 09:45; Stop 11/05/20 at 09:46; Status DC Info (CONTRAST GIVEN -- Rx MONITORING) 1 each PRN DAILY PRN MC SEE COMMENTS; Start 11/05/20 at 09:45; Stop 11/07/20 at 09:44; Status DC Lorazepam (Ativan) 1 mg TID PO Last administered on 11/06/20at 10:17; Start 11/06/20 at 09:00; Stop 11/06/20 at 10:30; Status DC Lorazepam (Ativan) 1 mg PRN TID PRN PO anxiety Last administered on 11/07/20at 08:50; Start 11/06/20 at 10:45 Potassium Chloride/Sodium Chloride 1,000 ml @ 100 mls/hr Q10H ONCE IV Last administered on 11/06/20at 14:22; Start 11/06/20 at 13:00; Stop 11/06/20 at 22:59; Status DC Potassium Chloride (Klor-Con) 40 meq 1X ONCE PO Last administered on 11/06/20at 14:23; Start 11/06/20 at 13:00; Stop 11/06/20 at 13:01; Status DC Magnesium Sulfate 100 ml @ 25 mls/hr 1X ONCE IV Last administered on 11/06/20at 14:27; Start 11/06/20 at 13:15; Stop 11/06/20 at 17:14; Status DC Magnesium Sulfate 100 ml @ 25 mls/hr 1X ONCE IV ; Start 11/06/20 at 13:15; Stop 11/06/20 at 17:14; Status UNV Lidocaine (Lidoderm) 1 patch DAILY TD Last administered on 11/07/20at 08:56; Start 11/06/20 at 15:00 Miscellaneous (Lidoderm Patch Removal) 1 ea QHS MC Last administered on 11/06/20at 21:00; Start 11/06/20 at 21:00 Bisacodyl (Dulcolax Supp) 10 mg PRN DAILY PRN MA CONSTIPATION; Start 11/06/20 at 14:15 Bisacodyl (Dulcolax Tab) 10 mg DAILY PO Last administered on 11/07/20at 08:50; Start 11/06/20 at 14:15 Senna/Docusate Sodium (Senna Plus) 1 tab BID PO Last administered on 11/07/20at 08:49; Start 11/06/20 at 21:00 Sodium Monofluorophosphate (Fleet Adult) 133 ml DAILY PRN MA CONSTIPATION; Start 11/06/20 at 14:15 Hydromorphone HCl (Dilaudid) 6 mg PRN Q4HRS PRN PO SEVERE PAIN 7-10 Last administered on 11/07/20at 08:51; Start 11/07/20 at 08:30 Tizanidine HCl (Zanaflex) 4 mg PRN Q8HRS PRN PO MUSCLE SPASMS Last administered on 11/07/20at 08:50; Start 11/07/20 at 08:15 Nystatin (Nystop) 1 michelle BID TP Last administered on 11/07/20at 09:15; Start 11/07/20 at 09:15 Active Scripts Active Zofran (Ondansetron Hcl) 4 Mg Tablet 1 Tab PO Q6HRS PRN Triamcinolone Acetonide 0.5% Cream (Triamcinolone Acetonide) 15 Gm Cream..g. 1 Michelle TP BID Tramadol Hcl 50 Mg Tablet 50 Mg PO Q6HRS PRN 30 Days Epitol (Carbamazepine) 200 Mg Tablet 50 Mg PO BID Folic Acid 1 Mg Tablet 1 Mg PO DAILY 30 Days Reported Klor-Con 10 (Potassium Chloride) 10 Meq Tablet.er 10 Meq PO DAILY Erythromycin (Erythromycin Base) 250 Mg Capsule. 250 Mg PO DAILY Lorazepam 1 Mg Tablet 1 Tab PO TID Metoprolol Tartrate 50 Mg Tablet 50 Mg PO BID Aspir 81 (Aspirin) 81 Mg Tablet. 1 Tab PO DAILY Vitals/I & O Vital Sign - Last 24 Hours 11/06/20 11/06/20 11/06/20 11/06/20 15:05 19:48 20:10 21:00 Temp 98.3 97.4 98.3 97.4 Pulse 69 75 65 Resp 18 16 B/P (MAP) 165/82 (109) 94/66 (75) 94/62 Pulse Ox 94 96 O2 Delivery Nasal Cannula Room Air O2 Flow Rate 2.0 2.0 11/06/20 11/06/20 11/06/20 11/07/20 22:04 22:34 23:26 03:36 Temp 97.6 97.9 97.6 97.9 Pulse 75 83 Resp 16 16 16 16 B/P (MAP) 94/67 (76) 106/75 (85) Pulse Ox 96 95 90 97 O2 Delivery Nasal Cannula Room Air Room Air Nasal Cannula 11/07/20 11/07/20 11/07/20 11/07/20 07:15 08:51 08:52 11:15 Temp 98.5 98.2 98.5 98.2 Pulse 92 92 92 Resp 18 16 B/P (MAP) 112/79 (90) 112/79 110/54 (72) Pulse Ox 95 95 97 O2 Delivery Room Air Room Air O2 Flow Rate 2.0 Intake and Output 11/06/20 11/06/20 11/07/20 15:00 23:00 07:00 Intake Total 100 ml Output Total 800 ml 550 ml Balance -700 ml -550 ml Justifications for Admission Other Justification NIRAJ JENSEN MD Nov 07, 2020 12:56
[2020-11-07] MEDS ORDERED: POTASSIUM BICARB 20 MEQ EFFERVESCENT TABLET. PO ONE (14:30)
[2020-11-07 15:04] VITALS: BP 108/74
[2020-11-07 19:20] VITALS: BP 107/74
[2020-11-07] MEDS: PATCH REMOVAL. MC SCH (20:41)
[2020-11-07 23:30] VITALS: BP 98/62
[2020-11-08] MEDS: HYDROmorphone 2 MG TABLET PO PRN ×5 (01:25→21:11)
[2020-11-08 02:57] VITALS: BP 92/62
[2020-11-08] MEDS: HEPARIN for SUB-Q USE 5,000 UNIT/ML VIAL. SQ SCH ×3 (05:30→21:16)
[2020-11-08 07:35] VITALS: BP 92/69
[2020-11-08 08:36] LABS: CALCIUM 9.2 mg/dL (8.5-10.1); CREATININE 0.9 mg/dL (0.7-1.3); GFR 88.3; POTASSIUM 3.5 mmol/L (3.5-5.1)
[2020-11-08] MEDS: ASPIRIN ENTERIC COATED 81 MG TABLET.DR. PO SCH (09:00)
[2020-11-08] MEDS: SENNOSIDES/DOCUSATE 8.6/50MG TABLET. PO SCH ×2 (09:01→21:10)
[2020-11-08] MEDS: LIDOCAINE (700MG/PATCH) PATCH. TD SCH (09:01)
[2020-11-08] MEDS: FOLIC ACID 1 MG TABLET. PO SCH (09:01)
[2020-11-08] MEDS: BISACODYL 5 MG TABLET.DR. PO SCH (09:01)
[2020-11-08] MEDS: carBAMazepine 200 MG TABLET PO SCH ×2 (09:01→21:09)
[2020-11-08] MEDS: NYSTATIN TOPICAL POWDER 15GM BOTTLE. TP SCH ×2 (09:01→21:32)
[2020-11-08] MEDS: fentaNYL PF VIAL 100 MCG/2 ML VIAL IVP PRN (09:02)
--- NOTE | 2020-11-08 10:02 | PDOC ---
PROGRESS NOTES Date of Service DATE: 11/08/20 TIME: 10:00 Subjective Subjective He admits continued rib cage pain. Objective Objective Vital Signs Date Time Temp Pulse Resp B/P (MAP) Pulse Ox O2 Delivery O2 Flow Rate FiO2 11/08/20 09:02 Room Air 11/08/20 07:35 97.9 91 18 92/69 (77) 96 97.9 11/07/20 19:24 2.0 Intake and Output 11/08/20 07:00 Intake Total 860 ml Output Total 1200 ml Balance -340 ml Intake Oral 860 ml Output Urine Total 1200 ml # Voids 4 Physical Exam Physical Exam He is alert,moving better in bed and he did walk for 75' with roller walker with physical therapy yesterday. Assessment Assessment Problems Medical Problems: (1) Multiple fractures of ribs, left side, initial encounter for closed fracture Status: Acute Plan Plan of Care To SNF when arrangements are completed. Comment Review of Relevant I have reviewed the following items alyson (where applicable) has been applied. Labs Laboratory Tests Test 11/06/20 11:25 11/07/20 08:05 11/08/20 07:25 Sodium Level 126 mmol/L (136-145) 133 mmol/L (136-145) 132 mmol/L (136-145) Potassium Level 2.8 mmol/L (3.5-5.1) 3.5 mmol/L (3.5-5.1) 3.5 mmol/L (3.5-5.1) Chloride Level 86 mmol/L (98-107) 96 mmol/L (98-107) 94 mmol/L (98-107) Carbon Dioxide Level 33 mmol/L (21-32) 29 mmol/L (21-32) 29 mmol/L (21-32) Anion Gap 7 (6-14) 8 (6-14) 9 (6-14) Blood Urea Nitrogen 12 mg/dL (8-26) 9 mg/dL (8-26) 10 mg/dL (8-26) Creatinine 1.2 mg/dL (0.7-1.3) 0.9 mg/dL (0.7-1.3) 0.9 mg/dL (0.7-1.3) Estimated GFR (Cockcroft-Gault) 63.3 88.3 88.3 Glucose Level 133 mg/dL (70-99) 90 mg/dL (70-99) 91 mg/dL (70-99) Calcium Level 8.6 mg/dL (8.5-10.1) 8.6 mg/dL (8.5-10.1) 9.2 mg/dL (8.5-10.1) Magnesium Level 1.6 mg/dL (1.8-2.4) 2.0 mg/dL (1.8-2.4) Laboratory Tests Test 11/08/20 07:25 Sodium Level 132 mmol/L (136-145) Potassium Level 3.5 mmol/L (3.5-5.1) Chloride Level 94 mmol/L (98-107) Carbon Dioxide Level 29 mmol/L (21-32) Anion Gap 9 (6-14) Blood Urea Nitrogen 10 mg/dL (8-26) Creatinine 0.9 mg/dL (0.7-1.3) Estimated GFR (Cockcroft-Gault) 88.3 Glucose Level 91 mg/dL (70-99) Calcium Level 9.2 mg/dL (8.5-10.1) Medications Current Medications Hydromorphone HCl (Dilaudid) 4 mg PRN Q4HRS PRN PO SEVERE PAIN 7-10 Last administered on 11/07/20at 04:33; Start 11/05/20 at 03:15; Stop 11/07/20 at 08:16; Status DC Ondansetron HCl (Zofran Odt) 4 mg 1X ONCE PO Last administered on 11/05/20at 03:40; Start 11/05/20 at 03:30; Stop 11/05/20 at 03:31; Status DC Hydromorphone HCl (Dilaudid) 1 mg 1X ONCE IVP Last administered on 11/05/20at 05:17; Start 11/05/20 at 05:30; Stop 11/05/20 at 05:31; Status DC Lidocaine (Lidoderm) 1 patch 1X ONCE TD Last administered on 11/05/20at 05:27; Start 11/05/20 at 05:30; Stop 11/05/20 at 05:31; Status DC Potassium Chloride (Klor-Con) 40 meq 1X ONCE PO Last administered on 11/05/20at 05:31; Start 11/05/20 at 06:00; Stop 11/05/20 at 06:01; Status DC Magnesium Sulfate 50 ml @ 25 mls/hr 1X ONCE IV Last administered on 11/05/20at 06:37; Start 11/05/20 at 06:00; Stop 11/05/20 at 07:59; Status DC Aspirin (Ecotrin) 81 mg DAILY PO Last administered on 11/08/20at 09:00; Start 11/05/20 at 09:00 Carbamazepine (TEGretol) 50 mg BID PO Last administered on 11/08/20at 09:01; Start 11/05/20 at 09:00 Folic Acid (Folic Acid) 1 mg DAILY PO Last administered on 11/08/20at 09:01; Start 11/05/20 at 09:00 Metoprolol Tartrate (Lopressor) 50 mg BID PO Last administered on 11/07/20at 20:43; Start 11/05/20 at 09:00 Lorazepam (Ativan) 1 mg TID PO Last administered on 11/06/20at 00:44; Start 11/05/20 at 09:00; Stop 11/06/20 at 00:53; Status DC Fentanyl Citrate (Fentanyl 2ml Vial) 50 mcg PRN Q2HR PRN IVP See comments Last administered on 11/08/20at 09:02; Start 11/05/20 at 06:45 Ondansetron HCl (Zofran) 4 mg PRN Q6HRS PRN IVP NAUSEA/VOMITING; Start 11/05/20 at 06:45 Al Hydroxide/Mg Hydroxide (Mylanta Plus Xs) 30 ml PRN Q3HRS PRN PO HEARTBURN / GAS; Start 11/05/20 at 06:45 Calcium Carbonate/ Glycine (Tums) 500 mg PRN Q3HRS PRN PO UPSET STOMACH; Start 11/05/20 at 06:45 Acetaminophen (Tylenol) 650 mg PRN Q6HRS PRN PO Headaches, Temp > 101.5F; Start 11/05/20 at 06:45 Magnesium Hydroxide (Milk Of Magnesia) 2,400 mg PRN Q12HR PRN PO CONSTIPATION; Start 11/05/20 at 06:45 Heparin Sodium (Porcine) (Heparin Sodium) 5,000 unit Q8HRS SQ Last administered on 11/08/20at 05:30; Start 11/05/20 at 07:30 Hydroxyzine HCl (Atarax) 25 mg QHS PRN PO INSOMNIA, 2nd CHOICE; Start 11/05/20 at 06:45 Diphenhydramine HCl (Benadryl) 25 mg PRN QHS PRN PO INSOMNIA, 1st CHOICE; St art 11/05/20 at 06:45 Iohexol (Omnipaque 300 Mg/ml) 75 ml 1X ONCE IV Last administered on 11/05/20at 09:45; Start 11/05/20 at 09:45; Stop 11/05/20 at 09:46; Status DC Info (CONTRAST GIVEN -- Rx MONITORING) 1 each PRN DAILY PRN MC SEE COMMENTS; Start 11/05/20 at 09:45; Stop 11/07/20 at 09:44; Status DC Lorazepam (Ativan) 1 mg TID PO Last administered on 11/06/20at 10:17; Start 11/06 at 09:00; Stop 11/06/20 at 10:30; Status DC Lorazepam (Ativan) 1 mg PRN TID PRN PO anxiety Last administered on 11/07/20at 23 :00; Start 11/06/20 at 10:45 Potassium Chloride/Sodium Chloride 1,000 ml @ 100 mls/hr Q10H ONCE IV Last administered on 11/06/20at 14:22; Start 11/06/20 at 13:00; Stop 11/06/20 at 22:59; Status DC Potassium Chloride (Klor-Con) 40 meq 1X ONCE PO Last administered on 11/06/20at 14:23; Start 11/06/20 at 13:00; Stop 11/06/20 at 13:01; Status DC Magnesium Sulfate 100 ml @ 25 mls/hr 1X ONCE IV Last administered on 11/06/20at 14:27; Start 11/06/20 at 13:15; Stop 11/06/20 at 17:14; Status DC Magnesium Sulfate 100 ml @ 25 mls/hr 1X ONCE IV ; Start 11/06/20 at 13:15; Stop 11/06/20 at 17:14; Status UNV Lidocaine (Lidoderm) 1 patch DAILY TD Last administered on 11/08/20at 09:01; Start 11/06/20 at 15:00 Miscellaneous (Lidoderm Patch Removal) 1 ea QHS MC Last administered on 11/06/20at 21:00; Start 11/06/20 at 21:00 Bisacodyl (Dulcolax Supp) 10 mg PRN DAILY PRN SD CONSTIPATION; Start 11/06/20 at 14:15 Bisacodyl (Dulcolax Tab) 10 mg DAILY PO Last administered on 11/08/20at 09:01; Start 11/06/20 at 14:15 Senna/Docusate Sodium (Senna Plus) 1 tab BID PO Last administered on 11/08/20at 09:01; Start 11/06/20 at 21:00 Sodium Monofluorophosphate (Fleet Adult) 133 ml DAILY PRN SD CONSTIPATION; Start 11/06/20 at 14:15 Hydromorphone HCl (Dilaudid) 6 mg PRN Q4HRS PRN PO SEVERE PAIN 7-10 Last ad ministered on 11/08/20at 05:26; Start 11/07/20 at 08:30 Tizanidine HCl (Zanaflex) 4 mg PRN Q8HRS PRN PO MUSCLE SPASMS Last administered on 11/07/20at 20:43; Start 11/07/20 at 08:15 Nystatin (Nystop) 1 michelle BID TP Last administered on 11/08/20at 09:01; Start at 09:15 Potassium Bicarbonate (Potassium Effervescent Tablet) 40 meq 1X ONCE PO Last administered on 11/07/20at 15:19; Start 11/07/20 at 14:30; Stop 11/07/20 at 14:31; Status DC Active Scripts Active Zofran (Ondansetron Hcl) 4 Mg Tablet 1 Tab PO Q6HRS PRN Triamcinolone Acetonide 0.5% Cream (Triamcinolone Acetonide) 15 Gm Cream..g. 1 Michelle TP BID Tramadol Hcl 50 Mg Tablet 50 Mg PO Q6HRS PRN 30 Days Epitol (Carbamazepine) 200 Mg Tablet 50 Mg PO BID Folic Acid 1 Mg Tablet 1 Mg PO DAILY 30 Days Reported Klor-Con 10 (Potassium Chloride) 10 Meq Tablet.er 10 Meq PO DAILY Erythromycin (Erythromycin Base) 250 Mg Capsule.dr 250 Mg PO DAILY Lorazepam 1 Mg Tablet 1 Tab PO TID Metoprolol Tartrate 50 Mg Tablet 50 Mg PO BID Aspir 81 (Aspirin) 81 Mg Tablet.dr 1 Tab PO DAILY Vitals/I & O Vital Sign - Last 24 Hours 11/07/20 11/07/20 11/07/20 11/07/20 11:15 15:04 15:18 16:17 Temp 98.2 97.7 98.2 97.7 Pulse 92 85 Resp 16 18 B/P (MAP) 110/54 (72) 108/74 (85) Pulse Ox 97 97 97 97 O2 Delivery Room Air Room Air O2 Flow Rate 2.0 2.0 11/07/20 11/07/20 11/07/20 11/07/20 16:17 19:20 19:24 20:43 Temp 97.9 97.9 Pulse 92 92 Resp 18 18 B/P (MAP) 107/74 (85) 107/74 Pulse Ox 97 97 97 O2 Delivery Room Air O2 Flow Rate 2.0 2.0 11/07/20 11/08/20 11/08/20 11/08/20 23:30 02:57 05:26 07:35 Temp 97.4 97.8 97.9 97.4 97.8 97.9 Pulse 75 78 91 Resp 20 18 16 18 B/P (MAP) 98/62 (74) 92/62 (72) 92/69 (77) Pulse Ox 96 98 98 96 O2 Delivery Room Air Room Air Room Air 11/08/20 09:02 O2 Delivery Room Air Intake and Output 11/07/20 11/07/20 11/08/20 15:00 23:00 07:00 Intake Total 140 ml 720 ml Output Total 250 ml 500 ml 450 ml Balance -110 ml -500 ml 270 ml Justifications for Admission Other Justification NIRAJ JENSEN MD Nov 08, 2020 10:02
[2020-11-08 11:15] VITALS: BP 107/70
[2020-11-08] MEDS: METOPROLOL TART IMMED RELEASE 50 MG TABLET. PO SCH ×2 (11:58→21:10)
--- NOTE | 2020-11-08 13:24 | PDOC ---
[facility] PROGRESS NOTE Date of Service DOS: DATE: 11/08/20 TIME: 13:23 Chief Complaint Chief Complaint A/P: Multiple rib fractures Intractable pain History seizures Anxiety disorder T12 fracture H/o alcohol use disorder Plan: We will attempt to control his pain with p.o. Dilaudid, which she states he is tolerated in the past (reports intolerance to morphine, hydrocodone, oxycodone). If necessary, fentanyl patch may also be an option We will have patient work with PT/OT Incentive spirometer use We will resume home medications Will need to be judicious with pain medications on discharge given history of alcohol use and current regular Ativan use FEN - Cardiac diet PPX - Heparin FULL CODE Dispo - inpatient for above Patient names his mother (Suzy Barron) as surrogate decision-maker History of Present Illness History of Present Illness Mr Underwood 55-year-old male with past medical history seizure disorder, anxiety, hypertension, GERD, kidney stones, CKD, testicular cancer, who initially presented to the ED yesterday for evaluation mechanical fall. Chest x-ray yesterday showed multiple rib fractures (left 6th, 7th, 8th, 9th, and 10th rib), but patient was subsequently discharged home with p.o. pain medications. He returned to the ED early this morning with complaint of intractable pain. States whatever medication he is received in the ED has helped control his pain. He has a history of former heavy alcohol abuse, but states he has not used any alcohol in a number of weeks. For his history of anxiety he takes Ativan 1 mg 3 times daily. Admitted patient for further medical management with trauma surgery consultation. 11/06: Afebrile. Labs pending this am. Incidentally a T12 fracture was found on CT imaging consistent with focal pain. Still having significant pain requiring IV medications. No BM, low appetite. Noted coughing with drinking liquids, DAMPER FITTER evaluated, encouraged appropriate seating while eating and drinking. K 2.8, Mg 1.4, replaced. 11/07: Still with significant left-sided rib pain and muscle spasms added tizanidine and increased Dilaudid dosing with some improvement. His magnesium is 2 potassium is 3.5 sodium improved to 133. He still very unsteady working with therapy and notes that he has had 3 falls with fractures in the last year including a nasal fracture. Advised acute rehab. Pain is still difficult to control did require IV fentanyl. He was able to go 4 steps with therapy. Potassium 3.5 today. Vitals/I&O Vitals/I&O: Vital Signs Date Time Temp Pulse Resp B/P (MAP) Pulse Ox O2 Delivery O2 Flow Rate FiO2 11/08/20 12:30 Room Air 11/08/20 11:58 90 107/70 11/08/20 11:15 98.0 18 97 98.0 11/08/20 09:32 2.0 I & O 11/07/20 11/07/20 11/08/20 15:00 23:00 07:00 Intake Total 140 ml 720 ml Output Total 250 ml 500 ml 450 ml Balance -110 ml -500 ml 270 ml Physical Exam General: Alert, Oriented X3, Cooperative Heart: Regular rate, Normal S1, Normal S2 Lungs: Clear, Other Abdomen: Soft, Other (tender upper abdomen ) Extremities: No clubbing, No cyanosis Skin: No rashes, No breakdown Labs Labs: Laboratory Tests Test 11/08/20 07:25 Sodium Level 132 mmol/L (136-145) Potassium Level 3.5 mmol/L (3.5-5.1) Chloride Level 94 mmol/L (98-107) Carbon Dioxide Level 29 mmol/L (21-32) Anion Gap 9 (6-14) Blood Urea Nitrogen 10 mg/dL (8-26) Creatinine 0.9 mg/dL (0.7-1.3) Estimated GFR (Cockcroft-Gault) 88.3 Glucose Level 91 mg/dL (70-99) Calcium Level 9.2 mg/dL (8.5-10.1) Assessment and Plan Assessmemt and Plan Problems Medical Problems: (1) Multiple fractures of ribs, left side, initial encounter for closed fracture Status: Acute Comment Review of Relevant I have reviewed the following items alyson (where applicable) has been applied. Medications: Current Medications Medications (Trade) Dose Ordered Sig/Donaldo Route PRN Reason Start Time Stop Time Status Last Admin Dose Admin Potassium Bicarbonate (Potassium Effervescent Tablet) 40 meq 1X ONCE PO 11/07/20 14:30 11/07/20 14:31 DC 11/07/20 15:19 Justifications for Admission Other Justification CHRISTA CROFT MD Nov 08, 2020 13:24
[2020-11-08] MEDS ORDERED: POTASSIUM BICARB 20 MEQ EFFERVESCENT TABLET. PO ONE (13:30)
[2020-11-08] MEDS ORDERED: POTASSIUM CHLORIDE 20 MEQ TABLET.ER. PO ONE (15:00)
[2020-11-08 15:10] VITALS: BP 119/82
[2020-11-08] MEDS: tiZANidine 4 MG TABLET. PO PRN (16:28)
[2020-11-08 19:00] VITALS: BP 107/68
[2020-11-08] MEDS: PATCH REMOVAL. MC SCH (21:10)
[2020-11-08 23:00] VITALS: BP 95/66
[2020-11-09] MEDS: tiZANidine 4 MG TABLET. PO PRN ×2 (00:27→11:56)
[2020-11-09] MEDS: HYDROmorphone 2 MG TABLET PO PRN ×3 (01:43→22:25)
[2020-11-09 03:00] VITALS: BP 91/61
[2020-11-09] MEDS: HEPARIN for SUB-Q USE 5,000 UNIT/ML VIAL. SQ SCH ×3 (06:10→22:26)
[2020-11-09 07:00] VITALS: BP 107/71
[2020-11-09 08:44] LABS: GFR 78.2; POTASSIUM 3.7 mmol/L (3.5-5.1)
[2020-11-09] MEDS: NYSTATIN TOPICAL POWDER 15GM BOTTLE. TP SCH ×2 (09:00→22:17)
--- NOTE | 2020-11-09 09:31 | PDOC ---
PROGRESS NOTES Date of Service DATE: 11/09/20 TIME: 09:28 Subjective Subjective He admits continued rib cage area pain. Objective Objective Vital Signs Date Time Temp Pulse Resp B/P (MAP) Pulse Ox O2 Delivery O2 Flow Rate FiO2 11/09/20 07:00 98.6 83 18 107/71 (83) 95 Room Air 98.6 11/08/20 09:32 2.0 Intake and Output 11/09/20 07:00 Intake Total 1803 ml Output Total 450 ml Balance 1353 ml Intake Oral 1803 ml Output Urine Total 450 ml # Voids 2 Physical Exam Physical Exam He is alert,supine in bed and apparently walking in his room with roller walker as per nursing. Assessment Assessment Problems Medical Problems: (1) Multiple fractures of ribs, left side, initial encounter for closed fracture Status: Acute Plan Plan of Care To SNF or home wiht home health follow up when medically stable. Comment Review of Relevant I have reviewed the following items alyson (where applicable) has been applied. Labs Laboratory Tests Test 11/08/20 07:25 11/09/20 07:50 Sodium Level 132 mmol/L (136-145) 132 mmol/L (136-145) Potassium Level 3.5 mmol/L (3.5-5.1) 3.7 mmol/L (3.5-5.1) Chloride Level 94 mmol/L (98-107) 94 mmol/L (98-107) Carbon Dioxide Level 29 mmol/L (21-32) 28 mmol/L (21-32) Anion Gap 9 (6-14) 10 (6-14) Blood Urea Nitrogen 10 mg/dL (8-26) 10 mg/dL (8-26) Creatinine 0.9 mg/dL (0.7-1.3) 1.0 mg/dL (0.7-1.3) Estimated GFR (Cockcroft-Gault) 88.3 78.2 Glucose Level 91 mg/dL (70-99) 80 mg/dL (70-99) Calcium Level 9.2 mg/dL (8.5-10.1) 9.0 mg/dL (8.5-10.1) Laboratory Tests Test 11/09/20 07:50 Sodium Level 132 mmol/L (136-145) Potassium Level 3.7 mmol/L (3.5-5.1) Chloride Level 94 mmol/L (98-107) Carbon Dioxide Level 28 mmol/L (21-32) Anion Gap 10 (6-14) Blood Urea Nitrogen 10 mg/dL (8-26) Creatinine 1.0 mg/dL (0.7-1.3) Estimated GFR (Cockcroft-Gault) 78.2 Glucose Level 80 mg/dL (70-99) Calcium Level 9.0 mg/dL (8.5-10.1) Medications Current Medications Hydromorphone HCl (Dilaudid) 4 mg PRN Q4HRS PRN PO SEVERE PAIN 7-10 Last administered on 11/07/20at 04:33; Start 11/05/20 at 03:15; Stop 11/07/20 at 08:16; Status DC Ondansetron HCl (Zofran Odt) 4 mg 1X ONCE PO Last administered on 11/05/20at 03:40; Start 11/05/20 at 03:30; Stop 11/05/20 at 03:31; Status DC Hydromorphone HCl (Dilaudid) 1 mg 1X ONCE IVP Last administered on 11/05/20at 05:17; Start 11/05/20 at 05:30; Stop 11/05/20 at 05:31; Status DC Lidocaine (Lidoderm) 1 patch 1X ONCE TD Last administered on 11/05/20at 05:27; Start 11/05/20 at 05:30; Stop 11/05/20 at 05:31; Status DC Potassium Chloride (Klor-Con) 40 meq 1X ONCE PO Last administered on 11/05/20at 05:31; Start 11/05/20 at 06:00; Stop 11/05/20 at 06:01; Status DC Magnesium Sulfate 50 ml @ 25 mls/hr 1X ONCE IV Last administered on 11/05/20at 06:37; Start 11/05/20 at 06:00; Stop 11/05/20 at 07:59; Status DC Aspirin (Ecotrin) 81 mg DAILY PO Last administered on 11/08/20at 09:00; Start 11/05/20 at 09:00 Carbamazepine (TEGretol) 50 mg BID PO Last administered on 11/08/20at 21:09; Start 11/05/20 at 09:00 Folic Acid (Folic Acid) 1 mg DAILY PO Last administered on 11/08/20at 09:01; Start 11/05/20 at 09:00 Metoprolol Tartrate (Lopressor) 50 mg BID PO Last administered on 11/08/20at 21:10; Start 11/05/20 at 09:00 Lorazepam (Ativan) 1 mg TID PO Last administered on 11/06/20at 00:44; Start 11/05/20 at 09:00; Stop 11/06/20 at 00:53; Status DC Fentanyl Citrate (Fentanyl 2ml Vial) 50 mcg PRN Q2HR PRN IVP See comments Last administered on 11/08/20at 09:02; Start 11/05/20 at 06:45 Ondansetron HCl (Zofran) 4 mg PRN Q6HRS PRN IVP NAUSEA/VOMITING; Start 11/05/20 at 06:45 Al Hydroxide/Mg Hydroxide (Mylanta Plus Xs) 30 ml PRN Q3HRS PRN PO HEARTBURN / GAS; Start 11/05/20 at 06:45 Calcium Carbonate/ Glycine (Tums) 500 mg PRN Q3HRS PRN PO UPSET STOMACH Last administered on 11/08/20at 14:40; Start 11/05/20 at 06:45 Acetaminophen (Tylenol) 650 mg PRN Q6HRS PRN PO Headaches, Temp > 101.5F; Start 11/05/20 at 06:45 Magnesium Hydroxide (Milk Of Magnesia) 2,400 mg PRN Q12HR PRN PO CONSTIPATION; Start 11/05/20 at 06:45 Heparin Sodium (Porcine) (Heparin Sodium) 5,000 unit Q8HRS SQ Last administered on 11/09/20at 06:10; Start 11/05/20 at 07:30 Hydroxyzine HCl (Atarax) 25 mg QHS PRN PO INSOMNIA, 2nd CHOICE; Start 11/05/20 at 06:45 Diphenhydramine HCl (Benadryl) 25 mg PRN QHS PRN PO INSOMNIA, 1st CHOICE; Start 11/05/20 at 06:45 Iohexol (Omnipaque 300 Mg/ml) 75 ml 1X ONCE IV Last administered on 11/05/20at 09:45; Start 11/05/20 at 09:45; Stop 11/05/20 at 09:46; Status DC Info (CONTRAST GIVEN -- Rx MONITORING) 1 each PRN DAILY PRN MC SEE COMMENTS; Start 11/05/20 at 09:45; Stop 11/07/20 at 09:44; Status DC Lorazepam (Ativan) 1 mg TID PO Last administered on 11/06/20at 10:17; Start 11/06/20 at 09:00; Stop 11/06/20 at 10:30; Status DC Lorazepam (Ativan) 1 mg PRN TID PRN PO anxiety Last administered on 11/07/20at 23:00; Start 11/06/20 at 10:45 Potassium Chloride/Sodium Chloride 1,000 ml @ 100 mls/hr Q10H ONCE IV Last administered on 11/06/20at 14:22; Start 11/06/20 at 13:00; Stop 11/06/20 at 22:59; Status DC Potassium Chloride (Klor-Con) 40 meq 1X ONCE PO Last administered on 11/06/20at 14:23; Start 11/06/20 at 13:00; Stop 11/06/20 at 13:01; Status DC Magnesium Sulfate 100 ml @ 25 mls/hr 1X ONCE IV Last administered on 11/06/20at 14:27; Start 11/06/20 at 13:15; Stop 11/06/20 at 17:14; Status DC Magnesium Sulfate 100 ml @ 25 mls/hr 1X ONCE IV ; Start 11/06/20 at 13:15; Stop 11/06/20 at 17:14; Status UNV Lidocaine (Lidoderm) 1 patch DAILY TD Last administered on 11/08/20at 09:01; Start 11/06/20 at 15:00 Miscellaneous (Lidoderm Patch Removal) 1 ea QHS MC Last administered on 11/08/20at 21:10; Start 11/06/20 at 21:00 Bisacodyl (Dulcolax Supp) 10 mg PRN DAILY PRN [place] CONSTIPATION; Start 11/06/20 at 14:15 Bisacodyl (Dulcolax Tab) 10 mg DAILY PO Last administered on 11/08/20at 09:01; Start 11/06/20 at 14:15 Senna/Docusate Sodium (Senna Plus) 1 tab BID PO Last administered on 11/08/20at 21:10; Start 11/06/20 at 21:00 Sodium Monofluorophosphate (Fleet Adult) 133 ml DAILY PRN CO CONSTIPATION; Start 11/06/20 at 14:15 Hydromorphone HCl (Dilaudid) 6 mg PRN Q4HRS PRN PO SEVERE PAIN 7-10 Last administered on 11/09/20at 01:43; Start 11/07/20 at 08:30 Tizanidine HCl (Zanaflex) 4 mg PRN Q8HRS PRN PO MUSCLE SPASMS Last administered on 11/09/20at 00:27; Start 11/07/20 at 08:15 Nystatin (Nystop) 1 michelle BID TP Last administered on 11/08/20at 21:32; Start 11/07/20 at 09:15 Potassium Bicarbonate (Potassium Effervescent Tablet) 40 meq 1X ONCE PO Last administered on 11/07/20at 15:19; Start 11/07/20 at 14:30; Stop 11/07/20 at 14:31; Status DC Potassium Bicarbonate (Potassium Effervescent Tablet) 40 meq 1X ONCE PO ; Start 11/08/20 at 13:30; Stop 11/08/20 at 14:49; Status DC Potassium Chloride (Klor-Con) 40 meq 1X ONCE PO Last administered on 11/08/20at 15:02; Start 11/08/20 at 15:00; Stop 11/08/20 at 15:01; Status DC Active Scripts Active Zofran (Ondansetron Hcl) 4 Mg Tablet 1 Tab PO Q6HRS PRN Triamcinolone Acetonide 0.5% Cream (Triamcinolone Acetonide) 15 Gm Cream..g. 1 Michelle TP BID Tramadol Hcl 50 Mg Tablet 50 Mg PO Q6HRS PRN 30 Days Epitol (Carbamazepine) 200 Mg Tablet 50 Mg PO BID Folic Acid 1 Mg Tablet 1 Mg PO DAILY 30 Days Reported Klor-Con 10 (Potassium Chloride) 10 Meq Tablet.er 10 Meq PO DAILY Erythromycin (Erythromycin Base) 250 Mg Capsule.dr 250 Mg PO DAILY Lorazepam 1 Mg Tablet 1 Tab PO TID Metoprolol Tartrate 50 Mg Tablet 50 Mg PO BID Aspir 81 (Aspirin) 81 Mg Tablet. 1 Tab PO DAILY Vitals/I & O Vital Sign - Last 24 Hours 11/08/20 11/08/20 11/08/20 11/08/20 09:32 11:15 11:58 11:58 Temp 98.0 98.0 Pulse 90 90 Resp 18 B/P (MAP) 107/70 (82) 107/70 Pulse Ox 97 O2 Delivery Room Air Room Air Room Air O2 Flow Rate 2.0 11/08/20 11/08/20 11/08/20 11/08/20 12:30 15:10 16:28 17:10 Temp 98.3 98.3 Pulse 105 Resp 18 B/P (MAP) 119/82 (94) Pulse Ox 93 O2 Delivery Room Air Room Air Room Air Room Air 11/08/20 11/08/20 11/08/20 11/08/20 19:00 19:45 21:10 21:11 Temp 97.9 97.9 Pulse 83 83 Resp 18 18 B/P (MAP) 107/68 (81) 107/68 Pulse Ox 98 O2 Delivery Room Air Room Air Room Air 11/08/20 11/08/20 11/09/20 11/09/20 21:41 23:00 01:43 02:13 Temp 97.8 97.8 Pulse 79 Resp 20 18 20 18 B/P (MAP) 95/66 (76) Pulse Ox 93 O2 Delivery Room Air Room Air Room Air Room Air 11/09/20 11/09/20 03:00 07:00 Temp 96.6 98.6 96.6 98.6 Pulse 70 83 Resp 18 18 B/P (MAP) 91/61 (71) 107/71 (83) Pulse Ox 98 95 O2 Delivery Room Air Room Air Intake and Output 11/08/20 11/08/20 11/09/20 15:00 23:00 07:00 Intake Total 1803 ml Output Total 300 ml 150 ml Balance -300 ml 1653 ml Justifications for Admission Other Justification NIRAJ JENSEN MD Nov 09, 2020 09:31
[2020-11-09] MEDS: SENNOSIDES/DOCUSATE 8.6/50MG TABLET. PO SCH ×2 (09:36→21:00)
[2020-11-09] MEDS: BISACODYL 5 MG TABLET.DR. PO SCH (09:37)
[2020-11-09] MEDS: ASPIRIN ENTERIC COATED 81 MG TABLET.DR. PO SCH (09:37)
[2020-11-09] MEDS: METOPROLOL TART IMMED RELEASE 50 MG TABLET. PO SCH ×2 (09:37→22:16)
[2020-11-09] MEDS: carBAMazepine 200 MG TABLET PO SCH ×2 (09:37→22:17)
[2020-11-09] MEDS: FOLIC ACID 1 MG TABLET. PO SCH (09:37)
[2020-11-09] MEDS: LIDOCAINE (700MG/PATCH) PATCH. TD SCH (09:38)
[2020-11-09 11:00] VITALS: BP 107/78
--- NOTE | 2020-11-09 11:50 | PDOC ---
[facility] [facility] PROGRESS NOTE Date of Service DOS: DATE: 11/09/20 TIME: 11:49 Chief Complaint Chief Complaint A/P: Multiple rib fractures Intractable pain History seizures Anxiety disorder T12 fracture H/o alcohol use disorder Hyponatremia - likely related to nutritional status Hypokalemia - poor PO intake Hypomagnesemia - replaced Plan: We will attempt to control his pain with p.o. Dilaudid, which she states he is tolerated in the past (reports intolerance to morphine, hydrocodone, oxycodone). If necessary, fentanyl patch may also be an option We will have patient work with PT/OT Incentive spirometer use We will resume home medications Will need to be judicious with pain medications on discharge given history of alcohol use and current regular Ativan use FEN - Cardiac diet PPX - Heparin FULL CODE Dispo - inpatient for above Patient names his mother (Suzy Barron) as surrogate decision-maker History of Present Illness History of Present Illness Mr Underwood 55-year-old male with past medical history seizure disorder, anxiety, hypertension, GERD, kidney stones, CKD, testicular cancer, who initially presented to the ED yesterday for evaluation mechanical fall. Chest x-ray yesterday showed multiple rib fractures (left 6th, 7th, 8th, 9th, and 10th rib), but patient was subsequently discharged home with p.o. pain medications. He returned to the ED early this morning with complaint of intractable pain. St ates whatever medication he is received in the ED has helped control his pain. He has a history of former heavy alcohol abuse, but states he has not used any alcohol in a number of weeks. For his history of anxiety he takes Ativan 1 mg 3 times daily. Admitted patient for further medical management with trauma surgery consultation. 11/06: Afebrile. Labs pending this am. Incidentally a T12 fracture was found on CT imaging consistent with focal pain. Still having significant pain requiring IV medications. No BM, low appetite. Noted coughing with drinking liquids, BRAZING MACHINE TENDER evaluated, encouraged appropriate seating while eating and drinking. K 2.8, Mg 1.4, replaced. 11/07: Still with significant left-sided rib pain and muscle spasms added tizanidine and increased Dilaudid dosing with some improvement. His magnesium is 2 potassium is 3.5 sodium improved to 133. He still very unsteady working w [employer] therapy and notes that he has had 3 falls with fractures in the last year including a nasal fracture. Advised acute rehab. 11/08: Pain is still difficult to control did require IV fentanyl. He was able to go 4 steps with therapy. Potassium 3.5 today. Vomited all over himself. Pain better controlled today. Still requiring intermittent IV fentanyl, feels early satiety when wearing binder. Sodium low again. Vitals/I&O Vitals/I&O: Vital Signs Date Time Temp Pulse Resp B/P (MAP) Pulse Ox O2 Delivery O2 Flow Rate FiO2 11/09/20 10:00 18 Room Air 11/09/20 09:37 83 107/71 11/09/20 07:00 98.6 95 98.6 11/08/20 09:32 2.0 I & O 11/08/20 11/08/20 11/09/20 15:00 23:00 07:00 Intake Total 1803 ml Output Total 300 ml 150 ml Balance -300 ml 1653 ml Physical Exam General: Alert, Oriented X3, Cooperative Heart: Regular rate, Normal S1, Normal S2 Lungs: Clear, Other Abdomen: Soft, Other (tender upper abdomen ) Extremities: No clubbing, No cyanosis Skin: No rashes, No breakdown Labs Labs: Laboratory Tests Test 11/09/20 07:50 Sodium Level 132 mmol/L (136-145) Potassium Level 3.7 mmol/L (3.5-5.1) Chloride Level 94 mmol/L (98-107) Carbon Dioxide Level 28 mmol/L (21-32) Anion Gap 10 (6-14) Blood Urea Nitrogen 10 mg/dL (8-26) Creatinine 1.0 mg/dL (0.7-1.3) Estimated GFR (Cockcroft-Gault) 78.2 Glucose Level 80 mg/dL (70-99) Calcium Level 9.0 mg/dL (8.5-10.1) Assessment and Plan Assessmemt and Plan Problems Medical Problems: (1) Multiple fractures of ribs, left side, initial encounter for closed fracture Status: Acute Comment Review of Relevant I have reviewed the following items alyson (where applicable) has been applied. Medications: Current Medications Medications (Trade) Dose Ordered Sig/Donaldo Route PRN Reason Start Time Stop Time Status Last Admin Dose Admin Potassium Chloride (Klor-Con) 40 meq 1X ONCE PO 11/08/20 15:00 11/08/20 15:01 DC 11/08/20 15:02 Justifications for Admission Other Justification CHRISTA CROFT MD Nov 09, 2020 11:50
[2020-11-09] MEDS: fentaNYL PF VIAL 100 MCG/2 ML VIAL IVP PRN ×2 (12:55→17:17)
[2020-11-09] MEDS ORDERED: POTASSIUM CL 20MEQ D5-0.9%NACL 1,000 ML IV ONE (13:00)
[2020-11-09 15:00] VITALS: BP 91/66
[2020-11-09] MEDS: METOCLOPRAMIDE 5 MG TABLET. PO SCH ×2 (17:11→21:00)
[2020-11-09 19:28] VITALS: BP 91/57
[2020-11-09] MEDS: PATCH REMOVAL. MC SCH (21:00)
[2020-11-09 22:37] VITALS: BP 122/79
[2020-11-10 04:00] VITALS: BP 117/81
[2020-11-10] MEDS: HYDROmorphone 2 MG TABLET PO PRN (06:07)
[2020-11-10] MEDS: HEPARIN for SUB-Q USE 5,000 UNIT/ML VIAL. SQ SCH ×3 (06:08→22:00)
[2020-11-10 07:00] VITALS: BP 121/81
[2020-11-10] MEDS: METOCLOPRAMIDE 5 MG TABLET. PO SCH ×5 (07:30→21:00)
[2020-11-10] MEDS: NYSTATIN TOPICAL POWDER 15GM BOTTLE. TP SCH ×2 (09:00→21:00)
[2020-11-10] MEDS: LIDOCAINE (700MG/PATCH) PATCH. TD SCH (09:50)
[2020-11-10] MEDS: ASPIRIN ENTERIC COATED 81 MG TABLET.DR. PO SCH (09:50)
[2020-11-10] MEDS: SENNOSIDES/DOCUSATE 8.6/50MG TABLET. PO SCH ×2 (09:50→19:55)
[2020-11-10] MEDS: carBAMazepine 200 MG TABLET PO SCH ×2 (09:51→19:58)
[2020-11-10] MEDS: METOPROLOL TART IMMED RELEASE 50 MG TABLET. PO SCH ×2 (09:51→19:58)
[2020-11-10] MEDS: FOLIC ACID 1 MG TABLET. PO SCH (09:51)
[2020-11-10] MEDS: BISACODYL 5 MG TABLET.DR. PO SCH (09:51)
[2020-11-10 11:00] VITALS: BP 93/55
--- NOTE | 2020-11-10 11:11 | PDOC ---
[facility] [facility] PROGRESS NOTE Date of Service DOS: DATE: 11/10/20 TIME: 11:04 Chief Complaint Chief Complaint A/P: Multiple rib fractures Intractable pain History seizures Anxiety disorder T12 fracture H/o alcohol use disorder Hyponatremia - likely related to nutritional status Hypokalemia - poor PO intake Hypomagnesemia - replaced Plan: We will attempt to control his pain with p.o. Dilaudid, which she states he is tolerated in the past (reports intolerance to morphine, hydrocodone, oxycodone). If necessary, fentanyl patch may also be an option We will have patient work with PT/OT Incentive spirometer use We will resume home medications Will need to be judicious with pain medications on discharge given history of alcohol use and current regular Ativan use FEN - Cardiac diet PPX - Heparin FULL CODE Dispo - inpatient for above Patient names his mother (Suzy Barron) as surrogate decision-maker History of Present Illness History of Present Illness Mr Underwood 55-year-old male with past medical history seizure disorder, anxiety, hypertension, GERD, kidney stones, CKD, testicular cancer, who initially presented to the ED yesterday for evaluation mechanical fall. Chest x-ray yesterday showed multiple rib fractures (left 6th, 7th, 8th, 9th, and 10th rib), but patient was subsequently discharged home with p.o. pain medications. He returned to the ED early this morning with complaint of intractable pain. St ates whatever medication he is received in the ED has helped control his pain. He has a history of former heavy alcohol abuse, but states he has not used any alcohol in a number of weeks. For his history of anxiety he takes Ativan 1 mg 3 times daily. Admitted patient for further medical management with trauma surgery consultation. 11/06: Afebrile. Labs pending this am. Incidentally a T12 fracture was found on CT imaging consistent with focal pain. Still having significant pain requiring IV medications. No BM, low appetite. Noted coughing with drinking liquids, MANAGER DISTRIBUTION evaluated, encouraged appropriate seating while eating and drinking. K 2.8, Mg 1.4, replaced. 11/07: Still with significant left-sided rib pain and muscle spasms added tizanidine and increased Dilaudid dosing with some improvement. His magnesium is 2 potassium is 3.5 sodium improved to 133. He still very unsteady working w [employer] therapy and notes that he has had 3 falls with fractures in the last year including a nasal fracture. Advised acute rehab. 11/08: Pain is still difficult to control did require IV fentanyl. He was able to go 4 steps with therapy. Potassium 3.5 today. Vomited all over himself. 11/09: Pain better controlled today. Still requiring intermittent IV fentanyl, feels early satiety when wearing binder. Sodium low again. Feeds overnight. Pain better controlled. Advised will cut back on IV fentanyl and decrease frequency dosing of oral Dilaudid and add IV Toradol. Vitals/I&O Vitals/I&O: Vital Signs Date Time Temp Pulse Resp B/P (MAP) Pulse Ox O2 Delivery O2 Flow Rate FiO2 11/10/20 09:51 95 121/81 11/10/20 07:00 99.0 18 98 Room Air 2.0 99.0 I & O 11/09/20 11/09/20 11/10/20 15:00 23:00 07:00 Intake Total 480.19 ml 200 ml Balance 480.19 ml 200 ml Physical Exam General: Alert, Oriented X3, Cooperative Heart: Regular rate, Normal S1, Normal S2 Lungs: Clear, Other Abdomen: Soft, Other (tender upper abdomen ) Extremities: No clubbing, No cyanosis Skin: No rashes, No breakdown Assessment and Plan Assessmemt and Plan Problems Medical Problems: (1) Multiple fractures of ribs, left side, initial encounter for closed fracture Status: Acute Comment Review of Relevant I have reviewed the following items alyson (where applicable) has been applied. Medications: Current Medications Medications (Trade) Dose Ordered Sig/Donaldo Route PRN Reason Start Time Stop Time Status Last Admin Dose Admin Potassium Chloride/Dextrose/ Sod Cl 1,000 ml @ 75 mls/hr [id number] ONCE IV 11/09/20 13:00 11/10/20 02:19 DC 11/09/20 12:39 Metoclopramide HCl (Reglan) 5 mg TIDACHC PO 11/09/20 16:30 11/09/20 17:11 Justifications for Admission Other Justification CHRISTA CROFT MD Nov 10, 2020 11:11
[2020-11-10] MEDS ORDERED: KETOROLAC 30 MG/ML VIAL. IVP PRN (11:15)
[2020-11-10] MEDS ORDERED: LORazepam 0.5 MG TABLET PO PRN (11:15)
[2020-11-10 19:35] VITALS: BP 114/78
[2020-11-10] MEDS: PATCH REMOVAL. MC SCH (21:00)
[2020-11-10 23:00] VITALS: BP 121/83
[2020-11-10] MEDS: tiZANidine 4 MG TABLET. PO PRN (23:23)
[2020-11-11 03:10] VITALS: BP 115/72
[2020-11-11] MEDS: HEPARIN for SUB-Q USE 5,000 UNIT/ML VIAL. SQ SCH (05:27)
[2020-11-11 05:37] LABS: CALCIUM 8.4 mg/dL (8.5-10.1); CREATININE 0.9 mg/dL (0.7-1.3); GFR 88.3; MAGNESIUM 1.4 mg/dL (1.8-2.4); POTASSIUM 3.3 mmol/L (3.5-5.1)
[2020-11-11 07:32] VITALS: BP 121/90
[2020-11-11] MEDS: carBAMazepine 200 MG TABLET PO SCH (09:00)
[2020-11-11] MEDS: NYSTATIN TOPICAL POWDER 15GM BOTTLE. TP SCH (09:00)
[2020-11-11] MEDS: SENNOSIDES/DOCUSATE 8.6/50MG TABLET. PO SCH (09:10)
[2020-11-11] MEDS: BISACODYL 5 MG TABLET.DR. PO SCH (09:10)
[2020-11-11] MEDS: tiZANidine 4 MG TABLET. PO PRN (09:10)
[2020-11-11 09:11] VITALS: BP 121/90
[2020-11-11] MEDS: METOCLOPRAMIDE 5 MG TABLET. PO SCH (09:11)
[2020-11-11] MEDS: METOPROLOL TART IMMED RELEASE 50 MG TABLET. PO SCH (09:11)
[2020-11-11] MEDS: FOLIC ACID 1 MG TABLET. PO SCH (09:11)
[2020-11-11] MEDS: ASPIRIN ENTERIC COATED 81 MG TABLET.DR. PO SCH (09:11)
[2020-11-11] MEDS: LIDOCAINE (700MG/PATCH) PATCH. TD SCH (09:11)
--- NOTE | 2020-11-11 10:00 | PDOC ---
PROGRESS NOTES Date of Service DATE: 11/11/20 TIME: 09:56 Subjective Subjective He admits increased left rib cage pain after physical therapy. Objective Objective Vital Signs Date Time Temp Pulse Resp B/P (MAP) Pulse Ox O2 Delivery O2 Flow Rate FiO2 11/11/20 09:11 80 121/90 11/11/20 07:32 98.0 20 100 Room Air 98.0 11/10/20 07:00 2.0 Intake and Output 11/11/20 07:00 Intake Total 1100 ml Balance 1100 ml Intake Oral 1100 ml # Voids 2 Physical Exam Physical Exam He apparently did walk with physical therapy up to 60' with roller walker this AM. He is alert,sitting in bed. Assessment Assessment Problems Medical Problems: (1) Multiple fractures of ribs, left side, initial encounter for closed fracture Status: Acute Plan Plan of Care To SNF of home with home health follow up when medically stable. Comment Review of Relevant I have reviewed the following items alyson (where applicable) has been applied. Labs Laboratory Tests Test 11/11/20 04:30 Sodium Level 138 mmol/L (136-145) Potassium Level 3.3 mmol/L (3.5-5.1) Chloride Level 101 mmol/L (98-107) Carbon Dioxide Level 26 mmol/L (21-32) Anion Gap 11 (6-14) Blood Urea Nitrogen 5 mg/dL (8-26) Creatinine 0.9 mg/dL (0.7-1.3) Estimated GFR (Cockcroft-Gault) 88.3 Glucose Level 95 mg/dL (70-99) Calcium Level 8.4 mg/dL (8.5-10.1) Magnesium Level 1.4 mg/dL (1.8-2.4) Laboratory Tests Test 11/11/20 04:30 Sodium Level 138 mmol/L (136-145) Potassium Level 3.3 mmol/L (3.5-5.1) Chloride Level 101 mmol/L (98-107) Carbon Dioxide Level 26 mmol/L (21-32) Anion Gap 11 (6-14) Blood Urea Nitrogen 5 mg/dL (8-26) Creatinine 0.9 mg/dL (0.7-1.3) Estimated GFR (Cockcroft-Gault) 88.3 Glucose Level 95 mg/dL (70-99) Calcium Level 8.4 mg/dL (8.5-10.1) Magnesium Level 1.4 mg/dL (1.8-2.4) Medications Current Medications Hydromorphone HCl (Dilaudid) 4 mg PRN Q4HRS PRN PO SEVERE PAIN 7-10 Last administered on 11/07/20at 04:33; Start 11/05/20 at 03:15; Stop 11/07/20 at 08:16; Status DC Ondansetron HCl (Zofran Odt) 4 mg 1X ONCE PO Last administered on 11/05/20at 03:40; Start 11/05/20 at 03:30; Stop 11/05/20 at 03:31; Status DC Hydromorphone HCl (Dilaudid) 1 mg 1X ONCE IVP Last administered on 11/05/20at 05:17; Start 11/05/20 at 05:30; Stop 11/05/20 at 05:31; Status DC Lidocaine (Lidoderm) 1 patch 1X ONCE TD Last administered on 11/05/20at 05:27; Start 11/05/20 at 05:30; Stop 11/05/20 at 05:31; Status DC Potassium Chloride (Klor-Con) 40 meq 1X ONCE PO Last administered on 11/05/20at 05:31; Start 11/05/20 at 06:00; Stop 11/05/20 at 06:01; Status DC Magnesium Sulfate 50 ml @ 25 mls/hr 1X ONCE IV Last administered on 11/05/20at 06:37; Start 11/05/20 at 06:00; Stop 11/05/20 at 07:59; Status DC Aspirin (Ecotrin) 81 mg DAILY PO Last administered on 11/11/20at 09:11; Start 11/05/20 at 09:00 Carbamazepine (TEGretol) 50 mg BID PO Last administered on 11/11/20 09:00; Start 11/05/20 at 09:00 Folic Acid (Folic Acid) 1 mg DAILY PO Last administered on 11/11/20 09:11; Start 11/05/20 at 09:00 Metoprolol Tartrate (Lopressor) 50 mg BID PO Last administered on 11/11/20at 09:11; Start 11/05/20 at 09:00 Lorazepam (Ativan) 1 mg TID PO Last administered on 11/06/20at 00:44; Start 11/05/20 at 09:00; Stop 11/06/20 at 00:53; Status DC Fentanyl Citrate (Fentanyl 2ml Vial) 50 mcg PRN Q2HR PRN IVP See comments Last administered on 11/09/20at 17:17; Start 11/05/20 at 06:45; Stop 11/10/20 at 11:11; Status DC Ondansetron HCl (Zofran) 4 mg PRN Q6HRS PRN IVP NAUSEA/VOMITING; Start 11/05/20 at 06:45 Al Hydroxide/Mg Hydroxide (Mylanta Plus Xs) 30 ml PRN Q3HRS PRN PO HEARTBURN / GAS; Start 11/05/20 at 06:45 Calcium Carbonate/ Glycine (Tums) 500 mg PRN Q3HRS PRN PO UPSET STOMACH Last administered on 11/08/20at 14:40; Start 11/05/20 at 06:45 Acetaminophen (Tylenol) 650 mg PRN Q6HRS PRN PO Headaches, Temp > 101.5F; Start 11/05/20 at 06:45 Magnesium Hydroxide (Milk Of Magnesia) 2,400 mg PRN Q12HR PRN PO CONSTIPATION; Start 11/05/20 at 06:45 Heparin Sodium (Porcine) (Heparin Sodium) 5,000 unit Q8HRS SQ Last administered on 11/11/20at 05:27; Start 11/05/20 at 07:30 Hydroxyzine HCl (Atarax) 25 mg QHS PRN PO INSOMNIA, 2nd CHOICE; Start 11/05/20 at 06:45 Diphenhydramine HCl (Benadryl) 25 mg PRN QHS PRN PO INSOMNIA, 1st CHOICE; Start 11/05/20 at 06:45 Iohexol (Omnipaque 300 Mg/ml) 75 ml 1X ONCE IV Last administered on 11/05/20at 09:45; Start 11/05/20 at 09:45; Stop 11/05/20 at 09:46; Status DC Info (CONTRAST GIVEN -- Rx MONITORING) 1 each PRN DAILY PRN MC SEE COMMENTS; Start 11/05/20 at 09:45; Stop 11/07/20 at 09:44; Status DC Lorazepam (Ativan) 1 mg TID PO Last administered on 11/06/20at 10:17; Start 11/06/20 at 09:00; Stop 11/06/20 at 10:30; Status DC Lorazepam (Ativan) 1 mg PRN TID PRN PO anxiety Last administered on 11/09/20at 22:19; Start 11/06/20 at 10:45; Stop 11/10/20 at 11:11; Status DC Potassium Chloride/Sodium Chloride 1,000 ml @ 100 mls/hr Q10H ONCE IV Last administered on 11/06/20at 14:22; Start 11/06/20 at 13:00; Stop 11/06/20 at 22:59; Status DC Potassium Chloride (Klor-Con) 40 meq 1X ONCE PO Last administered on 11/06/20at 14:23; Start 11/06/20 at 13:00; Stop 11/06/20 at 13:01; Status DC Magnesium Sulfate 100 ml @ 25 mls/hr 1X ONCE IV Last administered on 11/06/20at 14:27; Start 11/06/20 at 13:15; Stop 11/06/20 at 17:14; Status DC Magnesium Sulfate 100 ml @ 25 mls/hr 1X ONCE IV ; Start 11/06/20 at 13:15; Stop 11/06/20 at 17:14; Status UNV Lidocaine (Lidoderm) 1 patch DAILY TD Last administered on 11/11/20at 09:11; Start 11/06/20 at 15:00 Miscellaneous (Lidoderm Patch Removal) 1 ea QHS MC Last administered on 11/10/20at 21:00; Start 11/06/20 at 21:00 Bisacodyl (Dulcolax Supp) 10 mg PRN DAILY PRN AR CONSTIPATION; Start 11/06/20 at 14:15 Bisacodyl (Dulcolax Tab) 10 mg DAILY PO Last administered on 11/11/20at 09:10; Start 11/06/20 at 14:15 Senna/Docusate Sodium (Senna Plus) 1 tab BID PO Last administered on 11/11/20at 09:10; Start 11/06/20 at 21:00 Sodium Monofluorophosphate (Fleet Adult) 133 ml DAILY PRN AR CONSTIPATION; Start 11/06/20 at 14:15; Stop 11/09/20 at 11:50; Status DC Hydromorphone HCl (Dilaudid) 6 mg PRN Q4HRS PRN PO SEVERE PAIN 7-10 Last administered on 11/10/20at 06:07; Start 11/07/20 at 08:30; Stop 11/10/20 at 11:11; Status DC Tizanidine HCl (Zanaflex) 4 mg PRN Q8HRS PRN PO MUSCLE SPASMS Last administered on 11/11/20at 09:10; Start 11/07/20 at 08:15 Nystatin (Nystop) 1 michelle BID TP Last administered on 11/09/20at 22:17; Start 11/07/20 at 09:15 Potassium Bicarbonate (Potassium Effervescent Tablet) 40 meq 1X ONCE PO Last administered on 11/07/20at 15:19; Start 11/07/20 at 14:30; Stop 11/07/20 at 14:31; Status DC Potassium Bicarbonate (Potassium Effervescent Tablet) 40 meq 1X ONCE PO ; Start 11/08/20 at 13:30; Stop 11/08/20 at 14:49; Status DC Potassium Chloride (Klor-Con) 40 meq 1X ONCE PO Last administered on 11/08/20at 15:02; Start 11/08/20 at 15:00; Stop 11/08/20 at 15:01; Status DC Potassium Chloride/Dextrose/ Sod Cl 1,000 ml @ 75 mls/hr [id number] ONCE IV Last administered on 11/09/20at 12:39; Start 11/09/20 at 13:00; Stop 11/10/20 at 02:19; Status DC Metoclopramide HCl (Reglan) 5 mg TIDACHC PO Last administered on 11/11/20at 09:11; Start 11/09/20 at 16:30 Hydromorphone HCl (Dilaudid) 4 mg PRN Q6HRS PRN PO SEVERE PAIN 7-10 Last adm inistered on 11/11/20at 09:18; Start 11/10/20 at 11:15 Lorazepam (Ativan) 0.5 mg PRN TID PRN PO anxiety; Start 11/10/20 at 11:15 Ketorolac Tromethamine (Toradol 30mg Vial) 30 mg PRN Q6HRS PRN IVP INFLAMMATION; Start 11/10/20 at 11:15 Active Scripts Active Zofran (Ondansetron Hcl) 4 Mg Tablet 1 Tab PO Q6HRS PRN Triamcinolone Acetonide 0.5% Cream (Triamcinolone Acetonide) 15 Gm Cream..g. 1 Michelle TP BID Tramadol Hcl 50 Mg Tablet 50 Mg PO Q6HRS PRN 30 Days Epitol (Carbamazepine) 200 Mg Tablet 50 Mg PO BID Folic Acid 1 Mg Tablet 1 Mg PO DAILY 30 Days Reported Klor-Con 10 (Potassium Chloride) 10 Meq Tablet.er 10 Meq PO DAILY Erythromycin (Erythromycin Base) 250 Mg Capsule.dr 250 Mg PO DAILY Lorazepam 1 Mg Tablet 1 Tab PO TID Metoprolol Tartrate 50 Mg Tablet 50 Mg PO BID Aspir 81 (Aspirin) 81 Mg Tablet. 1 Tab PO DAILY Vitals/I & O Vital Sign - Last 24 Hours 11/10/20 11/10/20 11/10/20 11/10/20 11:00 19:35 19:58 20:00 Temp 98.2 98.2 98.2 98.2 Pulse 102 80 102 Resp 20 18 B/P (MAP) 93/55 (68) 114/78 (90) 117/76 Pulse Ox 97 98 O2 Delivery Room Air Room Air Room Air 11/10/20 11/11/20 11/11/20 11/11/20 23:00 03:10 07:32 09:11 Temp 97.6 98.0 98.0 97.6 98.0 98.0 Pulse 70 71 80 80 Resp 18 18 20 B/P (MAP) 121/83 (96) 115/72 (86) 121/90 (100) 121/90 Pulse Ox 97 99 100 O2 Delivery Room Air Room Air Room Air Intake and Output 11/10/20 11/10/20 11/11/20 15:00 23:00 07:00 Intake Total 1100 ml Balance 1100 ml Justifications for Admission Other Justification NIRAJ JENSEN MD Nov 11, 2020 09:59
[2020-11-11] MEDS ORDERED: HYDR4TAB45 PO (10:39)
[2020-11-11] MEDS ORDERED: LORA0.5T96 PO (10:39)
[2020-11-11] MEDS ORDERED: TIZA4TAB2 PO (10:39)
[2020-11-11] MEDS ORDERED: LIDO700A21 TD (10:39)
[2020-11-11] MEDS ORDERED: METO5TAB PO (10:39)
--- NOTE | 2020-11-11 14:28 | PDOC ---
[facility] [facility] PROGRESS NOTE Date of Service DOS: DATE: 11/11/20 TIME: 14:18 Chief Complaint Chief Complaint Multiple rib fractures Intractable pain History seizures Anxiety disorder T12 fracture H/o alcohol use disorder Hyponatremia Hypokalemia Hypomagnesemia History of Present Illness History of Present Illness Mr Underwood 55-year-old male with past medical history seizure disorder, anxiety, hypertension, GERD, kidney stones, CKD, testicular cancer, who initially presented to the ED yesterday for evaluation mechanical fall. Chest x-ray yesterday showed multiple rib fractures (left 6th, 7th, 8th, 9th, and 10th rib), but patient was subsequently discharged home with p.o. pain medications. He returned to the ED early this morning with complaint of intractable pain. States whatever medication he is received in the ED has helped control his pain. He has a history of former heavy alcohol abuse, but states he has not used any alcohol in a number of weeks. For his history of anxiety he takes Ativan 1 mg 3 times daily. Admitted patient for further medical management with trauma surgery consultation. 11/06: Afebrile. Labs pending this am. Incidentally a T12 fracture was found on CT imaging consistent with focal pain. Still having significant pain requiring IV medications. No BM, low appetite. Noted coughing with drinking liquids, POLYMER TESTER evaluated, encouraged appropriate seating while eating and drinking. K 2.8, Mg 1.4, replaced. 11/07: Still with significant left-sided rib pain and muscle spasms added tizanidine and increased Dilaudid dosing with some improvement. His magnesium is 2 potassium is 3.5 sodium improved to 133. He still very unsteady working with therapy and notes that he has had 3 falls with fractures in the last year including a nasal fracture. Advised acute rehab. 11/08: Pain is still difficult to control did require IV fentanyl. He was able to go 4 steps with therapy. Potassium 3.5 today. Vomited all over himself. 11/09: Pain better controlled today. Still requiring intermittent IV fentanyl, feels early satiety when wearing binder. Sodium low again. 11/10: Feeds overnight. Pain better controlled. Advised will cut back on IV fentanyl and decrease frequency dosing of oral Dilaudid and add IV Toradol. 11/11: Patient seen and examined. Discussed with RN. Chart reviewed. Patient in NAD. Patient did not complain of pain. Patient was taken off fentanyl on 11/10. Exhibited possible drug-seeking behavior. Discussed discharge with patient, patient was agreeable. Potassium decreased (3.3), patient endorses having potassium supplement at home he will take. Vitals/I&O Vitals/I&O: Vital Signs Date Time Temp Pulse Resp B/P (MAP) Pulse Ox O2 Delivery O2 Flow Rate FiO2 11/11/20 09:11 80 121/90 11/11/20 07:32 98.0 20 100 Room Air 98.0 11/10/20 07:00 2.0 I & O 11/10/20 11/10/20 11/11/20 15:00 23:00 07:00 Intake Total 1100 ml Balance 1100 ml Physical Exam General: Alert, Oriented X3, Cooperative Heart: Regular rate, Normal S1, Normal S2 Lungs: Clear, Other Abdomen: Soft, Other (tender upper abdomen ) Extremities: No clubbing, No cyanosis Skin: No rashes, No breakdown Labs Labs: Laboratory Tests Test 11/11/20 04:30 Sodium Level 138 mmol/L (136-145) Potassium Level 3.3 mmol/L (3.5-5.1) Chloride Level 101 mmol/L (98-107) Carbon Dioxide Level 26 mmol/L (21-32) Anion Gap 11 (6-14) Blood Urea Nitrogen 5 mg/dL (8-26) Creatinine 0.9 mg/dL (0.7-1.3) Estimated GFR (Cockcroft-Gault) 88.3 Glucose Level 95 mg/dL (70-99) Calcium Level 8.4 mg/dL (8.5-10.1) Magnesium Level 1.4 mg/dL (1.8-2.4) Review of Systems Review of Systems: Patient denies nausea and vomiting Assessment and Plan Assessmemt and Plan Problems Medical Problems: (1) Multiple fractures of ribs, left side, initial encounter for closed fracture Status: Acute A: Multiple rib fractures Intractable pain History seizures Anxiety disorder T12 fracture H/o alcohol use disorder Hyponatremia Hypokalemia Hypomagnesemia Plan: 1. Discharge patient with prescriptions for tizanidine, ativan, lidocaine patches, and dilaudid -Patient reports intolerance to morphine, hydrocodone, oxycodone 2. PT/OT 3. Home meds 4. FEN - Cardiac diet 5. PPX - Heparin 6. FULL CODE Patient names his mother (Suzy Barron) as surrogate decision-make Comment Review of Relevant I have reviewed the following items alyson (where applicable) has been applied. Justifications for Admission Other Justification JO ANN GUTIERREZ III, DO Nov 11, 2020 14:28
== END 2020-11-11 12:00 | disposition home or self-care (01) | DRG 184 ==
LOC: ER 01:47 → 4 NORTH 05:37
PROVIDERS: ADMIT Family Medicine; ATTEND Family Medicine
DX: S22.42XA Multiple fractures of ribs, left side, initial encounter for closed fracture (principal); E87.1 Hypo-osmolality and hyponatremia; E83.42 Hypomagnesemia; E87.6 Hypokalemia; F10.10 Alcohol abuse, uncomplicated; F41.9 Anxiety disorder, unspecified; G40.909 Epilepsy, unspecified, not intractable, without status epilepticus; G62.1 Alcoholic polyneuropathy; G89.29 Other chronic pain; I12.9 Hypertensive chronic kidney disease with stage 1 through stage 4 chronic kidney disease, or unspecified chronic kidney disease; K21.9 Gastro-esophageal reflux disease without esophagitis; K22.70 Barrett's esophagus without dysplasia; M17.0 Bilateral primary osteoarthritis of knee; N18.9 Chronic kidney disease, unspecified; N20.0 Calculus of kidney; Z82.49 Family history of ischemic heart disease and other diseases of the circulatory system; Z85.47 Personal history of malignant neoplasm of testis; Z87.01 Personal history of pneumonia (recurrent); Z87.442 Personal history of urinary calculi; Z87.891 Personal history of nicotine dependence; Z90.49 Acquired absence of other specified parts of digestive tract; Z90.79 Acquired absence of other genital organ(s); F32.9 Major depressive disorder, single episode, unspecified; M19.90 Unspecified osteoarthritis, unspecified site; Z88.8 Allergy status to other drugs, medicaments and biological substances; W01.0XXA Fall on same level from slipping, tripping and stumbling without subsequent striking against object, initial encounter; Y93.89 Activity, other specified; Y92.89 Other specified places as the place of occurrence of the external cause; Y99.8 Other external cause status
CPT/HCPCS: 36415; 71260; 74177; 80048; 83735; 85007; 85025; J1170; J1644; J3010; J3475; J3480; Q9967; U0003; U0005; 92526-GN; 92610-GN; 97110-GP; 97116-GP; 97530-GO; 97530-GP; 99285-25; G0378

== ENCOUNTER 2020-12-15 14:10 | Emergency (ER) | payer MEDICAID ==
[~2020-12-15] VITALS: Ht 190.5 cm; Wt 70.0 kg
[~2020-12-15 14:10] MED LIST changes: +CLIN-94 PO; -CLIN300C9 PO; +HYDR4TAB45 PO; +LIDO700A21 TD; +LORA0.5T96 PO; +METO5TAB PO; +TIZA4TAB2 PO
[2020-12-15] MEDS ORDERED: HYDROmorphone 2 MG/ML VIAL IVP ONE (15:30)
[2020-12-15] MEDS ORDERED: ONDANSETRON PF 4 MG/2 ML VIAL. IVP ONE (15:30)
[2020-12-15] MEDS ORDERED: IV NORMAL SALINE 1000ML BAG 1,000 ML IV ONE (15:30)
[2020-12-15 16:11] LABS: BASO % 1 % (0-3); EOS % 1 % (0-3); HEMATOCRIT 38.4 % (39.0-53.0); HEMOGLOBIN 13.3 g/dL (13.0-17.5); LYMPH # 1.7 x10^3/uL (1.0-4.8); LYMPH % 23 % (24-48); MEAN CORPUSCULAR HEMOGLOBIN 32 pg (25-35); MEAN CORPUSCULAR HGB CONC 35 g/dL (31-37); MEAN CORPUSCULAR VOLUME 93 fL (79-100); MONO # 0.6 x10^3/uL (0.0-1.1); MONO % 9 % (0-9); NEUT % 68 % (31-73); PLATELET COUNT 94 x10^3/uL (140-400); RED BLOOD COUNT 4.15 x10^6/uL (4.30-5.70); RED CELL DISTRIBUTION WIDTH 14.8 % (11.5-14.5); WHITE BLOOD COUNT 7.3 x10^3/uL (4.0-11.0)
[2020-12-15] MEDS ORDERED: IOHEXOL 300 MG/ML 100ML VIAL. IV ONE (16:15)
[2020-12-15 16:22] LABS: CALCIUM 9.1 mg/dL (8.5-10.1); CREATININE 1.4 mg/dL (0.7-1.3); POTASSIUM 3.2 mmol/L (3.5-5.1)
[2020-12-15 16:28] LABS: ALBUMIN 3.8 g/dL (3.4-5.0); ALBUMIN/GLOBULIN RATIO 0.9 (1.0-1.7)
[2020-12-15] MEDS ORDERED: CONTRAST GIVEN. MC PRN (16:30)
[2020-12-15 16:31] LABS: ACETAMIN < 2 mcg/ml (10-30); ETHANOL < 10 mg/dL (0-10); SALIC < 2.8 mg/dL (2.8-20.0)
--- NOTE | 2020-12-15 17:20 | RAD ---
CT OF THE ABDOMEN AND PELVIS WITH IV CONTRAST. History: Reason: abd pain hx of pancreatitis / Comparison:September 05, 2020. Procedure: Contiguous axial images of the abdomen and pelvis were performed after the administration of 75 cc o f Omni 300 IV contrast. Oral contrast: No. Findings: There is been prior cholecystectomy. The appendix is normal. Normal vessels around the proximal stomach are consistent with varices. Liver: Unremarkable Spleen: Unremarkable Pancreas: Calcification within the head of pancreas is consistent with old pancreatitis was seen prev iously Adrenal Glands: Unremarkable Kidneys: Unremarkable There is no mass or lymphadenopathy. There is no free air. There is no free fluid. The urinary bladder mostly collapsed and not well evaluated. Impression: 1. Gastric varices. 2. No acute findings. End Impression PQRS Compliance Statement: One or more of the following individualized dose reduction techniques were utilized for this examinat ion: 1. Automated exposure control 2. Adjustment of the mA and/or kV according to patient size 3. Use of iterative reconstruction technique Electronically signed by: Braulio Dumont III, MD (12/15/2020 5:17 PM) [facility]
--- NOTE | 2020-12-15 17:59 | PHYS DOC ---
Past Medical History Past Medical History: Alcoholism, Anxiety, Cancer, GERD, Hypertension, Kidney Stone, Pancreatitis, Pneumonia, Renal Disease, Renal Failure, Seizure, Other Additional Past Medical Histor: Testicular CA 1995,BARRETTS ESOPHAGU S,NEUROPATHY,C-DIFF Past Surgical History: Cholecystectomy, Other Additional Past Surgical Histo: L)shoulder fx repair,Lithotripsy,R TESTICLE REMOVED Smoking Status: Never Smoker Alcohol Use: Heavy Drug Use: None General Adult EDM: Chief Complaint: FLANK PAIN HPI: HPI: Patient is a 55 year old male with history of alcoholism, chronic pancreatitis, kidney disease, anxiety, who presents to the ED today complaining of 10 out of 10 left upper quadrant abdominal pain radiating to the left flank described as s harp and constant, symptoms began 3 days ago. Also complaining of nausea and vomiting for 3 days. He states his vomiting is "black". Denies any diarrhea. Denies any fever. Denies any hematuria. States the last time he drank alcohol was 1 week ago. Requesting Dilaudid for pain. Patient states he was seen in the ED 10 days ago after sustaining rib fractures and back fracture. Review of Systems: Review of Systems: Constitutional: Denies fever or chills. [] Eyes: Denies change in visual acuity. [] HENT: Denies nasal congestion or sore throat. [] Respiratory: Denies cough or shortness of breath. [] Cardiovascular: Denies chest pain or edema. [] GI: Denies abdominal pain, nausea, vomiting, bloody stools or diarrhea. [] : Denies dysuria. [] Musculoskeletal: Denies back pain or joint pain. [] Integument: Denies rash. [] Neurologic: Denies headache, focal weakness or sensory changes. [] Endocrine: Denies polyuria or polydipsia. [] Lymphatic: Denies swollen glands. [] Psychiatric: Denies depression or anxiety. [] Heart Score: C/O Chest Pain: N/A Risk Factors: Risk Factors: DM, Current or recent (<one month) smoker, HTN, HLP, family history of CAD, obesity. Risk Scores: Score 0 - 3: 2.5% MACE over next 6 weeks - Discharge Home Score 4 - 6: 20.3% MACE over next 6 weeks - Admit for Clinical Observation Score 7 - 10: 72.7% MACE over next 6 weeks - Early Invasive Strategies Current Medications: Current Medications Medications (Trade) Dose Ordered Sig/Donaldo Start Time Stop Time Status Last Admin Dose Admin Hydromorphone HCl (Dilaudid) 1 mg 1X ONCE 12/15/20 15:30 12/15/20 15:31 DC 12/15/20 16:09 1 MG Info (CONTRAST GIVEN -- Rx MONITORING) 1 each PRN DAILY PRN 12/15/20 16:30 12/17/20 16:29 Iohexol (Omnipaque 300 Mg/ml) 75 ml 1X ONCE 12/15/20 16:15 12/15/20 16:18 DC 12/15/20 16:15 60 ML Ondansetron HCl (Zofran) 4 mg 1X ONCE 12/15/20 15:30 12/15/20 15:31 DC 12/15/20 16:08 4 MG Sodium Chloride 1,000 ml @ 1,000 mls/hr 1X ONCE 12/15/20 15:30 12/15/20 16:29 DC 12/15/20 16:09 1,000 MLS/HR Allergies: Allergies: Allergies Coded Allergies Type Severity Reaction Last Updated Verified haloperidol Adverse Reaction Intermediate 11/07/20 Yes hydrocodone Adverse Reaction Intermediate n/v 06/18/20 Yes methylphenidate Adverse Reaction Intermediate dystonia 11/07/20 Yes morphine Adverse Reaction Intermediate 06/18/20 Yes oxycodone Adverse Reaction Intermediate n/v 06/18/20 Yes Physical Exam: PE: Constitutional: Well developed, well nourished, no acute distress, non-toxic appearance. [] HENT: Normocephalic, atraumatic, bilateral external ears normal, oropharynx moist, no oral exudates, nose normal. [] Eyes: PERRLA, EOMI, conjunctiva normal, no discharge. [] Neck: Normal range of motion, no tenderness, supple, no stridor. [] Cardiovascular:Heart rate regular rhythm, no murmur [] Lungs & Thorax: Bilateral breath sounds clear to auscultation [] Abdomen: Bowel sounds normal, soft, no tenderness, no masses, no pulsatile masses. [] Skin: Warm, dry, no erythema, no rash. [] Back: No tenderness, no CVA tenderness. [] Extremities: No tenderness, no cyanosis, no clubbing, ROM intact, no edema. [] Neurologic: Alert and oriented X 3, normal motor function, normal sensory function, no focal deficits noted. [] Psychologic: Affect normal, judgement normal, mood normal. [] Current Patient Data: Labs: Laboratory Tests Test 12/15/20 16:00 White Blood Count 7.3 x10^3/uL (4.0-11.0) Red Blood Count 4.15 x10^6/uL (4.30-5.70) L Hemoglobin 13.3 g/dL (13.0-17.5) Hematocrit 38.4 % (39.0-53.0) L Mean Corpuscular Volume 93 fL (79-100) Mean Corpuscular Hemoglobin 32 pg (25-35) Mean Corpuscular Hemoglobin Concent 35 g/dL (31-37) Red Cell Distribution Width 14.8 % (11.5-14.5) H Platelet Count 94 x10^3/uL (140-400) L Neutrophils (%) (Auto) 68 % (31-73) Lymphocytes (%) (Auto) 23 % (24-48) L Monocytes (%) (Auto) 9 % (0-9) Eosinophils (%) (Auto) 1 % (0-3) Basophils (%) (Auto) 1 % (0-3) Neutrophils # (Auto) 5.0 x10^3/uL (1.8-7.7) Lymphocytes # (Auto) 1.7 x10^3/uL (1.0-4.8) Monocytes # (Auto) 0.6 x10^3/uL (0.0-1.1) Eosinophils # (Auto) 0.0 x10^3/uL (0.0-0.7) Basophils # (Auto) 0.0 x10^3/uL (0.0-0.2) Sodium Level 136 mmol/L (136-145) Potassium Level 3.2 mmol/L (3.5-5.1) L Chloride Level 94 mmol/L (98-107) L Carbon Dioxide Level 30 mmol/L (21-32) Anion Gap 12 (6-14) Blood Urea Nitrogen 13 mg/dL (8-26) Creatinine 1.4 mg/dL (0.7-1.3) H Estimated GFR (Cockcroft-Gault) 53.0 BUN/Creatinine Ratio 9 (6-20) Glucose Level 87 mg/dL (70-99) Calcium Level 9.1 mg/dL (8.5-10.1) Total Bilirubin 2.0 mg/dL (0.2-1.0) H Aspartate Amino Transferase (AST) 58 U/L (15-37) H Alanine Aminotransferase (ALT) 26 U/L (16-63) Alkaline Phosphatase 135 U/L (46-116) H Total Protein 8.0 g/dL (6.4-8.2) Albumin 3.8 g/dL (3.4-5.0) Albumin/Globulin Ratio 0.9 (1.0-1.7) L Lipase 151 U/L (73-393) Salicylates Level < 2.8 mg/dL (2.8-20.0) L Salicylate Last Dose Date Salicylate Last Dose Time Acetaminophen Level < 2 mcg/ml (10-30) L Acetaminophen Last Dose Date Acetaminophen Last Dose Time Ethyl Alcohol Level < 10 mg/dL (0-10) Laboratory Tests 12/15/20 16:00 Laboratory Tests 12/15/20 16:00 Vital Signs: Vital Signs Date Time Temp Pulse Resp B/P (MAP) Pulse Ox O2 Delivery O2 Flow Rate FiO2 12/15/20 16:09 16 100 Room Air 12/15/20 15:20 98.0 100 140/101 (114) 98.0 EKG: EKG: [] Radiology/Procedures: Radiology/Procedures: []PROCEDURE: CT ABD PELV W/ IV CONTRST ONLY CT OF THE ABDOMEN AND PELVIS WITH IV CONTRAST. History: Reason: abd pain hx of pancreatitis / Comparison:September 05, 2020. Procedure: Contiguous axial images of the abdomen and pelvis were performed after the administration of 75 cc of Omni 300 IV contrast. Oral contrast: No. Findings: There is been prior cholecystectomy. The appendix is normal. Normal vessels around the proximal stomach are consistent with varices. Liver: Unremarkable Spleen: Unremarkable Pancreas: Calcification within the head of pancreas is consistent with old pancreatitis was seen previously Adrenal Glands: Unremarkable Kidneys: Unremarkable There is no mass or lymphadenopathy. There is no free air. There is no free fluid. The urinary bladder mostly collapsed and not well evaluated. Impression: 1. Gastric varices. 2. No acute findings. End Impression PQRS Compliance Statement: One or more of the following individualized dose reduction techniques were utilized for this examination: 1. Automated exposure control 2. Adjustment of the mA and/or kV according to patient size 3. Use of iterative reconstruction technique Electronically signed by: Carisa Salcedo III, MD (12/15/2020 5:17 PM) [facility] DICTATED and SIGNED BY: CARISA SALCEDO III, MD DATE: 12/15/20 [id number] 0 Course & Med Decision Making: Course & Med Decision Making Pertinent Labs and Imaging studies reviewed. (See chart for details) This is a 55-year-old male patient with a history of chronic pancreatitis, alcoholism among other illnesses who presents today complaining of left upper quadrant abdominal pain, nausea vomiting, symptoms for 3 days. CBC with a normal WBC, hemoglobin 13.3 with hematocrit of 38.4. CMP with potassium of 3.2, BUN is 13 creatinine 1.4. Patient was given oral potassium replacement as well as IV fluids. CT of the abdomen and pelvic was noted for gastric varices otherwise no acute findings. Patient refused to give us urine. He has been asking for Dilaudid or fentanyl for pain. He was given 1 dose of Dilaudid in the ED zofran and IV fluids and one dose of 40Meq of K. Discharge to home. Instructed to follow-up with GI, and PCP. Recommended he gets help for alcohol use. Dragon Disclaimer: Dragon Disclaimer: This electronic medical record was generated, in whole or in part, using a voice recognition dictation system. Departure Departure Impression: Primary Impression: Abdominal pain Qualified Codes: R10.12 - Left upper quadrant pain Additional Impression: Nausea and vomiting Qualified Codes: R11.2 - Nausea with vomiting, unspecified Disposition: HOME / SELF CARE / HOMELESS Condition: STABLE Referrals: KHURRAM DEXTER MD (PCP) follow up in the course of this week SOCORRO BLAKE MD follow up in the course of this week Patient Instructions: Abdominal Pain, Nausea and Vomiting, [id number] Additional Instructions: You were evaluated in the emergency room, your CT of the abdomen and pelvis is negative for any acute findings. You do not have acute pancreatitis today. We encourage you to consider getting help for alcohol use. Please follow-up with the provided GI doctor as well as your primary care doctor. Scripts Ondansetron (ONDANSETRON ODT) 4 Mg Tab.rapdis 1 TAB PO PRN Q6-8HRS, #16 TAB Prov: LENARD DIAZ APRN 12/15/20 LENARD DIAZ APRN Dec 15, 2020 17:59
[2020-12-15] MEDS ORDERED: ONDA4TAB12 PO (18:11)
[2020-12-15] MEDS ORDERED: POTASSIUM CHLORIDE 20 MEQ TABLET.ER. PO ONE (18:15)
[2020-12-15 18:38] VITALS: BP 157/90
== END 2020-12-15 19:24 | disposition home or self-care (01) ==
LOC: ER 14:10
DX: R10.12 Left upper quadrant pain (principal); R11.2 Nausea with vomiting, unspecified; F41.9 Anxiety disorder, unspecified; F10.20 Alcohol dependence, uncomplicated; K21.9 Gastro-esophageal reflux disease without esophagitis; I12.9 Hypertensive chronic kidney disease with stage 1 through stage 4 chronic kidney disease, or unspecified chronic kidney disease; N18.9 Chronic kidney disease, unspecified; Z87.442 Personal history of urinary calculi; Z90.49 Acquired absence of other specified parts of digestive tract; Y90.0 Blood alcohol level of less than 20 mg/100 ml
CPT/HCPCS: 36415; 74177; 80053; 80329; 83690; 85025; 96361; 96374; 96375; 99285; G0480; J1170; J2405; J7030; Q9967

== ENCOUNTER → 2021-05-23 | Outpatient (CLI) | payer MEDICAID ==
[~2021-05-23] MED LIST changes: +ACET500T68 PO; +ALEN70TA71 PO; +BIOT5000 PO; +CALC-178 PO; +CYCL10TA19 PO; -CYCL10TA2 PO; -DISU250T PO; +DISU250T12 PO; +DOCU50CA11 PO; +DUPI200S SQ; +LORA10TA3 PO; +MAGN500C PO; +MULT-445 PO; +OMEP20CA16 PO; +ONDA-85 PO; +ONDA4TAB12 PO; +POTA-112 PO; +POTA-121 PO; -POTA10TA6 PO; +PREG100C PO; +SODI650T PO; +TIZA-75 PO; -TIZA4TAB2 PO; +vit d2
--- NOTE | 2021-05-23 11:09 | CARD ---
MR#: [id number] Date of Study: 05/23/2021 Ordering Physician: IGLESIA STUBBS, Referring Physician: IGLESIA STUBBS, Tech: Heidi To [facility] APPROVED REPORT EXAM: Two-dimensional and M-mode echocardiogram with Doppler and color Doppler. Other Information Quality : Average INDICATION Hypertension/HCVD RISK FACTORS Hypertension 2D DIMENSIONS RVDd3.9 (2.9-3.5cm)Left Atrium(2D)3.8 (1.6-4.0cm) IVSd0.9 (0.7-1.1cm)Aortic Root(2D)3.5 (2.0-3.7cm) LVDd4.8 (3.9-5.9cm)LVOT Diameter2.1 (1.8-2.4cm) PWd0.8 (0.7-1.1cm)LVDs3.7 (2.5-4.0cm) FS (%) 23.2 %SV50.3 ml LVEF(%)46.4 (>50%) Aortic Valve AoV Peak Nixon.91.0cm/sAoV VTI20.9cm AO Peak GR.3.3mmHgLVOT Peak Nixon.88.0cm/s AO Mean GR.2mmHgAVA (VMAX)3.33cm2 Mitral Valve MV E Hlvksqux43.4cm/sMV DECEL [id number] MV A Dtldkiik58.5cm/sE/A Ratio1.3 Pulmonary Valve PV Peak Tixvopze89.9cm/s Tricuspid Valve TR P. Xcpdrsth198le/sTR Peak Gr.23mmHg LEFT VENTRICLE The left ventricle is normal size. There is normal left ventricular wall thickness. The left ventricu lar systolic function is normal. Estimated ejection fraction 60-65%. There is normal LV segmental wa ll motion. The left ventricular diastolic function and filling is normal for age. RIGHT VENTRICLE The right ventricle is normal size. There is normal right ventricular wall thickness. The right ventr icular systolic function is normal. ATRIA The left atrium size is normal. The right atrium size is normal. The interatrial septum is intact wit h no evidence for an atrial septal defect or patent foramen ovale as noted on 2-D or Doppler imaging. AORTIC VALVE The aortic valve is normal in structure and function. Doppler and Color Flow revealed no significant aortic regurgitation. There is no significant aortic valvular stenosis. MITRAL VALVE The mitral valve is normal in structure and function. There is no evidence of mitral valve prolapse. There is no mitral valve stenosis. Doppler and Color-flow revealed trace to mild mitral regurgitation . TRICUSPID VALVE The tricuspid valve is normal in structure and function. Doppler and Color Flow revealed mild tricusp id regurgitation. Estimated PAP 25-27 mmHg. There is no tricuspid valve stenosis. PULMONIC VALVE The pulmonary valve is normal in structure and function. Doppler and Color Flow revealed no pulmonic valvular regurgitation. GREAT VESSELS The aortic root is normal in size. The ascending aorta is normal in size. The IVC is normal in size a nd collapses >50% with inspiration. PERICARDIAL EFFUSION There is no evidence of significant pericardial effusion. Critical Notification Critical Value: No <Conclusion> The left ventricular systolic function is normal. Estimated ejection fraction 60-65%. There is normal LV segmental wall motion. Trace to mild mitral regurgitation. Mild tricuspid regurgitation. Estimated PAP 25-27 mmHg. There is no evidence of significant pericardial effusion. Signed by : Conner Daniels, Electronically Approved : 05/23/2021 11:08:31
== END ==
LOC: ECHO 09:21
PROVIDERS: ATTEND Internal Medicine Cardiovascular Disease
DX: I08.1 Rheumatic disorders of both mitral and tricuspid valves (principal); I10 Essential (primary) hypertension
CPT/HCPCS: 93306; C8929

== ENCOUNTER → 2021-06-04 | Outpatient (CLI) | payer MEDICAID ==
--- NOTE | 2021-06-04 15:06 | PDOC1 ---
INITIAL PAIN CONSULT DATE OF SERVICE: DOS: DATE: 06/04/21 TIME: 14:58 CHIEF COMPLAINT: Chief Complaint: Bilateral foot pain Low back and bilateral lower extremity pain HISTORY OF PRESENT ILLNESS: 56-year-old male presents history of pain in the low back as well as in the bilateral feet for about 6 years patient reports pain in the left shoulder as well after a fall in December 2020 with fractured ribs and a compression fracture T12. Patient reports she has had no diagnostic studies since the fall significant pain across the low back and into the bilateral lower extremities mostly posterior gluteus and posterior thighs with walking standing change patient slightly worse on the right than the left present bilaterally patient reports his worst pain however is his feet he has a history of alcoholism and developed peripheral neuropathy secondarily by history. Patient reports the pain in the back and the legs as well as the feet is sharp constant throbbing and stabbing in the back with numbness and tingling in the back and legs as well as severe burning pain in the bilateral lower extremities patient reports he is now on disability secondary to this pain wakes him from sleep least 2-3 times a night can affect his bowel bladder control but no loss of continence is an increased frequency with increased pain in the back patient reports it does affect ability to walk significantly he is using a cane in his right hand and significantly favors his right lower extremity as well patient has tried gabapentin he is currently on Lyrica and is taking tramadol 3 times daily all with only minimal decrease in the pain. Patient does not exercise well to physical therapy in the past is also doing counseling once a week which he feels is helpful therapies have not been helpful for any reduction in pain with Th eraCys feet or his low back or shoulder. Patient rates his disability rating 0- 10 10 me the worst is a 7 family home responsibilities recreation social activity and occupational activity 7 with self-care and life support activities. Patient has had no recent imaging CT scan done in October 2020 showing compression fracture T12 with 25% height loss. Patient reports he been hospita lized multiple times for pancreatitis as well as has some history of renal insufficiency in the past and left testicular cancer. PAST MEDICAL HISTORY: PMH: Hypertension, testicular cancer 1995, chronic pancreatitis, angina, dizziness and headaches, kidney insufficiency, alcoholic peripheral neuropathy, anxiety, osteopenia PREVIOUS SURGERIES: Past Surgical Hx: Kidney stone extract x6, left shoulder reconstruction 2005 after injury, 1996 right orchiectomy, laparoscopic cholecystectomy 2018 CURRENT MEDICATIONS: Current Meds: Active Scripts Medications Dose Route/Sig Max Daily Dose Days Date Category Calcium 1,000 + D3 Caplet (Calcium Carbonate/Vitamin D3) 1 Each Tablet 1 Tab PO DAILY 30 06/04/21 Reported Multivitamins (Multivitamin) 1 Each Tablet 1 Tab PO DAILY 06/04/21 Reported Sodium Bicarbonate 650 Mg Tablet 2 Tab PO DAILY 06/04/21 Reported Omeprazole 20 Mg Capsule.dr 1 Cap PO DAILY 06/04/21 Reported Biotin 5,000 Mcg Tab.rapdis 10,000 Mcg PO BID 06/04/21 Reported [vit d2] 125 Mcg WEEKLY 06/04/21 Reported Acetaminophen 500 Mg Tablet 1 Tab PO PRN Q6HRS PRN 15 06/04/21 Reported Colace Clear (Docusate Sodium) 50 Mg Capsule 100 Mg PO DAILY 06/04/21 Reported Magnesium (Magnesium Oxide) 500 Mg Capsule 1 Cap PO DAILY 30 06/04/21 Reported Alendronate Sodium 70 Mg Tablet 1 Tab PO WEEKLY 06/04/21 Reported Lunesta (Eszopiclone) 3 Mg Tablet 1 Tab PO PRN QHS PRN MDD 1 Tablet(s) 30 06/04/21 Reported Lyrica (Pregabalin) 100 Mg Capsule 1 Cap PO TID 06/04/21 Reported Dupixent (Dupilumab) 200 Mg/1.14 Ml Syringe 200 Mg SQ EVERY TWO WEEKS 06/04/21 Reported Disulfiram 250 Mg Tablet 250 Mg PO TID 06/04/21 Reported Lukasz Jacinto 36,000 Units Capsule (Lipase/Protease/Amylase) 1 Each Capsule.dr 1 Each PO AFTER MEALS 06/04/21 Reported Klor-Con M20 (Potassium Chloride) 20 Meq Tab.er.prt 1 Tab PO DAILY 30 06/04/21 Reported Ondansetron Hcl 8 Mg Tablet 8 Mg PO BID 06/04/21 Reported Loratadine 10 Mg Tablet 1 Tab PO DAILY 06/04/21 Reported Triamcinolone Acetonide 0.5% Cream (Triamcinolone Acetonide) 15 Gm Cream..g. 1 Michelle TP BID 09/02/18 Rx Lorazepam 1 Mg Tablet 1 Tab PO TID 04/28/18 Reported Tramadol Hcl 50 Mg Tablet 50 Mg PO Q6HRS PRN 30 01/03/18 Rx Epitol (Carbamazepine) 200 Mg Tablet 50 Mg PO BID 01/03/18 Rx Metoprolol Tartrate 50 Mg Tablet 50 Mg PO BID 01/02/18 Reported Aspir 81 (Aspirin) 81 Mg Tablet. 1 Tab PO DAILY 06/21/15 Reported ALLERGIES; Allergies: Coded Allergies: haloperidol (Verified Adverse Reaction, Intermediate, 11/07/20) drooling, excessive salivation hydrocodone (Verified Adverse Reaction, Intermediate, n/v, 06/18/20) methylphenidate (Verified Adverse Reaction, Intermediate, dystonia, 11/07/20) morphine (Verified Adverse Reaction, Intermediate, 06/18/20) PATIENT STATES, "I DONT LIKE THE FEELING.I KNOW IM ALLERGIC, [facility] HAS IT ON RECORD AND THEY HAD TO GIVE ME ATIVAN TO RELAX ME." oxycodone (Verified Adverse Reaction, Intermediate, n/v, 06/18/20) FAMILY HISTORY: Family Hx: Multiple types of cancers. SOCIAL HISTORY: Social Hx: Patient no longer drinks alcohol does not smoke not use any illegal illicit or recreational drugs is single lives locally [facility], is currently on disability secondary to his chronic pain REVIEW OF SYSTEMS: ROS: Positive for those items mentioned in history of present illness, all systems are reviewed, otherwise negative ,and are complete full and well-documented on patient's chart. PHYSICAL EXAM: VS: Blood pressure is 131/95 pulse 70 respirations 16 temperature is 97.9 F height is 6 feet 2 inches weight is 171 pounds. PE: PHYSICAL EXAMINATION: GENERAL: The patient is awake, alert, oriented, appropriate, very pleasant in demeanor HEENT: Shows normocephalic, atraumatic. Extraocular movements are intact and symmetrical. Oral cavity: Mucous membranes moist and pink. Dentition is intact. NECK: Shows anterior throat supple without palpable lymphadenopathy noted. Swallow reflex symmetrical. CHEST: Shows normal on inspection. Breath sounds are clear bilaterally, distant and coarse but no rales rhonchi or wheezes auscultated. HEART: Shows S1, S2 clear. No murmurs auscultated. ABDOMEN: Soft, nontender, nondistended. No palpable organomegaly is noted. No rebound or guarding demonstrated. BACK: Shows spine grossly in the midline. Normal-appearing cervical lordotic curvature. There is slightly increased thoracic kyphosis, some minor flattening of the lumbar lordotic curvature. Patient initially wearing a soft lumbar support brace. Lumbar paraspinous muscles show symmetrical on inspection, on palpation shows some moderate tenderness diffusely throughout the upper, middle and lower distribution of the paraspinous muscles bilaterally and also into the lower thoracic paraspinous musculature, firm and tender, but without specific trigger points, without radiation of pain. The patient has good rotational motion of the lumbar spine, both laterally as well as extension and flexion without significant difficulty. No tenderness over the spinous processes, sacrum or sacroiliac regions. EXTREMITIES: Lower extremities show deep tendon reflexes 1+ in the patellar and tendo calcaneus tendons. Motor exam is 4 on a scale of 5 with right dorsiflexion, extension, quadriceps and hamstring flexion and 4/5 on the left. Peripheral pulses are 1+ posterior tibial. No peripheral edema is noted bilaterally. Lower extremities are warm and dry to touch, equal in color and appearance. Straight leg raise noted to be negative bilaterally. Gaenslen's and Saud's maneuvers are negative bilaterally as well. The patient is able to stand, needs help getting up from the seated position using arms of the chair and also a cane to support his weight, walks with a antalgic gait favoring his right lower extremity significantly using a cane in his right hand to ambulate. SKIN: Shows warm and dry, good turgor. No edema. No sores, rashes or bruising throughout. IMPRESSION: Impression: 56-year-old male with approximate 6-year history of pain low back bilateral lower extremities Bilateral peripheral neuropathic pain lower extremities Chronic pancreatitis Hypertension History of testicular cancer Depression and anxiety Plan: Options were discussed with the patient including conservative medical management physical therapies and techniques. First we will obtain diagnostic studies of the lumbar spine occluding MRI scan. Also plain films of the bilateral shoulders compare left to right patient has significant pain component of the reconstructed left shoulder. Also, concerning patient's medication we will increase patient's Lyrica to 100 mg 3 times daily patient was given instructions well side effects aware with the change in medication. Patient will follow up in approximately 2 weeks, after MRI scan is obtained. RITIKA SMITH MD Jun 04, 2021 15:06
== END | disposition home or self-care (01) ==
LOC: PNCL 12:53
PROVIDERS: ATTEND Anesthesiology
DX: M54.50 Low back pain, unspecified (principal); M79.672 Pain in left foot; M79.671 Pain in right foot; F41.9 Anxiety disorder, unspecified; K21.9 Gastro-esophageal reflux disease without esophagitis; I12.9 Hypertensive chronic kidney disease with stage 1 through stage 4 chronic kidney disease, or unspecified chronic kidney disease; N18.2 Chronic kidney disease, stage 2 (mild); F32.9 Major depressive disorder, single episode, unspecified; Z90.49 Acquired absence of other specified parts of digestive tract; Z98.890 Other specified postprocedural states; Z79.899 Other long term (current) drug therapy; Z79.82 Long term (current) use of aspirin; Z72.89 Other problems related to lifestyle; Z88.6 Allergy status to analgesic agent; Z88.8 Allergy status to other drugs, medicaments and biological substances
CPT/HCPCS: 99214; G0463

== ENCOUNTER → 2021-06-09 | Outpatient (CLI) | payer MEDICAID ==
--- NOTE | 2021-06-09 12:45 | KCIC ---
EXAMINATION: Magnetic resonance imaging (MRI) of the lumbar spine without contrast 06/09/2021 9:15 AM HISTORY: Lumbar radiculopathy. Neuropathy and bilateral lower extremity TECHNIQUE: Multiplanar multi-weighted MRI of the lumbar spine was performed without intravenous contr ast using the standard lumbar spine protocol. Contrast information: None administered. COMPARISON: None available. FINDINGS: The alignment of the lumbar spine is normal. Vertebral bodies demonstrate normal signal intensity on all sequences. There is a superior endplate compression fracture of T12 with 50% height loss and a very minimal residual edema. Findings appears subacute to chronic. The conus medullaris terminates at the level of L1. The distal spinal cord signal intensity is normal. Mild disc desiccation is identi fied all levels of the lumbar spine, sparing L5-S1. Disc heights are maintained. Minimal edema identi fied along the anterior superior L4 and S1 vertebral body, possibly associated with early enthesopath y. Limited views of the abdomen and pelvis show no soft tissue abnormality. A simple appearing bilate ral superior pole renal cysts measure up to 8 mm. The aorta is normal. L1-L2: The disc is normal in configuration. There is no facet arthropathy. There is no neuroforaminal stenosis. There is no spinal canal stenosis. L2-L3: The disc is normal in configuration. There is no facet arthropathy. There is no neuroforaminal stenosis. There is no spinal canal stenosis. L3-L4: The disc is normal in configuration. There is no facet arthropathy. There is no neuroforaminal stenosis. There is no spinal canal stenosis. L4-L5: Mild disc bulge. There is mild facet arthropathy. There is mild neuroforaminal stenosis. There is no spinal canal stenosis. L5-S1: The disc is normal in configuration. There is no facet arthropathy. There is no neuroforaminal stenosis. There is no spinal canal stenosis. IMPRESSION: No significant disc herniation, neuroforaminal or spinal canal stenosis. There is a subacute to chronic appearing superior endplate compression deformity at T12 with 50% heig ht loss and no significant retropulsion. Minimal edema along the anterior superior L4 and S1 vertebral bodies favors early enthesopathy change s. Electronically signed by: Jo Velasquez MD (06/09/2021 12:42 PM) [id number]
--- NOTE | 2021-06-09 16:12 | KCIC ---
EXAMINATION: XR SHOULDER_RIGHT 2+ VIEWS CLINICAL HISTORY: FALLS. RIGHT SHOULDER PAIN AND LROM. TECHNIQUE: XR SHOULDER_RIGHT 2+ VIEWS Number of Images/Views: 4 COMPARISON: 01/28/2019 FINDINGS: Irregularity of the distal clavicle with adjacent curvilinear corticated ossicle, likely related to r emote trauma. No acute fracture. Acromioclavicular joint otherwise maintained. Glenohumeral joint ali gnment maintained. IMPRESSION: No acute osseous abnormality right shoulder. Degenerative and probable remote posttraumatic changes as described. Electronically signed by: Zheng Beuno DO (06/09/2021 4:09 PM) [id number]
--- NOTE | 2021-06-09 16:14 | KCIC ---
EXAMINATION: XR SHOULDER_LEFT 2+ VIEWS CLINICAL HISTORY: LEFT SHOULDER PAIN. FALLS, PRIOR HX OF SURGERY 2004. TECHNIQUE: XR SHOULDER_LEFT 2+ VIEWS Number of Images/Views: 3 COMPARISON: None FINDINGS: Intact lateral plate and screw fixation hardware along the proximal humerus with no evidence of hardw are complication. Glenohumeral joint alignment maintained. Mild acromioclavicular joint space narrowi ng. No acute fracture. IMPRESSION: No acute osseous abnormality left shoulder. ORIF left proximal humerus with no evidence of hardware complication. Electronically signed by: Zheng Bueno DO (06/09/2021 4:12 PM) [id number]
== END | disposition home or self-care (01) ==
LOC: KCIC MRI 08:42
PROVIDERS: ATTEND Anesthesiology
DX: M54.16 Radiculopathy, lumbar region (principal); M25.512 Pain in left shoulder; M25.511 Pain in right shoulder; I12.9 Hypertensive chronic kidney disease with stage 1 through stage 4 chronic kidney disease, or unspecified chronic kidney disease; N18.2 Chronic kidney disease, stage 2 (mild); K21.9 Gastro-esophageal reflux disease without esophagitis; F41.9 Anxiety disorder, unspecified; F32.9 Major depressive disorder, single episode, unspecified; Z79.82 Long term (current) use of aspirin; Z79.899 Other long term (current) drug therapy; Z98.890 Other specified postprocedural states; Z72.89 Other problems related to lifestyle; Z88.6 Allergy status to analgesic agent; Z88.8 Allergy status to other drugs, medicaments and biological substances
CPT/HCPCS: 72148; 73030

== ENCOUNTER → 2021-06-17 | Outpatient (CLI) | payer MEDICAID ==
[~2021-06-17] MED LIST changes: +PREG200C PO
--- NOTE | 2021-06-17 12:20 | PDOC ---
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 Patient Ottoniel complaining significant pain in the bilateral feet secondary to alcoholic peripheral neuropathy reports no significant change with the increase in medication patient rates pain as a 9 on scale 10 is worse over the past week 8 on average 6 to [place] is an 8 today patient reports the feet are worst aching sharp shooting stabbing burning and tingling in the feet is constant severe patient reports "it feels like I have been hit with a board in both of my feet" patient reports no loss of motor function but significant instability with the feet pain with walking and he has been stumbling frequently. Patient is using a cane has it with him today and uses that in his right hand with ambulation which is slightly shuffling. We reviewed patient's films lumbar spine as well as bilateral shoulders showing some nonspecific arthritic changes no osseous abnormalities an MRI scan of the lumbar spine showing some mild disc bulging at L45 without stenosis at any levels. Patient reports no loss of motor function but again significant instability with the feet in the pain as well as the left shoulder with repetitive motions or lifting items with his left arm. Physical Exam: VS: Blood pressure is 143/106 pulse 63 respirations are 18 temperature 98.1 F weight is 177 pounds. PE: PHYSICAL EXAMINATION: GENERAL: The patient is awake, alert, oriented, appropriate, very pleasant in demeanor HEENT: Shows normocephalic, atraumatic. Extraocular movements are intact and symmetrical. Oral cavity: Mucous membranes moist and pink. NECK: Shows anterior throat supple without palpable lymphadenopathy noted. Swallow reflex symmetrical. CHEST: Shows normal on inspection. Breath sounds are clear bilaterally. HEART: Shows S1, S2 clear. No murmurs auscultated. ABDOMEN: Soft, nontender, nondistended. No palpable organomegaly is noted. BACK: Shows spine grossly in the midline. Normal-appearing cervical lordotic curvature. There is mildly increased thoracic kyphosis, some flattening of the lumbar lordotic curvature. Lumbar paraspinous muscles show symmetrical on inspection, on palpation shows some moderate tenderness diffusely throughout the upper, middle and lower distribution of the paraspinous muscles, but without specific trigger points, without radiation of pain. The patient has good rotational motion of the lumbar spine, both laterally as well as extension and flexion without significant difficulty. EXTREMITIES: Lower extremities show deep tendon reflexes 1+ to in the patellar and tendo calcaneus tendons. Motor exam is 4 on a scale of 5 with right cherry siflexion, extension, quadriceps and hamstring flexion and 4/5 on the left. Peripheral pulses are 1+ posterior tibial. No peripheral edema is noted bilaterally. Lower extremities are warm and dry. 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 The patient's left sh oulder shows significant tenderness over the superior aspect of the acromioclavicular joint with more tenderness with abduction at 45 to 90 degrees right side shows good range of motion with only minimal pain reported. SKIN: Shows warm and dry, good turgor. No edema. No sores, rashes or bruising throughout. Procedure: Procedure: Options were discussed with patient. Patient's old chart was reviewed his current medication regimen updated current review of systems updated today as well. We will increase patient's Lyrica to 200 mg 3 times daily for a total of 60 mg daily. Patient is given instructions well side effects aware with the medication which will be electronically prescribed for him today. Patient to follow-up in approximately 2 weeks as scheduled. Medication Injected: Med Injected: None Condition at Discharge: Condition at Discharge: Condition at discharge is stable. RITIKA SMITH MD Jun 17, 2021 12:20
== END | disposition home or self-care (01) ==
LOC: PNCL 10:54
PROVIDERS: ATTEND Anesthesiology
DX: M25.512 Pain in left shoulder (principal); M51.16 Intervertebral disc disorders with radiculopathy, lumbar region; M79.672 Pain in left foot; M79.671 Pain in right foot; K21.9 Gastro-esophageal reflux disease without esophagitis; F41.9 Anxiety disorder, unspecified; F32.9 Major depressive disorder, single episode, unspecified; I12.9 Hypertensive chronic kidney disease with stage 1 through stage 4 chronic kidney disease, or unspecified chronic kidney disease; N18.2 Chronic kidney disease, stage 2 (mild); Z79.82 Long term (current) use of aspirin; Z79.899 Other long term (current) drug therapy; Z90.49 Acquired absence of other specified parts of digestive tract; Z98.890 Other specified postprocedural states; Z72.89 Other problems related to lifestyle; Z88.6 Allergy status to analgesic agent; Z88.8 Allergy status to other drugs, medicaments and biological substances
CPT/HCPCS: 99212; G0463

== ENCOUNTER → 2021-06-24 | Outpatient (CLI) | payer MEDICAID ==
[~2021-06-24] MED LIST changes: +IOHEXOL 240 MG/ML 50ML VIAL. PO ONE; +IOHEXOL 300 MG/ML 100ML VIAL. IV ONE
--- NOTE | 2021-06-24 11:50 | KCIC ---
Exam: CT abdomen/pelvis with intravenous contrast Indication: Left upper quadrant pain, chronic pancreatitis. Comparison: CT abdomen pelvis 12/15/2020 Technique: Helical CT imaging performed of the abdomen and pelvis after the intravenous administratio n of 100 mL Omnipaque 300 contrast. Sagittal and coronal reformats were obtained. One or more of the following individualized dose reduction techniques were utilized for this examinat ion: 1. Automated exposure control 2. Adjustment of the mA and/or kV according to patient size 3. Use of iterative reconstruction technique. Findings: Lower chest: Lung bases are clear. The heart is normal in size. Liver: The liver has a nodular surface suggesting cirrhosis. There is no focal liver lesion. There ar e portosystemic collateral vessels in the left upper quadrant. Gallbladder/Biliary Tree: Gallbladder is surgically absent. Common bile duct is mildly dilated but un changed. No intrahepatic biliary duct dilatation. Pancreas: There are calcifications in the pancreatic head. The pancreas is otherwise normal in appear ance. No main duct dilatation. Spleen: No splenomegaly. Adrenal Glands: Normal. Kidneys/Ureters/Bladder: Kidneys are normal in size and enhance symmetrically. No hydronephrosis. The re are few subcentimeter hypodensities in the kidneys are too small to characterize. Ureters and blad guerrero are normal. Reproductive Organs: Prostate gland is normal. Stomach, small bowel, and colon: The stomach, small bowel, appendix, and colon are normal. There is a large volume of stool. Vasculature: No aortic aneurysm. Lymph Nodes: No lymphadenopathy. Peritoneum and retroperitoneum: No ascites or free air. Bones: No acute osseous abnormality. There is an unchanged old compression fracture of T12 with 40 pe rcent height loss anteriorly. Miscellaneous: None. IMPRESSION: 1. Stable appearance of chronic pancreatitis. 2. Nodular surface of the liver suggesting cirrhosis. There are portosystemic collateral vessels in the left upper quadrant. Electronically signed by: Carli Shankar MD (06/24/2021 11:47 AM) [id number]
== END ==
LOC: KCIC CT 07:54
PROVIDERS: ATTEND Internal Medicine Gastroenterology
DX: K76.89 Other specified diseases of liver (principal); K86.89 Other specified diseases of pancreas
CPT/HCPCS: 74177; Q9966; Q9967